=== PATIENT | male | born 1955 | race Caucasian/White ===

== ENCOUNTER 2017-12-12 13:36 | Emergency (ER) | END 2017-12-12 23:13 | disposition home or self-care (01) ==

== ENCOUNTER 2018-05-28 18:45 | Inpatient (IN) | payer OTHER ==
[~2018-05-28] VITALS: Ht 172.7 cm; Wt 55.8 kg
--- NOTE | 2018-05-28 19:10 | ERD ---
ER Documentation Chief Complaint Chief Complaint c/o 2 syncopal episodes, hx stg 4 lung ca. lac to left eyebrow HPI This is a 62-year-old man with metastatic lung cancer with a couple of syncopal episodes today. He states his lung cancer started in the right base and has metastasized diffusely. With this syncopal episode today he injured the skin of the left brow. The episodes were witnessed he had no seizure activity, no feve rs or chills, no vomiting or diarrhea. Patient denies chest pain or shortness of breath. He called his oncologist Dr Kunz earlier today and she recommended admission and will consult him during this stay. ROS All systems reviewed and are negative except as per history of present illness. Medications Home Meds No Active Prescriptions or Reported Meds Allergies Allergies: Coded Allergies: No Known Allergy (Unverified , 01/09/18) PMhx/Soc Metastatic lung carcinoma History of Surgery: Yes (CHOLECYSTECTOMY,HERNIA REPAIR) Anesthesia Reaction: No Hx Neurological Disorder: No Hx Respiratory Disorders: No Hx Cardiac Disorders: No Hx Psychiatric Problems: No Hx Miscellaneous Medical Probl: Yes (ANEMIA) Hx Alcohol Use: Yes Hx Substance Use: No Hx Tobacco Use: Yes FmHx Family History: No diabetes Physical Exam Vitals Vital Signs Date Temp Pulse Resp B/P (MAP) Pulse Ox O2 O2 Flow FiO2 Time Delivery Rate 05/28/18 98 16 97/67 (77) 99 Room Air 20:53 05/28/18 98.0 63 20 78/48 (58) 98 18:48 Physical Exam Const: No acute distress, afebrile, appears dehydrated HEENT: Dry mucous membranes, pale conjunctiva, no cervical spine deformity or tenderness, superficial linear abrasion to the left upper lateral eyelid without active bleeding Resp: Clear to auscultation bilaterally Cardio: Regular rate and rhythm, no murmurs Abd: Soft, non tender, non distended. Normal bowel sounds Skin: No petechiae or rashes. Superficial linear abrasion to the left upper lateral eyelid without active bleeding, no other hematomas or ecchymoses noted Back: No midline or flank tenderness Ext: No cyanosis, or edema Neur: Awake and alert x3, no focal deficits or facial asymmetry, pupils equal round reactive to light Psych: Normal Mood and Affect Result Diagram: 05/28/18193005/28/181930 Results 24 hrs Laboratory Tests Test 05/28/18 19:31 White Blood Count 19.9 10^3/ul Red Blood Count 3.99 10^6/ul Hemoglobin 9.4 g/dl Hematocrit 30.6 % Mean Corpuscular Volume 76.7 fl Mean Corpuscular Hemoglobin 23.6 pg Mean Corpuscular Hemoglobin Concent 30.7 g/dl Red Cell Distribution Width 16.4 % Platelet Count 372 10^3/UL Mean Platelet Volume 9.2 fl Immature Granulocytes % 1.100 % Neutrophils % 84.2 % Lymphocytes % 7.4 % Monocytes % 6.5 % Eosinophils % 0.6 % Basophils % 0.2 % Nucleated Red Blood Cells % 0.0 /100WBC Immature Granulocytes # 0.210 10^3/ul Neutrophils # 16.8 10^3/ul Lymphocytes # 1.5 10^3/ul Monocytes # 1.3 10^3/ul Eosinophils # 0.1 10^3/ul Basophils # 0.0 10^3/ul Nucleated Red Blood Cells # 0.0 10^3/ul Prothrombin Time 15.6 Sec Prothrombin Time Ratio 1.2 INR International Normalized Ratio 1.23 Activated Partial Thromboplast Time 26.3 Sec Sodium Level 131 mmol/L Potassium Level 4.2 mmol/L Chloride Level 95 mmol/L Carbon Dioxide Level 26 mmol/L Anion Gap 10 Blood Urea Nitrogen 37 mg/dl Creatinine 1.33 mg/dl Est Glomerular Filtrat Rate mL/min 55 mL/min Glucose Level 102 mg/dl Calcium Level 12.4 mg/dl Total Bilirubin 0.1 mg/dl Direct Bilirubin 0.00 mg/dl Indirect Bilirubin 0.1 mg/dl Aspartate Amino Transf (AST/SGOT) 77 IU/L Alanine Aminotransferase (ALT/SGPT) 71 IU/L Alkaline Phosphatase 120 IU/L Troponin I < 0.012 ng/ml Total Protein 7.3 g/dl Albumin 3.4 g/dl Globulin 3.90 g/dl Albumin/Globulin Ratio 0.87 Lipase 21 U/L Current Medications Medications Dose Sig/Ute Start Time Status Last (Trade) Ordered Route PRN Stop Time Admin Dose Reason Admin Sodium 1,000 ml @ Q30M STAT 05/28/18 DC 05/28/18 Chloride 2,000 mls/hr IV 19:24 05/28/18 19:36 19:53 Ondansetron 4 mg ONCE STAT 05/28/18 DC 05/28/18 HCl (Zofran IV 19:24 05/28/18 19:41 Inj) 19:26 Procedures/MDM IV line was established patient was placed on teletypesetter monitor rhythm strip revealed a sinus rhythm at about 90 bpm with upright P and T waves. Patient was afebrile EKG performed, read by me revealed a normal sinus rhythm at 97 bpm, normal axis, narrow QRS complex, no concerning ST elevations or depressions noted I administered 2 L normal saline IV for dehydration Zofran 4 mg IV for complaints of dizziness and some nausea. Upper eyelid was irrigated copiously with normal saline, dried, and Steri-Strips were applied. The tissue was well approximated, final length of the linear abrasion was 2 cm. 1 view chest x-ray performed, read by me reveals a right lung base mass, no acute infiltrates, no pneumothorax CBC revealed a leukocytosis at 20, and anemia with a hemoglobin of 9.4, electrolytes revealed dehydration with a BUN/creatinine of 37/1.3, her function tests unremarkable, troponin negative CT scan of the brain was performed that was negative for acute bleed mass or shift. Patient will be admitted to telemetry setting for continued medical management, hydration, and heme/onc consultation Departure Diagnosis: Primary Impression: Metastatic lung carcinoma Laterality: right Qualified Codes: C78.01 - Secondary malignant neoplasm of right lung Additional Impressions: Syncope Syncope type: unspecified Qualified Codes: R55 - Syncope and collapse Acute kidney injury Acute dehydration Abrasion of brow Encounter type: initial encounter Qualified Codes: S00.81XA - Abrasion of other part of head, initial encounter Condition: NUVIA Gomez MD May 28, 2018 19:10
[2018-05-28] MEDS ORDERED: ONDANSETRON 4 MG INJ IV STA (19:24)
[2018-05-28] MEDS ORDERED: SOD CHLORIDE 0.9% 1,000 ML IV STA (19:24)
[2018-05-28 23:54] VITALS: PULSE 77
--- NOTE | 2018-05-28 23:56 | HP ---
Date/Time of Note Date/Time of Note DATE: 05/28/18 TIME: 23:56 Assessment/Plan VTE Prophylaxis Pharmacological prophylaxis: heparin Lines/Catheters IV Catheter Type (from Nrsg): Saline Lock Assessment/Plan Assessment/Plan 1. Syncope: Most likely secondary to orthostatic hypotension. Initial blood pressure 78/48 -Check orthostatics -Hydrate with IV fluid -Consider 2D echo and a carotid Doppler ultrasound 2. Metastatic lung cancer: Notify his oncologist, Dr. Kunz 3. Leukocytosis: Check UA and blood culture. This could be reactive as well 4. Presumed acute renal insufficiency: We will hydrate. See #1 4. Mild hyponatremia: Likely from dehydration. NS IVF for now Result Diagram: 05/28/18193005/28/181930 Results 24hrs Laboratory Tests Test 05/28/18 19:31 White Blood Count 19.9 #H Red Blood Count 3.99 #L Hemoglobin 9.4 #L Hematocrit 30.6 #L Mean Corpuscular Volume 76.7 L Mean Corpuscular Hemoglobin 23.6 #L Mean Corpuscular Hemoglobin Concent 30.7 L Red Cell Distribution Width 16.4 #H Platelet Count 372 # Mean Platelet Volume 9.2 Immature Granulocytes % 1.100 H Neutrophils % 84.2 H Lymphocytes % 7.4 L Monocytes % 6.5 Eosinophils % 0.6 Basophils % 0.2 Nucleated Red Blood Cells % 0.0 Immature Granulocytes # 0.210 H Neutrophils # 16.8 H Lymphocytes # 1.5 Monocytes # 1.3 H Eosinophils # 0.1 Basophils # 0.0 Nucleated Red Blood Cells # 0.0 Prothrombin Time 15.6 H Prothrombin Time Ratio 1.2 INR International Normalized Ratio 1.23 Activated Partial Thromboplast Time 26.3 Sodium Level 131 L Potassium Level 4.2 Chloride Level 95 L Carbon Dioxide Level 26 Anion Gap 10 Blood Urea Nitrogen 37 H Creatinine 1.33 H Est Glomerular Filtrat Rate mL/min 55 L Glucose Level 102 Calcium Level 12.4 H Total Bilirubin 0.1 L Direct Bilirubin 0.00 Indirect Bilirubin 0.1 Aspartate Amino Transf (AST/SGOT) 77 H Alanine Aminotransferase (ALT/SGPT) 71 H Alkaline Phosphatase 120 Troponin I < 0.012 Total Protein 7.3 Albumin 3.4 Globulin 3.90 H Albumin/Globulin Ratio 0.87 Lipase 21 L HPI/ROS Admit Date/Time Admit Date/Time May 28, 2018 at 20:11 Hx of Present Illness This is a 62-year-old male with history of metastatic lung cancer, history of hernia repair who presents to the ER after having had a syncopal episode twice today. He reported lightheadedness, but no chest pain or palpitation. Overall, he does not know how it happened. He sustained laceration to his left eyebrow. He presents the ER, blood pressure was 78/48. Head CT was chronic small vessel disease otherwise no acute findings. Lab shows a WBC of 20,000, hemoglobin 9.4, platelets 372, sodium 131, creatinine 1.33 PMH/Family/Social Past Medical History Medical History: other (see hpi) Coded Allergies: azithromycin (Verified Allergy, Unknown, STOMACH UPSET, [place], 05/28/18) Past Surgical History Past Surgical Hx: other (see hpi) Family History Significant Family History: no pertinent family hx Social History Alcohol Use: other Smoking Status: Never smoker Drug Use: none Exam Constitutional: other (no acute distress) Head: normocephalic Neck: supple Respiratory: normal air movement Cardiovascular: regular rate and rhythm Gastrointestinal: soft Coded Allergies: No Known Allergy (Unverified , 05/29/18) Social History Smoking Status: Current every day smoker Exam/Review of Systems Vital Signs Vitals Vital Signs Date Temp Pulse Resp B/P (MAP) Pulse Ox O2 O2 Flow FiO2 Time Delivery Rate 05/28/18 83 16 90/57 (68) 96 Room Air 22:24 05/28/18 98.0 18:48 DONYA MIDDLETON MD May 28, 2018 23:56
[2018-05-29] VITALS (10 sets, daily range): BP systolic 98–122; BP diastolic 57–72; PULSE 71–95; RESP 18–20
[2018-05-29] MEDS ORDERED: ALBUTEROL/IPRATROPIUM (NEB) 3 ML AMP HHN PRN
[2018-05-29] MEDS ORDERED: NACL 0.9% 3 ML SYG IV SCH
[2018-05-29] MEDS ORDERED: HYDROCODONE/APAP (5/325) TAB PO PRN
[2018-05-29] MEDS ORDERED: ACETAMINOPHEN 325 MG TAB PO PRN
[2018-05-29] MEDS: SOD CHLORIDE 0.9% 1,000 ML IV SCH ×3 (00:43→20:34)
[2018-05-29] MEDS ORDERED: BUPR2TAB SL (01:55)
[2018-05-29] MEDS ORDERED: LEVO750T8 PO (01:55)
[2018-05-29] MEDS ORDERED: DOCU100C59 PO (01:55)
[2018-05-29] MEDS ORDERED: SERT-165 PO (01:55)
[2018-05-29] MEDS ORDERED: FER325 PO (01:55)
[2018-05-29] MEDS ORDERED: KETOROLAC 30 MG INJ IV STA (04:39)
[2018-05-29] MEDS ORDERED: KETOROLAC 15 MG INJ IV PRN (08:30)
[2018-05-29] MEDS: HEPARIN 5,000 UNIT/1 ML VIAL SC SCH ×2 (10:16→20:39)
[2018-05-29] MEDS: morphine 2 MG INJ IV PRN ×5 (13:19→23:58)
[2018-05-29] MEDS: CEFTRIAXONE 1 GM/50 ML (PMX) 50 ML IVPB SCH (14:02)
--- NOTE | 2018-05-29 14:07 | PN ---
Date/Time of Note Date/Time of Note DATE: 05/29/18 TIME: 13:57 Assessment/Plan VTE Prophylaxis Risk score (from Ns)>0 risk: 3 SCD applied (from Ns): Yes Pharmacological prophylaxis: heparin Lines/Catheters IV Catheter Type (from Nrs): Saline Lock Urinary Cath still in place: No Assessment/Plan Assessment/Plan 1. Syncope, likely orthostatic with hypotension, IVF, follow up with carotid us and echo reports 2. Chronic hypotension for years, dizzy, check TSH and cortisol level 3. Metastatic lung cancer, follow up with Dr. Kunz 4. Leukocytosis, recently treated as UTI with levaquin for 5 days, no diarrhea. follow up with UA, rocephin, renal US 5. Acute kidney injury, improving 6. Mild hyponatremia: Likely from dehydration. NS IVF for now 7. Malnutrition 8. Microcytic anemia, iron panel 9. Low back pain, pain control 10. DVT prophylaxis: heparin Result Diagram: 05/29/18 0528 05/29/1828 Results 24hrs Laboratory Tests Test 05/28/18 19:31 05/29/18 05:28 05/29/18 11:35 White Blood Count 19.9 #H 16.0 H Red Blood Count 3.99 #L 3.60 L Hemoglobin 9.4 #L 8.6 L Hematocrit 30.6 #L 28.0 L Mean Corpuscular Volume 76.7 L 77.8 L Mean Corpuscular Hemoglobin 23.6 #L 23.9 L Mean Corpuscular Hemoglobin Concent 30.7 L 30.7 L Red Cell Distribution Width 16.4 #H 16.2 H Platelet Count 372 # 311 Mean Platelet Volume 9.2 9.8 Immature Granulocytes % 1.100 H 1.000 H Neutrophils % 84.2 H 85.4 H Lymphocytes % 7.4 L 5.7 L Monocytes % 6.5 5.9 Eosinophils % 0.6 1.8 Basophils % 0.2 0.2 Nucleated Red Blood Cells % 0.0 0.0 Immature Granulocytes # 0.210 H 0.160 H Neutrophils # 16.8 H 13.7 H Lymphocytes # 1.5 0.9 Monocytes # 1.3 H 0.9 Eosinophils # 0.1 0.3 Basophils # 0.0 0.0 Nucleated Red Blood Cells # 0.0 0.0 Prothrombin Time 15.6 H Prothrombin Time Ratio 1.2 INR International Normalized Ratio 1.23 Activated Partial Thromboplast Time 26.3 Sodium Level 131 L 133 L Potassium Level 4.2 3.9 Chloride Level 95 L 100 Carbon Dioxide Level 26 26 Anion Gap 10 7 Blood Urea Nitrogen 37 H 32 H Creatinine 1.33 H 1.10 Est Glomerular Filtrat Rate mL/min 55 L > 60 Glucose Level 102 87 Calcium Level 12.4 H 12.1 H Total Bilirubin 0.1 L 0.1 L Direct Bilirubin 0.00 0.00 Indirect Bilirubin 0.1 0.1 Aspartate Amino Transf (AST/SGOT) 77 H 56 H Alanine Aminotransferase (ALT/SGPT) 71 H 59 Alkaline Phosphatase 120 95 Troponin I < 0.012 Total Protein 7.3 6.2 # Albumin 3.4 2.8 L Globulin 3.90 H 3.40 H Albumin/Globulin Ratio 0.87 0.82 Lipase 21 L Hemoglobin A1c 5.7 Magnesium Level 2.0 Triglycerides Level 94 Cholesterol Level 112 LDL Cholesterol, Calculated 70 HDL Cholesterol 23 L Cholesterol/HDL Ratio 4.8 Thyroid Stimulating Hormone (TSH) 0.316 L Urine Color Pending Urine Clarity Pending Urine Ketones Pending Urine Nitrite Pending Urine Bilirubin Pending Urine Urobilinogen Pending Urine Leukocyte Esterase Pending Urine Microscopic RBC 1 Urine Microscopic WBC 3 Urine Bacteria FEW A Urine Mucus FEW A Urine Hemoglobin Pending Urine Glucose Pending Urine Total Protein Pending Subjective 24 Hr Interval Summary Free Text/Dictation lower back pain Exam/Review of Systems Exam Vitals Vital Signs Date Temp Pulse Resp B/P (MAP) Pulse Ox O2 O2 Flow FiO2 Time Delivery Rate 05/29/18 73 12:00 05/29/18 98.5 18 99/62 (74) 94 Room Air 11:16 Constitutional: alert, oriented, well developed, frail Head: normocephalic, atraumatic Eyes: nl conjunctiva, EOMI, nl lids ENMT: nl external ears & nose, nl lips & teeth, nl nasal mucosa & septum Neck: supple, non-tender Respiratory: clear to auscultation, normal air movement; No congested cough, No crackles/rales, No diminished breath sounds, No intercostal retraction, No labored breathing, No respirations, No tactile fremitus, No wheezing, No other Cardiovascular: regular rate and rhythm, nl pulses; No bruits, No diastolic murmur, No edema, No gallop, No irregular rhythm, No jugular venous distention (JVD), No murmurs/extra sounds, No rub, No systolic murmur, No S3, No S4, No other Gastrointestinal: soft, nl liver, spleen, non-tender Musculoskeletal: nl extremities to inspection Extremities: normal pulses Neurological: [employer] II-XII intact, nl mental status, nl speech, nl strength Results Results 24hrs Laboratory Tests Test 05/28/18 19:31 05/29/18 05:28 05/29/18 11:35 White Blood Count 19.9 #H 16.0 H Red Blood Count 3.99 #L 3.60 L Hemoglobin 9.4 #L 8.6 L Hematocrit 30.6 #L 28.0 L Mean Corpuscular Volume 76.7 L 77.8 L Mean Corpuscular Hemoglobin 23.6 #L 23.9 L Mean Corpuscular Hemoglobin Concent 30.7 L 30.7 L Red Cell Distribution Width 16.4 #H 16.2 H Platelet Count 372 # 311 Mean Platelet Volume 9.2 9.8 Immature Granulocytes % 1.100 H 1.000 H Neutrophils % 84.2 H 85.4 H Lymphocytes % 7.4 L 5.7 L Monocytes % 6.5 5.9 Eosinophils % 0.6 1.8 Basophils % 0.2 0.2 Nucleated Red Blood Cells % 0.0 0.0 Immature Granulocytes # 0.210 H 0.160 H Neutrophils # 16.8 H 13.7 H Lymphocytes # 1.5 0.9 Monocytes # 1.3 H 0.9 Eosinophils # 0.1 0.3 Basophils # 0.0 0.0 Nucleated Red Blood Cells # 0.0 0.0 Prothrombin Time 15.6 H Prothrombin Time Ratio 1.2 INR International Normalized Ratio 1.23 Activated Partial Thromboplast Time 26.3 Sodium Level 131 L 133 L Potassium Level 4.2 3.9 Chloride Level 95 L 100 Carbon Dioxide Level 26 26 Anion Gap 10 7 Blood Urea Nitrogen 37 H 32 H Creatinine 1.33 H 1.10 Est Glomerular Filtrat Rate mL/min 55 L > 60 Glucose Level 102 87 Calcium Level 12.4 H 12.1 H Total Bilirubin 0.1 L 0.1 L Direct Bilirubin 0.00 0.00 Indirect Bilirubin 0.1 0.1 Aspartate Amino Transf (AST/SGOT) 77 H 56 H Alanine Aminotransferase (ALT/SGPT) 71 H 59 Alkaline Phosphatase 120 95 Troponin I < 0.012 Total Protein 7.3 6.2 # Albumin 3.4 2.8 L Globulin 3.90 H 3.40 H Albumin/Globulin Ratio 0.87 0.82 Lipase 21 L Hemoglobin A1c 5.7 Magnesium Level 2.0 Triglycerides Level 94 Cholesterol Level 112 LDL Cholesterol, Calculated 70 HDL Cholesterol 23 L Cholesterol/HDL Ratio 4.8 Thyroid Stimulating Hormone (TSH) 0.316 L Urine Color Pending Urine Clarity Pending Urine Ketones Pending Urine Nitrite Pending Urine Bilirubin Pending Urine Urobilinogen Pending Urine Leukocyte Esterase Pending Urine Microscopic RBC 1 Urine Microscopic WBC 3 Urine Bacteria FEW A Urine Mucus FEW A Urine Hemoglobin Pending Urine Glucose Pending Urine Total Protein Pending Medications Medication Current Medications Sodium Chloride 1,000 ml @ 100 mls/hr Q10H IV Last administered on 05/29/18at 09:30; Admin Dose 100 MLS/HR; Start 05/28/18 at 23:55 IV Flush (NS 3 ml) 3 ml PER PROTOCOL IV ; Start 05/29/18 at 00:00 Acetaminophen (Tylenol Tab) 650 mg Q6H PRN PO .PAIN 1-3 OR TEMP; Start 05/29/18 at 00:00 Acetaminophen/ Hydrocodone Bitart ([place] (5/325)) 1 tab Q6H PRN PO .PAIN 4-6 Last administered on 05/29/18at 03:08; Admin Dose 1 TAB; Start 05/29/18 at 00:00 Heparin Sodium (Porcine) (Heparin (5000 Units/1ml)) 5,000 unit Q12 SC Last administered on 05/29/18at 10:16; Admin Dose 5,000 UNIT; Start 05/29/18 at 09:00 Albuterol/ Ipratropium (Duoneb) 3 ml Q2H RESP THERAPY PRN HHN SHORTNESS OF BREATH; Start 05/29/18 at 00:00 Ketorolac Tromethamine (Toradol) 15 mg ONCE PRN IV PAIN; Start 05/29/18 at 08:30; Stop 06/01/18 at 13:00 Miscellaneous Information Patients own medicat... BID@10,16 XX ; Start 05/29/18 at 16:00 Morphine Sulfate (morphine) 2 mg Q3H PRN IV SEVERE PAIN LEVEL 7-10 Last administered on 05/29/18at 13:19; Admin Dose 2 MG; Start 05/29/18 at 13:30 Ceftriaxone Sodium 50 ml @ 100 mls/hr Q24H IVPB ; Start 05/29/18 at 14:00 SHERLYN CORONA MD May 29, 2018 14:07
[2018-05-30] VITALS (8 sets, daily range): BP systolic 96–128; BP diastolic 51–76; PULSE 69–102; RESP 18–19
[2018-05-30] MEDS: morphine 2 MG INJ IV PRN ×3 (03:01→13:59)
[2018-05-30] MEDS: SOD CHLORIDE 0.9% 1,000 ML IV SCH (05:55)
[2018-05-30] MEDS: HEPARIN 5,000 UNIT/1 ML VIAL SC SCH (09:43)
[2018-05-30] MEDS: CEFTRIAXONE 1 GM/50 ML (PMX) 50 ML IVPB SCH (14:02)
[2018-05-30] MEDS ORDERED: POTASSIUM CHLORIDE (SR) 20 MEQ TAB PO STA (14:41)
[2018-05-30] MEDS ORDERED: LEVO500T48 PO (14:48)
--- NOTE | 2018-05-30 15:03 | DS ---
Date/Time of Note Date/Time of Note DATE: 05/30/18 TIME: 14:49 Discharge Summary Admission/Discharge Info Admit Date/Time May 28, 2018 at 20:11 Discharge Date/Time Discharge Diagnosis 1. Syncope, hypotension related 2. Pneumonia, stable, levaquin 3. Left side chest pain from trauma when he fell, pain control 4. Metastatic lung cancer, follow up with Dr. Kunz 5. Acute kidney injury, improved 6. Mild hyponatremia: due to dehydration. stable 7. Malnutrition 8. Microcytic anemia, iron panel 9. Low back pain, pain control 10. Hypokalemia, KCL given Patient Condition: Stable Hospital Course This is a 62-year-old male with history of metastatic lung cancer, history of hernia repair who presents to the ER after having had a syncopal episode twice today. He reported lightheadedness, but no chest pain or palpitation. Overall, he does not know how it happened. He sustained laceration to his left eyebrow. He presents the ER, blood pressure was 78/48. Head CT was chronic small vessel disease otherwise no acute findings. Lab shows a WBC of 20,000, hemoglobin 9.4, platelets 372, sodium 131, creatinine 1.33. Clinically patient is dehydrated with hypotension, acute renal failure. He is treated with IVF, hypotension and renal failure resolved. CXR with right lower lobe infiltrates, and WBC is high at 19,900. Patient is on antibiotics and he will continue on levaquin for 7 days for pneumonia. Patient has left chest wall pain with tenderness. chest X-ray no fracture or lytic lesion. He fell onto the left side. Home Meds Active Scripts Levofloxacin* (Levaquin*) 500 Mg Tablet, 500 MG PO DAILY for 7 Days, TAB Prov:SHERLYN CORONA MD 05/30/18 Reported Medications Docusate Sodium (Col-Rite) 100 Mg Capsule, 100 MG PO BID take 1 capsule by mouth twice a day 05/29/18 Ferrous Sulfate* (Ferrous Sulfate*) 325 Mg Tabec, 325 MG PO BID take 1 tablet by mouth twice a day 05/29/18 Sertraline Hcl* (Sertraline Hcl*) 100 Mg Tablet, 100 MG PO QHS 05/29/18 Buprenorphine Hcl (BUPRENORPHINE HCL) 2 Mg Tab.subl, 2 MG SL PRN for Q4H, TAB.SL 05/29/18 Discontinued Reported Medications Levofloxacin* (Levofloxacin*) 750 Mg Tablet, 750 MG PO DAILY for 7 Days, #7 take 1 tablet by mouth once daily for 7 days 05/29/18 Follow-up Plan PCP and oncology in one week Primary Care Provider [facility] Pending Labs Laboratory Tests Test 05/30/18 07:20 05/30/18 09:36 Lab Scanned Report BLOOD TRANSFUSION White Blood Count 15.0 10^3/ul (4.8-10.8) Red Blood Count 4.11 10^6/ul (4.70-6.10) Hemoglobin 10.3 g/dl (14.0-18.0) Hematocrit 32.0 % (42.0-52.0) Mean Corpuscular Volume 77.9 fl (82.0-101.0) Mean Corpuscular Hemoglobin 25.1 pg (29.0-33.0) Mean Corpuscular 32.2 g/dl (32.0-37.0) Hemoglobin Concent Red Cell Distribution Width 16.0 % (11.5-14.5) Platelet Count 303 10^3/UL (140-415) Mean Platelet Volume 10.1 fl (7.4-10.4) Immature Granulocytes % 0.900 % (0.001-0.429) Neutrophils % 83.3 % (39.0-77.0) Lymphocytes % 7.7 % (15.0-51.0) Monocytes % 5.6 % (0.0-11.0) Eosinophils % 2.2 % (0.0-7.0) Basophils % 0.3 % (0.0-2.0) Nucleated Red Blood Cells % 0.0 /100WBC (0.0-0.0) Immature Granulocytes # 0.140 10^3/ul (0.0-0.031) Neutrophils # 12.5 10^3/ul (1.6-7.5) Lymphocytes # 1.2 10^3/ul (0.8-2.9) Monocytes # 0.8 10^3/ul (0.3-0.9) Eosinophils # 0.3 10^3/ul (0.0-0.5) Basophils # 0.0 10^3/ul (0.0-0.1) Nucleated Red Blood Cells # 0.0 10^3/ul (0.0-0.0) Sodium Level 133 mmol/L (135-144) Potassium Level 3.4 mmol/L (3.5-5.1) Chloride Level 106 mmol/L (97-110) Carbon Dioxide Level 23 mmol/L (21-31) Anion Gap 4 (5-13) Blood Urea Nitrogen 22 mg/dl (7-20) Creatinine 0.87 mg/dl (0.61-1.24) Est Glomerular Filtrat Rate mL/min > 60 mL/min (>60) Glucose Level 87 mg/dl (70-220) Calcium Level 11.6 mg/dl (8.4-10.2) Iron Level 27 ug/dl (35-150) Total Iron Binding Capacity 168 ug/dl (241-421) Percent Iron Saturation 16 % SAT (22-52) Thyroid Stimulating Hormone (TSH) 0.372 MIU/L (0.465-4.680) Random Cortisol 35.0 ug/dl SHERLYN CORONA MD May 30, 2018 15:00
--- NOTE | 2018-05-30 15:15 | CONS ---
Assessment/Plan Assessment/Plan Hospital Course (Demo Recall) #STAGE IV Lung Ca -on nivolumab as an out patient -will rescan in July to re-evaluate the lung nodules -continue nivolumab for now #Syncope -cT Brain negative -f/u echo and carotic dopplers -f/u TSH and cortisol levels #Anemia -s/p 2 units of PRBCs with good Hg response #Pneumonia -this is likely the cause of his leukocytosis -continue CTX for now Consultation Date/Type/Reason Admit Date/Time May 28, 2018 at 20:11 Date of Consultation: May 30, 2018 Type of Consult oncology Reason for Consultation metastatic lung cancer Requesting Provider: DONYA MIDDLETON MD Date/Time of Note DATE: 05/30/18 TIME: 14:18 Hx of Present Illness 62-year old male referred to because of 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 He also experienced fatigue for the past 2-3 weeks. No weight loss and no loss of appetite. 09/06/17- Patient admitted at [facility] because of cough, night sweats and hemoptysis -CXR showed a large right lower lobe lung mass with small left mid-lung 1.1 cm. nodule that are suspicious for possible neoplasm. -CT Scan of the chest without contrast demonstrated a 7.7cm rounded mass in right lower lobe as well as a 1.0cm solid nodule in periphery of left upper lobe - Bronchoscopy and BAL of Right lower lobe was done which revealed no dysplasia or malignancy. -CT A/P did not reveal evidence of metastatic disease below the diaphragm 09/07/17- CT-Guided right lower lobe biopsy showed Squamous Cell Carcinoma, moderately-differentiated. Positive PD-L1 10% expression, negative TTF1, positive p63, negative synpatophysin and 90% ki-67. 10/18/17: started Gemzar cycle 1, day 8. Still having cough, night sweats and occasional hemoptysis. 02/07/18 CT Chest internal increase in size of RLL pulmonary mass measuring up to 7.6 cm now with central necrosis with internal increase in size of multiple bilateral pulmonary nodules consistent with worsening satellite nodules, also increase size of mediastinal and hilar lymph nodes consistent with mirella mets 02/23/18 CT Chest reveals increase in mediastinal and right hilar adenopathy and stable liver cysts. CT Brain without evidence of disease 03/08/2018 pt enrolled in clinical trial and started nivolumab 05/03/18 due for nivolumab today. states SOB is better but he feels more fatigued. 04/30/18 WBC13.9 Hg 8.5 platelets 451, CA 11.3 04/26/[address] reveals increasing size of the right mass to 13.8, enlarging mediastinal adenopathy, enlarging RP adenopathy. NO NEW LESIONS NOTED. This was deemed PSEUDOPROGRESSION and pt was continued on nivolumab 05/29/17 pt presented to [facility] for progressive weakness and 2 episodes of blacking out. CT Brain did not reveal any thing suspicious. Hg was noted to be 8.6 and so he received 2 units of PRBCs overnight. Constitutional: poor po Eyes: no complaints ENT: no complaints Respiratory: shortness of breath Cardiovascular: lightheadedness, palpitations Gastrointestinal: no complaints Genitourinary: no complaints Musculoskeletal: back pain, bone/joint pain Skin: no complaints Neurologic: no complaints Past Medical History Depression Insomnia Home Meds Active Scripts Levofloxacin* (Levaquin*) 500 Mg Tablet, 500 MG PO DAILY for 7 Days, TAB Prov:SHERLYN CORONA MD 05/30/18 Reported Medications Docusate Sodium (Col-Rite) 100 Mg Capsule, 100 MG PO BID take 1 capsule by mouth twice a day 05/29/18 Ferrous Sulfate* (Ferrous Sulfate*) 325 Mg Tabec, 325 MG PO BID take 1 tablet by mouth twice a day 05/29/18 Sertraline Hcl* (Sertraline Hcl*) 100 Mg Tablet, 100 MG PO QHS 05/29/18 Buprenorphine Hcl (BUPRENORPHINE HCL) 2 Mg Tab.subl, 2 MG SL PRN for Q4H, TAB.SL 05/29/18 Discontinued Reported Medications Levofloxacin* (Levofloxacin*) 750 Mg Tablet, 750 MG PO DAILY for 7 Days, #7 take 1 tablet by mouth once daily for 7 days 05/29/18 Medications Current Medications Sodium Chloride 1,000 ml @ 100 mls/hr Q10H IV Last administered on 05/29/18at 20:34; Admin Dose 100 MLS/HR; Start 05/28/18 at 23:55 IV Flush (NS 3 ml) 3 ml PER PROTOCOL IV ; Start 05/29/18 at 00:00 Acetaminophen (Tylenol Tab) 650 mg Q6H PRN PO .PAIN 1-3 OR TEMP; Start 05/29/18 at 00:00 Acetaminophen/ Hydrocodone Bitart ([place] (5/325)) 1 tab Q6H PRN PO .PAIN 4-6 Last administered on 05/29/18at 03:08; Admin Dose 1 TAB; Start 05/29/18 at 00:00 Heparin Sodium (Porcine) (Heparin (5000 Units/1ml)) 5,000 unit Q12 SC Last administered on 05/30/18at 09:43; Admin Dose 5,000 UNIT; Start 05/29/18 at 09:00 Albuterol/ Ipratropium (Duoneb) 3 ml Q2H RESP THERAPY PRN HHN SHORTNESS OF BREATH; Start 05/29/18 at 00:00 Ketorolac Tromethamine (Toradol) 15 mg ONCE PRN IV PAIN Last administered on 12/08at 04:57; Admin Dose 15 MG; Start 05/29/18 at 08:30; Stop 06/01/18 at 13:00 Miscellaneous Information Patients own medicat... BID@10,16 XX ; Start 05/29/18 at 16:00 Morphine Sulfate (morphine) 2 mg Q3H PRN IV SEVERE PAIN LEVEL 7-10 Last administered on 05/30/18at 13:59; Admin Dose 2 MG; Start 05/29/18 at 13:30 Ceftriaxone Sodium 50 ml @ 100 mls/hr Q24H IVPB Last administered on 05/30/18at 14:02; Admin Dose 100 MLS/HR; Start 05/29/18 at 14:00 Allergies: Coded Allergies: No Known Allergy (Unverified , 05/29/18) Past Surgical History s/p lap katie hernia repair Family History Significant Family History: no pertinent family hx Social History Smoking Status: Current every day smoker Exam/Review of Systems Exam Vitals Vital Signs Date Temp Pulse Resp B/P (MAP) Pulse Ox O2 O2 Flow FiO2 Time Delivery Rate 05/30/18 72 13:43 05/30/18 97.5 18 101/58 98 Room Air 11:23 (72) Intake and Output 05/29/18 05/29/18 05/30/18 1515:00 23:00 07:00 IntakeIntake Total 830 ml BalanceBalance 830 ml Constitutional: alert, oriented, distress, frail Psych: anxiety, depression Head: normocephalic ENMT: nl external ears & nose Neck: supple Respiratory: diminished breath sounds Cardiovascular: regular rate and rhythm Gastrointestinal: soft Musculoskeletal: nl extremities to inspection Results Result Diagram: 05/30/18 0936 05/30/18 0936 Results 24hrs Laboratory Tests Test 05/30/18 07:20 05/30/18 09:36 Lab Scanned Report BLOOD TRANSFUSION White Blood Count 15.0 H Red Blood Count 4.11 L Hemoglobin 10.3 L Hematocrit 32.0 L Mean Corpuscular Volume 77.9 L Mean Corpuscular Hemoglobin 25.1 L Mean Corpuscular Hemoglobin Concent 32.2 Red Cell Distribution Width 16.0 H Platelet Count 303 Mean Platelet Volume 10.1 Immature Granulocytes % 0.900 H Neutrophils % 83.3 H Lymphocytes % 7.7 L Monocytes % 5.6 Eosinophils % 2.2 Basophils % 0.3 Nucleated Red Blood Cells % 0.0 Immature Granulocytes # 0.140 H Neutrophils # 12.5 H Lymphocytes # 1.2 Monocytes # 0.8 Eosinophils # 0.3 Basophils # 0.0 Nucleated Red Blood Cells # 0.0 Sodium Level 133 L Potassium Level 3.4 L Chloride Level 106 Carbon Dioxide Level 23 Anion Gap 4 L Blood Urea Nitrogen 22 H Creatinine 0.87 Est Glomerular Filtrat Rate mL/min > 60 Glucose Level 87 Calcium Level 11.6 H Iron Level 27 L Total Iron Binding Capacity 168 L Percent Iron Saturation 16 L Thyroid Stimulating Hormone (TSH) 0.372 L Random Cortisol 35.0 Medications Medication Current Medications Sodium Chloride 1,000 ml @ 100 mls/hr Q10H IV Last administered on 05/29/18at 20:34; Admin Dose 100 MLS/HR; Start 05/28/18 at 23:55 IV Flush (NS 3 ml) 3 ml PER PROTOCOL IV ; Start 05/29/18 at 00:00 Acetaminophen (Tylenol Tab) 650 mg Q6H PRN PO .PAIN 1-3 OR TEMP; Start 05/29/18 at 00:00 Acetaminophen/ Hydrocodone Bitart ([place] (5/325)) 1 tab Q6H PRN PO .PAIN 4-6 Last administered on 05/29/18at 03:08; Admin Dose 1 TAB; Start 05/29/18 at 00:00 Heparin Sodium (Porcine) (Heparin (5000 Units/1ml)) 5,000 unit Q12 SC Last administered on 05/30/18at 09:43; Admin Dose 5,000 UNIT; Start 05/29/18 at 09:00 Albuterol/ Ipratropium (Duoneb) 3 ml Q2H RESP THERAPY PRN HHN SHORTNESS OF BREATH; Start 05/29/18 at 00:00 Ketorolac Tromethamine (Toradol) 15 mg ONCE PRN IV PAIN Last administered on 05/30/18at 04:57; Admin Dose 15 MG; Start 05/29/18 at 08:30; Stop 06/01/18 at 1 3:00 Miscellaneous Information Patients own medicat... BID@10,16 XX ; Start 05/29/18 at 16:00 Morphine Sulfate (morphine) 2 mg Q3H PRN IV SEVERE PAIN LEVEL 7-10 Last administered on 05/30/18at 13:59; Admin Dose 2 MG; Start 05/29/18 at 13:30 Ceftriaxone Sodium 50 ml @ 100 mls/hr Q24H IVPB Last administered on 05/30/18at 14:02; Admin Dose 100 MLS/HR; Start 05/29/18 at 14:00 THELMA HASKINS M.D. May 30, 2018 14:29
== END 2018-05-30 16:19 | disposition home or self-care (01) | DRG 312 ==
LOC: E/R 18:45 → TEL 20:11
PROVIDERS: ADMIT Internal Medicine; ATTEND Internal Medicine
PROC: 30233N1 Transfusion of Nonautologous Red Blood Cells into Peripheral Vein, Percutaneous Approach (ICD-10-PCS; principal; 2018-05-29)
DX: I95.1 Orthostatic hypotension (principal); J18.9 Pneumonia, unspecified organism; N17.9 Acute kidney failure, unspecified; C34.91 Malignant neoplasm of unspecified part of right bronchus or lung; C79.9 Secondary malignant neoplasm of unspecified site; E87.1 Hypo-osmolality and hyponatremia; E46 Unspecified protein-calorie malnutrition; Z68.1 Body mass index [BMI] 19.9 or less, adult; R55 Syncope and collapse; E86.0 Dehydration; S00.81XA Abrasion of other part of head, initial encounter; D72.829 Elevated white blood cell count, unspecified; Z72.0 Tobacco use; M54.5 Low back pain; D64.9 Anemia, unspecified
CPT/HCPCS: 36415; 36430; 70450; 71045; 76775; 80048; 80053; 80061; 81001; 81003; 82533; 83036; 83540; 83690; 83735; 84443; 84484; 85025; 85610; 85730; 86850; 86900; 86901; 86920; 87086; 93005; 93306; 96374; J0696; J1644; J1885; J2270; J7030; P9016

== ENCOUNTER 2018-06-10 13:32 | Observation (INO) | payer OTHER ==
[~2018-06-10] VITALS: Ht 172.7 cm; Wt 55.5 kg
[~2018-06-10 13:32] MED LIST: BUPR2TAB SL; DOCU100C59 PO; FER325 PO; LEVO500T48 PO; SERT-165 PO
--- NOTE | 2018-06-10 14:01 | ERD ---
ER Documentation Chief Complaint Chief Complaint nausea chronic lbp HPI The patient is a 62-year-old male, presenting to the ER because of chronic nausea, worse for the last 2 weeks, Zofran today.. He also complains of chronic low back pain, denies fever, chills, neck pain, chest pain, dyspnea, abdominal pain, vomiting, dysuria, diarrhea. He recently had a full body scan about 6 days ago that was unremarkable according to him He spoke with his oncologist Dr Kunz about an hour prior to arrival, according to him his oncologist would like to admit him Past medical history: Metastatic lung CA, depression, chronic low back pain, anemia Past surgical history: Cholecystectomy, right inguinal herniorrhaphy ROS All systems reviewed and are negative except as per history of present illness. Medications Home Meds Reported Medications Sertraline Hcl* (Sertraline Hcl*) 100 Mg Tablet, 100 MG PO QHS, #30 TAB 06/10/18 Ferrous Sulfate* (Ferrous Sulfate*) 325 Mg Tabec, 325 MG PO BID, TAB 06/10/18 Docusate Sodium (Col-Rite) 100 Mg Capsule, 100 MG PO BID, CAP 06/10/18 Buprenorphine Hcl (BUPRENORPHINE HCL) 2 Mg Tab.subl, 2 MG SL Q4, TAB.SL 06/10/18 Discontinued Reported Medications Docusate Sodium (Col-Rite) 100 Mg Capsule, 100 MG PO BID take 1 capsule by mouth twice a day 05/29/18 Ferrous Sulfate* (Ferrous Sulfate*) 325 Mg Tabec, 325 MG PO BID take 1 tablet by mouth twice a day 05/29/18 Sertraline Hcl* (Sertraline Hcl*) 100 Mg Tablet, 100 MG PO QHS 05/29/18 Buprenorphine Hcl (BUPRENORPHINE HCL) 2 Mg Tab.subl, 2 MG SL PRN for Q4H, TAB.SL 05/29/18 Discontinued Scripts Levofloxacin* (Levaquin*) 500 Mg Tablet, 500 MG PO DAILY for 7 Days, TAB Prov:SHERLYN CORONA MD 05/30/18 Allergies Allergies: Coded Allergies: No Known Allergy (Unverified , 06/10/18) PMhx/Soc History of Surgery: No Anesthesia Reaction: No Hx Neurological Disorder: No Hx Respiratory Disorders: Yes (LUNG CA) Hx Cardiac Disorders: No Hx Psychiatric Problems: No Hx Miscellaneous Medical Probl: No Hx Alcohol Use: No Hx Substance Use: No Hx Tobacco Use: Yes Physical Exam Vitals Vital Signs Date Temp Pulse Resp B/P (MAP) Pulse Ox O2 O2 Flow FiO2 Time Delivery Rate 06/10/18 98.6 95 16 101/68 100 13:45 (79) Physical Exam Const: No acute distress. Dehydrated Head: Atraumatic. Eyes: Normal Conjunctiva. ENT: Normal External Ears, Nose and Mouth. Neck: Full range of motion. No meningismus. Resp: Clear to auscultation bilaterally. Cardio: Regular rate and rhythm. Abd: Soft, non distended, normal bowel sounds, non tender. Skin: No petechiae or rashes. Back: No midline or flank tenderness. No spinal tenderness Ext: No cyanosis, or edema. Neur: Awake and alert. No focal deficit Psych: Normal Mood and Affect. Result Diagram: 06/10/18 1521 06/10/18 1521 Results 24 hrs Laboratory Tests Test 06/10/18 15:21 06/10/18 16:02 White Blood Count 18.8 10^3/ul Red Blood Count 3.62 10^6/ul Hemoglobin 9.0 g/dl Hematocrit 29.2 % Mean Corpuscular Volume 80.7 fl Mean Corpuscular Hemoglobin 24.9 pg Mean Corpuscular Hemoglobin Concent 30.8 g/dl Red Cell Distribution Width 18.1 % Platelet Count 268 10^3/UL Mean Platelet Volume 9.3 fl Immature Granulocytes % 0.800 % Neutrophils % 86.0 % Lymphocytes % 5.3 % Monocytes % 7.4 % Eosinophils % 0.3 % Basophils % 0.2 % Nucleated Red Blood Cells % 0.0 /100WBC Immature Granulocytes # 0.150 10^3/ul Neutrophils # 16.2 10^3/ul Lymphocytes # 1.0 10^3/ul Monocytes # 1.4 10^3/ul Eosinophils # 0.1 10^3/ul Basophils # 0.0 10^3/ul Nucleated Red Blood Cells # 0.0 10^3/ul Sodium Level 135 mmol/L Potassium Level 4.0 mmol/L Chloride Level 105 mmol/L Carbon Dioxide Level 26 mmol/L Anion Gap 4 Blood Urea Nitrogen 22 mg/dl Creatinine 0.95 mg/dl Est Glomerular Filtrat Rate mL/min > 60 mL/min Glucose Level 102 mg/dl Calcium Level 12.1 mg/dl Total Bilirubin 0.3 mg/dl Direct Bilirubin 0.00 mg/dl Indirect Bilirubin 0.3 mg/dl Aspartate Amino Transf (AST/SGOT) 28 IU/L Alanine Aminotransferase (ALT/SGPT) 33 IU/L Alkaline Phosphatase 126 IU/L Total Protein 6.4 g/dl Albumin 2.8 g/dl Globulin 3.60 g/dl Albumin/Globulin Ratio 0.77 Lipase < 10 U/L Bedside Urine pH (LAB) 6.0 Bedside Urine Protein (LAB) Negative Bedside Urine Glucose (UA) Negative Bedside Urine Ketones (LAB) Negative Bedside Urine Blood Trace-intact Bedside Urine Nitrite (LAB) Negative Bedside Urine Leukocyte Esterase (L Negative Current Medications Medications Dose Sig/Ute Start Time Status Last (Trade) Ordered Route PRN Stop Time Admin Dose Reason Admin Ondansetron 4 mg ONCE STAT 06/10/18 DC 06/10/18 HCl (Zofran IV 14:19 14:19 Inj) 06/10/18 14:21 Sodium 1,000 ml @ Q1H ONCE 06/10/18 DC 06/10/18 Chloride 1,000 mls/hr IV 14:30 14:30 06/10/18 15:29 Docusate 100 mg BID PO 06/10/18 Sodium 21:00 (Colace) Ferrous 325 mg BID PO 06/10/18 Sulfate 21:00 (Ferrous Sulfate (Ec)) Sertraline 100 mg QHS PO 06/10/18 HCl 21:00 (Zoloft) Sodium 1,000 ml @ Q10H IV 06/10/18 Chloride 100 mls/hr 16:38 IV Flush 3 ml PER 06/10/18 (NS 3 ml) PROTOCOL IV 17:00 Ondansetron 4 mg Q6H PRN 06/10/18 HCl (Zofran IV 17:00 Inj) NAUSEA/VOMITI NG 10 mg Q6H PRN 06/10/18 Metoclopramid IV 17:00 e HCl NAUSEA/VOMITI (Reglan) NG 650 mg Q6H PRN 06/10/18 Acetaminophen PO .PAIN 1-3 17:00 (Tylenol OR TEMP Tab) 1 tab Q6H PRN 06/10/18 Acetaminophen PO .MOD PAIN 17:00 / 4-6 Hydrocodone Bitart ([place] (5/325)) Morphine 2 mg Q4H PRN 06/10/18 Sulfate IV .SEVERE 17:00 (morphine) PAIN 7-10 Enoxaparin 30 mg DAILY SC 06/11/18 Sodium 09:00 (Lovenox) Famotidine 20 mg BID PO 06/10/18 (Pepcid) 21:00 Procedures/MDM CXR Pending Consultation: I discussed the patient with his oncologist Dr. Kunz at 3:15 PM, who would like to be the patient for rehydration and brain MRI in the morning MEDICAL MAKING DECISION: The patient is a 62-year-old male, presenting for acute dehydration, chronic low back pain. He was treated with Zofran for nausea and 1 L normal saline for dehydration with good response. He has leukocytosis of unclear etiology, no evidence of infection, ?medication The differential diagnoses considered include but are not limited to dehydration, electrolyte imbalance, metastatic disease Departure Diagnosis: Primary Impression: Dehydration Additional Impression: Anemia Condition: Stable Comments I discussed the findings with the patient. I discussed the patient with Dr Ponce at 4:15p , who was made aware of the lab, the treatment, the patient condition. The patient is admitted to [facility] Disclaimer: Inadvertent spelling and grammatical errors are likely due to EHR /dictation software use and do not reflect on the overall quality of patient care. Also, please note that the electronic time recorded on this note does not necessarily reflect the actual time of the patient encounter. TORIBIO GRANADOS MD Jun 10, 2018 14:01
[2018-06-10] MEDS ORDERED: ONDANSETRON 4 MG INJ IV STA (14:19)
[2018-06-10] MEDS ORDERED: SOD CHLORIDE 0.9% 1,000 ML IV ONE (14:30)
[2018-06-10] MEDS ORDERED: DOCU100C59 PO (16:16)
[2018-06-10] MEDS ORDERED: BUPR2TAB SL (16:16)
[2018-06-10] MEDS ORDERED: FER325 PO (16:17)
[2018-06-10] MEDS ORDERED: SERT-165 PO (16:17)
--- NOTE | 2018-06-10 16:46 | HP ---
Date/Time of Note Date/Time of Note DATE: 06/10/18 TIME: 16:43 Assessment/Plan VTE Prophylaxis Pharmacological prophylaxis: LMWH Lines/Catheters IV Catheter Type (from [facility]): Peripheral IV Assessment/Plan Hospital Course 62-year-old male with comorbidities including stage IV lung cancer getting immunotherapy as outpatient, iron deficiency anemia, and malnutrition who was referred to the emergency room by the patient's primary oncologist because of concerns of dehydration from persistent nausea and vomiting for the past few days, who was found to have evidence of underlying dehydration and will be admitted to inpatient setting for further treatment and evaluation. 1. Intractable nausea/vomiting. -Etiology unclear. -He denied any prior nausea/vomiting associated with immunotherapy or chemotherapy. -Possible underlying gastritis. -Start the patient on antiemetics and prokinetics. -Adequately hydrate the patient. 2. Low back pain. -Etiology unclear. -As per the patient, he recently had a whole-body imaging as outpatient results are pending. -Will obtain abdominal x-ray to evaluate for any urolithiasis. -Will await oncology input before doing further imaging of the lower back. -Continue analgesics. 3. Leukocytosis. -Most probably reactive in origin. -The patient remains afebrile. -Monitor. 4. Microcytic, hypochromic anemia. -Most probably secondary to iron deficiency. -Continue iron supplements. 5. Moderate protein calorie malnutrition -Obtain dietary consult. -Dietary supplements when able to tolerate oral intake. 6. Hypercalcemia. -Etiology could be multifactorial including underlying malignancy and dehydration. -Adequately hydrate the patient. Plan: The patient will be admitted to inpatient medical surgical floor. The patient will be started on a clear liquid diet. The patient will be started on DVT prophylaxis and gastrointestinal prophylaxis. The patient will remain a full code. Activities will be as tolerated. The rest of the patient's management will be based on the clinical course, inputs from consultants, and the results of diagnostic studies. Based on the patient's clinical presentation, he most probably requires at least 1 midnight's stay for further management and evaluation of his clinical presentation. The patient was seen in collaboration with Dr. Ponce. Result Diagram: 06/10/18 1521 06/10/18 1521 Results 24hrs Laboratory Tests Test 06/10/18 15:21 06/10/18 16:02 White Blood Count 18.8 #H Red Blood Count 3.62 L Hemoglobin 9.0 L Hematocrit 29.2 L Mean Corpuscular Volume 80.7 L Mean Corpuscular Hemoglobin 24.9 L Mean Corpuscular Hemoglobin Concent 30.8 L Red Cell Distribution Width 18.1 H Platelet Count 268 Mean Platelet Volume 9.3 Immature Granulocytes % 0.800 H Neutrophils % 86.0 H Lymphocytes % 5.3 L Monocytes % 7.4 Eosinophils % 0.3 Basophils % 0.2 Nucleated Red Blood Cells % 0.0 Immature Granulocytes # 0.150 H Neutrophils # 16.2 H Lymphocytes # 1.0 Monocytes # 1.4 H Eosinophils # 0.1 Basophils # 0.0 Nucleated Red Blood Cells # 0.0 Sodium Level 135 Potassium Level 4.0 Chloride Level 105 Carbon Dioxide Level 26 Anion Gap 4 L Blood Urea Nitrogen 22 H Creatinine 0.95 Est Glomerular Filtrat Rate mL/min > 60 Glucose Level 102 Calcium Level 12.1 H Total Bilirubin 0.3 Direct Bilirubin 0.00 Indirect Bilirubin 0.3 Aspartate Amino Transf (AST/SGOT) 28 Alanine Aminotransferase (ALT/SGPT) 33 Alkaline Phosphatase 126 H Total Protein 6.4 Albumin 2.8 L Globulin 3.60 H Albumin/Globulin Ratio 0.77 Lipase < 10 L Bedside Urine pH (LAB) 6.0 Bedside Urine Protein (LAB) Negative Bedside Urine Glucose (UA) Negative Bedside Urine Ketones (LAB) Negative Bedside Urine Blood Trace-intact H Bedside Urine Nitrite (LAB) Negative Bedside Urine Leukocyte Esterase (L Negative HPI/ROS Admit Date/Time Admit Date/Time Hx of Present Illness This is a 62-year-old male with past medical history of 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 The patient was referred to the ER by his primary oncologist because of multiple episodes of low back pain with associated nausea and vomiting. The patient was recently discharged from [facility] on 05/29/2018 following work-up for syncope. The patient verbalized the vomiting as bilious and nonbloody. The patient verbalized low back pain coming at random intervals and described the pain as spasmodic pain as if he has a kidney stone. The patient had a poor oral intake for the past few days. The patient also verbalized to constipation. He was recently started on buprenorphine as outpatient. The patient denied any abdominal pain. He denied any fevers or chills. He denied any dyspnea or chest pain. In the emergency room, the patient was noticed to have leukocytosis with a WBC of 18.8. The patient was afebrile. He also had underlying azotemia and hypercalcemia. He was treated with a single dose of Zofran as well as IV fluids in the emergency room. ROS Constitutional: nausea, poor po Eyes: no complaints ENT: no complaints Respiratory: no complaints Cardiovascular: no complaints Gastrointestinal: constipation, nausea, vomiting Genitourinary: no complaints Musculoskeletal: back pain Skin: no complaints Neurologic: no complaints Endocrine: no complaints Lymphatic: no complaints Psychological: no complaints Immunologic: no complaints PMH/Family/Social Past Medical History 1. Lung cancer. 2. Anemia. 3. Iron deficiency. Medications Current Medications Docusate Sodium (Colace) 100 mg BID PO ; Start 06/10/18 at 21:00; Status UNV Ferrous Sulfate (Ferrous Sulfate (Ec)) 325 mg BID PO ; Start 06/10/18 at 21:00; Status UNV Sertraline HCl (Zoloft) 100 mg QHS PO ; Start 06/10/18 at 21:00; Status UNV Coded Allergies: No Known Allergy (Unverified , 06/10/18) Past Surgical History 1. Laparoscopic cholecystectomy. 2. Ventral hernia repair. Family History Significant Family History: no pertinent family hx Social History Single. Lives at home. Smoking Status: Former smoker Exam/Review of Systems Vital Signs Vitals Vital Signs Date Temp Pulse Resp B/P (MAP) Pulse Ox O2 O2 Flow FiO2 Time Delivery Rate 06/10/18 98.6 95 16 101/68 100 13:45 (79) Exam Exam General: Thin, frail looking, 62 year-old male lying in bed in no apparent distress. HEENT: Normocephalic, atraumatic. Eyes: Anicteric sclerae, conjunctivae clear. ENT: Nasal septum midline, oral mucosa moist. Neck supple, no JVD noticed. Respiratory: Bilaterally diminished breath sounds. No use of accessory muscles of respiration. No adventitious breath sounds. Cardiovascular: S1, S2 heard. Regular rate and rhythm. Abdomen: Soft, nontender, and nondistended. Bowel sounds positive in all 4 quadrants. Genitourinary: Deferred. Extremities: No cyanosis, no clubbing, no edema. Peripheral pulses palpable. Neurologic: Cranial nerves II through XII grossly intact. The patient is awake, alert, and oriented. Skin: Normal skin turgor. No skin rashes. JARAD CRYSTAL NP Jun 10, 2018 16:46
[2018-06-10] MEDS ORDERED: ACETAMINOPHEN 325 MG TAB PO PRN (17:00)
[2018-06-10] MEDS ORDERED: ONDANSETRON 4 MG INJ IV PRN (17:00)
[2018-06-10] MEDS ORDERED: NACL 0.9% 3 ML SYG IV SCH (17:00)
[2018-06-10] MEDS: SOD CHLORIDE 0.9% 1,000 ML IV SCH ×2 (17:13→18:50)
[2018-06-10] MEDS: morphine 2 MG INJ IV PRN ×2 (17:24→23:04)
[2018-06-10 18:28] VITALS: BP 101/68; PULSE 93; RESP 17
[2018-06-10 19:48] VITALS: BP 109/57; PULSE 54; RESP 18
[2018-06-10] MEDS: DOCUSATE SODIUM 100 MG CAP PO SCH (21:00)
[2018-06-10] MEDS: FAMOTIDINE 20 MG TAB PO SCH (21:00)
[2018-06-10] MEDS: SERTRALINE 100 MG TAB PO SCH (21:00)
[2018-06-10] MEDS: FERROUS SULFATE (EC) 325 MG TAB PO SCH (21:00)
[2018-06-10] MEDS: METOCLOPRAMIDE 10 MG INJ IV PRN (23:09)
[2018-06-10 23:30] VITALS: Ht 172.7 cm; Wt 55.5 kg
[2018-06-11 01:34] VITALS: BP 108/68; PULSE 98; RESP 18
[2018-06-11] MEDS: SOD CHLORIDE 0.9% 1,000 ML IV SCH ×2 (04:45→14:29)
[2018-06-11] MEDS: morphine 2 MG INJ IV PRN ×4 (04:48→17:43)
[2018-06-11] MEDS: METOCLOPRAMIDE 10 MG INJ IV PRN ×2 (04:48→11:15)
[2018-06-11 07:34] VITALS: BP 118/78; PULSE 89; RESP 16
[2018-06-11] MEDS: ENOXAPARIN 30 MG/0.3 ML SYG SC SCH (08:06)
[2018-06-11] MEDS: FERROUS SULFATE (EC) 325 MG TAB PO SCH (10:12)
[2018-06-11] MEDS: DOCUSATE SODIUM 100 MG CAP PO SCH ×2 (10:12→21:12)
[2018-06-11] MEDS: FAMOTIDINE 20 MG TAB PO SCH ×2 (10:12→21:12)
[2018-06-11] MEDS: HYDROCODONE/APAP (5/325) TAB PO PRN ×2 (11:15→21:12)
[2018-06-11] MEDS ORDERED: METOCLOPRAMIDE IV PRN (13:00)
[2018-06-11] MEDS ORDERED: SOD CHLORIDE 0.9% IV PRN (13:00)
[2018-06-11 14:04] VITALS: BP 109/69; PULSE 75; RESP 16
[2018-06-11 14:10] VITALS: BP 102/58; PULSE 85; RESP 18
--- NOTE | 2018-06-11 14:18 | PN ---
Date/Time of Note Date/Time of Note DATE: 06/11/18 TIME: 14:16 Assessment/Plan VTE Prophylaxis Risk score (from Ns)>0 risk: 3 SCD applied (from Ns): No SCD contraindicated: low risk/ambulating Pharmacological prophylaxis: LMWH Lines/Catheters IV Catheter Type (from [facility]): Peripheral IV Assessment/Plan Hospital Course A/P 1. Nausea vomiting possibly secondary to obstipation, stable increase bowel care regimen. LFTs/ KUB fairly unremarkable. 2. Constipation 3. Stage IV lung cancer on immunotherapy. Plan is to restart chemotherapy soon 4. Past tobacco 5. Back pain, imaging done as outpatient 6. Chronic ventral hernia. History of cholecystectomy and ventral hernia repair, no evidence of incarceration Subjective: No further nausea vomiting. On tolerating liquids. No fever nonproductive cough. No dysuria fever Objective: Vital signs stable Physical exam No pallor Regular Clear Hernia noted otherwise unremarkable no CVAT No edema Result Diagram: 06/11/18 0459 06/11/18 0459 Results 24hrs Laboratory Tests Test 06/10/18 15:21 06/10/18 16:02 06/11/18 04:59 06/11/18 12:38 White Blood Count 18.8 #H 18.9 H Red Blood Count 3.62 L 4.32 L Hemoglobin 9.0 L 10.7 L Hematocrit 29.2 L 34.3 L Mean Corpuscular 80.7 L 79.4 L Volume Mean Corpuscular 24.9 L 24.8 L Hemoglobin Mean Corpuscular 30.8 L 31.2 L Hemoglobin Concent Red Cell 18.1 H 18.3 H Distribution Width Platelet Count 268 294 Mean Platelet 9.3 9.8 Volume Immature 0.800 H 0.700 H Granulocytes % Neutrophils % 86.0 H 85.5 H Lymphocytes % 5.3 L 7.3 L Monocytes % 7.4 6.1 Eosinophils % 0.3 0.2 Basophils % 0.2 0.2 Nucleated Red 0.0 0.0 Blood Cells % Immature 0.150 H 0.130 H Granulocytes # Neutrophils # 16.2 H 16.2 H Lymphocytes # 1.0 1.4 Monocytes # 1.4 H 1.2 H Eosinophils # 0.1 0.0 Basophils # 0.0 0.0 Nucleated Red 0.0 0.0 Blood Cells # Sodium Level 135 137 Potassium Level 4.0 4.4 Chloride Level 105 103 Carbon Dioxide 26 24 Level Anion Gap 4 L 10 # Blood Urea 22 H 19 Nitrogen Creatinine 0.95 0.96 Est Glomerular > 60 > 60 Filtrat Rate mL/min Glucose Level 102 89 Calcium Level 12.1 H 12.7 H Total Bilirubin 0.3 Direct Bilirubin 0.00 Indirect Bilirubin 0.3 Aspartate Amino 28 Transf (AST/SGOT) Alanine 33 Aminotransferase ( ALT/SGPT) Alkaline 126 H Phosphatase Total Protein 6.4 Albumin 2.8 L Globulin 3.60 H Albumin/Globulin 0.77 Ratio Lipase < 10 L Bedside Urine pH 6.0 (LAB) Bedside Urine Negative Protein (LAB) Bedside Urine Negative Glucose (UA) Bedside Urine Negative Ketones (LAB) Bedside Urine Trace-intact H Blood Bedside Urine Negative Nitrite (LAB) Bedside Urine Negative Leukocyte Esterase (L Hemoglobin A1c 5.6 Phosphorus Level 3.6 Magnesium Level 1.9 Prothrombin Time 15.5 H Prothrombin Time 1.2 Ratio INR International 1.22 Normalized Ratio Activated 30.[address] Time Iron Level 28 L Total Iron Binding 172 L Capacity Percent Iron 16 L Saturation Thyroid 1.220 Stimulating Hormone (TSH) Free Thyroxine 1.16 Free 2.83 Triiodothyronine (T3) pg/mL Test 06/11/18 13:30 Urine Color YELLOW Urine Clarity CLEAR Urine pH 5.0 Urine Specific 1.014 [place] Urine Ketones TRACE A Urine Nitrite NEGATIVE Urine Bilirubin NEGATIVE Urine Urobilinogen NEGATIVE Urine Leukocyte NEGATIVE Esterase Urine Hemoglobin NEGATIVE Urine Glucose NEGATIVE Urine Total NEGATIVE Protein Exam/Review of Systems Exam Vitals Vital Signs Date Temp Pulse Resp B/P (MAP) Pulse Ox O2 O2 Flow FiO2 Time Delivery Rate 06/11/18 98.2 85 18 102/58 96 14:10 (73) 06/10/18 Room Air 18:28 Intake and Output 06/10/18 06/10/18 06/11/18 1515:00 23:00 07:00 IntakeIntake Total 100 ml 100 ml BalanceBalance 100 ml 100 ml Results Results 24hrs Laboratory Tests Test 06/10/18 15:21 06/10/18 16:02 06/11/18 04:59 06/11/18 12:38 White Blood Count 18.8 #H 18.9 H Red Blood Count 3.62 L 4.32 L Hemoglobin 9.0 L 10.7 L Hematocrit 29.2 L 34.3 L Mean Corpuscular 80.7 L 79.4 L Volume Mean Corpuscular 24.9 L 24.8 L Hemoglobin Mean Corpuscular 30.8 L 31.2 L Hemoglobin Concent Red Cell 18.1 H 18.3 H Distribution Width Platelet Count 268 294 Mean Platelet 9.3 9.8 Volume Immature 0.800 H 0.700 H Granulocytes % Neutrophils % 86.0 H 85.5 H Lymphocytes % 5.3 L 7.3 L Monocytes % 7.4 6.1 Eosinophils % 0.3 0.2 Basophils % 0.2 0.2 Nucleated Red 0.0 0.0 Blood Cells % Immature 0.150 H 0.130 H Granulocytes # Neutrophils # 16.2 H 16.2 H Lymphocytes # 1.0 1.4 Monocytes # 1.4 H 1.2 H Eosinophils # 0.1 0.0 Basophils # 0.0 0.0 Nucleated Red 0.0 0.0 Blood Cells # Sodium Level 135 137 Potassium Level 4.0 4.4 Chloride Level 105 103 Carbon Dioxide 26 24 Level Anion Gap 4 L 10 # Blood Urea 22 H 19 Nitrogen Creatinine 0.95 0.96 Est Glomerular > 60 > 60 Filtrat Rate mL/min Glucose Level 102 89 Calcium Level 12.1 H 12.7 H Total Bilirubin 0.3 Direct Bilirubin 0.00 Indirect Bilirubin 0.3 Aspartate Amino 28 Transf (AST/SGOT) Alanine 33 Aminotransferase ( ALT/SGPT) Alkaline 126 H Phosphatase Total Protein 6.4 Albumin 2.8 L Globulin 3.60 H Albumin/Globulin 0.77 Ratio Lipase < 10 L Bedside Urine pH 6.0 (LAB) Bedside Urine Negative Protein (LAB) Bedside Urine Negative Glucose (UA) Bedside Urine Negative Ketones (LAB) Bedside Urine Trace-intact H Blood Bedside Urine Negative Nitrite (LAB) Bedside Urine Negative Leukocyte Esterase (L Hemoglobin A1c 5.6 Phosphorus Level 3.6 Magnesium Level 1.9 Prothrombin Time 15.5 H Prothrombin Time 1.2 Ratio INR International 1.22 Normalized Ratio Activated 30.[address] Time Iron Level 28 L Total Iron Binding 172 L Capacity Percent Iron 16 L Saturation Thyroid 1.220 Stimulating Hormone (TSH) Free Thyroxine 1.16 Free 2.83 Triiodothyronine (T3) pg/mL Test 06/11/18 13:30 Urine Color YELLOW Urine Clarity CLEAR Urine pH 5.0 Urine Specific 1.014 [place] Urine Ketones TRACE A Urine Nitrite NEGATIVE Urine Bilirubin NEGATIVE Urine Urobilinogen NEGATIVE Urine Leukocyte NEGATIVE Esterase Urine Hemoglobin NEGATIVE Urine Glucose NEGATIVE Urine Total NEGATIVE Protein Medications Medication Current Medications Docusate Sodium (Colace) 100 mg BID PO Last administered on 06/11/18 10:12; Admin Dose 100 MG; Start 06/10/18 at 21:00 Ferrous Sulfate (Ferrous Sulfate (Ec)) 325 mg BID PO Last administered on 06/11/18 10:12; Admin Dose 325 MG; Start 06/10/18 at 21:00 Sertraline HCl (Zoloft) 100 mg QHS PO ; Start 06/10/18 at 21:00 Sodium Chloride 1,000 ml @ 100 mls/hr Q10H IV Last administered on 06/11/18at 04:45; Admin Dose 100 MLS/HR; Start 06/10/18 at 16:38 IV Flush (NS 3 ml) 3 ml PER PROTOCOL IV ; Start 06/10/18 at 17:00 Acetaminophen (Tylenol Tab) 650 mg Q6H PRN PO .PAIN 1-3 OR TEMP; Start 06/10/18 at 17:00 Acetaminophen/ Hydrocodone Bitart ([place] (5/325)) 1 tab Q6H PRN PO .MOD PAIN 4- 6 Last administered on 06/11/18at 11:15; Admin Dose 1 TAB; Start 06/10/18 at 17:00 Morphine Sulfate (morphine) 2 mg Q4H PRN IV .SEVERE PAIN 7-10 Last administered on 06/11/18 13:27; Admin Dose 2 MG; Start 06/10/18 at 17:00 Enoxaparin Sodium (Lovenox) 30 mg DAILY SC Last administered on 06/11/18at 08:06; Admin Dose 30 MG; Start 06/11/18 at 09:00 Famotidine (Pepcid) 20 mg BID PO Last administered on 06/11/18at 10:12; Admin Dose 20 MG; Start 06/10/18 at 21:00 Ondansetron HCl 8 mg/Dextrose 54 ml @ 108 mls/hr Q6H PRN IV NAUSEA AND/OR VOMITING; Start 06/11/18 at 12:30 Metoclopramide HCl 20 mg/Sodium Chloride 54 ml @ 108 mls/hr Q6H PRN IV PRN N/V.....; Start 06/11/18 at 13:00 ALESSANDRO HERNANDEZ MD Jun 11, 2018 14:18
[2018-06-11] MEDS: POLYETHYLENE GLYCOL 17 GM PACKET PO SCH (14:32)
--- NOTE | 2018-06-11 15:52 | CONS ---
Assessment/Plan Assessment/Plan Hospital Course (Demo Recall) # SQUAMOUS CELL CARCINOMA, MODERATELY-DIFFERENTIATED, RIGHT LOWER LOBE, PDL-1 10%. 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 He also e xperienced fatigue for the past 2-3 weeks. No weight loss and no loss of appetite. 09/06/17- Patient admitted at [facility] because of cough, night sweats and hemoptysis -CXR showed a large right lower lobe lung mass with small left mid-lung 1.1 cm. nodule that are suspicious for possible neoplasm. -CT Scan of the chest without contrast demonstrated a 7.7cm rounded mass in right lower lobe as well as a 1.0cm solid nodule in periphery of left upper lobe - Bronchoscopy and BAL of Right lower lobe was done which revealed no dysplasia or malignancy. -CT A/P did not reveal evidence of metastatic disease below the diaphragm 09/07/17- CT-Guided right lower lobe biopsy showed Squamous Cell Carcinoma, moderately-differentiated. Positive PD-L1 10% expression, negative TTF1, positive p63, negative synpatophysin and 90% ki-67. 10/18/17: started Gemzar cycle 1, day 8. Still having cough, night sweats and occasional hemoptysis. 11/29/17: Here today for his cycle 3, day 8 of his Gemzar/Carboplatin regimen. Complaining of SOB on rest. 12/05/17 CT Chest demonstrates improvement in disease 12/08/17 Hg 7.4/ pt very SOB and pale. pt was admitted to [facility] where he received a blood transfusion 02/07/18 CT Chest internal increase in size of RLL pulmonary mass measuring up to 7.6 cm now with central necrosis with internal increase in size of multiple bilateral pulmonary nodules consistent with worsening satellite nodules, also increase size of mediastinal and hilar lymph nodes consistent with mirella mets 02/23/18 CT Chest reveals increase in mediastinal and right hilar adenopathy and stable liver cysts. CT Brain without evidence of disease 04/03/18 TSH 0.24 (low), free T3 2.2 (L) 04/17/18 CBC WBC 14, Hg 9 platelets 436. taking iron every other day 05/03/18 due for nivolumab today. states SOB is better but he feels more fatigued. 04/30/18 WBC13.9 Hg 8.5 platelets 451, CA 11.3 05/17/18: Nivolumab today 05/2018 admitted to [facility] . received antibiotics and PRBCs blood transfusion 06/05/18 CT reveals progression of disease. R sided lung nodules and mediastinal LAD have all worsened and the L lung has NEW disease. pt has since dis-enrolled in the clinical trial and is to start chemotherapy as an out patient Currently: -for past 2 weeks patient has complained of intractable nausea and vomiting Constitutional: chills, diaphoresis, poor po Respiratory: pain, cough, shortness of breath Cardiovascular: no complaints, lightheadedness Gastrointestinal: pain, decreased appetite, nausea, vomiting Genitourinary: no complaints Musculoskeletal: no complaints Skin: no complaints Past Medical History Depression Insomnia Home Meds Reported Medications Sertraline Hcl* (Sertraline Hcl*) 100 Mg Tablet, 100 MG PO QHS, #30 TAB 06/10/18 Ferrous Sulfate* (Ferrous Sulfate*) 325 Mg Tabec, 325 MG PO BID, TAB 06/10/18 Docusate Sodium (Col-Rite) 100 Mg Capsule, 100 MG PO BID, CAP 06/10/18 Buprenorphine Hcl (BUPRENORPHINE HCL) 2 Mg Tab.subl, 2 MG SL Q4, TAB.SL 06/10/18 Discontinued Reported Medications Docusate Sodium (Col-Rite) 100 Mg Capsule, 100 MG PO BID take 1 capsule by mouth twice a day 05/29/18 Ferrous Sulfate* (Ferrous Sulfate*) 325 Mg Tabec, 325 MG PO BID take 1 tablet by mouth twice a day 05/29/18 Sertraline Hcl* (Sertraline Hcl*) 100 Mg Tablet, 100 MG PO QHS 05/29/18 Buprenorphine Hcl (BUPRENORPHINE HCL) 2 Mg Tab.subl, 2 MG SL PRN for Q4H, TAB.SL 05/29/18 Discontinued Scripts Levofloxacin* (Levaquin*) 500 Mg Tablet, 500 MG PO DAILY for 7 Days, TAB Prov:SHERLYN CORONA MD 05/30/18 Medications Current Medications Docusate Sodium (Colace) 100 mg BID PO Last administered on 06/11/18at 10:12; Admin Dose 100 MG; Start 06/10/18 at 21:00 Sertraline HCl (Zoloft) 100 mg QHS PO ; Start 06/10/18 at 21:00 Sodium Chloride 1,000 ml @ 50 mls/hr Q20H IV Last administered on 06/11/18at 14:29; Admin Dose 50 MLS/HR; Start 06/10/18 at 16:38 IV Flush (NS 3 ml) 3 ml PER PROTOCOL IV ; Start 06/10/18 at 17:00 Acetaminophen (Tylenol Tab) 650 mg Q6H PRN PO .PAIN 1-3 OR TEMP; Start 06/10/18 at 17:00 Acetaminophen/ Hydrocodone Bitart ([place] (5/325)) 1 tab Q6H PRN PO .MOD PAIN 4- 6 Last administered on 06/11/18at 11:15; Admin Dose 1 TAB; Start 06/10/18 at 17:00 Morphine Sulfate (morphine) 2 mg Q4H PRN IV .SEVERE PAIN 7-10 Last administered on 06/11/18at 13:27; Admin Dose 2 MG; Start 06/10/18 at 17:00 Enoxaparin Sodium (Lovenox) 30 mg DAILY SC Last administered on 06/11/18at 08:06; Admin Dose 30 MG; Start 06/11/18 at 09:00 Famotidine (Pepcid) 20 mg BID PO Last administered on 06/11/18at 10:12; Admin Dose 20 MG; Start 06/10/18 at 21:00 Ondansetron HCl 8 mg/Dextrose 54 ml @ 108 mls/hr Q6H PRN IV NAUSEA AND/OR VOMITING; Start 06/11/18 at 12:30 Metoclopramide HCl 20 mg/Sodium Chloride 54 ml @ 108 mls/hr Q6H PRN IV PRN N/V.....; Start 06/11/18 at 13:00 Ferrous Sulfate (Ferrous Sulfate (Ec)) 325 mg BID PO ; Start 06/18/18 at 21:00 Polyethylene Glycol (Miralax) 17 gm DAILY PO Last administered on 06/11/18at 14:32; Admin Dose 17 GM; Start 06/11/18 at 14:30 Allergies: Coded Allergies: No Known Allergy (Unverified , 06/10/18) Past Surgical History s/p lap katie hernia repair Family History Significant Family History: no pertinent family hx Social History Alcohol Use: sober Smoking Status: Former smoker Drug Use: marijuana Exam/Review of Systems Exam Vitals Vital Signs Date Temp Pulse Resp B/P (MAP) Pulse Ox O2 O2 Flow FiO2 Time Delivery Rate 06/11/18 98.2 85 18 102/58 96 14:10 (73) 06/10/18 Room Air 18:28 Intake and Output 06/10/18 06/10/18 06/11/18 1515:00 23:00 07:00 IntakeIntake Total 100 ml 100 ml BalanceBalance 100 ml 100 ml Constitutional: alert, oriented, frail Psych: anxiety, depression Head: normocephalic Eyes: nl conjunctiva ENMT: nl external ears & nose Neck: supple Respiratory: other (decreased breath sounds in left lung) Cardiovascular: regular rate and rhythm Gastrointestinal: soft Musculoskeletal: nl extremities to inspection Extremities: normal pulses Results Result Diagram: 06/11/18 0459 06/11/18 0459 Results 24hrs Laboratory Tests Test 06/10/18 16:02 06/11/18 04:59 06/11/18 12:38 06/11/18 13:30 Bedside Urine pH 6.0 (LAB) Bedside Urine Negative Protein (LAB) Bedside Urine Negative Glucose (UA) Bedside Urine Negative Ketones (LAB) Bedside Urine Trace-intact H Blood Bedside Urine Negative Nitrite (LAB) Bedside Urine Negative Leukocyte Esterase (L White Blood Count 18.9 H Red Blood Count 4.32 L Hemoglobin 10.7 L Hematocrit 34.3 L Mean Corpuscular 79.4 L Volume Mean Corpuscular 24.8 L Hemoglobin Mean Corpuscular 31.2 L Hemoglobin Concent Red Cell 18.3 H Distribution Width Platelet Count 294 Mean Platelet 9.8 Volume Immature 0.700 H Granulocytes % Neutrophils % 85.5 H Lymphocytes % 7.3 L Monocytes % 6.1 Eosinophils % 0.2 Basophils % 0.2 Nucleated Red 0.0 Blood Cells % Immature 0.130 H Granulocytes # Neutrophils # 16.2 H Lymphocytes # 1.4 Monocytes # 1.2 H Eosinophils # 0.0 Basophils # 0.0 Nucleated Red 0.0 Blood Cells # Sodium Level 137 Potassium Level 4.4 Chloride Level 103 Carbon Dioxide 24 Level Anion Gap 10 # Blood Urea 19 Nitrogen Creatinine 0.96 Est Glomerular > 60 Filtrat Rate mL/min Glucose Level 89 Hemoglobin A1c 5.6 Calcium Level 12.7 H Phosphorus Level 3.6 Magnesium Level 1.9 Prothrombin Time 15.5 H Prothrombin Time 1.2 Ratio INR International 1.22 Normalized Ratio Activated 30.[address] Time Iron Level 26 L Total Iron Binding 178 L Capacity Percent Iron 15 L Saturation Ferritin 1270.0 H Thyroid 1.220 Stimulating Hormone (TSH) Free Thyroxine 1.16 Free 2.83 Triiodothyronine (T3) pg/mL Urine Color YELLOW Urine Clarity CLEAR Urine pH 5.0 Urine Specific 1.014 [place] Urine Ketones TRACE A Urine Nitrite NEGATIVE Urine Bilirubin NEGATIVE Urine Urobilinogen NEGATIVE Urine Leukocyte NEGATIVE Esterase Urine Hemoglobin NEGATIVE Urine Glucose NEGATIVE Urine Total NEGATIVE Protein Medications Medication Current Medications Docusate Sodium (Colace) 100 mg BID PO Last administered on 06/11/18at 10:12; Admin Dose 100 MG; Start 06/10/18 at 21:00 Sertraline HCl (Zoloft) 100 mg QHS PO ; Start 06/10/18 at 21:00 Sodium Chloride 1,000 ml @ 50 mls/hr Q20H IV Last administered on 06/11/18at 14:29; Admin Dose 50 MLS/HR; Start 06/10/18 at 16:38 IV Flush (NS 3 ml) 3 ml PER PROTOCOL IV ; Start 06/10/18 at 17:00 Acetaminophen (Tylenol Tab) 650 mg Q6H PRN PO .PAIN 1-3 OR TEMP; Start 06/10/18 at 17:00 Acetaminophen/ Hydrocodone Bitart ([place] (5/325)) 1 tab Q6H PRN PO .MOD PAIN 4- 6 Last administered on 06/11/18at 11:15; Admin Dose 1 TAB; Start 06/10/18 at 17:00 Morphine Sulfate (morphine) 2 mg Q4H PRN IV .SEVERE PAIN 7-10 Last administered on 06/11/18at 13:27; Admin Dose 2 MG; Start 06/10/18 at 17:00 Enoxaparin Sodium (Lovenox) 30 mg DAILY SC Last administered on 06/11/18at 08:06; Admin Dose 30 MG; Start 06/11/18 at 09:00 Famotidine (Pepcid) 20 mg BID PO Last administered on 06/11/18at 10:12; Admin Dose 20 MG; Start 06/10/18 at 21:00 Ondansetron HCl 8 mg/Dextrose 54 ml @ 108 mls/hr Q6H PRN IV NAUSEA AND/OR VOMITING; Start 06/11/18 at 12:30 Metoclopramide HCl 20 mg/Sodium Chloride 54 ml @ 108 mls/hr Q6H PRN IV PRN N/V.....; Start 06/11/18 at 13:00 Ferrous Sulfate (Ferrous Sulfate (Ec)) 325 mg BID PO ; Start 06/18/18 at 21:00 Polyethylene Glycol (Miralax) 17 gm DAILY PO Last administered on 06/11/18at 14:32; Admin Dose 17 GM; Start 06/11/18 at 14:30 THELMA HASKINS M.D. Jun 11, 2018 15:52
[2018-06-11] MEDS ORDERED: METOCLOPRAMIDE 10 MG INJ IV PRN (17:00)
[2018-06-11] MEDS: ONDANSETRON INJ 8 MG in DEXTROSE 5% 50 ML IV PRN (17:43)
[2018-06-11 20:00] VITALS: BP 106/67; PULSE 81; RESP 18
[2018-06-11] MEDS: SERTRALINE 100 MG TAB PO SCH (21:11)
[2018-06-12] MEDS: morphine 2 MG INJ IV PRN ×3 (00:06→11:23)
[2018-06-12 02:00] VITALS: BP 113/67; PULSE 80; RESP 19
[2018-06-12] MEDS: ONDANSETRON INJ 8 MG in DEXTROSE 5% 50 ML IV PRN (05:00)
[2018-06-12 07:20] VITALS: BP 135/87; PULSE 85; RESP 16
[2018-06-12] MEDS ORDERED: PANTOPRAZOLE 40 MG INJ IV ONE (08:30)
[2018-06-12] MEDS ORDERED: FAMOTIDINE 20 MG INJ IV SCH (09:00)
[2018-06-12] MEDS: POLYETHYLENE GLYCOL 17 GM PACKET PO SCH (09:13)
[2018-06-12] MEDS: DOCUSATE SODIUM 100 MG CAP PO SCH (09:13)
[2018-06-12] MEDS: ENOXAPARIN 30 MG/0.3 ML SYG SC SCH (09:13)
[2018-06-12] MEDS: FAMOTIDINE 20 MG TAB PO SCH (09:34)
--- NOTE | 2018-06-12 10:45 | CONS ---
Assessment/Plan Assessment/Plan Hospital Course (Demo Recall) # SQUAMOUS CELL CARCINOMA, MODERATELY-DIFFERENTIATED, RIGHT LOWER LOBE, PDL-1 10%. ECOG 1 -last PET CT from 05/2018 reveals progression of disease -will restart Carboplatin and Gemcitabine at 75% as an out patient #Nausea -Brain MRI negative -may be related to gastritis. 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 Peter MRI with contrast negative Exam/Review of Systems Exam Vitals Vital Signs Date Temp Pulse Resp B/P (MAP) Pulse Ox O2 O2 Flow FiO2 Time Delivery Rate 06/12/18 98.0 85 16 135/87 96 07:20 (103) 06/10/18 Room Air 18:28 Intake and Output 06/11/18 06/11/18 06/12/18 1515:00 23:00 07:00 IntakeIntake Total 1520 ml 734 ml 554 ml BalanceBalance 1520 ml 734 ml 554 ml Constitutional: alert, oriented, distress, other (cachetic) Psych: no complaints Head: normocephalic Eyes: nl conjunctiva ENMT: nl external ears & nose Neck: supple Respiratory: clear to auscultation Cardiovascular: regular rate and rhythm Gastrointestinal: soft Musculoskeletal: nl extremities to inspection Extremities: normal pulses Results Result Diagram: 06/12/18 0749 06/12/18 0749 Results 24hrs Laboratory Tests Test 06/11/18 12:38 06/11/18 13:30 06/12/18 07:49 Prothrombin Time 15.5 H Prothrombin Time Ratio 1.2 INR International Normalized Ratio 1.22 Activated Partial Thromboplast Time 30.3 Iron Level 26 L Total Iron Binding Capacity 178 L Percent Iron Saturation 15 L Ferritin 1270.0 H Thyroid Stimulating Hormone (TSH) 1.220 Free Thyroxine 1.16 Free Triiodothyronine (T3) pg/mL 2.83 Urine Color YELLOW Urine Clarity CLEAR Urine pH 5.0 Urine Specific [place] 1.014 Urine Ketones TRACE A Urine Nitrite NEGATIVE Urine Bilirubin NEGATIVE Urine Urobilinogen NEGATIVE Urine Leukocyte Esterase NEGATIVE Urine Hemoglobin NEGATIVE Urine Glucose NEGATIVE Urine Total Protein NEGATIVE White Blood Count 17.2 H Red Blood Count 4.28 L Hemoglobin 10.5 L Hematocrit 34.4 L Mean Corpuscular Volume 80.4 L Mean Corpuscular Hemoglobin 24.5 L Mean Corpuscular Hemoglobin Concent 30.5 L Red Cell Distribution Width 18.3 H Platelet Count 303 Mean Platelet Volume 10.3 Immature Granulocytes % 0.800 H Neutrophils % 88.8 H Lymphocytes % 4.8 L Monocytes % 5.3 Eosinophils % 0.1 Basophils % 0.2 Nucleated Red Blood Cells % 0.0 Immature Granulocytes # 0.130 H Neutrophils # 15.3 H Lymphocytes # 0.8 Monocytes # 0.9 Eosinophils # 0.0 Basophils # 0.0 Nucleated Red Blood Cells # 0.0 Erythrocyte Sedimentation Rate 79.0 H Sodium Level 137 Potassium Level 4.3 Chloride Level 106 Carbon Dioxide Level 22 Anion Gap 9 Blood Urea Nitrogen 16 Creatinine 0.88 Est Glomerular Filtrat Rate mL/min > 60 Glucose Level 102 Lactic Acid Level 1.4 Calcium Level 13.3 *H Total Bilirubin 0.4 Direct Bilirubin 0.00 Indirect Bilirubin 0.4 Aspartate Amino Transf (AST/SGOT) 31 Alanine Aminotransferase (ALT/SGPT) 28 Alkaline Phosphatase 148 H C-Reactive Protein 16.8 H Total Protein 6.5 Albumin 3.0 L Globulin 3.50 H Albumin/Globulin Ratio 0.85 Medications Medication Current Medications Docusate Sodium (Colace) 100 mg BID PO Last administered on 06/12/18at 09:13; Admin Dose 100 MG; Start 06/10/18 at 21:00 Sertraline HCl (Zoloft) 100 mg QHS PO Last administered on 06/11/18at 21:11; Admin Dose 100 MG; Start 06/10/18 at 21:00 Sodium Chloride 1,000 ml @ 50 mls/hr Q20H IV Last administered on 06/11/18at 14:29; Admin Dose 50 MLS/HR; Start 06/10/18 at 16:38 IV Flush (NS 3 ml) 3 ml PER PROTOCOL IV ; Start 06/10/18 at 17:00 Acetaminophen (Tylenol Tab) 650 mg Q6H PRN PO .PAIN 1-3 OR TEMP; Start 06/10/18 at 17:00 Acetaminophen/ Hydrocodone Bitart ([place] (5/325)) 1 tab Q6H PRN PO .MOD PAIN 4- 6 Last administered on 06/11/18at 21:12; Admin Dose 1 TAB; Start 06/10/18 at 17:00 Morphine Sulfate (morphine) 2 mg Q4H PRN IV .SEVERE PAIN 7-10 Last administered on 06/12/18 04:18; Admin Dose 2 MG; Start 06/10/18 at 17:00 Enoxaparin Sodium (Lovenox) 30 mg DAILY SC Last administered on 06/12/18 09:13; Admin Dose 30 MG; Start 06/11/18 at 09:00 Famotidine (Pepcid) 20 mg BID PO Last administered on 06/12/18 09:34; Admin Dose 20 MG; Start 06/10/18 at 21:00 Ondansetron HCl 8 mg/Dextrose 54 ml @ 108 mls/hr Q6H PRN IV NAUSEA AND/OR VOMITING Last administered on 06/12/18 05:00; Admin Dose 108 MLS/HR; Start 06/11/18 at 12:30 Metoclopramide HCl 20 mg/Sodium Chloride 54 ml @ 108 mls/hr Q6H PRN IV PRN N/V.....; Start 06/11/18 at 13:00 Ferrous Sulfate (Ferrous Sulfate (Ec)) 325 mg BID PO ; Start 06/18/18 at 21:00 Polyethylene Glycol (Miralax) 17 gm DAILY PO Last administered on 06/12/18 09:13; Admin Dose 17 GM; Start 06/11/18 at 14:30 Famotidine (Pepcid Iv) 20 mg DAILY IV ; Start 06/12/18 at 09:00 THELMA HASKINS M.D. Jun 12, 2018 10:45
[2018-06-12] MEDS: SOD CHLORIDE 0.9% 1,000 ML IV SCH (13:20)
[2018-06-12] MEDS ORDERED: FUROSEMIDE 40 MG INJ IV ONE (13:30)
--- NOTE | 2018-06-12 13:55 | PDOCDIS ---
Discharge Instructions CONDITION [id number] Patient Condition: [id number] Fair HOME CARE INSTRUCTIONS: [id number] Diet Instructions: [id number] Regular ACTIVITY: [id number] Activity Restrictions: [id number] Slowly Increase Activity Do not Drive FOLLOW UP/APPOINTMENTS Follow-up Plan appt primary & Oncology 1wk ALESSANDRO HERNANDEZ MD Jun 12, 2018 13:55
[2018-06-12] MEDS ORDERED: POLY17PO6 PO (14:02)
[2018-06-12] MEDS ORDERED: METO10TA3 PO (14:02)
[2018-06-12] MEDS ORDERED: ONDA8TAB9 PO (14:02)
[2018-06-12] MEDS ORDERED: FAMO20TA18 PO (14:02)
[2018-06-12] MEDS ORDERED: OMEP20CA16 PO (14:02)
[2018-06-12] MEDS ORDERED: ACET325T33 PO (14:02)
[2018-06-12] MEDS ORDERED: PROC10TA10 PO (14:02)
[2018-06-12 14:08] VITALS: BP 111/80; PULSE 104; RESP 16
--- NOTE | 2018-06-12 14:28 | DS ---
Date/Time of Note Date/Time of Note DATE: 06/12/18 TIME: 14:21 Discharge Summary Admission/Discharge Info Admit Date/Time Jun 10, 2018 at 16:17 Discharge Date/Time Procedures MRI BRAIN IMPRESSION: No acute intracranial abnormalities. No abnormal areas of enhancement to suggest metastatic disease. Nonspecific small scattered areas of T2 and FLAIR signal hyperintensity measu ring a few millimeters are seen in the supratentorial white matter most commonly due to chronic mild microvascular ischemic changes. Differential considerations include sequelae of migraines; prior parenchymal injury from infectious or inflammatory/demyelinating process; vasculopathy. KUB IMPRESSION: Evidence for obstruction or ileus. Retained stool in the right and proximal transverse colon residual contrast material in nondilated distal colon. CXR IMPRESSION: Slight increase in the right basilar/middle lobe pneumonia and/or mass. Probable small right pleural effusion. Otherwise no change. Hospital Course A/P 1. Nausea vomiting possibly secondary to obstipation, stable increase bowel care regimen. LFTs/ KUB fairly unremarkable. 2. Constipation 3. Stage IV lung cancer on immunotherapy. Plan is to restart chemotherapy soon 4. Past tobacco 5. Back pain, imaging done as outpatient 6. Chronic ventral hernia. History of cholecystectomy and ventral hernia repair, no evidence of incarceration Subjective: No further nausea vomiting. On tolerating liquids. No fever n onproductive cough. No dysuria fever Objective: Vital signs stable Physical exam No pallor Regular Clear Hernia noted otherwise unremarkable no CVAT No edema Home Meds Active Scripts Prochlorperazine* (Prochlorperazine*) 10 Mg Tablet, 10 MG PO Q6H PRN for NAUSEA for 7 Days, #20 TAB 1 Refill Prov:ALESSANDRO HERNANDEZ MD 06/12/18 Omeprazole* (Omeprazole*) 20 Mg Capsule.dr, 20 MG PO DAILY for 30 Days, #30 CAP otc Prov:ALESSANDRO HERNANDEZ MD 06/12/18 Ondansetron Hcl* (Zofran*) 8 Mg Tablet, 8 MG PO TID for 10 Days, #30 TAB 1 Refill Prov:ALESSANDRO HERNANDEZ MD 06/12/18 Metoclopramide Hcl* (Metoclopramide Hcl*) 10 Mg Tablet, 20 MG PO QID for 10 Days, #30 TAB 1 Refill Prov:ALESSANDRO HERNANDEZ MD 06/12/18 Polyethylene Glycol* (Miralax*) 17 Gm Powd.pack, 17 GM PO DAILY for 7 Days, #10 2 Refills Prov:ALESSANDRO HERNANDEZ MD 06/12/18 Famotidine* (Famotidine*) 20 Mg Tablet, 20 MG PO BID for 30 Days, #30 TAB 1 Refill otc Prov:ALESSANDRO HERNANDEZ MD 06/12/18 Acetaminophen* (Tylenol*) 325 Mg Tablet, 650 MG PO Q6H PRN for .PAIN 1-3 OR TEMP for 1 Day, #1 TAB Prov:ALESSANDRO HERNANDEZ MD 06/12/18 Reported Medications Sertraline Hcl* (Sertraline Hcl*) 100 Mg Tablet, 100 MG PO QHS, #30 TAB 06/10/18 Ferrous Sulfate* (Ferrous Sulfate*) 325 Mg Tabec, 325 MG PO BID, TAB 06/10/18 Docusate Sodium (Col-Rite) 100 Mg Capsule, 100 MG PO BID, CAP 06/10/18 Buprenorphine Hcl (BUPRENORPHINE HCL) 2 Mg Tab.subl, 2 MG SL Q4, TAB.SL 06/10/18 Discontinued Reported Medications Docusate Sodium (Col-Rite) 100 Mg Capsule, 100 MG PO BID take 1 capsule by mouth twice a day 05/29/18 Ferrous Sulfate* (Ferrous Sulfate*) 325 Mg Tabec, 325 MG PO BID take 1 tablet by mouth twice a day 05/29/18 Sertraline Hcl* (Sertraline Hcl*) 100 Mg Tablet, 100 MG PO QHS 05/29/18 Buprenorphine Hcl (BUPRENORPHINE HCL) 2 Mg Tab.subl, 2 MG SL PRN for Q4H, TAB.SL 05/29/18 Discontinued Scripts Levofloxacin* (Levaquin*) 500 Mg Tablet, 500 MG PO DAILY for 7 Days, TAB Prov:SHERLYN CORONA MD 05/30/18 Follow-up Plan appt primary & Oncology 1wk Primary Care Provider [facility] Pending Labs Laboratory Tests Test 06/12/18 07:49 White Blood Count 17.2 10^3/ul (4.8-10.8) Red Blood Count 4.28 10^6/ul (4.70-6.10) Hemoglobin 10.5 g/dl (14.0-18.0) Hematocrit 34.4 % (42.0-52.0) Mean Corpuscular Volume 80.4 fl (82.0-101.0) Mean Corpuscular Hemoglobin 24.5 pg (29.0-33.0) Mean Corpuscular Hemoglobin Concent 30.5 g/dl (32.0-37.0) Red Cell Distribution Width 18.3 % (11.5-14.5) Platelet Count 303 10^3/UL (140-415) Mean Platelet Volume 10.3 fl (7.4-10.4) Immature Granulocytes % 0.800 % (0.001-0.429) Neutrophils % 88.8 % (39.0-77.0) Lymphocytes % 4.8 % (15.0-51.0) Monocytes % 5.3 % (0.0-11.0) Eosinophils % 0.1 % (0.0-7.0) Basophils % 0.2 % (0.0-2.0) Nucleated Red Blood Cells % 0.0 /100WBC (0.0-0.0) Immature Granulocytes # 0.130 10^3/ul (0.0-0.031) Neutrophils # 15.3 10^3/ul (1.6-7.5) Lymphocytes # 0.8 10^3/ul (0.8-2.9) Monocytes # 0.9 10^3/ul (0.3-0.9) Eosinophils # 0.0 10^3/ul (0.0-0.5) Basophils # 0.0 10^3/ul (0.0-0.1) Nucleated Red Blood Cells # 0.0 10^3/ul (0.0-0.0) Erythrocyte Sedimentation Rate 79.0 mm/Hr (0-20) Sodium Level 137 mmol/L (135-144) Potassium Level 4.3 mmol/L (3.5-5.1) Chloride Level 106 mmol/L (97-110) Carbon Dioxide Level 22 mmol/L (21-31) Anion Gap 9 (5-13) Blood Urea Nitrogen 16 mg/dl (7-20) Creatinine 0.88 mg/dl (0.61-1.24) Est Glomerular Filtrat Rate mL/min > 60 mL/min (>60) Glucose Level 102 mg/dl (70-220) Lactic Acid Level 1.4 mmol/L (0.5-2.0) Calcium Level 13.3 mg/dl (8.4-10.2) Total Bilirubin 0.4 mg/dl (0.2-1.3) Direct Bilirubin 0.00 mg/dl (0.00-0.20) Indirect Bilirubin 0.4 mg/dl (0-1.1) Aspartate Amino Transf (AST/SGOT) 31 IU/L (15-46) Alanine Aminotransferase (ALT/SGPT) 28 IU/L (13-69) Alkaline Phosphatase 148 IU/L (42-121) C-Reactive Protein 16.8 mg/dl (0.0-0.9) Total Protein 6.5 g/dl (6.1-8.1) Albumin 3.0 g/dl (3.3-4.9) Globulin 3.50 g/dl (1.3-3.2) Albumin/Globulin Ratio 0.85 ALESSANDRO HERNANDEZ MD Jun 12, 2018 14:28
[2018-06-18] MEDS ORDERED: FERROUS SULFATE (EC) 325 MG TAB PO SCH (21:00)
== END 2018-06-12 15:00 | disposition home or self-care (01) ==
LOC: E/R 13:32 → 2NE 16:17
PROVIDERS: ADMIT Internal Medicine; ATTEND Internal Medicine
DX: R11.2 Nausea with vomiting, unspecified (principal); C34.31 Malignant neoplasm of lower lobe, right bronchus or lung; E86.0 Dehydration; K59.00 Constipation, unspecified; M54.5 Low back pain; Z87.891 Personal history of nicotine dependence; R05 Cough
CPT/HCPCS: 70552; 71045; 74018; 80048; 80053; 81003; 82728; 83036; 83540; 83605; 83690; 83735; 84100; 84145; 84439; 84443; 84481; 85025; 85610; 85651; 85730; 86140; 96374; C9113; J1650; J1940; J2270; J2405; J2765; J7030; Z7500; Z7502; Z7610; G0378

== ENCOUNTER 2018-07-03 15:50 | Emergency (ER) | payer OTHER ==
[~2018-07-03] VITALS: Wt 53.0 kg
[~2018-07-03 15:50] MED LIST changes: +ACET325T33 PO; +FAMO20TA18 PO; -LEVO500T48 PO; +METO10TA3 PO; +OMEP20CA16 PO; +ONDA8TAB9 PO; +POLY17PO6 PO; +PROC10TA10 PO
[2018-07-03] MEDS ORDERED: SOD CHLORIDE 0.9% 1,000 ML IV STA ×2 (18:43→19:55)
--- NOTE | 2018-07-03 19:03 | ERD ---
ER Documentation Chief Complaint Chief Complaint FROM 'S OFFICE SEND DUE HYPOTENSION, HAS STAGE iV LUNG CA HPI 62-year-old male history of lung cancer undergoing chemotherapy last chemotherapy 1 week ago. The patient is sent from primary care office because blood pressure was low in the 90s. He states that he usually runs in the high 90s. He has no complaints currently. He denies any hematemesis or melena. No fevers or chills. He denies any chest pain or shortness of breath. No pleuritic pain. No generalized weakness is noted. ROS All systems reviewed and are negative except as per history of present illness. Medications Home Meds Active Scripts Prochlorperazine* (Prochlorperazine*) 10 Mg Tablet, 10 MG PO Q6H PRN for NAUSEA for 7 Days, #20 TAB 1 Refill Prov:ALESSANDRO HERNANDEZ MD 06/12/18 Omeprazole* (Omeprazole*) 20 Mg Capsule., 20 MG PO DAILY for 30 Days, #30 CAP otc Prov:ALESSANDRO HERNANDEZ MD 06/12/18 Ondansetron Hcl* (Zofran*) 8 Mg Tablet, 8 MG PO TID for 10 Days, #30 TAB 1 Refill Prov:ALESSANDRO HERNANDEZ MD 06/12/18 Metoclopramide Hcl* (Metoclopramide Hcl*) 10 Mg Tablet, 20 MG PO QID for 10 Days, #30 TAB 1 Refill Prov:ALESSANDRO HERNANDEZ MD 06/12/18 Polyethylene Glycol* (Miralax*) 17 Gm Powd.pack, 17 GM PO DAILY for 7 Days, #10 2 Refills Prov:ALESSANDRO HERNANDEZ MD 06/12/18 Famotidine* (Famotidine*) 20 Mg Tablet, 20 MG PO BID for 30 Days, #30 TAB 1 Refill otc Prov:ALESSANDRO HERNANDEZ MD 06/12/18 Acetaminophen* (Tylenol*) 325 Mg Tablet, 650 MG PO Q6H PRN for .PAIN 1-3 OR TEMP for 1 Day, #1 TAB Prov:ALESSANDRO HERNANDEZ MD 06/12/18 Reported Medications Sertraline Hcl* (Sertraline Hcl*) 100 Mg Tablet, 100 MG PO QHS, #30 TAB 06/10/18 Ferrous Sulfate* (Ferrous Sulfate*) 325 Mg Tabec, 325 MG PO BID, TAB 06/10/18 Docusate Sodium (Col-Rite) 100 Mg Capsule, 100 MG PO BID, CAP 06/10/18 Buprenorphine Hcl (BUPRENORPHINE HCL) 2 Mg Tab.subl, 2 MG SL Q4, TAB.SL 06/10/18 Allergies Allergies: Coded Allergies: No Known Allergy (Unverified , 06/10/18) PMhx/Soc History of Surgery: Yes (VENTRAL HERNIA REPAIR, LAP CHOLECYSTECTOMY) Anesthesia Reaction: No Hx Neurological Disorder: No Hx Respiratory Disorders: Yes (STAGE IV LUNG CA) Hx Cardiac Disorders: No Hx Psychiatric Problems: No Hx Miscellaneous Medical Probl: Yes (IRON DEF. ANEMIA, HYPERCALCEMIA) Hx Alcohol Use: No Hx Substance Use: No Hx Tobacco Use: No FmHx Family History: No diabetes Physical Exam Vitals Vital Signs Date Temp Pulse Resp B/P (MAP) Pulse Ox O2 O2 Flow FiO2 Time Delivery Rate 07/03/18 77 15 99/66 (77) 100 Room Air 20:33 07/03/18 97.5 100 18 93/53 (66) 99 16:05 Physical Exam General: Cachectic male, no distress Head: Normocephalic, atraumatic. Eyes: Pupils equally reactive, EOM intact ENT: Moist mucous membranes Neck: Supple, no lymphadenopathy Respiratory: Lungs clear bilaterally, no distress Cardiovascular: RRR, no murmurs, rubs, or gallops Abdominal: Soft, non-tender, non-distended, no peritoneal signs : Deferred MSK: No edema, no unilateral swelling, 5/5 strength Neurologic: Alert and oriented, moving all extremities, normal speech, no focal weakness, no cerebellar signs Skin: No rash Psych: Normal mood Result Diagram: 07/03/18185707/03/181857 Results 24 hrs Laboratory Tests Test 07/03/18 18:58 07/03/18 19:06 White Blood Count 27.1 10^3/ul Red Blood Count 3.76 10^6/ul Hemoglobin 9.3 g/dl Hematocrit 31.0 % Mean Corpuscular Volume 82.4 fl Mean Corpuscular Hemoglobin 24.7 pg Mean Corpuscular Hemoglobin Concent 30.0 g/dl Red Cell Distribution Width 18.9 % Platelet Count 285 10^3/UL Mean Platelet Volume 9.3 fl Immature Granulocytes % 5.100 % Neutrophils % % Segmented Neutrophils % (Manual) 96 % Band Neutrophils % (Manual) 3 % Lymphocytes % % Lymphocytes % (Manual) 1 % Monocytes % % Eosinophils % % Basophils % % Nucleated Red Blood Cells % 0.0 /100WBC Immature Granulocytes # 1.390 10^3/ul Neutrophils # 10^3/ul Neutrophils # (Manual) 26.2 10^3/ul Band Neutrophils # 0.8 10^3/ul Lymphocytes (Manual) 0.2 10^3/ul Lymphocytes # 10^3/ul Monocytes # 10^3/ul Eosinophils # 10^3/ul Basophils # 10^3/ul Nucleated Red Blood Cells # 10^3/ul Platelet Estimate NORMAL Giant Platelets 2 % Polychromasia 1+ Poikilocytosis 1+ Anisocytosis 3+ Microcytosis 3+ Sodium Level 137 mmol/L Potassium Level 3.4 mmol/L Chloride Level 104 mmol/L Carbon Dioxide Level 22 mmol/L Anion Gap 11 Blood Urea Nitrogen 36 mg/dl Creatinine 1.27 mg/dl Est Glomerular Filtrat Rate mL/min 58 mL/min Glucose Level 109 mg/dl Calcium Level 10.7 mg/dl Total Bilirubin 0.4 mg/dl Direct Bilirubin 0.00 mg/dl Indirect Bilirubin 0.4 mg/dl Aspartate Amino Transf (AST/SGOT) 50 IU/L Alanine Aminotransferase (ALT/SGPT) 40 IU/L Alkaline Phosphatase 141 IU/L Total Protein 7.5 g/dl Albumin 3.5 g/dl Globulin 4.00 g/dl Albumin/Globulin Ratio 0.87 POC Venous Lactate 1.4 mmol/L Current Medications Medications Dose Sig/Ute Start Time Status Last (Trade) Ordered Route PRN Stop Time Admin Dose Reason Admin Sodium 1,000 ml @ Q1H STAT 07/03/18 DC 07/03/18 Chloride 1,000 mls/hr IV 18:43 19:28 07/03/18 19:42 Sodium 1,000 ml @ Q1H STAT 07/03/18 DC 07/03/18 Chloride 1,000 mls/hr IV 19:55 20:35 07/03/18 20:54 Procedures/MDM LAB INTERPRETATION: I reviewed the laboratory testing and it shows significant leukocytosis however the patient recently received Neupogen. Worsening renal function that is slightly elevated MEDICAL DECISION MAKING: The patient is otherwise extremely well-appearing in the emergency room setting. While the patient's blood pressure is in the 90s he states this is his baseline. He has no signs or symptoms concerning for infection, infarction, hemorrhage or severe dehydration. It would be reasonable to check the patient's cell lines given his history of cancer and chemotherapy. No signs or symptoms concerning for systemic bacterial infection. No signs or symptoms concerning for hemorrhagic process or septic process. Gentle fluids will be provided. I will reach out to the referring provider, Dr. Kunz ER COURSE: * The patient has leukocytosis that is likely related to Neupogen. He has no fever and no source of infection. I discussed the case with Dr. Kunz, we agreed with blood cultures but no indication for antibiotics. * Patient's blood pressure is improving. He remains asymptomatic and resting comfortably. The patient does have evidence of dehydration with mild renal insufficiency. Based on my conversation with Dr. Kunz both of us agree that inpatient hospitalization for hydration and observation would be reasonable. Patient feels strongly about going home. I had a in-depth conversation discussing the risk benefits and alternatives. The patient still feels strongly about going home and has capacity. I believe he is making an informed decision. We have agreed on blood cultures and 2 L of saline and then discharge. The patient feels very comfortable with this plan and understands return precautions. CONSULTATION: Hematology oncology: Dr. Kunz DISPOSITION PLAN: The patient does not have an identifiable emergent medical condition that warrants inpatient hospitalization at this time. The patient is deemed safe for discharge with outpatient follow-up. We discussed follow up with the patient's primary care doctor within 24 to 48 hours as needed. We also discussed return to the emergency room for worsening symptoms or worsening condition. Outpatient referral: Dr. Kunz Discharge Medications: None required Departure Diagnosis: Primary Impression: Leukocytosis Leukocytosis type: unspecified Qualified Codes: D72.829 - Elevated white blood cell count, unspecified Additional Impressions: History of lung cancer Dehydration Acute renal insufficiency Condition: Stable JUNG GALVIN MD July 03, 2018 19:03
[2018-07-03 21:34] VITALS: BP 100/72; PULSE 76; RESP 17
== END 2018-07-03 21:30 | disposition home or self-care (01) ==
LOC: E/R 15:50
DX: D72.829 Elevated white blood cell count, unspecified (principal); C34.90 Malignant neoplasm of unspecified part of unspecified bronchus or lung; E86.0 Dehydration; N28.9 Disorder of kidney and ureter, unspecified
CPT/HCPCS: 80053; 83605; 85025; 87040; 96360; 96361; J7030; Z7502; Z7610

== ENCOUNTER 2018-07-20 10:14 | Inpatient (IN) | payer OTHER ==
[~2018-07-20] VITALS: Ht 172.7 cm; Wt 52.0 kg
[2018-07-20] MEDS ORDERED: SOD CHLORIDE 0.9% 1,000 ML IV STA (10:47)
[2018-07-20] MEDS ORDERED: ZOLEDRONIC ACID 4 MG in SOD CHLORIDE 0.9% 100 ML IVPB ONE (11:00)
[2018-07-20] MEDS ORDERED: ONDANSETRON 4 MG INJ IV PRN (11:30)
[2018-07-20] MEDS ORDERED: ACETAMINOPHEN 325 MG TAB PO PRN ×2 (11:30→13:00)
[2018-07-20] MEDS ORDERED: HYDR2TAB36 PO (11:39)
[2018-07-20] MEDS ORDERED: HYDROmorphONE 1 MG/ML SYG ONE (12:16)
[2018-07-20] MEDS ORDERED: ONDANSETRON 4 MG INJ IV STA (12:25)
[2018-07-20] MEDS ORDERED: HYDROmorphONE 1 MG/ML SYG IV STA (12:25)
--- NOTE | 2018-07-20 12:28 | HP ---
Date/Time of Note Date/Time of Note DATE: 07/20/18 TIME: 12:27 Assessment/Plan VTE Prophylaxis Pharmacological prophylaxis: NA/contraindicated Pharm contraindication: other Lines/Catheters IV C[facility]from [facility] Central Line Central line still needed: Yes Assessment/Plan Hospital Course 62-year-old male with comorbidities including stage IV lung cancer getting immunotherapy as outpatient, iron deficiency anemia, and malnutrition who was referred to the emergency room by the patient's primary oncologist because of hypercalcemia, who was also found to have evidence of underlying dehydration and will be admitted to inpatient setting for further treatment and evaluation. 1. Hypercalcemia. -Most probably secondary to underlying malignancy. -Status post single dose of bisphosphonates at the emergency room. -Continue IV hydration. -Await further oncology inputs. 2. Acute kidney injury. -Nonoliguric. -Etiology could be multifactorial including underlying dehydration. -Continue IV fluids -Avoid nephrotoxic medications. 3. Leukocytosis. -Most probably reactive in origin. -The patient remains afebrile. -Monitor. 4. Normocytic, hypochromic anemia. -Most probably secondary to iron deficiency. -Continue iron supplements. 5. Moderate protein calorie malnutrition -Obtain dietary consult. -Dietary supplements. 6. Stage IV lung cancer. -On immunotherapy as outpatient. Plan: The patient will be admitted to inpatient medical surgical floor. The patient will be started on a regular diet. The patient will be started on DVT prophylaxis. The patient will remain a full code. Activities will be as tolerated. The rest of the patient's management will be based on the clinical course, in puts from consultants, and the results of diagnostic studies. Based on the patient's clinical presentation, he most probably requires at least 1 midnight's stay for further management and evaluation of his clinical presentation. The patient was seen in collaboration with Dr. Ponce. Result Diagram: 07/20/18 1059 07/20/18 1059 Results 24hrs Laboratory Tests Test 07/20/18 10:59 07/20/18 11:50 White Blood Count 12.1 #H Red Blood Count 3.00 #L Hemoglobin 7.6 L Hematocrit 25.3 L Mean Corpuscular Volume 84.3 Mean Corpuscular Hemoglobin 25.3 L Mean Corpuscular Hemoglobin Concent 30.0 L Red Cell Distribution Width 18.5 H Platelet Count 377 # Mean Platelet Volume 9.3 Immature Granulocytes % 22.600 H Neutrophils % 58.4 Segmented Neutrophils % (Manual) 43 Band Neutrophils % (Manual) 14 H Lymphocytes % 6.7 L Lymphocytes % (Manual) 16 Monocytes % 12.0 H Monocytes % (Manual) 15 H Eosinophils % 0.1 Basophils % 0.2 Myelocytes % (Manual) 6 H Promyelocytes % (Manual) 6 H Nucleated Red Blood Cells % 0.0 Immature Granulocytes # 2.740 H Neutrophils # 7.1 Neutrophils # (Manual) 5.4 Band Neutrophils # 1.6 H Lymphocytes (Manual) 1.9 Lymphocytes # 0.8 Monocytes # 1.5 H Monocytes # (Manual) 1.8 H Eosinophils # 0.0 Basophils # 0.0 Myelocytes # 0.7 H Promyelocytes # 0.7 H Nucleated Red Blood Cells # 0.0 Platelet Estimate NORMAL Giant Platelets 2 H Polychromasia 1+ Anisocytosis 1+ Microcytosis 1+ Sodium Level 136 Potassium Level 4.3 Chloride Level 98 Carbon Dioxide Level 31 Anion Gap 7 Blood Urea Nitrogen 25 H Creatinine 1.28 H Est Glomerular Filtrat Rate mL/min 57 L Glucose Level 121 Calcium Level 13.8 *H Total Bilirubin 0.2 Direct Bilirubin 0.00 Indirect Bilirubin 0.2 Aspartate Amino Transf (AST/SGOT) 32 Alanine Aminotransferase (ALT/SGPT) 25 Alkaline Phosphatase 139 H Creatine Kinase 20 L Creatine Kinase Index 3.7 Creatinine Kinase MB (Mass) 0.74 Troponin I < 0.012 B-Type Natriuretic Peptide 1610 H Total Protein 7.6 Albumin 3.6 Globulin 4.00 H Albumin/Globulin Ratio 0.90 Prothrombin Time 14.6 Prothrombin Time Ratio 1.1 INR International Normalized Ratio 1.13 Activated Partial Thromboplast Time Pending HPI/ROS Admit Date/Time Admit Date/Time Hx of Present Illness This is a 62-year-old male with past medical history of 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 The patient was referred to the ER by his primary oncologist because of hypercalcemia on his lab draws. The patient also verbalized poor oral intake and fatigue. The patient verbalized low back pain coming at random intervals and described the pain as spasmodic pain as if he has a kidney stone. The patient had a poor oral intake for the past few days. The patient denied any abdominal pain. He denied any fevers or chills. He denied any dyspnea or chest pain. In the emergency room, the patient was noticed to have leukocytosis with a WBC of 12.1. He had evidence of underlying acute kidney injury and hypercalcemia. He was started on IVFs and was given a dose of Zoledronic acid. ROS Constitutional: fatigue, poor po Eyes: no complaints ENT: no complaints Respiratory: no complaints Cardiovascular: no complaints Gastrointestinal: no complaints Genitourinary: no complaints Musculoskeletal: back pain Skin: no complaints Neurologic: no complaints Endocrine: no complaints Lymphatic: no complaints Psychological: no complaints Immunologic: no complaints PMH/Family/Social Past Medical History 1. Lung cancer. 2. Anemia. 3. Iron deficiency. Medications Current Medications Ondansetron HCl (Zofran Inj) 4 mg BRIDGE ORDER PRN IV NAUSEA/VOMITING; Start 07/20/18 at 11:30; Stop 07/21/18 at 11:29 Acetaminophen (Tylenol Tab) 650 mg ER BRIDGE PRN PO .MILD PAIN 1-3 OR TEMP; Start 07/20/18 at 11:30; Stop 07/21/18 at 11:29 Coded Allergies: No Known Allergy (Unverified , 07/20/18) Past Surgical History 1. Laparoscopic cholecystectomy. 2. Ventral hernia repair. Family History Significant Family History: no pertinent family hx Social History Smoking Status: Former smoker Exam/Review of Systems Vital Signs Vitals Vital Signs Date Temp Pulse Resp B/P (MAP) Pulse Ox O2 O2 Flow FiO2 Time Delivery Rate 07/20/18 97.5 87 18 174/97 100 10:28 (122) Exam Exam General: Thin, frail looking, 62 year-old male lying in bed in no apparent distress. HEENT: Normocephalic, atraumatic. Eyes: Anicteric sclerae, conjunctivae clear. ENT: Nasal septum midline, oral mucosa moist. Neck supple, no JVD noticed. Respiratory: Bilaterally diminished breath sounds. No use of accessory muscles of respiration. No adventitious breath sounds. Cardiovascular: S1, S2 heard. Regular rate and rhythm. Abdomen: Soft, nontender, and nondistended. Bowel sounds positive in all 4 quadrants. Genitourinary: Deferred. Extremities: No cyanosis, no clubbing, no edema. Peripheral pulses palpable. Neurologic: Cranial nerves II through XII grossly intact. The patient is awake, alert, and oriented. Skin: Normal skin turgor. No skin rashes. JARAD CRYSTAL NP July 20, 2018 12:28
[2018-07-20] MEDS ORDERED: NACL 0.9% 3 ML SYG IV SCH (13:00)
--- NOTE | 2018-07-20 13:21 | ERD ---
ER Documentation Chief Complaint Chief Complaint SENT BY DR. TOVAR FOR HIGH CALCIUM LEVEL HPI This is a 62-year-old male that has known history of metastatic squamous cell lung carcinoma. 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 He was sent for hypercalemia. The patient states he has had no fevers or shaking or chills. He denies any shortness of breath at rest or exertion. He denies any chest pain. ROS All systems reviewed and are negative except as per history of present illness. Medications Home Meds Active Scripts Omeprazole* (Omeprazole*) 20 Mg Capsule.dr, 20 MG PO DAILY for 30 Days, #30 CAP otc Prov:ALESSANDRO HERNANDEZ MD 06/12/18 Ondansetron Hcl* (Zofran*) 8 Mg Tablet, 8 MG PO TID for 10 Days, #30 TAB 1 Re fill Prov:ALESSANDRO HERNANDEZ MD 06/12/18 Reported Medications Hydromorphone Hcl* (Dilaudid*) 2 Mg Tablet, 2 MG PO Q4H, TAB 07/20/18 Sertraline Hcl* (Sertraline Hcl*) 100 Mg Tablet, 100 MG PO QHS, #30 TAB 06/10/18 Ferrous Sulfate* (Ferrous Sulfate*) 325 Mg Tabec, 325 MG PO BID, TAB 06/10/18 Discontinued Reported Medications Docusate Sodium (Col-Rite) 100 Mg Capsule, 100 MG PO BID, CAP 06/10/18 Buprenorphine Hcl (BUPRENORPHINE HCL) 2 Mg Tab.subl, 2 MG SL Q4, TAB.SL 06/10/18 Discontinued Scripts Prochlorperazine* (Prochlorperazine*) 10 Mg Tablet, 10 MG PO Q6H PRN for NAUSEA for 7 Days, #20 TAB 1 Refill Prov:ALESSANDRO HERNANDEZ MD 06/12/18 Metoclopramide Hcl* (Metoclopramide Hcl*) 10 Mg Tablet, 20 MG PO QID for 10 Days, #30 TAB 1 Refill Prov:ALESSANDRO HERNANDEZ MD 06/12/18 Polyethylene Glycol* (Miralax*) 17 Gm Powd.pack, 17 GM PO DAILY for 7 Days, #10 2 Refills Prov:ALESSANDRO HERNANDEZ MD 06/12/18 Famotidine* (Famotidine*) 20 Mg Tablet, 20 MG PO BID for 30 Days, #30 TAB 1 Refill otc Prov:ALESSANDRO HERNANDEZ MD 06/12/18 Acetaminophen* (Tylenol*) 325 Mg Tablet, 650 MG PO Q6H PRN for .PAIN 1-3 OR TEMP for 1 Day, #1 TAB Prov:ALESSANDRO HERNANDEZ MD 06/12/18 Allergies Allergies: Coded Allergies: No Known Allergy (Unverified , 07/20/18) PMhx/Soc History of Surgery: Yes (VENTRAL HERNIA REPAIR, LAP CHOLECYSTECTOMY) Anesthesia Reaction: No Hx Neurological Disorder: No Hx Respiratory Disorders: Yes (STAGE IV LUNG CA) Hx Cardiac Disorders: No Hx Psychiatric Problems: No Hx Miscellaneous Medical Probl: Yes (metastatic cancer ) Hx Alcohol Use: No Hx Substance Use: No Hx Tobacco Use: No Smoking Status: Former smoker Physical Exam Vitals Vital Signs Date Temp Pulse Resp B/P (MAP) Pulse Ox O2 O2 Flow FiO2 Time Delivery Rate 07/20/18 97.9 77 20 97/70 (79) 99 Room Air 13:46 07/20/18 97.5 87 18 174/97 100 10:28 (122) Physical Exam Constitutional:Well-developed. Cachectic HEENT:Normocephalic. Atraumatic.Pupils were equal round reactive to light. Moist mucous membranes.No tonsillar exudates. Respiratory: Not using accessory muscles of respiration.Lungs were clear to auscultation bilaterally. No rhonchi. No rales. No wheezing. Cardiovascular: Regular rate regular rhythm.No murmurs. No rubs were nathaly reciated.S1, S2 normal. Distal pulses are palpable 2+ bilaterally. GI: Abdomen was soft. Nontender. Non Distended. No pulsatile abdominal masses or bruits. No rebound. No guarding. Bowel sounds were present and normal. Muscle skeletal: Full range of motion of both the upper and lower extremities bi laterally.Normal muscle tone.No assymetrical calf tenderness or swelling. Skin: No petechia, no purpura. No lesions on the palms or the soles of the feet. No maculopapular rash. NEURO: Patient was alert, awake, orientated x3.No facial droop. Gait observed and normal with no ataxia.Speech had regular rate and rhythm. No focal neurological deficits. Result Diagram: 07/20/18 1059 07/20/18 1059 Results 24 hrs Laboratory Tests Test 07/20/18 10:59 07/20/18 11:50 White Blood Count 12.1 10^3/ul Red Blood Count 3.00 10^6/ul Hemoglobin 7.6 g/dl Hematocrit 25.3 % Mean Corpuscular Volume 84.3 fl Mean Corpuscular Hemoglobin 25.3 pg Mean Corpuscular Hemoglobin Concent 30.0 g/dl Red Cell Distribution Width 18.5 % Platelet Count 377 10^3/UL Mean Platelet Volume 9.3 fl Immature Granulocytes % 22.600 % Neutrophils % 58.4 % Segmented Neutrophils % (Manual) 43 % Band Neutrophils % (Manual) 14 % Lymphocytes % 6.7 % Lymphocytes % (Manual) 16 % Monocytes % 12.0 % Monocytes % (Manual) 15 % Eosinophils % 0.1 % Basophils % 0.2 % Myelocytes % (Manual) 6 % Promyelocytes % (Manual) 6 % Nucleated Red Blood Cells % 0.0 /100WBC Immature Granulocytes # 2.740 10^3/ul Neutrophils # 7.1 10^3/ul Neutrophils # (Manual) 5.4 10^3/ul Band Neutrophils # 1.6 10^3/ul Lymphocytes (Manual) 1.9 10^3/ul Lymphocytes # 0.8 10^3/ul Monocytes # 1.5 10^3/ul Monocytes # (Manual) 1.8 10^3/ul Eosinophils # 0.0 10^3/ul Basophils # 0.0 10^3/ul Myelocytes # 0.7 10^3/ul Promyelocytes # 0.7 10^3/ul Nucleated Red Blood Cells # 0.0 10^3/ul Platelet Estimate NORMAL Giant Platelets 2 % Polychromasia 1+ Anisocytosis 1+ Microcytosis 1+ Sodium Level 136 mmol/L Potassium Level 4.3 mmol/L Chloride Level 98 mmol/L Carbon Dioxide Level 31 mmol/L Anion Gap 7 Blood Urea Nitrogen 25 mg/dl Creatinine 1.28 mg/dl Est Glomerular Filtrat Rate mL/min 57 mL/min Glucose Level 121 mg/dl Calcium Level 13.8 mg/dl Total Bilirubin 0.2 mg/dl Direct Bilirubin 0.00 mg/dl Indirect Bilirubin 0.2 mg/dl Aspartate Amino Transf (AST/SGOT) 32 IU/L Alanine Aminotransferase (ALT/SGPT) 25 IU/L Alkaline Phosphatase 139 IU/L Creatine Kinase 20 IU/L Creatine Kinase Index 3.7 Creatinine Kinase MB (Mass) 0.74 ng/ml Troponin I < 0.012 ng/ml B-Type Natriuretic Peptide 1610 PG/ML Total Protein 7.6 g/dl Albumin 3.6 g/dl Globulin 4.00 g/dl Albumin/Globulin Ratio 0.90 Prothrombin Time 14.6 Sec Prothrombin Time Ratio 1.1 INR International Normalized Ratio 1.13 Activated Partial Thromboplast Time 20.0 Sec Current Medications Medications Dose Sig/Ute Start Time Status Last (Trade) Ordered Route PRN Stop Time Admin Dose Reason Admin Sodium 1,000 ml @ Q1H STAT 07/20/18 DC 07/20/18 Chloride 1,000 mls/hr IV 10:47 12:00 07/20/18 11:46 Zoledronic 105 ml @ ONCE ONCE 07/20/18 DC 07/20/18 Acid 4 420 mls/hr IVPB 11:00 12:04 mg/Sodium 07/20/18 11:14 Chloride Ondansetron 4 mg BRIDGE ORDER 07/20/18 HCl (Zofran PRN IV 11:30 07/21/18 Inj) NAUSEA/VOMITI 11:29 NG 650 mg ER BRIDGE 07/20/18 Acetaminophen PRN PO 11:30 07/21/18 (Tylenol .MILD PAIN 11:29 Tab) 1-3 OR TEMP 1 mg STK-MED 07/20/18 DC Hydromorphone ONCE .ROUTE 12:16 HCl 07/20/18 12:17 (Dilaudid) 1 mg ONCE STAT 07/20/18 DC 07/20/18 Hydromorphone IV 12:25 12:44 HCl 07/20/18 12:27 (Dilaudid) Ondansetron 4 mg ONCE STAT 07/20/18 DC HCl (Zofran IV 12:25 Inj) 07/20/18 12:27 Sodium 1,000 ml @ Q10H IV 07/20/18 07/20/18 Chloride 100 mls/hr 13:00 07/21/18 13:50 08:59 IV Flush 3 ml PER 07/20/18 (NS 3 ml) PROTOCOL IV 13:00 Ondansetron 4 mg Q6H PRN 5/31/19 HCl (Zofran IV 13:00 Inj) NAUSEA/VOMITI NG 650 mg Q6H PRN 07/20/18 Acetaminophen PO .PAIN 1-3 13:00 (Tylenol OR TEMP Tab) 1 tab Q6H PRN 07/20/18 Acetaminophen PO .MOD PAIN 13:00 / 4-6 Hydrocodone Bitart ([place] (5/325)) 0.5 mg Q4H PRN 07/20/18 Hydromorphone IV .SEVERE 13:00 HCl PAIN 7-10 (Dilaudid) Heparin 5,000 unit Q8 SC 07/20/18 DC Sodium 14:00 (Porcine) 07/20/18 14:00 (Heparin (5000 Units/1ml)) Procedures/MDM This is a 62-year-old male with a known history of metastatic squamous call carcinoma. 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 The patient's calcium was significantly elevated. He received Zometa his bisphosphonate 4 mg intravenously to treat the hypercalcemia. He also was given intravenous Dilaudid and Zofran and IV access was established through his port. 12 Lead EKG tracing ordered and reviewed by myself showed: Normal sinus rhythm of 80 bpm and no arrhythmia. WI interval normal. QRS duration normal. No ST segment elevation No ST segment depression. No changes consistent with acute ischemia. The patient will be admitted to the hospitalist. His bench loom weaver oncologist Dr. Kunz will be consulted. Critical Care: Time: 50 minutes Treatments/Evaluations: Close monitoring and treatment of unstable vital signs, cardiorespiratory, and neurologic status, while maintaining tight balance of fluid, respiratory, and cardiac interventions. Time does not include performing any of the above billable procedures. Departure Diagnosis: Primary Impression: Paraneoplastic syndrome Additional Impressions: Hypercalcemia Metastatic cancer Condition: Serious TRISHA CAMARA MD July 20, 2018 13:19
[2018-07-20] MEDS: SOD CHLORIDE 0.9% 1,000 ML IV SCH ×2 (13:50→23:37)
[2018-07-20] MEDS ORDERED: HEPARIN 5,000 UNIT/1 ML VIAL SC SCH (14:00)
[2018-07-20 14:56] VITALS: BP 92/58
--- NOTE | 2018-07-20 15:16 | CONS ---
Assessment/Plan Assessment/Plan Hospital Course (Demo Recall) # SQUAMOUS CELL CARCINOMA, MODERATELY-DIFFERENTIATED, RIGHT LOWER LOBE, PDL-1 10%. ECOG 1 -initial PEt CT 09/2017 demonstrates involvement in right lung with an 8cm mass and bilateral hypermetabolic pulmonary nodules and right hilar adenopathy -initial Brain MRI is negative -pt currently receiving Carboplatin / Gemcitabine which he is clinically responding to. 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 He also experienced fatigue for the past 2-3 weeks. No weight loss and no loss of appetite. 09/06/17- Patient admitted at [facility] because of cough, night sweats and hemoptysis -CXR showed a large right lower lobe lung mass with small left mid-lung 1.1 cm. nodule that are suspicious for possible neoplasm. -CT Scan of the chest without contrast demonstrated a 7.7cm rounded mass in right lower lobe as well as a 1.0cm solid nodule in periphery of left upper lobe - Bronchoscopy and BAL of Right lower lobe was done which revealed no dysplasia or malignancy. -CT A/P did not reveal evidence of metastatic disease below the diaphragm 09/07/17- CT-Guided right lower lobe biopsy showed Squamous Cell Carcinoma, moderately-differentiated. Positive PD-L1 10% expression, negative TTF1, positive p63, negative synpatophysin and 90% ki-67. 10/18/17: started Gemzar cycle 1, day 8. Still having cough, night sweats and occasional hemoptysis. 11/29/17: Here today for his cycle 3, day 8 of his Gemzar/Carboplatin regimen. Complaining of SOB on rest. 12/05/17 CT Chest demonstrates improvement in disease 12/08/17 Hg 7.4/ pt very SOB and pale. pt was admitted to [facility] where he received a blood transfusion 02/07/18 CT Chest internal increase in size of RLL pulmonary mass measuring up to 7.6 cm now with central necrosis with internal increase in size of multiple bilateral pulmonary nodules consistent with worsening satellite nodules, also increase size of mediastinal and hilar lymph nodes consistent with mirella mets 02/23/18 CT Chest reveals increase in mediastinal and right hilar adenopathy and stable liver cysts. CT Brain without evidence of disease 04/03/18 TSH 0.24 (low), free T3 2.2 (L) 04/17/18 CBC WBC 14, Hg 9 platelets 436. taking iron every other day 05/03/18 due for nivolumab today. states SOB is better but he feels more fatigued. 04/30/18 WBC13.9 Hg 8.5 platelets 451, CA 11.3 05/17/18: Nivolumab today 05/2018 admitted to [facility] . received antibiotics and PRBCs blood transfusion 06/05/18 CT reveals progression of disease. R sided lung nodules and mediastinal LAD have all worsened and the L lung has NEW disease 06/29/18 started cycle 1 day 1 carbo/gem. 07/06/18 CBC WBC 15.Hg 9.3 Platelets 156 07/19/2018 Calcium elevated 14. pt is feeling very jittery and light headed Constitutional: diaphoresis, poor po Eyes: no complaints ENT: no complaints Respiratory: no complaints Cardiovascular: lightheadedness, palpitations Gastrointestinal: no complaints Genitourinary: no complaints Musculoskeletal: back pain, bone/joint pain Skin: no complaints Neurologic: confusion, dizziness, headache Past Medical History Depression Insomnia Home Meds Active Scripts Omeprazole* (Omeprazole*) 20 Mg Capsule., 20 MG PO DAILY for 30 Days, #30 CAP otc Prov:ALESSANDRO HERNANDEZ MD 06/12/18 Ondansetron Hcl* (Zofran*) 8 Mg Tablet, 8 MG PO TID for 10 Days, #30 TAB 1 Refill Prov:ALESSANDRO HERNANDEZ MD 06/12/18 Reported Medications Hydromorphone Hcl* (Dilaudid*) 2 Mg Tablet, 2 MG PO Q4H, TAB 07/20/18 Sertraline Hcl* (Sertraline Hcl*) 100 Mg Tablet, 100 MG PO QHS, #30 TAB 06/10/18 Ferrous Sulfate* (Ferrous Sulfate*) 325 Mg Tabec, 325 MG PO BID, TAB 06/10/18 Discontinued Reported Medications Docusate Sodium (Col-Rite) 100 Mg Capsule, 100 MG PO BID, CAP 06/10/18 Buprenorphine Hcl (BUPRENORPHINE HCL) 2 Mg Tab.subl, 2 MG SL Q4, TAB.SL 06/10/18 Discontinued Scripts Prochlorperazine* (Prochlorperazine*) 10 Mg Tablet, 10 MG PO Q6H PRN for NAUSEA for 7 Days, #20 TAB 1 Refill Prov:ALESSANDRO HERNANDEZ MD 06/12/18 Metoclopramide Hcl* (Metoclopramide Hcl*) 10 Mg Tablet, 20 MG PO QID for 10 Days, #30 TAB 1 Refill Prov:ALESSANDRO HERNANDEZ MD 06/12/18 Polyethylene Glycol* (Miralax*) 17 Gm Powd.pack, 17 GM PO DAILY for 7 Days, #10 2 Refills Prov:ALESSANDRO HERNANDEZ MD 06/12/18 Famotidine* (Famotidine*) 20 Mg Tablet, 20 MG PO BID for 30 Days, #30 TAB 1 Refill otc Prov:ALESSANDRO HERNANDEZ MD 06/12/18 Acetaminophen* (Tylenol*) 325 Mg Tablet, 650 MG PO Q6H PRN for .PAIN 1-3 OR TEMP for 1 Day, #1 TAB Prov:ALESSANDRO HERNANDEZ MD 06/12/18 Medications Current Medications Ondansetron HCl (Zofran Inj) 4 mg BRIDGE ORDER PRN IV NAUSEA/VOMITING; Start 07/20/18 at 11:30; Stop 07/21/18 at 11:29 Acetaminophen (Tylenol Tab) 650 mg ER BRIDGE PRN PO .MILD PAIN 1-3 OR TEMP; Start 07/20/18 at 11:30; Stop 07/21/18 at 11:29 Sodium Chloride 1,000 ml @ 100 mls/hr Q10H IV Last administered on 07/20/18at 13:50; Admin Dose 100 MLS/HR; Start 07/20/18 at 13:00; Stop 07/21/18 at 08:59 IV Flush (NS 3 ml) 3 ml PER PROTOCOL IV ; Start 07/20/18 at 13:00 Ondansetron HCl (Zofran Inj) 4 mg Q6H PRN IV NAUSEA/VOMITING; Start 07/20/18 at 13:00 Acetaminophen (Tylenol Tab) 650 mg Q6H PRN PO .PAIN 1-3 OR TEMP; Start 07/20/18 at 13:00 Acetaminophen/ Hydrocodone Bitart ([place] (5/325)) 1 tab Q6H PRN PO .MOD PAIN 4- 6; Start 07/20/18 at 13:00 Hydromorphone HCl (Dilaudid) 0.5 mg Q4H PRN IV .SEVERE PAIN 7-10; Start 07/20/18 at 13:00 Ferrous Sulfate (Ferrous Sulfate (Ec)) 325 mg BID PO ; Start 07/20/18 at 21:00 Sertraline HCl (Zoloft) 100 mg QHS PO ; Start 07/20/18 at 21:00 Allergies: Coded Allergies: No Known Allergy (Unverified , 07/20/18) Past Surgical History Past Surgical Hx: no surgical history Family History Significant Family History: no pertinent family hx Social History Alcohol Use: none Smoking Status: Former smoker Drug Use: none Exam/Review of Systems Exam Vitals Vital Signs Date Temp Pulse Resp B/P (MAP) Pulse Ox O2 O2 Flow FiO2 Time Delivery Rate 07/20/18 92/58 (69) 14:56 07/20/18 97.7 81 18 98 Room Air 14:22 Constitutional: alert, oriented Psych: anxiety, confusion, depression Head: normocephalic Eyes: nl conjunctiva ENMT: nl external ears & nose Neck: supple Respiratory: diminished breath sounds Cardiovascular: other (tachycardia) Gastrointestinal: soft Extremities: normal pulses Results Result Diagram: 07/20/18 1059 07/20/18 1059 Results 24hrs Laboratory Tests Test 07/20/18 10:59 07/20/18 11:50 White Blood Count 12.1 #H Red Blood Count 3.00 #L Hemoglobin 7.6 L Hematocrit 25.3 L Mean Corpuscular Volume 84.3 Mean Corpuscular Hemoglobin 25.3 L Mean Corpuscular Hemoglobin Concent 30.0 L Red Cell Distribution Width 18.5 H Platelet Count 377 # Mean Platelet Volume 9.3 Immature Granulocytes % 22.600 H Neutrophils % 58.4 Segmented Neutrophils % (Manual) 43 Band Neutrophils % (Manual) 14 H Lymphocytes % 6.7 L Lymphocytes % (Manual) 16 Monocytes % 12.0 H Monocytes % (Manual) 15 H Eosinophils % 0.1 Basophils % 0.2 Myelocytes % (Manual) 6 H Promyelocytes % (Manual) 6 H Nucleated Red Blood Cells % 0.0 Immature Granulocytes # 2.740 H Neutrophils # 7.1 Neutrophils # (Manual) 5.4 Band Neutrophils # 1.6 H Lymphocytes (Manual) 1.9 Lymphocytes # 0.8 Monocytes # 1.5 H Monocytes # (Manual) 1.8 H Eosinophils # 0.0 Basophils # 0.0 Myelocytes # 0.7 H Promyelocytes # 0.7 H Nucleated Red Blood Cells # 0.0 Platelet Estimate NORMAL Giant Platelets 2 H Polychromasia 1+ Anisocytosis 1+ Microcytosis 1+ Sodium Level 136 Potassium Level 4.3 Chloride Level 98 Carbon Dioxide Level 31 Anion Gap 7 Blood Urea Nitrogen 25 H Creatinine 1.28 H Est Glomerular Filtrat Rate mL/min 57 L Glucose Level 121 Calcium Level 13.8 *H Total Bilirubin 0.2 Direct Bilirubin 0.00 Indirect Bilirubin 0.2 Aspartate Amino Transf (AST/SGOT) 32 Alanine Aminotransferase (ALT/SGPT) 25 Alkaline Phosphatase 139 H Creatine Kinase 20 L Creatine Kinase Index 3.7 Creatinine Kinase MB (Mass) 0.74 Troponin I < 0.012 B-Type Natriuretic Peptide 1610 H Total Protein 7.6 Albumin 3.6 Globulin 4.00 H Albumin/Globulin Ratio 0.90 Prothrombin Time 14.6 Prothrombin Time Ratio 1.1 INR International Normalized Ratio 1.13 Activated Partial Thromboplast Time 20.0 L Medications Medication Current Medications Ondansetron HCl (Zofran Inj) 4 mg BRIDGE ORDER PRN IV NAUSEA/VOMITING; Start 07/20/18 at 11:30; Stop 07/21/18 at 11:29 Acetaminophen (Tylenol Tab) 650 mg ER BRIDGE PRN PO .MILD PAIN 1-3 OR TEMP; Start 07/20/18 at 11:30; Stop 07/21/18 at 11:29 Sodium Chloride 1,000 ml @ 100 mls/hr Q10H IV Last administered on 07/20/18at 13:50; Admin Dose 100 MLS/HR; Start 07/20/18 at 13:00; Stop 07/21/18 at 08:59 IV Flush (NS 3 ml) 3 ml PER PROTOCOL IV ; Start 07/20/18 at 13:00 Ondansetron HCl (Zofran Inj) 4 mg Q6H PRN IV NAUSEA/VOMITING; Start 07/20/18 at 13:00 Acetaminophen (Tylenol Tab) 650 mg Q6H PRN PO .PAIN 1-3 OR TEMP; Start 07/20/18 at 13:00 Acetaminophen/ Hydrocodone Bitart ([place] (5/325)) 1 tab Q6H PRN PO .MOD PAIN 4- 6; Start 07/20/18 at 13:00 Hydromorphone HCl (Dilaudid) 0.5 mg Q4H PRN IV .SEVERE PAIN 7-10; Start 07/20/18 at 13:00 Ferrous Sulfate (Ferrous Sulfate (Ec)) 325 mg BID PO ; Start 07/20/18 at 21:00 Sertraline HCl (Zoloft) 100 mg QHS PO ; Start 07/20/18 at 21:00 THELMA HASKINS M.D. July 20, 2018 15:16
[2018-07-20 16:43] VITALS: Ht 172.7 cm; Wt 52.0 kg
[2018-07-20 19:20] VITALS: BP 115/70; PULSE 81; RESP 20
[2018-07-20] MEDS: HYDROmorphONE 0.5 MG/0.5 ML SYG IV PRN (19:55)
[2018-07-20] MEDS: FERROUS SULFATE (EC) 325 MG TAB PO SCH (20:57)
[2018-07-20] MEDS: SERTRALINE 100 MG TAB PO SCH (20:59)
[2018-07-21] MEDS: HYDROmorphONE 0.5 MG/0.5 ML SYG IV PRN ×5 (00:44→22:08)
[2018-07-21 02:13] VITALS: BP 105/66; RESP 18
[2018-07-21 07:19] VITALS: BP 115/65; PULSE 81; RESP 16
[2018-07-21] MEDS: FERROUS SULFATE (EC) 325 MG TAB PO SCH ×2 (08:10→22:04)
--- NOTE | 2018-07-21 09:02 | PN ---
Date/Time of Note Date/Time of Note DATE: 07/21/18 TIME: 08:58 Assessment/Plan VTE Prophylaxis Risk score (from Ns)>0 risk: 3 SCD applied (from Ns): No SCD contraindicated: other Pharmacological prophylaxis: NA/contraindicated Pharm contraindication: low risk/ambulating Lines/Catheters IV Catheter Type (from [facility]): chest portacath Assessment/Plan Hospital Course SUBJECTIVE: Complains of back pain. Complains of some nausea. OBJECTIVE: Physical Exam General: Thin, frail looking, 62 year-old male lying in bed in no apparent distress. HEENT: Normocephalic, atraumatic. Eyes: Anicteric sclerae, conjunctivae clear. ENT: Nasal septum midline, oral mucosa moist. Neck supple, no JVD noticed. Respiratory: Bilaterally diminished breath sounds. No use of accessory muscles of respiration. No adventitious breath sounds. Cardiovascular: S1, S2 heard. Regular rate and rhythm. Abdomen: Soft, nontender, and nondistended. Bowel sounds positive in all 4 quadrants. Genitourinary: Deferred. Extremities: No cyanosis, no clubbing, no edema. Peripheral pulses palpable. Neurologic: Cranial nerves II through XII grossly intact. The patient is awake, alert, and oriented. Skin: Normal skin turgor. No skin rashes. Labs & Vitals per chart ASSESSMENT & PLAN 62-year-old male with comorbidities including stage IV lung cancer getting immunotherapy as outpatient, iron deficiency anemia, and malnutrition who was referred to the emergency room by the patient's primary oncologist because of hypercalcemia, who was also found to have evidence of underlying dehydration and was admitted to inpatient setting for further treatment and evaluation. 1. Hypercalcemia. -Most probably secondary to underlying malignancy. -Bisphosphonates as per oncology. -Continue IV hydration. 2. Acute kidney injury. -Nonoliguric. -Etiology could be multifactorial including underlying dehydration. -Continue IV fluids -Avoid nephrotoxic medications. 3. Leukocytosis. -Most probably reactive in origin. -The patient remains afebrile. -Monitor. 4. Normocytic, hypochromic anemia. -Most probably secondary to iron deficiency. -Continue iron supplements. -PRBCs as indicated. 5. Moderate protein calorie malnutrition -Obtain dietary consult. -Dietary supplements. 6. Stage IV lung cancer. -On immunotherapy as outpatient. 7. Fluids, electrolytes, and nutrition. -Regular diet. 8. DVT prophylaxis -Bilateral SCDs. 9. Plan. -Continue IV fluids. -Bisphosphonate management as per oncology. -Transfuse 1 unit of PRBC. The patient was seen in collaboration with Dr. Ponce. Result Diagram: 07/21/18 0431 07/21/18 0431 Results 24hrs Laboratory Tests Test 07/20/18 10:59 07/20/18 11:50 07/21/18 04:31 White Blood Count 12.1 #H 12.6 H Red Blood Count 3.00 #L 2.85 L Hemoglobin 7.6 L 7.1 L Hematocrit 25.3 L 23.9 L Mean Corpuscular Volume 84.3 83.9 Mean Corpuscular Hemoglobin 25.3 L 24.9 L Mean Corpuscular Hemoglobin Concent 30.0 L 29.7 L Red Cell Distribution Width 18.5 H 18.7 H Platelet Count 377 # 366 Mean Platelet Volume 9.3 9.2 Immature Granulocytes % 22.600 H 26.000 H Neutrophils % 58.4 Segmented Neutrophils % (Manual) 43 67 Band Neutrophils % (Manual) 14 H 1 Lymphocytes % 6.7 L Lymphocytes % (Manual) 16 4 L Monocytes % 12.0 H Monocytes % (Manual) 15 H 9 Eosinophils % 0.1 Basophils % 0.2 Myelocytes % (Manual) 6 H 10 H Promyelocytes % (Manual) 6 H 5 H Nucleated Red Blood Cells % 0.0 0.0 Immature Granulocytes # 2.740 H 3.270 H Neutrophils # 7.1 Neutrophils # (Manual) 5.4 8.5 H Band Neutrophils # 1.6 H 0.1 Lymphocytes (Manual) 1.9 0.5 L Lymphocytes # 0.8 Monocytes # 1.5 H Monocytes # (Manual) 1.8 H 1.1 H Eosinophils # 0.0 Basophils # 0.0 Myelocytes # 0.7 H 1.2 H Promyelocytes # 0.7 H 0.6 H Nucleated Red Blood Cells # 0.0 Platelet Estimate NORMAL NORMAL Giant Platelets 2 H 4 H Polychromasia 1+ 2+ Anisocytosis 1+ 2+ Microcytosis 1+ 1+ Sodium Level 136 138 Potassium Level 4.3 3.9 Chloride Level 98 104 Carbon Dioxide Level 31 29 Anion Gap 7 5 Blood Urea Nitrogen 25 H 25 H Creatinine 1.28 H 1.06 Est Glomerular Filtrat Rate mL/min 57 L > 60 Glucose Level 121 84 Calcium Level 13.8 *H 12.3 H Total Bilirubin 0.2 Direct Bilirubin 0.00 Indirect Bilirubin 0.2 Aspartate Amino Transf (AST/SGOT) 32 Alanine Aminotransferase (ALT/SGPT) 25 Alkaline Phosphatase 139 H Creatine Kinase 20 L Creatine Kinase Index 3.7 Creatinine Kinase MB (Mass) 0.74 Troponin I < 0.012 B-Type Natriuretic Peptide 1610 H Total Protein 7.6 Albumin 3.6 Globulin 4.00 H Albumin/Globulin Ratio 0.90 Prothrombin Time 14.6 Prothrombin Time Ratio 1.1 INR International Normalized Ratio 1.13 Activated Partial Thromboplast Time 20.0 L Reactive Lymphocytes % (Manual) 1 H Metamyelocytes % (manual) 3 H Reactive Lymphocytes # 0.1 H Metamyelocytes # 0.3 H Toxic Granulation 1+ Platelet Morphology Comment @See below Hypochromasia 1+ Poikilocytosis 1+ Ovalocytes 1+ Phosphorus Level 1.5 L Magnesium Level 2.3 Exam/Review of Systems Exam Vitals Vital Signs Date Temp Pulse Resp B/P (MAP) Pulse Ox O2 O2 Flow FiO2 Time Delivery Rate 07/21/18 98.0 81 16 115/65 99 Room Air 07:19 (82) Intake and Output 07/20/18 07/20/18 07/21/18 1515:00 23:00 07:00 IntakeIntake Total 300 ml BalanceBalance 300 ml Results Results 24hrs Laboratory Tests Test 07/20/18 10:59 07/20/18 11:50 07/21/18 04:31 White Blood Count 12.1 #H 12.6 H Red Blood Count 3.00 #L 2.85 L Hemoglobin 7.6 L 7.1 L Hematocrit 25.3 L 23.9 L Mean Corpuscular Volume 84.3 83.9 Mean Corpuscular Hemoglobin 25.3 L 24.9 L Mean Corpuscular Hemoglobin Concent 30.0 L 29.7 L Red Cell Distribution Width 18.5 H 18.7 H Platelet Count 377 # 366 Mean Platelet Volume 9.3 9.2 Immature Granulocytes % 22.600 H 26.000 H Neutrophils % 58.4 Segmented Neutrophils % (Manual) 43 67 Band Neutrophils % (Manual) 14 H 1 Lymphocytes % 6.7 L Lymphocytes % (Manual) 16 4 L Monocytes % 12.0 H Monocytes % (Manual) 15 H 9 Eosinophils % 0.1 Basophils % 0.2 Myelocytes % (Manual) 6 H 10 H Promyelocytes % (Manual) 6 H 5 H Nucleated Red Blood Cells % 0.0 0.0 Immature Granulocytes # 2.740 H 3.270 H Neutrophils # 7.1 Neutrophils # (Manual) 5.4 8.5 H Band Neutrophils # 1.6 H 0.1 Lymphocytes (Manual) 1.9 0.5 L Lymphocytes # 0.8 Monocytes # 1.5 H Monocytes # (Manual) 1.8 H 1.1 H Eosinophils # 0.0 Basophils # 0.0 Myelocytes # 0.7 H 1.2 H Promyelocytes # 0.7 H 0.6 H Nucleated Red Blood Cells # 0.0 Platelet Estimate NORMAL NORMAL Giant Platelets 2 H 4 H Polychromasia 1+ 2+ Anisocytosis 1+ 2+ Microcytosis 1+ 1+ Sodium Level 136 138 Potassium Level 4.3 3.9 Chloride Level 98 104 Carbon Dioxide Level 31 29 Anion Gap 7 5 Blood Urea Nitrogen 25 H 25 H Creatinine 1.28 H 1.06 Est Glomerular Filtrat Rate mL/min 57 L > 60 Glucose Level 121 84 Calcium Level 13.8 *H 12.3 H Total Bilirubin 0.2 Direct Bilirubin 0.00 Indirect Bilirubin 0.2 Aspartate Amino Transf (AST/SGOT) 32 Alanine Aminotransferase (ALT/SGPT) 25 Alkaline Phosphatase 139 H Creatine Kinase 20 L Creatine Kinase Index 3.7 Creatinine Kinase MB (Mass) 0.74 Troponin I < 0.012 B-Type Natriuretic Peptide 1610 H Total Protein 7.6 Albumin 3.6 Globulin 4.00 H Albumin/Globulin Ratio 0.90 Prothrombin Time 14.6 Prothrombin Time Ratio 1.1 INR International Normalized Ratio 1.13 Activated Partial Thromboplast Time 20.0 L Reactive Lymphocytes % (Manual) 1 H Metamyelocytes % (manual) 3 H Reactive Lymphocytes # 0.1 H Metamyelocytes # 0.3 H Toxic Granulation 1+ Platelet Morphology Comment @See below Hypochromasia 1+ Poikilocytosis 1+ Ovalocytes 1+ Phosphorus Level 1.5 L Magnesium Level 2.3 Medications Medication Current Medications Ondansetron HCl (Zofran Inj) 4 mg BRIDGE ORDER PRN IV NAUSEA/VOMITING; Start 07/20/18 at 11:30; Stop 07/21/18 at 11:29 Acetaminophen (Tylenol Tab) 650 mg ER BRIDGE PRN PO .MILD PAIN 1-3 OR TEMP; Start 07/20/18 at 11:30; Stop 07/21/18 at 11:29 Sodium Chloride 1,000 ml @ 100 mls/hr Q10H IV Last administered on 07/20/18at 23:37; Admin Dose 100 MLS/HR; Start 07/20/18 at 13:00; Stop 07/21/18 at 08:59 IV Flush (NS 3 ml) 3 ml PER PROTOCOL IV ; Start 07/20/18 at 13:00 Ondansetron HCl (Zofran Inj) 4 mg Q6H PRN IV NAUSEA/VOMITING; Start 07/20/18 at 13:00 Acetaminophen (Tylenol Tab) 650 mg Q6H PRN PO .PAIN 1-3 OR TEMP; Start 07/20/18 at 13:00 Acetaminophen/ Hydrocodone Bitart ([place] (5/325)) 1 tab Q6H PRN PO .MOD PAIN 4- 6; Start 07/20/18 at 13:00 Hydromorphone HCl (Dilaudid) 0.5 mg Q4H PRN IV .SEVERE PAIN 7-10 Last administered on 07/21/18at 08:10; Admin Dose 0.5 MG; Start 07/20/18 at 13:00 Ferrous Sulfate (Ferrous Sulfate (Ec)) 325 mg BID PO Last administered on 07/21/18at 08:10; Admin Dose 325 MG; Start 07/20/18 at 21:00 Sertraline HCl (Zoloft) 100 mg QHS PO ; Start 07/20/18 at 21:00 JARAD CRYSTAL NP Jul 21, 2018 09:02
[2018-07-21] MEDS ORDERED: SOD CHLORIDE 0.9% 250 ML IV* ONE (09:03)
[2018-07-21] MEDS ORDERED: POTASSIUM PHOSPHATE 15 MM in SOD CHLORIDE 0.9% 250 ML IVPB ONE (10:00)
[2018-07-21] MEDS: ONDANSETRON 4 MG INJ IV PRN (12:37)
[2018-07-21 14:07] VITALS: BP 121/72; PULSE 75; RESP 16
--- NOTE | 2018-07-21 16:50 | CONS ---
Assessment/Plan Assessment/Plan Assessment/Plan (Daily) # SQUAMOUS CELL CARCINOMA, MODERATELY-DIFFERENTIATED, RIGHT LOWER LOBE, PDL-1 10%. ECOG 1 -initial PEt CT 09/2017 demonstrates involvement in right lung with an 8cm mass and bilateral hypermetabolic pulmonary nodules and right hilar adenopathy -initial Brain MRI is negative -pt currently receiving Carboplatin / Gemcitabine which he is clinically responding to. His functional status and SOB have improved -will resume chemo as out patient once his calcium has improved #Anemia- Hgb 7.1 2/2 chemo and malignancy sp 1 unit of PRBCs #Hypercalcemia -Ca trended down to 12.3 -patient admitted for hydration and bisphosphonate therapy -s/p Zometa 4mg IV q mo given in the ER - cont IVF - Lasix 20 mg po BID Dylan- resolved - Cr 1.06 - per PMD - Cachexia - dietary consult Patient seen in collaboration with Dr Kunz Consultation Date/Type/Reason Admit Date/Time July 202018 Type of Consult Hematology/Oncology Reason for Consultation Squamous Cell Carcinoma Date/Time of Note DATE: 07/21/18 TIME: 16:30 c/o generalized weakness Hgb 7.1 today Ca trended down to 12.3 today no events reported last night Eyes: no complaints ENT: no complaints Respiratory: no complaints Cardiovascular: no complaints Gastrointestinal: no complaints Genitourinary: no complaints Musculoskeletal: no complaints Skin: no complaints Neurologic: no complaints Endocrine: no complaints Lymphatic: no complaints Psychological: nl mood/affect Immunologic: no complaints Past Medical History Home Meds Active Scripts Omeprazole* (Omeprazole*) 20 Mg Capsule., 20 MG PO DAILY for 30 Days, #30 CAP otc Prov:ALESSANDRO HERNANDEZ MD 06/12/18 Ondansetron Hcl* (Zofran*) 8 Mg Tablet, 8 MG PO TID for 10 Days, #30 TAB 1 Refill Prov:ALESSANDRO HERNANDEZ MD 06/12/18 Reported Medications Hydromorphone Hcl* (Dilaudid*) 2 Mg Tablet, 2 MG PO Q4H, TAB 07/20/18 Sertraline Hcl* (Sertraline Hcl*) 100 Mg Tablet, 100 MG PO QHS, #30 TAB 06/10/18 Ferrous Sulfate* (Ferrous Sulfate*) 325 Mg Tabec, 325 MG PO BID, TAB 06/10/18 Discontinued Reported Medications Docusate Sodium (Col-Rite) 100 Mg Capsule, 100 MG PO BID, CAP 06/10/18 Buprenorphine Hcl (BUPRENORPHINE HCL) 2 Mg Tab.subl, 2 MG SL Q4, TAB.SL 06/10/18 Discontinued Scripts Prochlorperazine* (Prochlorperazine*) 10 Mg Tablet, 10 MG PO Q6H PRN for NAUSEA for 7 Days, #20 TAB 1 Refill Prov:ALESSANDRO HERNANDEZ MD 06/12/18 Metoclopramide Hcl* (Metoclopramide Hcl*) 10 Mg Tablet, 20 MG PO QID for 10 Days, #30 TAB 1 Refill Prov:ALESSANDRO HERNANDEZ MD 06/12/18 Polyethylene Glycol* (Miralax*) 17 Gm Powd.pack, 17 GM PO DAILY for 7 Days, #10 2 Refills Prov:ALESSANDRO HERNANDEZ MD 06/12/18 Famotidine* (Famotidine*) 20 Mg Tablet, 20 MG PO BID for 30 Days, #30 TAB 1 Refill otc Prov:ALESSANDRO HERNANDEZ MD 06/12/18 Acetaminophen* (Tylenol*) 325 Mg Tablet, 650 MG PO Q6H PRN for .PAIN 1-3 OR TEMP for 1 Day, #1 TAB Prov:ALESSANDRO HERNANDEZ MD 06/12/18 Medications Current Medications IV Flush (NS 3 ml) 3 ml PER PROTOCOL IV ; Start 07/20/18 at 13:00 Ondansetron HCl (Zofran Inj) 4 mg Q6H PRN IV NAUSEA/VOMITING Last administered on 07/21/18at 12:37; Admin Dose 4 MG; Start 07/20/18 at 13:00 Acetaminophen (Tylenol Tab) 650 mg Q6H PRN PO .PAIN 1-3 OR TEMP; Start 07/20/18 at 13:00 Acetaminophen/ Hydrocodone Bitart ([place] (5/325)) 1 tab Q6H PRN PO .MOD PAIN 4- 6; Start 07/20/18 at 13:00 Hydromorphone HCl (Dilaudid) 0.5 mg Q4H PRN IV .SEVERE PAIN 7-10 Last administered on 07/21/18at 14:00; Admin Dose 0.5 MG; Start 07/20/18 at 13:00 Ferrous Sulfate (Ferrous Sulfate (Ec)) 325 mg BID PO Last administered on 07/21/18at 08:10; Admin Dose 325 MG; Start 07/20/18 at 21:00 Sertraline HCl (Zoloft) 100 mg QHS PO ; Start 07/20/18 at 21:00 Sodium Chloride 1,000 ml @ 80 mls/hr [id number] IV ; Start 07/21/18 at 16:00 Furosemide (Lasix) 20 mg BID DIURETICS PO ; Start 07/21/18 at 18:00 Allergies: Coded Allergies: No Known Allergy (Unverified , 07/20/18) Past Surgical History Past Surgical Hx: no surgical history Social History Alcohol Use: none Smoking Status: Former smoker Drug Use: none Exam/Review of Systems Exam Vitals Vital Signs Date Temp Pulse Resp B/P (MAP) Pulse Ox O2 O2 Flow FiO2 Time Delivery Rate 07/21/18 98.0 75 16 121/72 100 Room Air 14:07 (88) Intake and Output 07/20/18 07/20/18 07/21/18 1515:00 23:00 07:00 IntakeIntake Total 300 ml BalanceBalance 300 ml Constitutional: alert, well developed Psych: nl mood/affect Head: normocephalic Eyes: nl lids, nl sclera ENMT: nl external ears & nose Neck: non-tender Respiratory: diminished breath sounds (at bases bilaerally) Cardiovascular: nl pulses, other (s1s2) Gastrointestinal: soft, non-tender Musculoskeletal: muscle weakness Neurological: nl mental status, nl speech Skin: nl turgor Lymph: nontender Results Result Diagram: 07/21/18 0431 07/21/18 0431 Results 24hrs Laboratory Tests Test 07/21/18 04:31 White Blood Count 12.6 H Red Blood Count 2.85 L Hemoglobin 7.1 L Hematocrit 23.9 L Mean Corpuscular Volume 83.9 Mean Corpuscular Hemoglobin 24.9 L Mean Corpuscular Hemoglobin Concent 29.7 L Red Cell Distribution Width 18.7 H Platelet Count 366 Mean Platelet Volume 9.2 Immature Granulocytes % 26.000 H Neutrophils % Segmented Neutrophils % (Manual) 67 Band Neutrophils % (Manual) 1 Lymphocytes % Lymphocytes % (Manual) 4 L Reactive Lymphocytes % (Manual) 1 H Monocytes % Monocytes % (Manual) 9 Eosinophils % Basophils % Metamyelocytes % (manual) 3 H Myelocytes % (Manual) 10 H Promyelocytes % (Manual) 5 H Nucleated Red Blood Cells % 0.0 Immature Granulocytes # 3.270 H Neutrophils # Neutrophils # (Manual) 8.5 H Band Neutrophils # 0.1 Lymphocytes (Manual) 0.5 L Lymphocytes # Reactive Lymphocytes # 0.1 H Monocytes # Monocytes # (Manual) 1.1 H Eosinophils # Basophils # Metamyelocytes # 0.3 H Myelocytes # 1.2 H Promyelocytes # 0.6 H Nucleated Red Blood Cells # Toxic Granulation 1+ Platelet Estimate NORMAL Giant Platelets 4 H Platelet Morphology Comment @See below Polychromasia 2+ Hypochromasia 1+ Poikilocytosis 1+ Anisocytosis 2+ Microcytosis 1+ Ovalocytes 1+ Sodium Level 138 Potassium Level 3.9 Chloride Level 104 Carbon Dioxide Level 29 Anion Gap 5 Blood Urea Nitrogen 25 H Creatinine 1.06 Est Glomerular Filtrat Rate mL/min > 60 Glucose Level 84 Calcium Level 12.3 H Phosphorus Level 1.5 L Magnesium Level 2.3 Medications Medication Current Medications IV Flush (NS 3 ml) 3 ml PER PROTOCOL IV ; Start 07/20/18 at 13:00 Ondansetron HCl (Zofran Inj) 4 mg Q6H PRN IV NAUSEA/VOMITING Last administered on 07/21/18at 12:37; Admin Dose 4 MG; Start 07/20/18 at 13:00 Acetaminophen (Tylenol Tab) 650 mg Q6H PRN PO .PAIN 1-3 OR TEMP; Start 07/20/18 at 13:00 Acetaminophen/ Hydrocodone Bitart ([place] (5/325)) 1 tab Q6H PRN PO .MOD PAIN 4- 6; Start 07/20/18 at 13:00 Hydromorphone HCl (Dilaudid) 0.5 mg Q4H PRN IV .SEVERE PAIN 7-10 Last administered on 07/21/18at 14:00; Admin Dose 0.5 MG; Start 07/20/18 at 13:00 Ferrous Sulfate (Ferrous Sulfate (Ec)) 325 mg BID PO Last administered on 07/21/18at 08:10; Admin Dose 325 MG; Start 07/20/18 at 21:00 Sertraline HCl (Zoloft) 100 mg QHS PO ; Start 07/20/18 at 21:00 Sodium Chloride 1,000 ml @ 80 mls/hr [id number] IV ; Start 07/21/18 at 16:00 Furosemide (Lasix) 20 mg BID DIURETICS PO ; Start 07/21/18 at 18:00 JOSHUA ALLEN Jul 21, 2018 16:50
[2018-07-21] MEDS: FUROSEMIDE 20 MG TAB PO SCH (18:23)
[2018-07-21] MEDS: SOD CHLORIDE 0.9% 1,000 ML IV SCH (18:23)
[2018-07-21] MEDS: HYDROCODONE/APAP (5/325) TAB PO PRN (19:32)
[2018-07-21 20:20] VITALS: BP 116/74; PULSE 77; RESP 18
[2018-07-21] MEDS: SERTRALINE 100 MG TAB PO SCH (22:04)
[2018-07-22] MEDS: HYDROmorphONE 0.5 MG/0.5 ML SYG IV PRN ×6 (02:05→22:14)
[2018-07-22 02:46] VITALS: BP 118/62; PULSE 74; RESP 20
[2018-07-22] MEDS: HYDROCODONE/APAP (5/325) TAB PO PRN (04:15)
[2018-07-22] MEDS: SOD CHLORIDE 0.9% 1,000 ML IV SCH ×3 (04:16→21:15)
[2018-07-22] MEDS: FUROSEMIDE 20 MG TAB PO SCH ×2 (06:11→18:16)
[2018-07-22 07:16] VITALS: BP 106/58; PULSE 66; RESP 15
--- NOTE | 2018-07-22 08:19 | PN ---
Date/Time of Note Date/Time of Note DATE: 07/22/18 TIME: 08:18 Assessment/Plan VTE Prophylaxis Risk score (from Ns)>0 risk: 6 SCD applied (from Ns): Yes Pharmacological prophylaxis: NA/contraindicated Pharm contraindication: low risk/ambulating Lines/Catheters IV [facility] PORT-A-CATH Assessment/Plan Hospital Course SUBJECTIVE: Complains of back pain. Complains of some nausea. OBJECTIVE: Physical Exam General: Thin, frail looking, 62 year-old male lying in bed in no apparent distress. HEENT: Normocephalic, atraumatic. Eyes: Anicteric sclerae, conjunctivae clear. ENT: Nasal septum midline, oral mucosa moist. Neck supple, no JVD noticed. Respiratory: Bilaterally diminished breath sounds. No use of accessory muscles of respiration. No adventitious breath sounds. Cardiovascular: S1, S2 heard. Regular rate and rhythm. Abdomen: Soft, nontender, and nondistended. Bowel sounds positive in all 4 quadrants. Genitourinary: Deferred. Extremities: No cyanosis, no clubbing, no edema. Peripheral pulses palpable. Neurologic: Cranial nerves II through XII grossly intact. The patient is awake, alert, and oriented. Skin: Normal skin turgor. No skin rashes. Labs & Vitals per chart ASSESSMENT & PLAN 62-year-old male with comorbidities including stage IV lung cancer getting immunotherapy as outpatient, iron deficiency anemia, and malnutrition who was referred to the emergency room by the patient's primary oncologist because of hypercalcemia, who was also found to have evidence of underlying dehydration and was admitted to inpatient setting for further treatment and evaluation. 1. Hypercalcemia. -Most probably secondary to underlying malignancy. -Bisphosphonates as per oncology. -Continue IV hydration. 2. Acute kidney injury. -Nonoliguric. -Etiology could be multifactorial including underlying dehydration. -Continue IV fluids -Avoid nephrotoxic medications. 3. Leukocytosis. -Most probably reactive in origin. -The patient remains afebrile. -Monitor. 4. Normocytic, hypochromic anemia. -Most probably secondary to iron deficiency. -Continue iron supplements. -PRBCs as indicated. 5. Moderate protein calorie malnutrition -Obtain dietary consult. -Dietary supplements. 6. Stage IV lung cancer. -On immunotherapy as outpatient. 7. Fluids, electrolytes, and nutrition. -Regular diet. 8. DVT prophylaxis -Bilateral SCDs. 9. Plan. -Continue IV fluids. -Bisphosphonate management as per oncology. -Replete electrolytes. -Await clinical improvement before discharging the patient home. The patient was seen in collaboration with Dr. Ponce. Result Diagram: 07/22/18 0428 07/22/18 0428 Results 24hrs Laboratory Tests Test 07/22/18 04:28 White Blood Count 16.9 #H Red Blood Count 3.00 L Hemoglobin 7.9 L Hematocrit 25.5 L Mean Corpuscular Volume 85.0 Mean Corpuscular Hemoglobin 26.3 L Mean Corpuscular Hemoglobin Concent 31.0 L Red Cell Distribution Width 18.9 H Platelet Count 381 Mean Platelet Volume 10.2 Immature Granulocytes % 16.800 H Neutrophils % Segmented Neutrophils % (Manual) 66 Band Neutrophils % (Manual) 4 Lymphocytes % Lymphocytes % (Manual) 6 L Monocytes % Monocytes % (Manual) 14 H Eosinophils % Basophils % Myelocytes % (Manual) 7 H Promyelocytes % (Manual) 3 H Nucleated Red Blood Cells % 0.0 Immature Granulocytes # 2.850 H Neutrophils # Neutrophils # (Manual) 11.3 H Band Neutrophils # 0.6 Lymphocytes (Manual) 1.0 Lymphocytes # Monocytes # Monocytes # (Manual) 2.3 H Eosinophils # Basophils # Myelocytes # 1.1 H Promyelocytes # 0.5 H Nucleated Red Blood Cells # Platelet Estimate NORMAL Polychromasia 1+ Anisocytosis 1+ Microcytosis 1+ Sodium Level 138 Potassium Level 3.7 Chloride Level 106 Carbon Dioxide Level 26 Anion Gap 6 Blood Urea Nitrogen 18 Creatinine 0.93 Est Glomerular Filtrat Rate mL/min > 60 Glucose Level 72 Calcium Level 10.7 H Phosphorus Level 2.1 L Magnesium Level 2.1 Exam/Review of Systems Exam Vitals Vital Signs Date Temp Pulse Resp B/P (MAP) Pulse Ox O2 O2 Flow FiO2 Time Delivery Rate 07/22/18 98.2 66 15 106/58 95 Room Air 07:16 (74) Intake and Output 07/21/18 07/21/18 07/22/18 1515:00 23:00 07:00 IntakeIntake Total 755 ml 360 ml OutputOutput Total 650 ml BalanceBalance 755 ml -290 ml Results Results 24hrs Laboratory Tests Test 07/22/18 04:28 White Blood Count 16.9 #H Red Blood Count 3.00 L Hemoglobin 7.9 L Hematocrit 25.5 L Mean Corpuscular Volume 85.0 Mean Corpuscular Hemoglobin 26.3 L Mean Corpuscular Hemoglobin Concent 31.0 L Red Cell Distribution Width 18.9 H Platelet Count 381 Mean Platelet Volume 10.2 Immature Granulocytes % 16.800 H Neutrophils % Segmented Neutrophils % (Manual) 66 Band Neutrophils % (Manual) 4 Lymphocytes % Lymphocytes % (Manual) 6 L Monocytes % Monocytes % (Manual) 14 H Eosinophils % Basophils % Myelocytes % (Manual) 7 H Promyelocytes % (Manual) 3 H Nucleated Red Blood Cells % 0.0 Immature Granulocytes # 2.850 H Neutrophils # Neutrophils # (Manual) 11.3 H Band Neutrophils # 0.6 Lymphocytes (Manual) 1.0 Lymphocytes # Monocytes # Monocytes # (Manual) 2.3 H Eosinophils # Basophils # Myelocytes # 1.1 H Promyelocytes # 0.5 H Nucleated Red Blood Cells # Platelet Estimate NORMAL Polychromasia 1+ Anisocytosis 1+ Microcytosis 1+ Sodium Level 138 Potassium Level 3.7 Chloride Level 106 Carbon Dioxide Level 26 Anion Gap 6 Blood Urea Nitrogen 18 Creatinine 0.93 Est Glomerular Filtrat Rate mL/min > 60 Glucose Level 72 Calcium Level 10.7 H Phosphorus Level 2.1 L Magnesium Level 2.1 Medications Medication Current Medications IV Flush (NS 3 ml) 3 ml PER PROTOCOL IV ; Start 07/20/18 at 13:00 Ondansetron HCl (Zofran Inj) 4 mg Q6H PRN IV NAUSEA/VOMITING Last administered on 07/21/18at 12:37; Admin Dose 4 MG; Start 07/20/18 at 13:00 Acetaminophen (Tylenol Tab) 650 mg Q6H PRN PO .PAIN 1-3 OR TEMP; Start 07/20/18 at 13:00 Acetaminophen/ Hydrocodone Bitart ([place] (5/325)) 1 tab Q6H PRN PO .MOD PAIN 4- 6 Last administered on 07/22/18at 04:15; Admin Dose 1 TAB; Start 07/20/18 at 13:00 Hydromorphone HCl (Dilaudid) 0.5 mg Q4H PRN IV .SEVERE PAIN 7-10 Last administered on 07/22/18at 06:12; Admin Dose 0.5 MG; Start 07/20/18 at 13:00 Ferrous Sulfate (Ferrous Sulfate (Ec)) 325 mg BID PO Last administered on 07/21/18 22:04; Admin Dose 325 MG; Start 07/20/18 at 21:00 Sertraline HCl (Zoloft) 100 mg QHS PO Last administered on 07/21/18at 22:04; Admin Dose 100 MG; Start 07/20/18 at 21:00 Sodium Chloride 1,000 ml @ 80 mls/hr [id number] IV Last administered on 07/22/18 04:16; Admin Dose 80 MLS/HR; Start 07/21/18 at 16:00 Furosemide (Lasix) 20 mg BID DIURETICS PO Last administered on 07/22/18 06:11; Admin Dose 20 MG; Start 07/21/18 at 18:00 JARAD CRYSTAL NP Jul 22, 2018 08:19
[2018-07-22] MEDS: FERROUS SULFATE (EC) 325 MG TAB PO SCH ×2 (09:52→21:13)
[2018-07-22] MEDS ORDERED: POTASSIUM PHOSPHATE 15 MM in SOD CHLORIDE 0.9% 250 ML IVPB ONE (10:00)
--- NOTE | 2018-07-22 10:45 | CONS ---
Assessment/Plan Assessment/Plan Assessment/Plan (Daily) Assessment/Plan (Daily) # SQUAMOUS CELL CARCINOMA, MODERATELY-DIFFERENTIATED, RIGHT LOWER LOBE, PDL-1 10%. ECOG 1 -initial PEt CT 09/2017 demonstrates involvement in right lung with an 8cm mass and bilateral hypermetabolic pulmonary nodules and right hilar adenopathy -initial Brain MRI is negative -pt currently receiving Carboplatin / Gemcitabine which he is clinically responding to. His functional status and SOB have improved -will resume chemo as out patient once his calcium has improved #Anemia- Hgb 7.6 03/24 chemo and malignancy sp 1 unit of PRBCs #Hypercalcemia -Ca trended down to 10,7 -patient admitted for hydration and bisphosphonate therapy -s/p Zometa 4mg IV q mo given in the ER - cont IVF - Lasix 20 mg po BID - Cachexia - dietary consult Patient seen in collaboration with Dr Kunz Consultation Date/Type/Reason Admit Date/Time Jul 21, 2018 at 08:22 Initial Consult Date 07/20/18 Type of Consult Hematology/Oncology Reason for Consultation Squamous Cell Carcinoma Requesting Provider: RICK LARSON MD Date/Time of Note DATE: 07/22/18 TIME: 10:42 24 HR Interval Summary Free Text/Dictation Ca 10.7 today Hgb 7.9 today no events reported last night dw staff Detailed Summary Eyes: no complaints ENT: bleeding Respiratory: no complaints Cardiovascular: no complaints Gastrointestinal: no complaints Genitourinary: no complaints Musculoskeletal: back pain Skin: no complaints Endocrine: no complaints Lymphatic: no complaints Psychological: nl mood/affect Immunologic: no complaints Exam/Review of Systems Exam Vitals Vital Signs Date Temp Pulse Resp B/P (MAP) Pulse Ox O2 O2 Flow FiO2 Time Delivery Rate 07/22/18 98.2 66 15 106/58 95 Room Air 07:16 (74) Intake and Output 07/21/18 07/21/18 07/22/18 1414:59 22:59 06:59 IntakeIntake Total 500 ml 615 ml OutputOutput Total 650 ml BalanceBalance 500 ml -35 ml Constitutional: alert, well developed Psych: nl mood/affect Head: normocephalic Eyes: nl lids, nl sclera ENMT: nl external ears & nose Neck: non-tender Respiratory: clear to auscultation Cardiovascular: regular rate and rhythm Gastrointestinal: soft, non-tender Musculoskeletal: nl extremities to inspection Results Result Diagram: 07/22/188 07/22/18 0428 Results 24hrs Laboratory Tests Test 07/22/18 04:28 White Blood Count 16.9 #H Red Blood Count 3.00 L Hemoglobin 7.9 L Hematocrit 25.5 L Mean Corpuscular Volume 85.0 Mean Corpuscular Hemoglobin 26.3 L Mean Corpuscular Hemoglobin Concent 31.0 L Red Cell Distribution Width 18.9 H Platelet Count 381 Mean Platelet Volume 10.2 Immature Granulocytes % 16.800 H Neutrophils % Segmented Neutrophils % (Manual) 66 Band Neutrophils % (Manual) 4 Lymphocytes % Lymphocytes % (Manual) 6 L Monocytes % Monocytes % (Manual) 14 H Eosinophils % Basophils % Myelocytes % (Manual) 7 H Promyelocytes % (Manual) 3 H Nucleated Red Blood Cells % 0.0 Immature Granulocytes # 2.850 H Neutrophils # Neutrophils # (Manual) 11.3 H Band Neutrophils # 0.6 Lymphocytes (Manual) 1.0 Lymphocytes # Monocytes # Monocytes # (Manual) 2.3 H Eosinophils # Basophils # Myelocytes # 1.1 H Promyelocytes # 0.5 H Nucleated Red Blood Cells # Platelet Estimate NORMAL Polychromasia 1+ Anisocytosis 1+ Microcytosis 1+ Sodium Level 138 Potassium Level 3.7 Chloride Level 106 Carbon Dioxide Level 26 Anion Gap 6 Blood Urea Nitrogen 18 Creatinine 0.93 Est Glomerular Filtrat Rate mL/min > 60 Glucose Level 72 Calcium Level 10.7 H Phosphorus Level 2.1 L Magnesium Level 2.1 Medications Medication Current Medications IV Flush (NS 3 ml) 3 ml PER PROTOCOL IV ; Start 07/20/18 at 13:00 Ondansetron HCl (Zofran Inj) 4 mg Q6H PRN IV NAUSEA/VOMITING Last administered on 07/21/18at 12:37; Admin Dose 4 MG; Start 07/20/18 at 13:00 Acetaminophen (Tylenol Tab) 650 mg Q6H PRN PO .PAIN 1-3 OR TEMP; Start 07/20/18 at 13:00 Acetaminophen/ Hydrocodone Bitart ([place] (5/325)) 1 tab Q6H PRN PO .MOD PAIN 4- 6 Last administered on 07/22/18at 04:15; Admin Dose 1 TAB; Start 07/20/18 at 13:00 Hydromorphone HCl (Dilaudid) 0.5 mg Q4H PRN IV .SEVERE PAIN 7-10 Last administered on 07/22/18 09:55; Admin Dose 0.5 MG; Start 07/20/18 at 13:00 Ferrous Sulfate (Ferrous Sulfate (Ec)) 325 mg BID PO Last administered on 07/22/18 09:52; Admin Dose 325 MG; Start 07/20/18 at 21:00 Sertraline HCl (Zoloft) 100 mg QHS PO Last administered on 07/21/18 22:04; Admin Dose 100 MG; Start 07/20/18 at 21:00 Sodium Chloride 1,000 ml @ 80 mls/hr [id number] IV Last administered on 07/22/18 04:16; Admin Dose 80 MLS/HR; Start 07/21/18 at 16:00 Furosemide (Lasix) 20 mg BID DIURETICS PO Last administered on 07/22/18 06:11; Admin Dose 20 MG; Start 07/21/18 at 18:00 Potassium Phosphate 15 mm/ Sodium Chloride 255 ml @ 63.75 mls/ hr ONCE ONCE IVPB Last administered on 07/22/18 09:52; Admin Dose 63.75 MLS/HR; Start 07/22/18 at 10:00; Stop 07/22/18 at 13:59 JOSHUA ALLEN Jul 22, 2018 10:45
[2018-07-22 14:02] VITALS: BP 125/78; PULSE 72; RESP 14
[2018-07-22 20:17] VITALS: BP 119/77; PULSE 74; RESP 18
[2018-07-22] MEDS: SERTRALINE 100 MG TAB PO SCH (21:13)
[2018-07-23 01:33] VITALS: BP 132/76; PULSE 82; RESP 18
[2018-07-23] MEDS: HYDROmorphONE 1 MG/ML SYG IV PRN ×5 (01:47→22:42)
[2018-07-23] MEDS: ONDANSETRON 4 MG INJ IV PRN (04:01)
[2018-07-23] MEDS ORDERED: HYDROmorphONE 0.5 MG/0.5 ML SYG IV PRN (05:00)
[2018-07-23] MEDS: FUROSEMIDE 20 MG TAB PO SCH ×2 (05:53→18:00)
[2018-07-23] MEDS ORDERED: HYDROCODONE/APAP (5/325) TAB PO PRN (07:00)
[2018-07-23 08:06] VITALS: BP 117/71; PULSE 72; RESP 18
[2018-07-23] MEDS ORDERED: ONDANSETRON INJ 8 MG in SOD CHLORIDE 0.9% 50 ML IV PRN (08:30)
[2018-07-23] MEDS: METOCLOPRAMIDE 10 MG INJ IV PRN ×2 (08:50→18:48)
[2018-07-23] MEDS: FERROUS SULFATE (EC) 325 MG TAB PO SCH ×2 (08:51→21:35)
[2018-07-23] MEDS ORDERED: IOHEXOL 14.3 MG(I)/ML (ADULT) BTL PO ONE (09:00)
[2018-07-23] MEDS ORDERED: IOHEXOL 300MG/ML 150 ML BTL ONE (09:44)
[2018-07-23] MEDS ORDERED: SOD CHLORIDE 0.9% 100 ML ONE (09:44)
[2018-07-23] MEDS: SOD CHLORIDE 0.9% 1,000 ML IV SCH (10:40)
[2018-07-23] MEDS: LORAZEPAM 1 MG TAB PO PRN ×2 (10:40→22:42)
--- NOTE | 2018-07-23 11:50 | CONS ---
Assessment/Plan Assessment/Plan Hospital Course (Demo Recall) # SQUAMOUS CELL CARCINOMA, MODERATELY-DIFFERENTIATED, RIGHT LOWER LOBE, PDL-1 10%. ECOG 1 -initial PEt CT 09/2017 demonstrates involvement in right lung with an 8cm mass and bilateral hypermetabolic pulmonary nodules and right hilar adenopathy -initial Brain MRI is negative -pt currently receiving Carboplatin / Gemcitabine which he is clinically responding to. His functional status and SOB have improved -will resume chemo as out patient once his calcium has improved -will check CT C/A/P to assess state of disease #Anemia 2/2 chemo and malignancy -s/p 2 units of PRBCS. Hg now > 8 #Hypercalcemia -Ca 9 -s/p Zometa 4mg IV q mo given in the ER -continue hydration Consultation Date/Type/Reason Admit Date/Time Jul 21, 2018 at 08:22 Initial Consult Date 07/20/18 Type of Consult oncology Reason for Consultation metastatic lung cancer Requesting Provider: RICK LARSON MD Date/Time of Note DATE: 07/23/18 TIME: 11:47 24 HR Interval Summary Free Text/Dictation pt is extremely nauseous this morning. c/o back pain. Ca is now normal Exam/Review of Systems Exam Vitals Vital Signs Date Temp Pulse Resp B/P (MAP) Pulse Ox O2 O2 Flow FiO2 Time Delivery Rate 07/23/18 98.0 72 18 117/71 100 Room Air 08:06 (86) Intake and Output 07/22/18 07/22/18 07/23/18 1515:00 23:00 07:00 IntakeIntake Total 200 ml 895 ml 1040 ml OutputOutput Total 250 ml 600 ml 600 ml BalanceBalance -50 ml 295 ml 440 ml Constitutional: alert, oriented, frail Psych: depression Head: normocephalic Eyes: nl conjunctiva ENMT: nl external ears & nose Neck: supple Respiratory: clear to auscultation Cardiovascular: regular rate and rhythm Gastrointestinal: soft Musculoskeletal: nl extremities to inspection Results Result Diagram: 07/23/18 0502 07/23/18 0502 Results 24hrs Laboratory Tests Test 07/23/18 05:02 White Blood Count 19.3 H Red Blood Count 3.20 L Hemoglobin 8.5 L Hematocrit 27.5 L Mean Corpuscular Volume 85.9 Mean Corpuscular Hemoglobin 26.6 L Mean Corpuscular Hemoglobin Concent 30.9 L Red Cell Distribution Width 19.7 H Platelet Count 385 Mean Platelet Volume 8.8 Immature Granulocytes % 18.500 H Neutrophils % 61.6 Segmented Neutrophils % (Manual) 68 Band Neutrophils % (Manual) 4 Lymphocytes % 7.7 L Lymphocytes % (Manual) 3 L Monocytes % 12.0 H Monocytes % (Manual) 14 H Eosinophils % 0.2 Basophils % 0.0 Metamyelocytes % (manual) 2 H Myelocytes % (Manual) 9 H Nucleated Red Blood Cells % 0.0 Immature Granulocytes # 3.570 H Neutrophils # 11.9 H Neutrophils # (Manual) 13.3 H Band Neutrophils # 0.7 H Lymphocytes (Manual) 0.5 L Lymphocytes # 1.5 Monocytes # 2.3 H Monocytes # (Manual) 2.7 H Eosinophils # 0.0 Basophils # 0.0 Metamyelocytes # 0.3 H Myelocytes # 1.7 H Nucleated Red Blood Cells # 0.0 Platelet Estimate NORMAL Polychromasia 1+ Poikilocytosis 1+ Anisocytosis 1+ Microcytosis 2+ Macrocytosis 1+ Sodium Level 136 Potassium Level 3.8 Chloride Level 107 Carbon Dioxide Level 23 Anion Gap 6 Blood Urea Nitrogen 14 Creatinine 0.81 Est Glomerular Filtrat Rate mL/min > 60 Glucose Level 88 Calcium Level 9.6 Phosphorus Level 1.8 L Magnesium Level 2.1 Medications Medication Current Medications IV Flush (NS 3 ml) 3 ml PER PROTOCOL IV ; Start 07/20/18 at 13:00 Ondansetron HCl (Zofran Inj) 4 mg Q6H PRN IV NAUSEA/VOMITING Last administered on 07/23/18at 04:01; Admin Dose 4 MG; Start 07/20/18 at 13:00 Acetaminophen (Tylenol Tab) 650 mg Q6H PRN PO .PAIN 1-3 OR TEMP; Start 07/20/18 at 13:00 Ferrous Sulfate (Ferrous Sulfate (Ec)) 325 mg BID PO Last administered on 07/23/18at 08:51; Admin Dose 325 MG; Start 07/20/18 at 21:00 Sertraline HCl (Zoloft) 100 mg QHS PO Last administered on 07/22/18at 21:13; Admin Dose 100 MG; Start 07/20/18 at 21:00 Sodium Chloride 1,000 ml @ 80 mls/hr [id number] IV Last administered on 07/23/18 10:40; Admin Dose 80 MLS/HR; Start 07/21/18 at 16:00 Furosemide (Lasix) 20 mg BID DIURETICS PO Last administered on 07/23/18 05:53; Admin Dose 20 MG; Start 07/21/18 at 18:00 Hydromorphone HCl (Dilaudid) 1 mg Q4H PRN IV SEVERE PAIN LEVEL 7-10 Last administered on 07/23/18 08:50; Admin Dose 1 MG; Start 07/23/18 at 01:30 Acetaminophen/ Hydrocodone Bitart ([place] (5/325)) 2 tab Q6H PRN PO .MOD PAIN 4- 6; Start 07/23/18 at 03:50 Metoclopramide HCl (Reglan) 10 mg Q6H PRN IV NAUSEA Last administered on 07/23/18 08:50; Admin Dose 10 MG; Start 07/23/18 at 08:30 Ondansetron HCl 8 mg/Sodium Chloride 54 ml @ 216 mls/hr Q6H PRN IV NAUSEA AND/OR VOMITING; Start 07/23/18 at 08:30 Lorazepam (Ativan) 1 mg Q12H PRN PO NAUSEA Last administered on 07/23/18 10:40; Admin Dose 1 MG; Start 07/23/18 at 08:30 Potassium Phosphate 20 meq/ Sodium Chloride 254.5455 ml @ 63.636 m... ONCE ONCE IVPB Last administered on 07/23/18 11:32; Admin Dose 63.636 MLS/HR; Start 07/23/18 at 12:30; Stop 07/23/18 at 16:29 THELMA HASKINS M.D. Jul 23, 2018 11:50
[2018-07-23] MEDS ORDERED: POTASSIUM PHOSPHATE 20 MEQ in SOD CHLORIDE 0.9% 250 ML IVPB ONE (12:30)
[2018-07-23 14:45] VITALS: BP 104/60; PULSE 78; RESP 18
--- NOTE | 2018-07-23 15:05 | PN ---
Date/Time of Note Date/Time of Note DATE: 07/23/18 TIME: 15:03 Assessment/Plan VTE Prophylaxis Risk score (from [facility])>0 risk: 6 SCD applied (from [facility]): Yes Pharmacological prophylaxis: NA/contraindicated Pharm contraindication: low risk/ambulating Lines/Catheters IV Catheter Type (from [facility]): PORT-A-CATH Urinary Cath still in place: No Assessment/Plan Hospital Course 62-year-old male with comorbidities including stage IV lung cancer getting immunotherapy as outpatient, iron deficiency anemia, and malnutrition who was referred to the emergency room by the patient's primary oncologist because of hypercalcemia, who was also found to have evidence of underlying dehydration and was admitted to inpatient setting for further treatment and evaluation. 1. Hypercalcemia. -Most probably secondary to underlying malignancy. -Bisphosphonates as per oncology. -Continue IV hydration. 2. Acute kidney injury-resolved -Nonoliguric -Etiology could be multifactorial including underlying dehydration -Continue IV fluids -Avoid nephrotoxic medications 3. Leukocytosis -Most probably reactive in origin. -The patient remains afebrile -Monitor. 4. Normocytic, hypochromic anemia. -Most probably secondary to iron deficiency. -Continue iron supplements. -PRBCs as indicated. 5. Moderate protein calorie malnutrition -Obtain dietary consult. -Dietary supplements. 6. Stage IV lung cancer. -On immunotherapy as outpatient. DVT prophylaxis -Bilateral SCDs. DC planning: -Continue IV fluids. -Bisphosphonate management as per oncology. -Replete electrolytes. -Await clinical improvement before discharging the patient home. Result Diagram: 07/23/18 0502 07/23/18 0502 Results 24hrs Laboratory Tests Test 07/23/18 05:02 White Blood Count 19.3 H Red Blood Count 3.20 L Hemoglobin 8.5 L Hematocrit 27.5 L Mean Corpuscular Volume 85.9 Mean Corpuscular Hemoglobin 26.6 L Mean Corpuscular Hemoglobin Concent 30.9 L Red Cell Distribution Width 19.7 H Platelet Count 385 Mean Platelet Volume 8.8 Immature Granulocytes % 18.500 H Neutrophils % 61.6 Segmented Neutrophils % (Manual) 68 Band Neutrophils % (Manual) 4 Lymphocytes % 7.7 L Lymphocytes % (Manual) 3 L Monocytes % 12.0 H Monocytes % (Manual) 14 H Eosinophils % 0.2 Basophils % 0.0 Metamyelocytes % (manual) 2 H Myelocytes % (Manual) 9 H Nucleated Red Blood Cells % 0.0 Immature Granulocytes # 3.570 H Neutrophils # 11.9 H Neutrophils # (Manual) 13.3 H Band Neutrophils # 0.7 H Lymphocytes (Manual) 0.5 L Lymphocytes # 1.5 Monocytes # 2.3 H Monocytes # (Manual) 2.7 H Eosinophils # 0.0 Basophils # 0.0 Metamyelocytes # 0.3 H Myelocytes # 1.7 H Nucleated Red Blood Cells # 0.0 Platelet Estimate NORMAL Polychromasia 1+ Poikilocytosis 1+ Anisocytosis 1+ Microcytosis 2+ Macrocytosis 1+ Sodium Level 136 Potassium Level 3.8 Chloride Level 107 Carbon Dioxide Level 23 Anion Gap 6 Blood Urea Nitrogen 14 Creatinine 0.81 Est Glomerular Filtrat Rate mL/min > 60 Glucose Level 88 Calcium Level 9.6 Phosphorus Level 1.8 L Magnesium Level 2.1 Subjective 24 Hr Interval Summary Constitutional: no complaints Exam/Review of Systems Exam Vitals Vital Signs Date Temp Pulse Resp B/P (MAP) Pulse Ox O2 O2 Flow FiO2 Time Delivery Rate 07/23/18 98.0 78 18 104/60 97 Room Air 14:45 (75) Intake and Output 07/22/18 07/22/18 07/23/18 1515:00 23:00 07:00 IntakeIntake Total 200 ml 895 ml 1040 ml OutputOutput Total 250 ml 600 ml 600 ml BalanceBalance -50 ml 295 ml 440 ml Constitutional: alert, oriented Respiratory: clear to auscultation Cardiovascular: regular rate and rhythm Gastrointestinal: soft; No distended Musculoskeletal: nl extremities to inspection Results Results 24hrs Laboratory Tests Test 07/23/18 05:02 White Blood Count 19.3 H Red Blood Count 3.20 L Hemoglobin 8.5 L Hematocrit 27.5 L Mean Corpuscular Volume 85.9 Mean Corpuscular Hemoglobin 26.6 L Mean Corpuscular Hemoglobin Concent 30.9 L Red Cell Distribution Width 19.7 H Platelet Count 385 Mean Platelet Volume 8.8 Immature Granulocytes % 18.500 H Neutrophils % 61.6 Segmented Neutrophils % (Manual) 68 Band Neutrophils % (Manual) 4 Lymphocytes % 7.7 L Lymphocytes % (Manual) 3 L Monocytes % 12.0 H Monocytes % (Manual) 14 H Eosinophils % 0.2 Basophils % 0.0 Metamyelocytes % (manual) 2 H Myelocytes % (Manual) 9 H Nucleated Red Blood Cells % 0.0 Immature Granulocytes # 3.570 H Neutrophils # 11.9 H Neutrophils # (Manual) 13.3 H Band Neutrophils # 0.7 H Lymphocytes (Manual) 0.5 L Lymphocytes # 1.5 Monocytes # 2.3 H Monocytes # (Manual) 2.7 H Eosinophils # 0.0 Basophils # 0.0 Metamyelocytes # 0.3 H Myelocytes # 1.7 H Nucleated Red Blood Cells # 0.0 Platelet Estimate NORMAL Polychromasia 1+ Poikilocytosis 1+ Anisocytosis 1+ Microcytosis 2+ Macrocytosis 1+ Sodium Level 136 Potassium Level 3.8 Chloride Level 107 Carbon Dioxide Level 23 Anion Gap 6 Blood Urea Nitrogen 14 Creatinine 0.81 Est Glomerular Filtrat Rate mL/min > 60 Glucose Level 88 Calcium Level 9.6 Phosphorus Level 1.8 L Magnesium Level 2.1 Medications Medication Current Medications IV Flush (NS 3 ml) 3 ml PER PROTOCOL IV ; Start 07/20/18 at 13:00 Ondansetron HCl (Zofran Inj) 4 mg Q6H PRN IV NAUSEA/VOMITING Last administered on 07/23/18at 04:01; Admin Dose 4 MG; Start 07/20/18 at 13:00 Acetaminophen (Tylenol Tab) 650 mg Q6H PRN PO .PAIN 1-3 OR TEMP; Start 07/20/18 at 13:00 Ferrous Sulfate (Ferrous Sulfate (Ec)) 325 mg BID PO Last administered on 07/23/18at 08:51; Admin Dose 325 MG; Start 07/20/18 at 21:00 Sertraline HCl (Zoloft) 100 mg QHS PO Last administered on 07/22/18at 21:13; Admin Dose 100 MG; Start 07/20/18 at 21:00 Sodium Chloride 1,000 ml @ 80 mls/hr [id number] IV Last administered on 07/23/18at 10:40; Admin Dose 80 MLS/HR; Start 07/21/18 at 16:00 Furosemide (Lasix) 20 mg BID DIURETICS PO Last administered on 07/23/18at 05:53; Admin Dose 20 MG; Start 07/21/18 at 18:00 Hydromorphone HCl (Dilaudid) 1 mg Q4H PRN IV SEVERE PAIN LEVEL 7-10 Last administered on 07/23/18at 14:26; Admin Dose 1 MG; Start 07/23/18 at 01:30 Acetaminophen/ Hydrocodone Bitart ([place] (5/325)) 2 tab Q6H PRN PO .MOD PAIN 4- 6; Start 07/23/18 at 03:50 Metoclopramide HCl (Reglan) 10 mg Q6H PRN IV NAUSEA Last administered on 07/23/18at 08:50; Admin Dose 10 MG; Start 07/23/18 at 08:30 Ondansetron HCl 8 mg/Sodium Chloride 54 ml @ 216 mls/hr Q6H PRN IV NAUSEA AND/OR VOMITING; Start 07/23/18 at 08:30 Lorazepam (Ativan) 1 mg Q12H PRN PO NAUSEA Last administered on 07/23/18at 10:40; Admin Dose 1 MG; Start 07/23/18 at 08:30 Potassium Phosphate 20 meq/ Sodium Chloride 254.5455 ml @ 63.636 m... ONCE ONCE IVPB Last administered on 07/23/18at 11:32; Admin Dose 63.636 MLS/HR; Start 07/23/18 at 12:30; Stop 07/23/18 at 16:29 MICHAEL RIBEIRO Jul 23, 2018 15:05
[2018-07-23 19:41] VITALS: BP 93/67; PULSE 94; RESP 18
[2018-07-23] MEDS: SERTRALINE 100 MG TAB PO SCH (21:35)
[2018-07-24] MEDS: HYDROCODONE/APAP (5/325) TAB PO PRN ×3 (00:10→16:38)
[2018-07-24 02:30] VITALS: BP 122/79; PULSE 60; RESP 18
[2018-07-24] MEDS: HYDROmorphONE 1 MG/ML SYG IV PRN ×3 (03:57→15:43)
[2018-07-24] MEDS: FUROSEMIDE 20 MG TAB PO SCH (06:22)
[2018-07-24] MEDS: SOD CHLORIDE 0.9% 1,000 ML IV SCH (06:23)
[2018-07-24 08:23] VITALS: BP 108/57; PULSE 75; RESP 18
[2018-07-24] MEDS ORDERED: morphine (ER) 15 MG TAB PO SCH (09:00)
[2018-07-24] MEDS: FERROUS SULFATE (EC) 325 MG TAB PO SCH (09:59)
--- NOTE | 2018-07-24 10:35 | CONS ---
Assessment/Plan Assessment/Plan Hospital Course (Demo Recall) # SQUAMOUS CELL CARCINOMA, MODERATELY-DIFFERENTIATED, RIGHT LOWER LOBE, PDL-1 10%. ECOG 1 -initial PEt CT 09/2017 demonstrates involvement in right lung with an 8cm mass and bilateral hypermetabolic pulmonary nodules and right hilar adenopathy -initial Brain MRI is negative -will resume chemo as out patient once his calcium has improved -07/23/2018 CT CAP again reveals the necrotic mass in LLL measuring 7.6cm , a new RUL met, Right paratracheal LN and a pato hepatis LN. the lung mets and diffuse LAD have all worsened. there is a new questionable liver lesion measuring 8mm --pt currently receiving Carboplatin / Gemcitabine which he is clinically responding to. His functional status and SOB have improved. Given he has had only 1 cycle since May it is difficult to say that his current cancer is progressing through therapy #Anemia 2/2 chemo and malignancy -s/p 2 units of PRBCS. Hg now > 8 #Hypercalcemia -Ca 9 -s/p Zometa 4mg IV q mo given in the ER -continue hydration Consultation Date/Type/Reason Admit Date/Time Jul 21, 2018 at 08:22 Initial Consult Date 07/20/18 Type of Consult oncology Reason for Consultation metastatic squamous cell carcinoma of lung Requesting Provider: RICK LARSON MD Date/Time of Note DATE: 07/24/18 TIME: 10:21 24 HR Interval Summary Free Text/Dictation pt still in extreme pain. requiring Dilaudid and norco around the clock Exam/Review of Systems Exam Vitals Vital Signs Date Temp Pulse Resp B/P (MAP) Pulse Ox O2 O2 Flow FiO2 Time Delivery Rate 07/24/18 98.3 18 108/57 95 08:23 (74) 07/24/18 60 02:30 07/23/18 Room Air 14:45 Intake and Output 07/23/18 07/23/18 07/24/18 1515:00 23:00 07:00 IntakeIntake Total 360 ml 735 ml OutputOutput Total 300 ml BalanceBalance 60 ml 735 ml Constitutional: distress, frail Psych: anxiety, depression Head: normocephalic Eyes: nl conjunctiva ENMT: nl external ears & nose Neck: supple Respiratory: clear to auscultation Cardiovascular: regular rate and rhythm Gastrointestinal: soft Musculoskeletal: nl extremities to inspection Extremities: normal pulses Results Result Diagram: 07/24/18 0432 07/24/18 0432 Results 24hrs Laboratory Tests Test 07/24/18 04:32 07/24/18 07:30 White Blood Count 19.1 H Red Blood Count 2.96 L Hemoglobin 7.8 L Hematocrit 25.3 L Mean Corpuscular Volume 85.5 Mean Corpuscular Hemoglobin 26.4 L Mean Corpuscular Hemoglobin Concent 30.8 L Red Cell Distribution Width 20.8 H Platelet Count 457 H Mean Platelet Volume 8.8 Immature Granulocytes % 14.100 H Neutrophils % 66.0 Segmented Neutrophils % (Manual) 68 Band Neutrophils % (Manual) 7 H Lymphocytes % 7.8 L Lymphocytes % (Manual) 6 L Monocytes % 11.7 H Monocytes % (Manual) 5 Eosinophils % 0.2 Basophils % 0.2 Myelocytes % (Manual) 13 H Promyelocytes % (Manual) 1 H Nucleated Red Blood Cells % 0.0 Immature Granulocytes # 2.690 H Neutrophils # 12.6 H Neutrophils # (Manual) 13.2 H Band Neutrophils # 1.3 H Lymphocytes (Manual) 1.1 Lymphocytes # 1.5 Monocytes # 2.2 H Monocytes # (Manual) 0.9 Eosinophils # 0.0 Basophils # 0.0 Myelocytes # 2.4 H Promyelocytes # 0.1 H Nucleated Red Blood Cells # 0.0 Platelet Estimate NORMAL Polychromasia 3+ Poikilocytosis 1+ Anisocytosis 1+ Microcytosis 1+ Target Cells 1+ Ovalocytes 1+ Sodium Level 137 Potassium Level 3.6 Chloride Level 107 Carbon Dioxide Level 23 Anion Gap 7 Blood Urea Nitrogen 14 Creatinine 0.85 Est Glomerular Filtrat Rate mL/min > 60 Glucose Level 79 Calcium Level 8.9 Phosphorus Level 2.4 L Magnesium Level 1.9 Lab Scanned Report BLOOD TRANSFUSION Medications Medication Current Medications IV Flush (NS 3 ml) 3 ml PER PROTOCOL IV ; Start 07/20/18 at 13:00 Ondansetron HCl (Zofran Inj) 4 mg Q6H PRN IV NAUSEA/VOMITING Last administered on 07/23/18at 04:01; Admin Dose 4 MG; Start 07/20/18 at 13:00 Acetaminophen (Tylenol Tab) 650 mg Q6H PRN PO .PAIN 1-3 OR TEMP; Start 07/20/18 at 13:00 Ferrous Sulfate (Ferrous Sulfate (Ec)) 325 mg BID PO Last administered on 07/24 09:59; Admin Dose 325 MG; Start 07/20/18 at 21:00 Sertraline HCl (Zoloft) 100 mg QHS PO Last administered on 07/23/18 21:35; Admin Dose 100 MG; Start 07/20/18 at 21:00 Sodium Chloride 1,000 ml @ 80 mls/hr [id number] IV Last administered on 07/24/18 06:23; Admin Dose 80 MLS/HR; Start 07/21/18 at 16:00 Furosemide (Lasix) 20 mg BID DIURETICS PO Last administered on 07/24/18 06:22; Admin Dose 20 MG; Start 07/21/18 at 18:00 Hydromorphone HCl (Dilaudid) 1 mg Q4H PRN IV SEVERE PAIN LEVEL 7-10 Last administered on 07/24/18 07:53; Admin Dose 1 MG; Start 07/23/18 at 01:30 Acetaminophen/ Hydrocodone Bitart ([place] (5/325)) 2 tab Q6H PRN PO .MOD PAIN 4- 6 Last administered on 07/24/18 06:22; Admin Dose 2 TAB; Start 07/23/18 at 03:50 Metoclopramide HCl (Reglan) 10 mg Q6H PRN IV NAUSEA Last administered on 07/23/18 18:48; Admin Dose 10 MG; Start 07/23/18 at 08:30 Ondansetron HCl 8 mg/Sodium Chloride 54 ml @ 216 mls/hr Q6H PRN IV NAUSEA AND/OR VOMITING; Start 07/23/18 at 08:30 Lorazepam (Ativan) 1 mg Q12H PRN PO NAUSEA Last administered on 07/23/18 22:42; Admin Dose 1 MG; Start 07/23/18 at 08:30 Morphine Sulfate (Ms Contin (Er)) 15 mg BID PO Last administered on 07/24/18 10:00; Admin Dose 15 MG; Start 07/24/18 at 09:00 THELMA HASKINS M.D. Jul 24, 2018 10:32
--- NOTE | 2018-07-24 11:26 | PDOCDIS ---
Discharge Instructions CONDITION [id number] Patient Condition: [id number] Good HOME CARE INSTRUCTIONS: [id number] Diet Instructions: [id number] Regular ACTIVITY: [id number] Activity Restrictions: [id number] No Restrictions FOLLOW UP/APPOINTMENTS Follow-up Plan FOLLOW UP WITH YOUR PCP AND ONCOLOGIST IN 1-2 WEEKS MICHAEL RIBEIRO Jul 24, 2018 11:26
--- NOTE | 2018-07-24 14:37 | DS ---
Date/Time of Note Date/Time of Note DATE: 07/24/18 TIME: 14:35 Discharge Summary Admission/Discharge Info Admit Date/Time Jul 21, 2018 at 08:22 Discharge Date/Time July 24, 2018 Discharge Diagnosis 62-year-old male with comorbidities including stage IV lung cancer getting immunotherapy as outpatient, iron deficiency anemia, and malnutrition who was referred to the emergency room by the patient's primary oncologist because of hypercalcemia, who was also found to have evidence of underlying dehydration and was admitted to inpatient setting for further treatment and evaluation. 1. Hypercalcemia-resolved -Most probably secondary to underlying malignancy. -Bisphosphonates as per oncology. -Status post IV hydration. 2. Acute kidney injury-resolved -Nonoliguric -Etiology could be multifactorial including underlying dehydration -Status post IV fluids -Avoid nephrotoxic medications 3. Leukocytosis -Most probably reactive in origin. -The patient remains afebrile 4. Normocytic, hypochromic anemia. -Most probably secondary to iron deficiency. -Continue iron supplements. 5. Moderate protein calorie malnutrition -Dietary supplements. 6. Stage IV lung cancer. -On immunotherapy as outpatient. 7. Chronic back pain -Continue home pain meds Patient Condition: Good Hospital Course Patient is a 62-year-old male with comorbidities including stage IV lung cancer getting immunotherapy as outpatient, iron deficiency anemia, and malnutrition who was referred to the emergency room by the patient's primary oncologist because of hypercalcemia, who was also found to have evidence of underlying dehydration and was admitted to inpatient setting for further treatment and evaluation. Patient received IV fluids and bisphosphonates per oncology, acute kidney injury and hypercalcemia did ultimately resolved. Patient did have leukocytosis which is likely reactive, patient had no evidence of sepsis. Patient does have chronic back pain and was requiring pain medications, patient does have Dilaudid p.o. at home. Patient was clear for DC per oncology, on the day of discharge patient vitals, labs and physical exam are stable. Home Meds Active Scripts Omeprazole* (Omeprazole*) 20 Mg Capsule., 20 MG PO DAILY for 30 Days, #30 CAP otc Prov:ALESSANDRO HERNANDEZ MD 06/12/18 Ondansetron Hcl* (Zofran*) 8 Mg Tablet, 8 MG PO TID for 10 Days, #30 TAB 1 Refill Prov:ALESSANDRO HERNANDEZ MD 06/12/18 Reported Medications Hydromorphone Hcl* (Dilaudid*) 2 Mg Tablet, 2 MG PO Q4H, TAB 07/20/18 Sertraline Hcl* (Sertraline Hcl*) 100 Mg Tablet, 100 MG PO QHS, #30 TAB 06/10/18 Ferrous Sulfate* (Ferrous Sulfate*) 325 Mg Tabec, 325 MG PO BID, TAB 06/10/18 Discontinued Reported Medications Docusate Sodium (Col-Rite) 100 Mg Capsule, 100 MG PO BID, CAP 06/10/18 Buprenorphine Hcl (BUPRENORPHINE HCL) 2 Mg Tab.subl, 2 MG SL Q4, TAB.SL 06/10/18 Discontinued Scripts Prochlorperazine* (Prochlorperazine*) 10 Mg Tablet, 10 MG PO Q6H PRN for NAUSEA for 7 Days, #20 TAB 1 Refill Prov:ALESSANDRO HERNANDEZ MD 06/12/18 Metoclopramide Hcl* (Metoclopramide Hcl*) 10 Mg Tablet, 20 MG PO QID for 10 Days, #30 TAB 1 Refill Prov:ALESSANDRO HERNANDEZ MD 06/12/18 Polyethylene Glycol* (Miralax*) 17 Gm Powd.pack, 17 GM PO DAILY for 7 Days, #10 2 Refills Prov:ALESSANDRO HERNANDEZ MD 06/12/18 Famotidine* (Famotidine*) 20 Mg Tablet, 20 MG PO BID for 30 Days, #30 TAB 1 Refill otc Prov:ALESSANDRO HERNANDEZ MD 06/12/18 Acetaminophen* (Tylenol*) 325 Mg Tablet, 650 MG PO Q6H PRN for .PAIN 1-3 OR TEMP for 1 Day, #1 TAB Prov:ALESSANDRO HERNANDEZ MD 06/12/18 Follow-up Plan FOLLOW UP WITH YOUR PCP AND ONCOLOGIST IN 1-2 WEEKS Primary Care Provider [facility] Time spent on discharge: > 30 minutes MICHAEL RIBEIRO Jul 24, 2018 14:37
[2018-07-24 14:52] VITALS: BP 99/57; PULSE 88; RESP 18
[2018-07-24] MEDS ORDERED: HEPARIN (100 UNITS/ML) 5 ML SYG CATHETER ONE (15:00)
== END 2018-07-24 18:00 | disposition home or self-care (01) | DRG 641 ==
LOC: E/R 10:14 → MS1 11:22 → OBSVTOIN 07-21 08:22
PROVIDERS: ADMIT Internal Medicine; ATTEND Internal Medicine
PROC: 30233N1 Transfusion of Nonautologous Red Blood Cells into Peripheral Vein, Percutaneous Approach (ICD-10-PCS; principal; 2018-07-21)
DX: E83.52 Hypercalcemia (principal); C34.91 Malignant neoplasm of unspecified part of right bronchus or lung; N17.9 Acute kidney failure, unspecified; E44.0 Moderate protein-calorie malnutrition; Z68.1 Body mass index [BMI] 19.9 or less, adult; R64 Cachexia; E86.0 Dehydration; G13.0 Paraneoplastic neuromyopathy and neuropathy; D50.9 Iron deficiency anemia, unspecified; D72.829 Elevated white blood cell count, unspecified; D64.9 Anemia, unspecified; F41.9 Anxiety disorder, unspecified; F32.9 Major depressive disorder, single episode, unspecified; D64.81 Anemia due to antineoplastic chemotherapy; D63.0 Anemia in neoplastic disease; Z87.891 Personal history of nicotine dependence
CPT/HCPCS: 36430; 71260; 74177; 80048; 80053; 82550; 82553; 83735; 83880; 84100; 84484; 85025; 85610; 85730; 86850; 86900; 86901; 86920; 93005; G0378; J1170; J1642; J2405; J2765; J3489; J7030; J7040; J7050; P9016; Q9967

== ENCOUNTER 2018-08-05 16:56 | Inpatient (IN) | payer OTHER ==
[~2018-08-05] VITALS: Ht 172.7 cm; Wt 51.0 kg
[~2018-08-05 16:56] MED LIST changes: -ACET325T33 PO; -BUPR2TAB SL; -DOCU100C59 PO; -FAMO20TA18 PO; +HYDR2TAB36 PO; -METO10TA3 PO; -POLY17PO6 PO; -PROC10TA10 PO
[2018-08-05 17:02] VITALS: Ht 172.7 cm; Wt 51.0 kg
[2018-08-05] MEDS ORDERED: SOD CHLORIDE 0.9% 500 ML IV STA (20:51)
[2018-08-05] MEDS ORDERED: HYDROmorphONE 1 MG/ML SYG IV STA (23:08)
[2018-08-05] MEDS ORDERED: ONDANSETRON 4 MG INJ IV STA (23:08)
[2018-08-05] MEDS ORDERED: ONDANSETRON 4 MG INJ IV PRN ×2 (23:30)
[2018-08-05] MEDS ORDERED: DOCUSATE SODIUM 100 MG CAP PO PRN (23:30)
[2018-08-05] MEDS ORDERED: ACETAMINOPHEN 325 MG TAB PO PRN ×2 (23:30)
[2018-08-05] MEDS ORDERED: BISACODYL (EC) 5 MG TAB PO PRN (23:30)
[2018-08-05] MEDS ORDERED: NACL 0.9% 3 ML SYG IV SCH (23:30)
--- NOTE | 2018-08-05 23:31 | HP ---
Date/Time of Note Date/Time of Note DATE: 08/05/18 TIME: 23:30 Assessment/Plan VTE Prophylaxis Pharmacological prophylaxis: heparin Assessment/Plan Hospital Course This is a 62-year-old male being admitted to the [facility] floor for: 1. Shortness of breath with hypoxia: Possibly multifactorial, chest x-ray shows increased right sided opacity which could be secondary to worsening lung cancer, effusion, infiltrates. I will obtain a CT of the chest with contrast to further evaluate. Patient did present with a white count of approximately 25,000 and he was tachycardic. Supplemental O2. He does look clinically dehydrated. I will give him albumin to see if that will help with diuresis. PRN nebulizers. Broad-spectrum antibiotics to cover for healthcare associated pneumonia. A CT scan confirmed pulmonary edema or pleural effusion we will proceed with diuresis/thoracentesis respectively. 2. Sirs: Patient did present tachycardic along with leukocytosis of 25,000. Will check blood cultures x2, urinalysis. Given the possibility of underlying pneumonia will start patient on broad-spectrum antibiotics of vancomycin and Zosyn. Will await culture results And CT scan results. He is currently afebrile, however given his immunocompromised state I am unsure whether he will properly mount a fever. 3. Mild hypercalcemia: Patient has a history of hypercalcemia. In the past received fluids and bisphosphonates. At the current time it appears to be a mild elevation. Will give albumin. Gentle IV fluids, given the possibility of pulmonary congestion/pleural effusion. Will monitor sodium levels. 4. Lower back pain: We will check spinal x-ray, previous CT done on 07/23 did not show any signs of spinal pathology. Pain control. If pain persists consider MRI. 5. Normocytic, hypochromic anemia: Most probably secondary to iron deficiency, anemia malignancy. Continue iron supplements. 6. Moderate protein calorie malnutrition: Encourage p.o. intake, gentle IV f luids 7. Stage IV squamous cell lung cancer: On immunotherapy as an outpatient. Will consult patient's central supply technician supervisor Dr. Kunz 8. DVT GI prophylaxis: Heparin, no GI prophylaxis indicated Further treatment strategy will be implemented as per the clinical course. Result Diagram: 08/05/18213208/05/182132 Results 24hrs Laboratory Tests Test 08/05/18 21:33 White Blood Count 25.5 #H Red Blood Count 3.09 L Hemoglobin 8.4 L Hematocrit 27.6 L Mean Corpuscular Volume 89.3 Mean Corpuscular Hemoglobin 27.2 L Mean Corpuscular Hemoglobin Concent 30.4 L Red Cell Distribution Width 22.6 H Platelet Count 246 # Mean Platelet Volume 9.9 Immature Granulocytes % 3.500 H Neutrophils % Segmented Neutrophils % (Manual) 88 H Band Neutrophils % (Manual) 1 Lymphocytes % Lymphocytes % (Manual) 5 L Monocytes % Monocytes % (Manual) 5 Eosinophils % Basophils % Myelocytes % (Manual) 1 H Nucleated Red Blood Cells % 0.0 Immature Granulocytes # 0.900 H Neutrophils # Neutrophils # (Manual) 22.5 H Band Neutrophils # 0.2 Lymphocytes (Manual) 1.2 Lymphocytes # Monocytes # Monocytes # (Manual) 1.2 H Eosinophils # Basophils # Myelocytes # 0.2 H Nucleated Red Blood Cells # Platelet Estimate NORMAL Polychromasia 2+ Poikilocytosis 1+ Anisocytosis 2+ Microcytosis 2+ Sodium Level 136 Potassium Level 4.9 Chloride Level 104 Carbon Dioxide Level 23 Anion Gap 9 Blood Urea Nitrogen 31 H Creatinine 0.73 Est Glomerular Filtrat Rate mL/min > 60 Glucose Level 104 Calcium Level 11.2 H Total Bilirubin 0.4 Direct Bilirubin 0.00 Indirect Bilirubin 0.4 Aspartate Amino Transf (AST/SGOT) 44 Alanine Aminotransferase (ALT/SGPT) 53 Alkaline Phosphatase 124 H Troponin I < 0.012 B-Type Natriuretic Peptide 1020 H Total Protein 7.2 Albumin 3.5 Globulin 3.70 H Albumin/Globulin Ratio 0.94 HPI/ROS Admit Date/Time Admit Date/Time Hx of Present Illness Chief complaint: Shortness of breath for the last 2 to 3 weeks This is a 62-year-old male with a past medical history as 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 Patient reports that he has been having shortness of breath for the last few weeks. This has been an ongoing issue since he was diagnosed with lung cancer. He is a patient of and last had a immunotherapy approximately 3 weeks ago. He in the past did go through chemotherapy and also has gone through immunotherapy and has not tolerated some of the treatments so he is currently on a low-dose of immunotherapy. He does report weight loss. He reports decreased appetite. Denies any fevers. Denies any chest pain or nausea vomiting or diarrhea. He does report that he also has back pain that radiates around to the front. He had a CAT scan that was done as an outpatient approximately 1 week ago he thinks but they did not see any abnormalities. Allergies: NKDA Medications: See LAKISHA FORDE Const: As per HPI Eyes : No pain discharge or redness or change in visual acuity ENT: No pain, sore throat, congestion, congestion, dysphagia or discharge Respiratory: As per HPI Cardiovascular: No chest pain, palpitation, PND, or edema GI : no change in appetite, abdominal pain, nausea, vomiting, diarrhea, constipation, or change in the color his stool Genitourinary: No dysuria, hematuria, flank pain , discharge or CVA tenderness Musculoskeletal: As per HPI Skin: No rash, bruising or hives Neuro: No headache, dizziness, syncope, seizure, focal weakness Endocrine: No polyuria, polydipsia, temperature intolerance Psych: No hallucination, depression, anxiety or suicidal ideation PMH/Family/Social Past Medical History 1. Stage IV squamous cell lung carcinoma 2. Anemia. 3. Iron deficiency. Medications Current Medications Ondansetron HCl (Zofran Inj) 4 mg BRIDGE ORDER PRN IV NAUSEA/VOMITING; Start 08/05/18 at 23:30; Stop 08/06/18 at 23:29 Acetaminophen (Tylenol Tab) 650 mg ER BRIDGE PRN PO .MILD PAIN 1-3 OR TEMP; Start 08/05/18 at 23:30; Stop 08/06/18 at 23:29 Coded Allergies: No Known Allergy (Unverified , 07/20/18) Past Surgical History Right Port-A-Cath Family History Significant Family History: no pertinent family hx Social History Alcohol Use: none Smoking Status: Former smoker Drug Use: none Exam/Review of Systems Vital Signs Vitals Vital Signs Date Temp Pulse Resp B/P (MAP) Pulse Ox O2 O2 Flow FiO2 Time Delivery Rate 08/05/18 113 24 114/68 99 Nasal 23:19 (83) Cannula 08/05/18 98.0 22:27 Exam Exam General: Patient is a pleasant male currently lying in bed he does not appear to be in any acute distress, thin appearing HEENT: Atraumatic, normocephalic. The pupils are equal, round and reactive. Extraocular motor are intact Neck: Supple with full range of motion. No rigidity or meningismus Chest: Nontender, right chest Port-A-Cath Lungs: Coarse breath sounds bilaterally, diminished on the right Heart: Sinus tachycardia Abdomen: Soft , nontender, nondistended , bowel sounds are present. No guarding no rebound tenderness , No masses or organomegaly. No costovertebral temporal angle mass Extremities: Normal to inspection, no edema no cyanosis Neurologic: Normal mental status, speech normal, cranial nerves II through XII are intact, motor and sensory are intact, no focal weakness Additional Comments EKG: Sinus tachycardia at approximately 120 bpm, no ST or T wave normalities concerning for acute ischemia PROCEDURE: XR Chest, 1 View CLINICAL INDICATION: Chest pain. TECHNIQUE: Frontal view of the chest. COMPARISON: 05/24/2018 (05/24/2018) FINDINGS: LUNGS: Increased interstitial lung markings bilaterally. Mild air space disease throughout the compressed right upper lobe, and throughout the left lung. Consider pulmonary edema versus bilateral pneumonia. PLEURAL SPACE: Large right pleural effusion. No pneumothorax. HEART: Cardiomegaly is present. MEDIASTINUM: Unremarkable. BONES/JOINTS: Degenerative spine changes are noted. TUBES, LINES AND DEVICES: Right-sided infusion port. IMPRESSION: 1. Large right pleural effusion. This has increased in size when compared to 05/24/2018. 2. Increased interstitial lung markings bilaterally. Mild air space disease throughout the compressed right upper lobe, and throughout the left lung. Consider pulmonary edema versus bilateral pneumonia. RPTAT: [facility] Andie Caldwell Physician Casting Agent Date Time Electronically viewed and signed by Andie Caldwell Physician Casting Agent on 08/05/2018 21:55 RmC/ CC: DONYA ALVARADO [id number] ELLA WARREN Aug 05, 2018 23:31
--- NOTE | 2018-08-06 00:14 | ERD ---
ER Documentation Chief Complaint Chief Complaint failure to thrive d/t metastatic lung cancer, generalized weakness HPI Is a 62-year-old male brought in by family secondary to failure to thrive secondary stage IV metastatic lung cancer. Family has not been eating over the past 3 days and generalized weakness. No focal neurologic complaints. This is seem to be an issue on and off this patient. Family brought him in for further evaluation management. History is limited by the patient himself as he is very lethargic but arousable ROS All systems reviewed and are negative except as per history of present illness. Medications Home Meds Active Scripts Omeprazole* (Omeprazole*) 20 Mg Capsule.dr, 20 MG PO DAILY for 30 Days, #30 CAP otc Prov:ALESSANDRO HERNANDEZ MD 06/12/18 Ondansetron Hcl* (Zofran*) 8 Mg Tablet, 8 MG PO TID for 10 Days, #30 TAB 1 Refill Prov:ALESSANDRO HERNANDEZ MD 06/12/18 Reported Medications Hydromorphone Hcl* (Dilaudid*) 2 Mg Tablet, 2 MG PO Q4H, TAB 07/20/18 Sertraline Hcl* (Sertraline Hcl*) 100 Mg Tablet, 100 MG PO QHS, #30 TAB 06/10/18 Ferrous Sulfate* (Ferrous Sulfate*) 325 Mg Tabec, 325 MG PO BID, TAB 06/10/18 Allergies Allergies: Coded Allergies: No Known Allergy (Unverified , 07/20/18) PMhx/Soc History of Surgery: No Anesthesia Reaction: No Hx Neurological Disorder: No Hx Respiratory Disorders: Yes (Lung cancer) Hx Cardiac Disorders: No Hx Psychiatric Problems: No Hx Miscellaneous Medical Probl: No Hx Alcohol Use: No Hx Substance Use: No Hx Tobacco Use: No Smoking Status: Unknown if ever smoked Physical Exam Vitals Vital Signs Date Temp Pulse Resp B/P (MAP) Pulse Ox O2 O2 Flow FiO2 Time Delivery Rate 08/06/18 117 24 109/68 99 Nasal 00:06 (82) Cannula 08/05/18 113 24 114/68 99 Nasal 23:19 (83) Cannula 08/05/18 98.0 118 19 113/76 99 Nasal 22:27 (88) Cannula 08/05/18 98.0 115 16 99/65 (76) 98 Room Air 19:51 08/05/18 98.0 126 16 100/56 98 17:02 (71) Physical Exam Const: No acute distress Head: Atraumatic Eyes: Normal Conjunctiva ENT: Normal External Ears, Nose and Mouth. Neck: Full range of motion. No meningismus. Resp: Clear to auscultation bilaterally Cardio: Regular rate and rhythm, no murmurs Abd: Soft, non tender, non distended. Normal bowel sounds Skin: No petechiae or rashes Back: No midline or flank tenderness Ext: No cyanosis, or edema Neur: Awake and alert Psych: Normal Mood and Affect Result Diagram: 08/05/18213208/05/182132 Results 24 hrs Laboratory Tests Test 08/05/18 21:33 White Blood Count 25.5 10^3/ul Red Blood Count 3.09 10^6/ul Hemoglobin 8.4 g/dl Hematocrit 27.6 % Mean Corpuscular Volume 89.3 fl Mean Corpuscular Hemoglobin 27.2 pg Mean Corpuscular Hemoglobin Concent 30.4 g/dl Red Cell Distribution Width 22.6 % Platelet Count 246 10^3/UL Mean Platelet Volume 9.9 fl Immature Granulocytes % 3.500 % Neutrophils % % Segmented Neutrophils % (Manual) 88 % Band Neutrophils % (Manual) 1 % Lymphocytes % % Lymphocytes % (Manual) 5 % Monocytes % % Monocytes % (Manual) 5 % Eosinophils % % Basophils % % Myelocytes % (Manual) 1 % Nucleated Red Blood Cells % 0.0 /100WBC Immature Granulocytes # 0.900 10^3/ul Neutrophils # 10^3/ul Neutrophils # (Manual) 22.5 10^3/ul Band Neutrophils # 0.2 10^3/ul Lymphocytes (Manual) 1.2 10^3/ul Lymphocytes # 10^3/ul Monocytes # 10^3/ul Monocytes # (Manual) 1.2 10^3/ul Eosinophils # 10^3/ul Basophils # 10^3/ul Myelocytes # 0.2 10^3/ul Nucleated Red Blood Cells # 10^3/ul Platelet Estimate NORMAL Polychromasia 2+ Poikilocytosis 1+ Anisocytosis 2+ Microcytosis 2+ Sodium Level 136 mmol/L Potassium Level 4.9 mmol/L Chloride Level 104 mmol/L Carbon Dioxide Level 23 mmol/L Anion Gap 9 Blood Urea Nitrogen 31 mg/dl Creatinine 0.73 mg/dl Est Glomerular Filtrat Rate mL/min > 60 mL/min Glucose Level 104 mg/dl Calcium Level 11.2 mg/dl Total Bilirubin 0.4 mg/dl Direct Bilirubin 0.00 mg/dl Indirect Bilirubin 0.4 mg/dl Aspartate Amino Transf (AST/SGOT) 44 IU/L Alanine Aminotransferase (ALT/SGPT) 53 IU/L Alkaline Phosphatase 124 IU/L Troponin I < 0.012 ng/ml B-Type Natriuretic Peptide 1020 PG/ML Total Protein 7.2 g/dl Albumin 3.5 g/dl Globulin 3.70 g/dl Albumin/Globulin Ratio 0.94 Current Medications Medications Dose Sig/Ute Start Time Status Last (Trade) Ordered Route PRN Stop Time Admin Dose Reason Admin Sodium 500 ml @ Q1H STAT 08/05/18 DC 08/05/18 Chloride 500 mls/hr IV 20:51 21:19 08/05/18 21:50 1 mg ONCE STAT 08/05/18 DC 08/05/18 Hydromorphone IV 23:08 23:12 HCl 08/05/18 23:09 (Dilaudid) Ondansetron 4 mg ONCE STAT 08/05/18 DC 08/05/18 HCl (Zofran IV 23:08 23:12 Inj) 08/05/18 23:09 Ondansetron 4 mg BRIDGE ORDER 08/05/18 DC HCl (Zofran PRN IV 23:30 Inj) NAUSEA/VOMITI 08/06/18 00:01 NG 650 mg ER BRIDGE 08/05/18 DC Acetaminophen PRN PO 23:30 (Tylenol .MILD PAIN 08/06/18 00:01 Tab) 1-3 OR TEMP IV Flush 3 ml PER 08/05/18 (NS 3 ml) PROTOCOL IV 23:30 Ondansetron 4 mg Q6H PRN 08/05/18 HCl (Zofran IV 23:30 Inj) NAUSEA/VOMITI NG 650 mg Q6H PRN 08/05/18 Acetaminophen PO .PAIN 1-3 23:30 (Tylenol OR TEMP Tab) 0.5 mg Q4H PRN 08/05/18 Hydromorphone IV .SEVERE 23:30 HCl PAIN 7-10 (Dilaudid) Docusate 100 mg Q12H PRN 08/05/18 Sodium PO 23:30 (Colace) .CONSTIPATION Bisacodyl 5 mg DAILY PRN 08/05/18 (Dulcolax) PO 23:30 .CONSTIPATION Heparin 5,000 unit Q8 SC 08/05/18 Sodium 23:30 (Porcine) (Heparin (5000 Units/1ml)) Albumin 100 ml @ Q1H IV 08/05/18 Human 100 mls/hr 23:30 08/06/18 01:29 Procedures/MDM EKG: Rate/Rhythm: [Normal Sinus Rhythm] QRS, ST, T-waves: [No changes consistent w/ acute ischemia] Impression: [No evidence of ischemia or arrhythmia] Chest X-ray 1V Interpreted by me: Soft Tissue: No acute abnormali ties Bones: No acute abnormalities Mediastinum/Cardiac Silhouette/Lungs: [No acute abnormalities] Medical decision makin-year-old male with failure to thrive and generalized weakness. He does have leukocytosis, but this seems to be stable from previous admissions. Patient was admitted to Dr. Jurado for further evaluation and management Departure Diagnosis: Primary Impression: Acute weakness Condition: Stable DONYA ALVARADO Aug 06, 2018 00:14
[2018-08-06] MEDS ORDERED: IOHEXOL 300MG/ML 150 ML BTL ONE (00:15)
[2018-08-06] MEDS ORDERED: SOD CHLORIDE 0.9% 0 ML ONE (00:15)
[2018-08-06] MEDS ORDERED: VANCOMYCIN IV PER PHARMACY XX SCH (01:00)
[2018-08-06] MEDS ORDERED: IPRATROPIUM (NEB) 0.5 MG/2.5 ML AMP HHN PRN (01:00)
[2018-08-06] MEDS ORDERED: PIPER-TAZO 3.375 GM IV (PMX) 100 ML IVPB SCH (01:00)
[2018-08-06] MEDS ORDERED: VANCOMYCIN 1 GM in 250 ML IVPB ONE (01:30)
[2018-08-06] MEDS: ALBUMIN HUMAN 25% 100 ML IV SCH ×2 (02:07→03:41)
[2018-08-06] MEDS ORDERED: SOD CHLORIDE 0.9% 500 ML IV ONE (02:30)
[2018-08-06 02:34] VITALS: BP 100/66; PULSE 110; RESP 16
[2018-08-06] MEDS: HEPARIN 5,000 UNIT/1 ML VIAL SC SCH ×3 (02:34→14:01)
[2018-08-06] MEDS: HYDROmorphONE 0.5 MG/0.5 ML SYG IV PRN ×4 (05:49→21:12)
[2018-08-06 08:34] VITALS: BP 90/54; PULSE 106; RESP 17
[2018-08-06] MEDS ORDERED: IOHEXOL 0 ML ONE (10:14)
[2018-08-06] MEDS ORDERED: SOD CHLORIDE 0.9% 100 ML ONE (10:14)
--- NOTE | 2018-08-06 12:02 | CONS ---
Assessment/Plan Assessment/Plan Hospital Course (Demo Recall) # SQUAMOUS CELL CARCINOMA, MODERATELY-DIFFERENTIATED, RIGHT LOWER LOBE, PDL-1 10%. ECOG 1 -initial PEt CT 09/2017 demonstrates involvement in right lung with an 8cm mass and bilateral hypermetabolic pulmonary nodules and right hilar adenopathy -initial Brain MRI is negative - pt initially received 4 cycles of Carboplatin-Gemcitabine -01/2018 and 02/2018 CT Chest showed progression of disease -02/2018 CT Brain negative -pt randomized to single agent nivolumab which he has since progressed through -pt has since received only received 3 doses of [place]/Carbo,last given on 07/27. Given that he is now developing new effusions, it is apparent this chemotherapy is not working. WE will have to change the chemotherapy as an out patient to carbo/taxol. #Hypercalcemia -Ca 10 -continue monthly bisphosphonate therapy #Anemia -will transfuse 2 units of PRBCs #SOB -improved, will continue to monitor -start nebulizer tx at home -pt states he needs less nebulizer treatment Thank you for the opportunity to participate in this patients care A total of 40 minutes of face to face time was spent speaking with the patient, of which greater than 50% was spent in counseling and coordination of care and the detailed question and answer session. Consultation Date/Type/Reason Admit Date/Time 08/06/18 Date of Consultation: Aug 06, 2018 Type of Consult oncology Reason for Consultation metastatic lung cancer Requesting Provider: ELLA WARREN Date/Time of Note DATE: 08/06/18 TIME: 11:15 Hx of Present Illness 62-year old male referred to because of Squamous Cell Carcinoma of the R Lung. 09/04/17- initially diagnosed with stage IV lung SCC that involved both lungs. 09/07/17- CT-Guided right lower lobe biopsy showed Squamous Cell Carcinoma, mo derately-differentiated. Positive PD-L1 10% expression, negative TTF1, positive p63, negative synpatophysin and 90% ki-67. 09/2018 pt was started on [place]/ Cis and received 4 cycles but due to cytopenias he was not able to tolerate it. 02/2018 pt was started on Opdivo per a clinical trial regimen. He unfortunately progressed through this. 06/2018 was again given gemzar, this time with carboplatin given his good response to gem / cis in the past. 07/27/18 was patients last dose of gem/carbo Currently 08/05/18 pt was admitted with sever SOB CT Chest revealed the following: Large centrally cystic or necrotic consolidation within the right lower lobe, now nearly completely filled with fluid, previously had contained air fluid level(s) within, and may represent the patient's primary site. There is again extensive right-sided mediastinal and hilar adenopathy , with associated encasement of the bronchus intermedius and extrinsic mass effect upon or ingrowth into the distal right mainstem bronchus. There is also bulky adenopathy which surrounds and encases the narrowed SVC, that itself may be obstructed aside from the presence of an indwelling right IJ Port-A-Cath. Multifocal metastatic disease including bilateral lung nodules, and multifocal upper abdominal adenopathy is stable, where included, as is a moderate size right pleural effusion. Constitutional: chills, diaphoresis, poor po Eyes: no complaints ENT: no complaints Respiratory: cough, pleuritic pain, shortness of breath Cardiovascular: no complaints Gastrointestinal: no complaints Genitourinary: no complaints Musculoskeletal: bone/joint pain, neck pain Skin: no complaints Neurologic: no complaints Endocrine: no complaints Past Medical History h/o substance abuse Home Meds Active Scripts Omeprazole* (Omeprazole*) 20 Mg Capsule.dr, 20 MG PO DAILY for 30 Days, #30 CAP otc Prov:ALESSANDRO HERNANDEZ MD 06/12/18 Ondansetron Hcl* (Zofran*) 8 Mg Tablet, 8 MG PO TID for 10 Days, #30 TAB 1 Refill Prov:ALESSANDRO HERNANDEZ MD 06/12/18 Reported Medications Hydromorphone Hcl* (Dilaudid*) 2 Mg Tablet, 2 MG PO Q4H, TAB 07/20/18 Sertraline Hcl* (Sertraline Hcl*) 100 Mg Tablet, 100 MG PO QHS, #30 TAB 06/10/18 Ferrous Sulfate* (Ferrous Sulfate*) 325 Mg Tabec, 325 MG PO BID, TAB 06/10/18 Medications Current Medications IV Flush (NS 3 ml) 3 ml PER PROTOCOL IV ; Start 08/05/18 at 23:30 Ondansetron HCl (Zofran Inj) 4 mg Q6H PRN IV NAUSEA/VOMITING; Start 08/05/18 at 23:30 Acetaminophen (Tylenol Tab) 650 mg Q6H PRN PO .PAIN 1-3 OR TEMP; Start 08/05/18 at 23:30 Hydromorphone HCl (Dilaudid) 0.5 mg Q4H PRN IV .SEVERE PAIN 7-10 Last administered on 08/06/18at 05:49; Admin Dose 0.5 MG; Start 08/05/18 at 23:30 Docusate Sodium (Colace) 100 mg Q12H PRN PO .CONSTIPATION; Start 08/05/18 at 23:30 Bisacodyl (Dulcolax) 5 mg DAILY PRN PO .CONSTIPATION; Start 08/05/18 at 23:30 Heparin Sodium (Porcine) (Heparin (5000 Units/1ml)) 5,000 unit Q8 SC Last administered on 08/06/18at 05:50; Admin Dose 5,000 UNIT; Start 08/05/18 at 23:30 Levalbuterol (Xopenex Neb) 1.25 mg Q4H RESP THERAPY PRN HHN SHORTNESS OF BREAT H; Start 08/06/18 at 01:00 Ipratropium [place] (Atrovent 0.02% (Neb)) 0.5 mg Q4H RESP THERAPY PRN HHN SHORTNESS OF BREATH; Start 08/06/18 at 01:00 Vancomycin HCl (Vanco Iv Per Pharmacy) VANCOMYCIN PER PHARMACY PER PROTOCOL XX ; Start 08/06/18 at 01:00 Acetaminophen/ Hydrocodone Bitart ([place] (5/325)) 1 tab Q6H PRN PO MODERATE PAIN LEVEL 4-6; Start 08/06/18 at 02:00 Vancomycin HCl 100 ml @ 100 mls/hr Q12H IVPB ; Start 08/06/18 at 18:00 Piperacillin Sod/ Tazobactam Sod 100 ml @ 200 mls/hr Q6 IVPB ; Start 08/06/18 at 12:00 Allergies: Coded Allergies: No Known Allergy (Unverified , 07/20/18) Past Surgical History Past Surgical Hx: no surgical history Family History Significant Family History: no pertinent family hx Social History Alcohol Use: none Smoking Status: Former smoker Drug Use: none Exam/Review of Systems Exam Vitals Vital Signs Date Temp Pulse Resp B/P (MAP) Pulse Ox O2 O2 Flow FiO2 Time Delivery Rate 08/06/18 Nasal 2.0 09:55 Cannula 08/06/18 97.8 106 17 90/54 (66) 92 08:34 Intake and Output 08/05/18 08/05/18 08/06/18 1414:59 22:59 06:59 IntakeIntake Total 800 ml BalanceBalance 800 ml Constitutional: alert, oriented, frail Psych: no complaints Head: normocephalic Eyes: nl conjunctiva ENMT: nl external ears & nose Neck: supple Respiratory: diminished breath sounds Cardiovascular: other (tachycardic) Gastrointestinal: soft Musculoskeletal: nl extremities to inspection Extremities: normal pulses Results Result Diagram: 08/06/18 0453 08/06/18 0453 Results 24hrs Laboratory Tests Test 08/05/18 21:33 08/06/18 04:53 White Blood Count 25.5 #H 21.7 H Red Blood Count 3.09 L 2.63 L Hemoglobin 8.4 L 7.2 L Hematocrit 27.6 L 22.9 L Mean Corpuscular Volume 89.3 87.1 Mean Corpuscular Hemoglobin 27.2 L 27.4 L Mean Corpuscular Hemoglobin Concent 30.4 L 31.4 L Red Cell Distribution Width 22.6 H 22.6 H Platelet Count 246 # 214 Mean Platelet Volume 9.9 10.6 H Immature Granulocytes % 3.500 H 2.400 H Neutrophils % 85.3 H Segmented Neutrophils % (Manual) 88 H Band Neutrophils % (Manual) 1 Lymphocytes % 5.1 L Lymphocytes % (Manual) 5 L Monocytes % 7.0 Monocytes % (Manual) 5 Eosinophils % 0.1 Basophils % 0.1 Myelocytes % (Manual) 1 H Nucleated Red Blood Cells % 0.0 0.0 Immature Granulocytes # 0.900 H 0.520 H Neutrophils # 18.5 H Neutrophils # (Manual) 22.5 H Band Neutrophils # 0.2 Lymphocytes (Manual) 1.2 Lymphocytes # 1.1 Monocytes # 1.5 H Monocytes # (Manual) 1.2 H Eosinophils # 0.0 Basophils # 0.0 Myelocytes # 0.2 H Nucleated Red Blood Cells # 0.0 Platelet Estimate NORMAL Polychromasia 2+ Poikilocytosis 1+ Anisocytosis 2+ Microcytosis 2+ Sodium Level 136 138 Potassium Level 4.9 4.7 Chloride Level 104 105 Carbon Dioxide Level 23 25 Anion Gap 9 8 Blood Urea Nitrogen 31 H 28 H Creatinine 0.73 0.74 Est Glomerular Filtrat Rate mL/min > 60 > 60 Glucose Level 104 82 Calcium Level 11.2 H 10.9 H Total Bilirubin 0.4 0.6 Direct Bilirubin 0.00 0.00 Indirect Bilirubin 0.4 0.6 Aspartate Amino Transf (AST/SGOT) 44 37 Alanine Aminotransferase (ALT/SGPT) 53 47 Alkaline Phosphatase 124 H 110 Troponin I < 0.012 B-Type Natriuretic Peptide 1020 H Total Protein 7.2 7.0 Albumin 3.5 3.7 Globulin 3.70 H 3.30 H Albumin/Globulin Ratio 0.94 1.12 Prothrombin Time 15.9 H Prothrombin Time Ratio 1.2 INR International Normalized Ratio 1.26 Activated Partial Thromboplast Time 24.7 Magnesium Level 2.2 Medications Medication Current Medications IV Flush (NS 3 ml) 3 ml PER PROTOCOL IV ; Start 08/05/18 at 23:30 Ondansetron HCl (Zofran Inj) 4 mg Q6H PRN IV NAUSEA/VOMITING; Start 08/05/18 at 23:30 Acetaminophen (Tylenol Tab) 650 mg Q6H PRN PO .PAIN 1-3 OR TEMP; Start 08/05/18 at 23:30 Hydromorphone HCl (Dilaudid) 0.5 mg Q4H PRN IV .SEVERE PAIN 7-10 Last administered on 08/06/18at 05:49; Admin Dose 0.5 MG; Start 08/05/18 at 23:30 Docusate Sodium (Colace) 100 mg Q12H PRN PO .CONSTIPATION; Start 08/05/18 at 23:30 Bisacodyl (Dulcolax) 5 mg DAILY PRN PO .CONSTIPATION; Start 08/05/18 at 23:30 Heparin Sodium (Porcine) (Heparin (5000 Units/1ml)) 5,000 unit Q8 SC Last administered on 08/06/18at 05:50; Admin Dose 5,000 UNIT; Start 08/05/18 at 23:30 Levalbuterol (Xopenex Neb) 1.25 mg Q4H RESP THERAPY PRN HHN SHORTNESS OF BREATH; Start 08/06/18 at 01:00 Ipratropium [place] (Atrovent 0.02% (Neb)) 0.5 mg Q4H RESP THERAPY PRN HHN SHORTNESS OF BREATH; Start 08/06/18 at 01:00 Vancomycin HCl (Vanco Iv Per Pharmacy) VANCOMYCIN PER PHARMACY PER PROTOCOL XX ; Start 08/06/18 at 01:00 Acetaminophen/ Hydrocodone Bitart ([place] (5/325)) 1 tab Q6H PRN PO MODERATE PAIN LEVEL 4-6; Start 08/06/18 at 02:00 Vancomycin HCl 100 ml @ 100 mls/hr Q12H IVPB ; Start 08/06/18 at 18:00 Piperacillin Sod/ Tazobactam Sod 100 ml @ 200 mls/hr Q6 IVPB ; Start 08/06/18 at 12:00 THELMA HASKINS M.D. Aug 06, 2018 11:46
[2018-08-06 12:45] VITALS: BP 112/72; PULSE 104; RESP 18
[2018-08-06] MEDS: PIPER-TAZO 3.375 GM IV (PMX) 100 ML IVPB SCH ×2 (12:52→17:06)
[2018-08-06] MEDS: IPRATROPIUM (NEB) 0.5 MG/2.5 ML AMP HHN SCH ×2 (13:58→20:09)
[2018-08-06] MEDS: LEVALBUTEROL (NEB) 1.25 MG/0.5 ML AMP HHN SCH ×2 (13:58→20:15)
--- NOTE | 2018-08-06 14:18 | PN ---
Date/Time of Note Date/Time of Note DATE: 08/06/18 TIME: 14:18 Objective Vitals Vital Signs Date Temp Pulse Resp B/P (MAP) Pulse Ox O2 O2 Flow FiO2 Time Delivery Rate 08/06/18 75 20 97 Nasal 2.0 28 14:02 Cannula 08/06/18 97.9 112/72 12:45 (85) Intake and Output 08/05/18 08/05/18 08/06/18 1515:00 23:00 07:00 IntakeIntake Total 800 ml BalanceBalance 800 ml Results Result Diagram: 08/06/18 0453 08/06/18 0453 Medications Medications Current Medications IV Flush (NS 3 ml) 3 ml PER PROTOCOL IV ; Start 08/05/18 at 23:30 Ondansetron HCl (Zofran Inj) 4 mg Q6H PRN IV NAUSEA/VOMITING; Start 08/05/18 at 23:30 Acetaminophen (Tylenol Tab) 650 mg Q6H PRN PO .PAIN 1-3 OR TEMP; Start 08/05/18 at 23:30 Hydromorphone HCl (Dilaudid) 0.5 mg Q4H PRN IV .SEVERE PAIN 7-10 Last administered on 08/06/18at 12:51; Admin Dose 0.5 MG; Start 08/05/18 at 23:30 Docusate Sodium (Colace) 100 mg Q12H PRN PO .CONSTIPATION; Start 08/05/18 at 23:30 Bisacodyl (Dulcolax) 5 mg DAILY PRN PO .CONSTIPATION; Start 08/05/18 at 23:30 Heparin Sodium (Porcine) (Heparin (5000 Units/1ml)) 5,000 unit Q8 SC Last administered on 08/06/18at 14:01; Admin Dose 5,000 UNIT; Start 08/05/18 at 23:30 Levalbuterol (Xopenex Neb) 1.25 mg Q4H RESP THERAPY PRN HHN SHORTNESS OF BREATH; Start 08/06/18 at 01:00 Vancomycin HCl (Vanco Iv Per Pharmacy) VANCOMYCIN PER PHARMACY PER PROTOCOL XX ; Start 08/06/18 at 01:00 Acetaminophen/ Hydrocodone Bitart ([place] (5/325)) 1 tab Q6H PRN PO MODERATE PAIN LEVEL 4-6; Start 08/06/18 at 02:00 Vancomycin HCl 100 ml @ 100 mls/hr Q12H IVPB ; Start 08/06/18 at 18:00 Piperacillin Sod/ Tazobactam Sod 100 ml @ 200 mls/hr Q6 IVPB Last administered on 08/06/18at 12:52; Admin Dose 200 MLS/HR; Start 08/06/18 at 12:00 Levalbuterol (Xopenex Neb) 1.25 mg Q6H RESP THERAPY HHN Last administered on 08/06/18at 13:58; Admin Dose 1.25 MG; Start 08/06/18 at 14:00 Ipratropium [place] (Atrovent 0.02% (Neb)) 0.5 mg Q6HWA RESP THERAPY HHN Last administered on 08/06/18at 13:58; Admin Dose 0.5 MG; Start 08/06/18 at 14:00 Ipratropium [place] (Atrovent 0.02% (Neb)) 0.5 mg Q4H RESP THERAPY PRN HHN SHORTNESS OF BREATH; Start 08/06/18 at 13:00 VTE Prophylaxis Risk score (from Ns)>0 risk: 4 [place] [facility] [place] Lines/Catheters IV Catheter Type: Grider in Place: No Assessment/Plan Hospital Course Subjective Patient's shortness of breath has improved since admission Objective Physical exam General: Patient is laying in bed and answers questions appropriately Mentation: Patient is alert and oriented 4, Head: Normocephalic atraumatic Eyes: EOMI, pupils reactive to light Neck: Supple, nontender, midline Respiratory: Coarse to auscultation bilaterally Cardiovascular: regular rate, no obvious murmurs Gastrointestinal: non-tender to palpation, bowel sounds heard. Neurological: Moves all extremities spontaneously Skin: No new skin lesions Assessment and plan Shortness of breath with pleural effusion -Secondary to chronic issues of metastatic lung cancer and pleural effusion -CT scan showing moderate pleural effusion however this is unchanged from previous CT done a few weeks ago -Pulmonology has been consulted, given patient is not having severe shortness of breath and the pleural effusion remains mostly unchanged since the previous CT, will defer to pulmonology regarding thoracentesis. -Nebulizers Sepsis -Possible secondary to pneumonia -Cultures done -IV fluids given -IV antibiotic -No fever however patient and immunocompromised state so unreliable Generalized fatigue -Secondary to metastatic lung carcinoma -Continue IV hydration and encourage oral intake Hypercalcemia -Chronic, mild, oncology and hematology on board Lower back pain -Follow-up on lumbar spine, questionable mets Anemia -Likely secondary to anemia chronic disease -No overt bleeding however will closely monitor and transfuse as needed Protein calorie malnutrition -Encourage p.o. intake -IV fluid Metastatic squamous cell lung carcinoma -On immunotherapy as outpatient -Heme-onc on board, plan is to eventually continue chemotherapy Disposition -Pulmonology recommendations appreciated, continue IV antibiotics for now. Monitor patient on a daily basis, on patient's generalized fatigue with shortness of breath improves, discharge to continue outpatient chemotherapy. NUVIA WYNNE Aug 06, 2018 14:18
[2018-08-06 14:41] VITALS: BP 103/70; PULSE 100; RESP 19
[2018-08-06] MEDS ORDERED: SOD CHLORIDE 0.9% 250 ML IV* ONE (16:01)
[2018-08-06 16:58] VITALS: BP 107/78; PULSE 104; RESP 18
[2018-08-06] MEDS: VANCOMYCIN 500 MG (PMX) 100 ML IVPB SCH (19:03)
[2018-08-06 20:00] VITALS: BP 110/70; PULSE 109; RESP 18; RESP 78
[2018-08-06] MEDS: BUDESONIDE (NEB) 0.5MG/2ML AMP HHN SCH (20:10)
[2018-08-07] MEDS: HYDROCODONE/APAP (5/325) TAB PO PRN ×2 (00:47→08:58)
[2018-08-07] MEDS: PIPER-TAZO 3.375 GM IV (PMX) 100 ML IVPB SCH ×4 (01:48→18:35)
[2018-08-07] MEDS: HYDROmorphONE 0.5 MG/0.5 ML SYG IV PRN ×3 (01:48→09:48)
[2018-08-07] MEDS: LEVALBUTEROL (NEB) 1.25 MG/0.5 ML AMP HHN SCH ×4 (02:06→20:29)
[2018-08-07 02:30] VITALS: BP 121/81; PULSE 63; RESP 17
[2018-08-07] MEDS: VANCOMYCIN 500 MG (PMX) 100 ML IVPB SCH ×2 (05:51→20:11)
[2018-08-07 08:26] VITALS: BP 120/69; PULSE 100; RESP 20
[2018-08-07] MEDS: IPRATROPIUM (NEB) 0.5 MG/2.5 ML AMP HHN SCH ×3 (09:05→20:29)
[2018-08-07] MEDS: BUDESONIDE (NEB) 0.5MG/2ML AMP HHN SCH ×2 (09:15→20:30)
[2018-08-07] MEDS ORDERED: HYDROmorphONE 1 MG/ML SYG IV PRN (11:30)
--- NOTE | 2018-08-07 12:09 | CONS ---
Assessment/Plan Assessment/Plan Assessment/Plan (Daily) CT chest showing very large right lung mass with rim of pleural thickening on the right side. Assessment recommendations; 1. Patient admitted with shortness of breath due to extensive stage IV lung cancer with a thin rim of pleural thickening involving right thoracic cavity. No free effusion seen. Possibly postobstructive pneumonia with significant leukocytosis. Continue current supportive care. Continue current antimicrobial regimen. Further recommendations per oncologist. There is not enough pleural effusion to warrant thoracentesis. Prognosis appears poor and a CODE STATUS needs to be addressed with the patient. Consultation Date/Type/Reason Admit Date/Time 08/06/18 Date of Consultation: Aug 07, 2018 Type of Consult Pulmonary Patient is a 62-year-old male who came into the hospital with a few weeks h istory of shortness of breath. Patient has been diagnosed with stage IV lung cancer and is currently on immunotherapy as an outpatient having failed chemotherapy. Patient complains of weight loss, denies any fever, denies any hemoptysis or sputum production. Also denies any wheezing. Denies any nausea vomiting. By the time I saw the patient, patient was on room air and appeared comfortable. Past medical history; 1. Stage IV lung cancer. 2. COPD. 3. Anemia. Medications; reviewed. Allergies; none. Social history; patient is a former smoker. Family history; noncontributory. 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 Review of systems; denies any headache, seizures, dysphagia, chest pain. Complains of mild shortness of breath. Denies any coughing, wheezing, sputum production or hemoptysis. Complains of weight loss. Denies any dysphasia. Any abdominal pain, nausea or vomiting. Denies any skin changes or any new arthritis symptoms. General exam; middle-aged male, appears quite wasted. Awake and alert. Currently in no distress. Date/Time of Note DATE: 08/07/18 TIME: 12:05 Past Medical History Home Meds Active Scripts Omeprazole* (Omeprazole*) 20 Mg Capsule., 20 MG PO DAILY for 30 Days, #30 CAP otc Prov:ALESSANDRO HERNANDEZ MD 06/12/18 Ondansetron Hcl* (Zofran*) 8 Mg Tablet, 8 MG PO TID for 10 Days, #30 TAB 1 Refill Prov:ALESSANDRO HERNANDEZ MD 06/12/18 Reported Medications Hydromorphone Hcl* (Dilaudid*) 2 Mg Tablet, 2 MG PO Q4H, TAB 07/20/18 Sertraline Hcl* (Sertraline Hcl*) 100 Mg Tablet, 100 MG PO QHS, #30 TAB 06/10/18 Ferrous Sulfate* (Ferrous Sulfate*) 325 Mg Tabec, 325 MG PO BID, TAB 06/10/18 Medications Current Medications IV Flush (NS 3 ml) 3 ml PER PROTOCOL IV ; Start 08/05/18 at 23:30 Ondansetron HCl (Zofran Inj) 4 mg Q6H PRN IV NAUSEA/VOMITING; Start 08/05/18 at 23:30 Acetaminophen (Tylenol Tab) 650 mg Q6H PRN PO .PAIN 1-3 OR TEMP; Start 08/05/18 at 23:30 Docusate Sodium (Colace) 100 mg Q12H PRN PO .CONSTIPATION; Start 08/05/18 at 23:30 Bisacodyl (Dulcolax) 5 mg DAILY PRN PO .CONSTIPATION; Start 08/05/18 at 23:30 Levalbuterol (Xopenex Neb) 1.25 mg Q4H RESP THERAPY PRN HHN SHORTNESS OF BREATH; Start 08/06/18 at 01:00 Vancomycin HCl (Vanco Iv Per Pharmacy) VANCOMYCIN PER PHARMACY PER PROTOCOL XX ; Start 08/06/18 at 01:00 Acetaminophen/ Hydrocodone Bitart ([place] (5/325)) 1 tab Q6H PRN PO MODERATE PAIN LEVEL 4-6 Last administered on 08/07/18at 08:58; Admin Dose 1 TAB; Start 08/06/18 at 02:00 Vancomycin HCl 100 ml @ 100 mls/hr Q12H IVPB Last administered on 08/07/18at 05:51; Admin Dose 100 MLS/HR; Start 08/06/18 at 18:00 Piperacillin Sod/ Tazobactam Sod 100 ml @ 200 mls/hr Q6 IVPB Last administered on 08/07/18at 11:50; Admin Dose 200 MLS/HR; Start 08/06/18 at 12:00 Levalbuterol (Xopenex Neb) 1.25 mg Q6H RESP THERAPY HHN Last administered on 08/07/18at 09:05; Admin Dose 1.25 MG; Start 08/06/18 at 14:00 Ipratropium [place] (Atrovent 0.02% (Neb)) 0.5 mg Q6HWA RESP THERAPY HHN Last administered on 08/07/18at 09:05; Admin Dose 0.5 MG; Start 08/06/18 at 14:00 Ipratropium [place] (Atrovent 0.02% (Neb)) 0.5 mg Q4H RESP THERAPY PRN HHN SHORTNESS OF BREATH; Start 08/06/18 at 13:00 Budesonide (Pulmicort (Neb)) 0.5 mg BID RESP THERAPY HHN Last administered on 08/07/18at 09:15; Admin Dose 0.5 MG; Start 08/06/18 at 20:00 Miscellaneous Information (*Rx Drug Level Order Reminder*) VANCO TROUGH @ 1,700 1700 ONCE XX ; Start 08/07/18 at 17:00; Stop 08/07/18 at 17:01 Hydromorphone HCl (Dilaudid) 1 mg Q4H PRN IV .SEVERE PAIN 7-10; Start 08/07/18 at 11:30 Allergies: Coded Allergies: No Known Allergy (Unverified , 07/20/18) Past Surgical History Past Surgical Hx: no surgical history Social History Alcohol Use: none Smoking Status: Former smoker Drug Use: none Exam/Review of Systems Exam Vitals Vital Signs Date Temp Pulse Resp B/P (MAP) Pulse Ox O2 O2 Flow FiO2 Time Delivery Rate 08/07/18 2.0 09:05 08/07/18 72 20 97 Nasal 09:05 Cannula 08/07/18 97.8 120/69 08:26 (86) 08/06/18 28 14:02 Intake and Output 08/06/18 08/06/18 08/07/18 1515:00 23:00 07:00 IntakeIntake Total 520 ml 300 ml 200 ml OutputOutput Total 450 ml 100 ml 600 ml BalanceBalance 70 ml 200 ml -400 ml Exam H ENT exam; supple neck, no JVD. No lymphadenopathy. Midline trachea. No thyromegaly. Patient has multiple carious teeth. No neck masses. Chest exam; diminished breath sounds right lung. Left lung is clear. S1-S2 audible, no murmurs. Regular rhythm. Abdomen exam; soft, no organomegaly. Bowel sounds audible. Extremity exam; no peripheral edema clubbing. [employer] exam; no focal deficit. Results Result Diagram: 08/07/18 0509 08/07/18 0509 Results 24hrs Laboratory Tests Test 08/07/18 05:09 White Blood Count 24.2 H Red Blood Count 3.34 #L Hemoglobin 9.0 #L Hematocrit 29.1 #L Mean Corpuscular Volume 87.1 Mean Corpuscular Hemoglobin 26.9 L Mean Corpuscular Hemoglobin Concent 30.9 L Red Cell Distribution Width 21.7 H Platelet Count 226 Mean Platelet Volume 10.2 Immature Granulocytes % 1.400 H Neutrophils % 88.0 H Lymphocytes % 4.0 L Monocytes % 6.3 Eosinophils % 0.2 Basophils % 0.1 Nucleated Red Blood Cells % 0.0 Immature Granulocytes # 0.340 H Neutrophils # 21.3 H Lymphocytes # 1.0 Monocytes # 1.5 H Eosinophils # 0.0 Basophils # 0.0 Nucleated Red Blood Cells # 0.0 Sodium Level 138 Potassium Level 4.5 Chloride Level 106 Carbon Dioxide Level 22 Anion Gap 10 Blood Urea Nitrogen 22 H Creatinine 0.90 Est Glomerular Filtrat Rate mL/min > 60 Glucose Level 95 Calcium Level 10.9 H Magnesium Level 2.1 Total Bilirubin 1.1 Direct Bilirubin 0.00 Indirect Bilirubin 1.1 Aspartate Amino Transf (AST/SGOT) 42 Alanine Aminotransferase (ALT/SGPT) 39 Alkaline Phosphatase 137 H Total Protein 6.9 Albumin 3.5 Globulin 3.40 H Albumin/Globulin Ratio 1.02 Medications Medication Current Medications IV Flush (NS 3 ml) 3 ml PER PROTOCOL IV ; Start 08/05/18 at 23:30 Ondansetron HCl (Zofran Inj) 4 mg Q6H PRN IV NAUSEA/VOMITING; Start 08/05/18 at 23:30 Acetaminophen (Tylenol Tab) 650 mg Q6H PRN PO .PAIN 1-3 OR TEMP; Start 08/05/18 at 23:30 Docusate Sodium (Colace) 100 mg Q12H PRN PO .CONSTIPATION; Start 08/05/18 at 23:30 Bisacodyl (Dulcolax) 5 mg DAILY PRN PO .CONSTIPATION; Start 08/05/18 at 23:30 Levalbuterol (Xopenex Neb) 1.25 mg Q4H RESP THERAPY PRN HHN SHORTNESS OF BREATH; Start 08/06/18 at 01:00 Vancomycin HCl (Vanco Iv Per Pharmacy) VANCOMYCIN PER PHARMACY PER PROTOCOL XX ; Start 08/06/18 at 01:00 Acetaminophen/ Hydrocodone Bitart ([place] (5/325)) 1 tab Q6H PRN PO MODERATE PAIN LEVEL 4-6 Last administered on 08/07/18at 08:58; Admin Dose 1 TAB; Start 08/06/18 at 02:00 Vancomycin HCl 100 ml @ 100 mls/hr Q12H IVPB Last administered on 08/07/18at 0 5:51; Admin Dose 100 MLS/HR; Start 08/06/18 at 18:00 Piperacillin Sod/ Tazobactam Sod 100 ml @ 200 mls/hr Q6 IVPB Last administered on 08/07/18at 11:50; Admin Dose 200 MLS/HR; Start 08/06/18 at 12:00 Levalbuterol (Xopenex Neb) 1.25 mg Q6H RESP THERAPY HHN Last administered on 08/07/18at 09:05; Admin Dose 1.25 MG; Start 08/06/18 at 14:00 Ipratropium [place] (Atrovent 0.02% (Neb)) 0.5 mg Q6HWA RESP THERAPY HHN Last administered on 08/07/18at 09:05; Admin Dose 0.5 MG; Start 08/06/18 at 14:00 Ipratropium [place] (Atrovent 0.02% (Neb)) 0.5 mg Q4H RESP THERAPY PRN HHN SHORTNESS OF BREATH; Start 08/06/18 at 13:00 Budesonide (Pulmicort (Neb)) 0.5 mg BID RESP THERAPY HHN Last administered on 08/07/18at 09:15; Admin Dose 0.5 MG; Start 08/06/18 at 20:00 Miscellaneous Information (*Rx Drug Level Order Reminder*) VANCO TROUGH @ 1,700 1700 ONCE XX ; Start 08/07/18 at 17:00; Stop 08/07/18 at 17:01 Hydromorphone HCl (Dilaudid) 1 mg Q4H PRN IV .SEVERE PAIN 7-10; Start 08/07/18 at 11:30 KIRTI REDD 18, 2019 12:09
[2018-08-07] MEDS ORDERED: OXYCODONE/ACETAMINOPHEN (10/325) TAB PO PRN (12:30)
--- NOTE | 2018-08-07 12:30 | PN ---
Date/Time of Note Date/Time of Note DATE: 08/07/18 TIME: 12:29 Objective Vitals Vital Signs Date Temp Pulse Resp B/P (MAP) Pulse Ox O2 O2 Flow FiO2 Time Delivery Rate 08/07/18 2.0 09:05 08/07/18 72 20 97 Nasal 09:05 Cannula 08/07/18 97.8 120/69 08:26 (86) 08/06/18 28 14:02 Intake and Output 08/06/18 08/06/18 08/07/18 1515:00 23:00 07:00 IntakeIntake Total 520 ml 300 ml 200 ml OutputOutput Total 450 ml 100 ml 600 ml BalanceBalance 70 ml 200 ml -400 ml Results Result Diagram: 08/07/18 0509 08/07/18 0509 Medications Medications Current Medications IV Flush (NS 3 ml) 3 ml PER PROTOCOL IV ; Start 08/05/18 at 23:30 Ondansetron HCl (Zofran Inj) 4 mg Q6H PRN IV NAUSEA/VOMITING; Start 08/05/18 at 23:30 Acetaminophen (Tylenol Tab) 650 mg Q6H PRN PO .PAIN 1-3 OR TEMP; Start 08/05/18 at 23:30 Docusate Sodium (Colace) 100 mg Q12H PRN PO .CONSTIPATION; Start 08/05/18 at 23:30 Bisacodyl (Dulcolax) 5 mg DAILY PRN PO .CONSTIPATION; Start 08/05/18 at 23:30 Levalbuterol (Xopenex Neb) 1.25 mg Q4H RESP THERAPY PRN HHN SHORTNESS OF BREATH; Start 08/06/18 at 01:00 Vancomycin HCl (Vanco Iv Per Pharmacy) VANCOMYCIN PER PHARMACY PER PROTOCOL XX ; Start 08/06/18 at 01:00 Vancomycin HCl 100 ml @ 100 mls/hr Q12H IVPB Last administered on 08/07/18at 05:51; Admin Dose 100 MLS/HR; Start 08/06/18 at 18:00 Piperacillin Sod/ Tazobactam Sod 100 ml @ 200 mls/hr Q6 IVPB Last administered on 08/07/18at 11:50; Admin Dose 200 MLS/HR; Start 08/06/18 at 12:00 Levalbuterol (Xopenex Neb) 1.25 mg Q6H RESP THERAPY HHN Last administered on 08/07/18at 09:05; Admin Dose 1.25 MG; Start 08/06/18 at 14:00 Ipratropium [place] (Atrovent 0.02% (Neb)) 0.5 mg Q6HWA RESP THERAPY HHN Last administered on 08/07/18at 09:05; Admin Dose 0.5 MG; Start 08/06/18 at 14:00 Ipratropium [place] (Atrovent 0.02% (Neb)) 0.5 mg Q4H RESP THERAPY PRN HHN SHORTNESS OF BREATH; Start 08/06/18 at 13:00 Budesonide (Pulmicort (Neb)) 0.5 mg BID RESP THERAPY HHN Last administered on 08/07/18at 09:15; Admin Dose 0.5 MG; Start 08/06/18 at 20:00 Miscellaneous Information (*Rx Drug Level Order Reminder*) VANCO TROUGH @ 1,700 1700 ONCE XX ; Start 08/07/18 at 17:00; Stop 08/07/18 at 17:01 Hydromorphone HCl (Dilaudid) 1 mg Q4H PRN IV .SEVERE PAIN 7-10; Start 08/07/18 at 11:30 Oxycodone/ Acetaminophen (Endocet (10/ 325)) 1 tab Q4H PRN PO MODERATE PAIN LEVEL 4-6; Start 08/07/18 at 12:30; Status UNV VTE Prophylaxis Risk score (from [facility] [place])>0 risk: 4 SCD applied (from [facility] [place]): Yes Lines/Catheters IV Catheter Type: Grider in Place: No Assessment/Plan Hospital Course Subjective Patient's shortness of breath has improved since admission, off nasal cannula, just complains of generalized fatigue and weakness Objective Physical exam General: Patient is laying in bed and answers questions appropriately Mentation: Patient is alert and oriented 4, Head: Normocephalic atraumatic Eyes: EOMI, pupils reactive to light Neck: Supple, nontender, midline Respiratory: Coarse to auscultation bilaterally Cardiovascular: regular rate, no obvious murmurs Gastrointestinal: non-tender to palpation, bowel sounds heard. Neurological: Moves all extremities spontaneously Skin: No new skin lesions Assessment and plan Shortness of breath with pleural effusion -Secondary to chronic issues of metastatic lung cancer and pleural effusion -CT scan showing moderate pleural effusion however this is unchanged from previous CT done a few weeks ago -Pulmonology has reviewed the CT, not enough free effusion for thoracentesis -Nebulizers Pneumonia -Patient in immunocompromised state -Broad-spectrum IV antibiotics -Infectious disease consulted Sepsis -Possible secondary to pneumonia -Cultures done -IV fluids given -IV antibiotic -No fever however patient and immunocompromised state so unreliable Generalized fatigue -Secondary to metastatic lung carcinoma -Continue IV hydration and encourage oral intake Hypercalcemia -Chronic, mild, oncology and hematology on board Lower back pain -Follow-up on lumbar spine, questionable mets Anemia -Likely secondary to anemia chronic disease -No overt bleeding however will closely monitor and transfuse as needed Severe protein calorie malnutrition -Encourage p.o. intake -IV fluid -megace Metastatic squamous cell lung carcinoma -On immunotherapy as outpatient -Heme-onc on board, plan is to eventually continue chemotherapy -Palliative care also consulted for pain management and end-of-life care recommendations Disposition -Continue IV antibiotics, infectious disease recommendations appreciated NUVIA WYNNE Aug 07, 2018 12:30
[2018-08-07] MEDS ORDERED: MEGESTROL (40 MG/ML) 10ML CUP PO SCH (13:00)
[2018-08-07] MEDS ORDERED: MEGESTROL 40 MG TAB PO SCH (13:00)
--- NOTE | 2018-08-07 13:41 | CONS ---
Assessment/Plan Assessment/Plan Hospital Course (Demo Recall) # SQUAMOUS CELL CARCINOMA, MODERATELY-DIFFERENTIATED, RIGHT LOWER LOBE, PDL-1 10%. ECOG 1 -initial PEt CT 09/2017 demonstrates involvement in right lung with an 8cm mass and bilateral hypermetabolic pulmonary nodules and right hilar adenopathy -initial Brain MRI is negative - pt initially received 4 cycles of Carboplatin-Gemcitabine -01/2018 and 02/2018 CT Chest showed progression of disease -02/2018 CT Brain negative -pt randomized to single agent nivolumab which he has since progressed through -pt has since received only received 3 doses of [place]/Carbo,last given on 07/27. Pt has not been able to get the chemotherapy as scheduled due to need for hospitalizations. Therefore, even though there is some progression on the CT, ti is difficult to attribute this to failure of gem/carbo. 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 -managed by Dr Ewing #Hypercalcemia -Ca 10 -continue monthly bisphosphonate therapy #Anemia -s/p transfuse 2 units of PRBCs -continue procrit 40,000 weekly as an out patient -will scheduled out patient blood transfusions #SOB -improved, will continue to monitor -start nebulizer tx at home -pt states he needs less nebulizer treatment Thank you for the opportunity to participate in this patients care A total of 40 minutes of face to face time was spent speaking with the patient, of which greater than 50% was spent in counseling and coordination of care and the detailed question and answer session. Consultation Date/Type/Reason Admit Date/Time Aug 05, 2018 at 23:12 Initial Consult Date 08/07/18 Type of Consult oncology Reason for Consultation STAGE IV lung cancer Requesting Provider: ELLA WARREN Date/Time of Note DATE: 08/07/18 TIME: 13:37 24 HR Interval Summary Free Text/Dictation requiring percocet and dilaudid ATC. received blood transfusion yesterday. pt still with a tremendous amount of pain Exam/Review of Systems Exam Vitals Vital Signs Date Temp Pulse Resp B/P (MAP) Pulse Ox O2 O2 Flow FiO2 Time Delivery Rate 08/07/18 2.0 09:05 08/07/18 72 20 97 Nasal 09:05 Cannula 08/07/18 97.8 120/69 08:26 (86) 08/06/18 28 14:02 Intake and Output 08/06/18 08/06/18 08/07/18 1515:00 23:00 07:00 IntakeIntake Total 520 ml 300 ml 200 ml OutputOutput Total 450 ml 100 ml 600 ml BalanceBalance 70 ml 200 ml -400 ml Constitutional: alert, oriented, distress, frail Psych: anxiety, depression Eyes: nl conjunctiva ENMT: nl external ears & nose Neck: supple Respiratory: clear to auscultation Cardiovascular: regular rate and rhythm Gastrointestinal: soft Musculoskeletal: nl extremities to inspection Extremities: normal pulses Results Result Diagram: 08/07/18 0509 08/07/18 0509 Results 24hrs Laboratory Tests Test 08/07/18 05:09 White Blood Count 24.2 H Red Blood Count 3.34 #L Hemoglobin 9.0 #L Hematocrit 29.1 #L Mean Corpuscular Volume 87.1 Mean Corpuscular Hemoglobin 26.9 L Mean Corpuscular Hemoglobin Concent 30.9 L Red Cell Distribution Width 21.7 H Platelet Count 226 Mean Platelet Volume 10.2 Immature Granulocytes % 1.400 H Neutrophils % 88.0 H Lymphocytes % 4.0 L Monocytes % 6.3 Eosinophils % 0.2 Basophils % 0.1 Nucleated Red Blood Cells % 0.0 Immature Granulocytes # 0.340 H Neutrophils # 21.3 H Lymphocytes # 1.0 Monocytes # 1.5 H Eosinophils # 0.0 Basophils # 0.0 Nucleated Red Blood Cells # 0.0 Sodium Level 138 Potassium Level 4.5 Chloride Level 106 Carbon Dioxide Level 22 Anion Gap 10 Blood Urea Nitrogen 22 H Creatinine 0.90 Est Glomerular Filtrat Rate mL/min > 60 Glucose Level 95 Calcium Level 10.9 H Magnesium Level 2.1 Total Bilirubin 1.1 Direct Bilirubin 0.00 Indirect Bilirubin 1.1 Aspartate Amino Transf (AST/SGOT) 42 Alanine Aminotransferase (ALT/SGPT) 39 Alkaline Phosphatase 137 H Total Protein 6.9 Albumin 3.5 Globulin 3.40 H Albumin/Globulin Ratio 1.02 Medications Medication Current Medications IV Flush (NS 3 ml) 3 ml PER PROTOCOL IV ; Start 08/05/18 at 23:30 Ondansetron HCl (Zofran Inj) 4 mg Q6H PRN IV NAUSEA/VOMITING; Start 08/05/18 at 23:30 Acetaminophen (Tylenol Tab) 650 mg Q6H PRN PO .PAIN 1-3 OR TEMP; Start 08/05/18 at 23:30 Docusate Sodium (Colace) 100 mg Q12H PRN PO .CONSTIPATION; Start 08/05/18 at 23:30 Bisacodyl (Dulcolax) 5 mg DAILY PRN PO .CONSTIPATION; Start 08/05/18 at 23:30 Levalbuterol (Xopenex Neb) 1.25 mg Q4H RESP THERAPY PRN HHN SHORTNESS OF BREATH; Start 08/06/18 at 01:00 Vancomycin HCl (Vanco Iv Per Pharmacy) VANCOMYCIN PER PHARMACY PER PROTOCOL XX ; Start 08/06/18 at 01:00 Vancomycin HCl 100 ml @ 100 mls/hr Q12H IVPB Last administered on 08/07/18at 05:51; Admin Dose 100 MLS/HR; Start 08/06/18 at 18:00 Piperacillin Sod/ Tazobactam Sod 100 ml @ 200 mls/hr Q6 IVPB Last administered on 08/07/18at 11:50; Admin Dose 200 MLS/HR; Start 08/06/18 at 12:00 Levalbuterol (Xopenex Neb) 1.25 mg Q6H RESP THERAPY HHN Last administered on 08/07/18at 09:05; Admin Dose 1.25 MG; Start 08/06/18 at 14:00 Ipratropium [place] (Atrovent 0.02% (Neb)) 0.5 mg Q6HWA RESP THERAPY HHN Last administered on 08/07/18at 09:05; Admin Dose 0.5 MG; Start 08/06/18 at 14:00 Ipratropium [place] (Atrovent 0.02% (Neb)) 0.5 mg Q4H RESP THERAPY PRN HHN SHORTNESS OF BREATH; Start 08/06/18 at 13:00 Budesonide (Pulmicort (Neb)) 0.5 mg BID RESP THERAPY HHN Last administered on 08/07/18at 09:15; Admin Dose 0.5 MG; Start 08/06/18 at 20:00 Miscellaneous Information (*Rx Drug Level Order Reminder*) VANCO TROUGH @ 1,700 1700 ONCE XX ; Start 08/07/18 at 17:00; Stop 08/07/18 at 17:01 Hydromorphone HCl (Dilaudid) 1 mg Q4H PRN IV .SEVERE PAIN 7-10 Last adminis tered on 08/07/18at 12:48; Admin Dose 1 MG; Start 08/07/18 at 11:30 Oxycodone/ Acetaminophen (Endocet ()) 1 tab Q4H PRN PO MODERATE PAIN LEVEL 4-6; Start 08/07/18 at 12:30 THELMA HASKINS M.D. Aug 07, 2018 13:41
[2018-08-07 15:18] VITALS: BP 124/85; PULSE 103; RESP 18
--- NOTE | 2018-08-07 15:25 | CONS ---
Assessment/Plan Assessment/Plan Assessment/Plan (Daily) Squamous celll carcinoma S/P chemo Pain out of control Spoke to pt about code status he is ok with changing to DNR 'That would only prolong my suffering". Will change to Dilaudid drip with IV push for now till patient more comfortable and switch to po regimen when closer to discharge. Consultation Date/Type/Reason Admit Date/Time Aug 05, 2018 at 23:12 Date/Time of Note DATE: 08/07/18 TIME: 15:14 Hx of Present Illness Viewed patient's medical records admitted to [facility] with abdominal pain [id number], increasing shortness of breath secondary to pleural effusion, possible pneumonia, syndrome, malnutrition, metastatic squamous cell carcinoma. PET scan reviewed shows right lung involvement 8cm mass,pulmonary nodules and mediastinal nodes .Pt is complaining of diffuse and generalized lohwer quadrant pain , he is unable to sleep, eat or get into a comfortable position. Was taking dilaudid at home without efffect. Constitutional: poor po Eyes: No no complaints, No pain, No discharge, No redness, No visual change, No other ENT: No no complaints, No bleeding, No pain, No congestion, No discharge, No dysphagia, No sore throat, No other Respiratory: pleuritic pain, shortness of breath Cardiovascular: No no complaints, No chest pain, No edema, No lightheadedness, No orthopenea, No palpitations, No paroxysmal nocturnal dyspnea, No other Gastrointestinal: No no complaints, No pain, No blood, No constipation, No decreased appetite, No diarrhea, No flatus, No nausea, No passing stool, No vomiting, No other Genitourinary: No no complaints, No bleeding, No dysuria, No discharge, No flank pain, No hematuria, No other Musculoskeletal: back pain, bone/joint pain Skin: No no complaints, No bruising, No erythema, No laceration, No pruritis, No rash, No skin lesions, No other Neurologic: No no complaints, No confusion, No dizziness, No focal-weakness, No headache, No syncope, No seizure, No other Endocrine: No no complaints, No polyuria, No polydypsia, No dry skin, No temp intolerance, No other Psychological: anxiety Past Medical History Medical History: cancer Home Meds Active Scripts Omeprazole* (Omeprazole*) 20 Mg Capsule.dr, 20 MG PO DAILY for 30 Days, #30 CAP otc Prov:ALESSANDRO HERNANDEZ MD 06/12/18 Ondansetron Hcl* (Zofran*) 8 Mg Tablet, 8 MG PO TID for 10 Days, #30 TAB 1 Refill Prov:ALESSANDRO HERNANDEZ MD 06/12/18 Reported Medications Hydromorphone Hcl* (Dilaudid*) 2 Mg Tablet, 2 MG PO Q4H, TAB 07/20/18 Sertraline Hcl* (Sertraline Hcl*) 100 Mg Tablet, 100 MG PO QHS, #30 TAB 06/10/18 Ferrous Sulfate* (Ferrous Sulfate*) 325 Mg [place], 325 MG PO BID, TAB 06/10/18 Medications Current Medications IV Flush (NS 3 ml) 3 ml PER PROTOCOL IV ; Start 08/05/18 at 23:30 Ondansetron HCl (Zofran Inj) 4 mg Q6H PRN IV NAUSEA/VOMITING; Start 08/05/18 at 23:30 Acetaminophen (Tylenol Tab) 650 mg Q6H PRN PO .PAIN 1-3 OR TEMP; Start 08/05/18 at 23:30 Docusate Sodium (Colace) 100 mg Q12H PRN PO .CONSTIPATION; Start 08/05/18 at 23:30 Bisacodyl (Dulcolax) 5 mg DAILY PRN PO .CONSTIPATION; Start 08/05/18 at 23:30 Levalbuterol (Xopenex Neb) 1.25 mg Q4H RESP THERAPY PRN HHN SHORTNESS OF BREATH; Start 08/06/18 at 01:00 Vancomycin HCl (Vanco Iv Per Pharmacy) VANCOMYCIN PER PHARMACY PER PROTOCOL XX ; Start 08/06/18 at 01:00 Vancomycin HCl 100 ml @ 100 mls/hr Q12H IVPB Last administered on 08/07/18at 05:51; Admin Dose 100 MLS/HR; Start 08/06/18 at 18:00 Piperacillin Sod/ Tazobactam Sod 100 ml @ 200 mls/hr Q6 IVPB Last administered on 08/07/18at 11:50; Admin Dose 200 MLS/HR; Start 08/06/18 at 12:00 Levalbuterol (Xopenex Neb) 1.25 mg Q6H RESP THERAPY HHN Last administered on 08/07/18at 09:05; Admin Dose 1.25 MG; Start 08/06/18 at 14:00 Ipratropium [place] (Atrovent 0.02% (Neb)) 0.5 mg Q6HWA RESP THERAPY HHN Last administered on 08/07/18at 09:05; Admin Dose 0.5 MG; Start 08/06/18 at 14:00 Ipratropium [place] (Atrovent 0.02% (Neb)) 0.5 mg Q4H RESP THERAPY PRN HHN SHORTNESS OF BREATH; Start 08/06/18 at 13:00 Budesonide (Pulmicort (Neb)) 0.5 mg BID RESP THERAPY HHN Last administered on 08/07/18at 09:15; Admin Dose 0.5 MG; Start 08/06/18 at 20:00 Miscellaneous Information (*Rx Drug Level Order Reminder*) VANCO TROUGH @ 1,700 1700 ONCE XX ; Start 08/07/18 at 17:00; Stop 08/07/18 at 17:01 Oxycodone/ Acetaminophen (Endocet (10/ 325)) 1 tab Q4H PRN PO MODERATE PAIN LEVEL 4-6 Last administered on 08/07/18at 14:02; Admin Dose 1 TAB; Start 08/07/18 at 12:30 Hydromorphone HCl (Dilaudid) 2 mg Q4H PRN IV .SEVERE PAIN 7-10; Start 08/07/18 at 15:30; Status UNV Pantoprazole (Protonix Tab) 40 mg BID@18 PO ; Start 08/07/18 at 18:00; Status UNV Sucralfate (Carafate Susp) 1 gm QID PO ; Start 08/07/18 at 17:00; Status UNV Allergies: Coded Allergies: No Known Allergy (Unverified , 07/20/18) Past Surgical History Past Surgical Hx: no surgical history, appendectomy Social History Alcohol Use: none Smoking Status: Former smoker Drug Use: none Exam/Review of Systems Exam Vitals Vital Signs Date Temp Pulse Resp B/P (MAP) Pulse Ox O2 O2 Flow FiO2 Time Delivery Rate 08/07/18 2.0 09:05 08/07/18 72 20 97 Nasal 09:05 Cannula 08/07/18 97.8 120/69 08:26 (86) 08/06/18 28 14:02 Intake and Output 08/06/18 08/06/18 08/07/18 1515:00 23:00 07:00 IntakeIntake Total 520 ml 300 ml 200 ml OutputOutput Total 450 ml 100 ml 600 ml BalanceBalance 70 ml 200 ml -400 ml Constitutional: alert, oriented, well developed, distress, frail Psych: anxiety Eyes: nl conjunctiva, EOMI, nl lids, nl sclera, PERRL ENMT: nl external ears & nose, nl lips & teeth, nl nasal mucosa & septum Respiratory: clear to auscultation, normal air movement; No congested cough, No crackles/rales, No diminished breath sounds, No intercostal retraction, No labored breathing, No respirations, No tactile fremitus, No wheezing, No other Cardiovascular: regular rate and rhythm, nl pulses Gastrointestinal: soft, nl liver, spleen, non-tender; No ascites, No bowel sounds, No distended, No firm, No hepatomegaly, No mass, No rebound or guarding, No splenomegaly, No surgical scars, No tender, No other 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, nl mental status, nl speech, nl strength; No confused, No DTR's symmetric, No focal weakness, No lethargic, No numbness, No reflexes, No unresponsive, No other Results Result Diagram: 08/07/18 0509 08/07/18 0509 Results 24hrs Laboratory Tests Test 08/07/18 05:09 White Blood Count 24.2 H Red Blood Count 3.34 #L Hemoglobin 9.0 #L Hematocrit 29.1 #L Mean Corpuscular Volume 87.1 Mean Corpuscular Hemoglobin 26.9 L Mean Corpuscular Hemoglobin Concent 30.9 L Red Cell Distribution Width 21.7 H Platelet Count 226 Mean Platelet Volume 10.2 Immature Granulocytes % 1.400 H Neutrophils % 88.0 H Lymphocytes % 4.0 L Monocytes % 6.3 Eosinophils % 0.2 Basophils % 0.1 Nucleated Red Blood Cells % 0.0 Immature Granulocytes # 0.340 H Neutrophils # 21.3 H Lymphocytes # 1.0 Monocytes # 1.5 H Eosinophils # 0.0 Basophils # 0.0 Nucleated Red Blood Cells # 0.0 Sodium Level 138 Potassium Level 4.5 Chloride Level 106 Carbon Dioxide Level 22 Anion Gap 10 Blood Urea Nitrogen 22 H Creatinine 0.90 Est Glomerular Filtrat Rate mL/min > 60 Glucose Level 95 Calcium Level 10.9 H Magnesium Level 2.1 Total Bilirubin 1.1 Direct Bilirubin 0.00 Indirect Bilirubin 1.1 Aspartate Amino Transf (AST/SGOT) 42 Alanine Aminotransferase (ALT/SGPT) 39 Alkaline Phosphatase 137 H Total Protein 6.9 Albumin 3.5 Globulin 3.40 H Albumin/Globulin Ratio 1.02 Medications Medication Current Medications IV Flush (NS 3 ml) 3 ml PER PROTOCOL IV ; Start 08/05/18 at 23:30 Ondansetron HCl (Zofran Inj) 4 mg Q6H PRN IV NAUSEA/VOMITING; Start 08/05/18 at 23:30 Acetaminophen (Tylenol Tab) 650 mg Q6H PRN PO .PAIN 1-3 OR TEMP; Start 08/05/18 at 23:30 Docusate Sodium (Colace) 100 mg Q12H PRN PO .CONSTIPATION; Start 08/05/18 at 23:30 Bisacodyl (Dulcolax) 5 mg DAILY PRN PO .CONSTIPATION; Start 08/05/18 at 23:30 Levalbuterol (Xopenex Neb) 1.25 mg Q4H RESP THERAPY PRN HHN SHORTNESS OF BREATH; Start 08/06/18 at 01:00 Vancomycin HCl (Vanco Iv Per Pharmacy) VANCOMYCIN PER PHARMACY PER PROTOCOL XX ; Start 08/06/18 at 01:00 Vancomycin HCl 100 ml @ 100 mls/hr Q12H IVPB Last administered on 08/07/18at 05:51; Admin Dose 100 MLS/HR; Start 08/06/18 at 18:00 Piperacillin Sod/ Tazobactam Sod 100 ml @ 200 mls/hr Q6 IVPB Last administered on 08/07/18at 11:50; Admin Dose 200 MLS/HR; Start 08/06/18 at 12:00 Levalbuterol (Xopenex Neb) 1.25 mg Q6H RESP THERAPY HHN Last administered on 08/07/18at 09:05; Admin Dose 1.25 MG; Start 08/06/18 at 14:00 Ipratropium [place] (Atrovent 0.02% (Neb)) 0.5 mg Q6HWA RESP THERAPY HHN Last administered on 08/07/18at 09:05; Admin Dose 0.5 MG; Start 08/06/18 at 14:00 Ipratropium [place] (Atrovent 0.02% (Neb)) 0.5 mg Q4H RESP THERAPY PRN HHN SHORTNESS OF BREATH; Start 08/06/18 at 13:00 Budesonide (Pulmicort (Neb)) 0.5 mg BID RESP THERAPY HHN Last administered on 08/07/18at 09:15; Admin Dose 0.5 MG; Start 08/06/18 at 20:00 Miscellaneous Information (*Rx Drug Level Order Reminder*) VANCO TROUGH @ 1,700 1700 ONCE XX ; Start 08/07/18 at 17:00; Stop 08/07/18 at 17:01 Oxycodone/ Acetaminophen (Endocet ()) 1 tab Q4H PRN PO MODERATE PAIN LEVEL 4-6 Last administered on 08/07/18at 14:02; Admin Dose 1 TAB; Start 08/07/18 at 12:30 Hydromorphone HCl (Dilaudid) 2 mg Q4H PRN IV .SEVERE PAIN 7-10; Start 08/07/18 at 15:30; Status UNV Pantoprazole (Protonix Tab) 40 mg BID@06,18 PO ; Start 08/07/18 at 18:00; Status UNV Sucralfate (Carafate Susp) 1 gm QID PO ; Start 08/07/18 at 17:00; Status UNV PARIS FLORES Aug 07, 2018 15:25
[2018-08-07] MEDS ORDERED: HYDROmorphONE 2 MG/ML SYG IV PRN (15:30)
[2018-08-07] MEDS: HYDROmorphONE 2 MG/ML SYG IV PRN (16:48)
[2018-08-07] MEDS: HYDROmorphONE 0.2 MG/ML PCA IV SCH ×2 (17:01→22:21)
--- NOTE | 2018-08-07 17:46 | CONS ---
DATE OF ADMISSION: 08/05/2018 DATE OF CONSULTATION: 08/07/2018 TYPE OF CONSULTATION: Infectious disease consultation. REASON FOR CONSULTATION: Antibiotic management. HISTORY OF PRESENT ILLNESS: Greyson Gonzales is a 62-year-old male who came in on the with shor tness of breath for the last 2 to 3 weeks. The patient has a history of carcinoma of the right lung and presents with shortness of breath. He has been having shortness of breath for the last few weeks since he was diagnosed with lung cancer. He is a patient of Dr. Garza and had immunotherapy approx imately 3 weeks ago. He did go through chemotherapy and immunotherapy and has not tolerated some of the treatment, so he is currently on low dose immunotherapy. He has weight loss and decreased appeti te. He does not have any fever, chest pain, nausea or vomiting or diarrhea. He does have back pain that radiates to the front. He had a CT scan, which was unremarkable according to the patient. PAST MEDICAL HISTORY: Stage IV squamous cell carcinoma of the lung, iron deficiency anemia. PAST SURGICAL HISTORY: He has a right Port-A-Cath. FAMILY HISTORY: Not significant. SOCIAL HISTORY: He is a former smoker. He does not drink or abuse drugs. ALLERGIES: NONE TO PENICILLIN, SULFA OR FOODS. MEDICATIONS: Per chart. REVIEW OF SYSTEMS: Noncontributory. MEDICATIONS: Per chart. REVIEW OF SYSTEMS: Noncontributory. PHYSICAL EXAMINATION: GENERAL: The patient is a pleasant male lying in bed in no acute distress. He is thin. VITAL SIGNS: Stable. He is afebrile. SKIN: Without generalized rash. HEENT: Within normal limits. NECK: Supple. LYMPH NODES: None palpable. CHEST: Right Port-A-Cath. He has decreased breath sounds at the bases, especially on the right. HEART: Regular rhythm. He is tachycardic. ABDOMEN: Soft, nontender, without organosplenomegaly or masses. EXTREMITIES: Without cyanosis, clubbing, or edema. RECTAL AND GENITAL: Deferred. NEUROLOGICAL: No focal neurological abnormality. DIAGNOSTIC DATA: Chest x-ray shows increased interstitial lung markings bilaterally, mixed. IMAGING STUDIES: Airspace disease throughout the contrast right upper lung and throughout the left l louis. Consider pulmonary edema versus bilateral pneumonia. The patient was seen by Dr. Thelma Haskins for squamous cell carcinoma, hypercalcemia, anemia and short ness of breath. Chest x-ray showed large centrally cystic or necrotic consolidation within the right lower lobe, now completely filled with fluid, contained air fluid levels, may represent the patient' s primary status. Extensive right-sided mediastinal and hilar adenopathy with associated encasement of the bronchus intermedius and extrinsic mass effect upon or ingrowth into the distal right main jameson m bronchus. Also bulky adenopathy which surrounds and encases the ____ SVC. The patient has a right Port-A-Cath. Blood cultures are negative. The patient is on vancomycin and Zosyn. White count tod ay is 21.7, H and H 7.2 and 22.9, platelet count 214,000. BUN and creatinine 28/0.74. We will rhett nue him on current therapy. I will dictate my findings to the hospitalist and to Dr. Garza. Dictated By: DORIS COOK MD CECIL/NTS Conf#: [id number] DID#: [id number] CC: ELLA WARREN MD; THELMA HASKINS MD;*EndCC*
[2018-08-07] MEDS: PANTOPRAZOLE (EC) 40 MG TAB PO SCH (18:35)
[2018-08-07] MEDS: SUCRALFATE (100 MG/ML) 10ML CUP PO SCH ×2 (18:35→20:27)
[2018-08-07] MEDS: DEXAMETHASONE 4 MG TAB PO SCH (18:35)
[2018-08-07 20:35] VITALS: BP 111/79; PULSE 101; RESP 20
[2018-08-08] MEDS: PIPER-TAZO 3.375 GM IV (PMX) 100 ML IVPB SCH ×5 (00:13→23:42)
[2018-08-08] MEDS: DEXAMETHASONE 4 MG TAB PO SCH ×5 (00:13→23:42)
[2018-08-08] MEDS: LEVALBUTEROL (NEB) 1.25 MG/0.5 ML AMP HHN SCH ×4 (02:32→20:10)
[2018-08-08 02:51] VITALS: BP 105/57; PULSE 105; RESP 16
[2018-08-08] MEDS: HYDROmorphONE 0.2 MG/ML PCA IV SCH ×4 (04:07→23:40)
[2018-08-08] MEDS: VANCOMYCIN 500 MG (PMX) 100 ML IVPB SCH ×2 (05:31→18:07)
[2018-08-08] MEDS: PANTOPRAZOLE (EC) 40 MG TAB PO SCH ×2 (05:31→17:23)
[2018-08-08 07:35] VITALS: BP 108/79; PULSE 83; RESP 18
[2018-08-08] MEDS: IPRATROPIUM (NEB) 0.5 MG/2.5 ML AMP HHN SCH ×3 (08:23→20:09)
[2018-08-08] MEDS: BUDESONIDE (NEB) 0.5MG/2ML AMP HHN SCH ×2 (08:23→20:09)
[2018-08-08] MEDS: SUCRALFATE (100 MG/ML) 10ML CUP PO SCH ×4 (08:54→21:12)
--- NOTE | 2018-08-08 12:22 | CONS ---
Consultation Date/Type/Reason Admit Date/Time Aug 05, 2018 at 23:12 Initial Consult Date 08/07/18 Type of Consult Pulmonary Patient is a 62-year-old male who came into the hospital with a few weeks history of shortness of breath. Patient has been diagnosed with stage IV lung cancer and is currently on immunotherapy as an outpatient having failed chemotherapy. Patient complains of weight loss, denies any fever, denies any hemoptysis or sputum production. Also denies any wheezing. Denies any nausea vomiting. By the time I saw the patient, patient was on room air and appeared comfortable. Past medical history; 1. Stage IV lung cancer. 2. COPD. 3. Anemia. Medications; reviewed. Allergies; none. Social history; patient is a former smoker. Family history; noncontributory. 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 Review of systems; denies any headache, seizures, dysphagia, chest pain. Complains of mild shortness of breath. Denies any coughing, wheezing, sputum production or hemoptysis. Complains of weight loss. Denies any dysphasia. Any abdominal pain, nausea or vomiting. Denies any skin changes or any new arthritis symptoms. General exam; middle-aged male, appears quite wasted. Awake and alert. Currently in no distress. Requesting Provider: ELLA WARREN Date/Time of Note DATE: 08/08/18 TIME: 12:21 24 HR Interval Summary Free Text/Dictation Patient condition is stable. Denies any shortness of breath at rest. Any coughing, wheezing, sputum production or hemoptysis. General exam; elderly male, currently no distress. Appears quite emaciated. HEENT exam; supple neck, no neck masses. Patient has a multiple carious teeth. Supple neck. Chest exam; diminished breath sounds right lung. Left lung is fairly clear. S1-S2 audible, no murmurs. Abdomen exam; soft, nontender. No organomegaly. Bowel sounds audible. Extremity exam; no peripheral edema or clubbing. [employer] exam; no focal deficit. Assessment and recommendations; 1. Patient with history of stage IV right lung cancer admitted for shortness of breath with possibly some element of postobstructive pneumonia with significant leukocytosis. Patient currently on appropriate antimicrobial regimen. 2. Small pleural effusion. Not warranting thoracentesis. 3. Chronic anemia. Continue current supportive care. Prognosis appears poor. Exam/Review of Systems Exam Vitals Vital Signs Date Temp Pulse Resp B/P (MAP) Pulse Ox O2 O2 Flow FiO2 Time Delivery Rate 08/08/18 17 10:22 08/08/18 95 93 21 08:23 08/08/18 98.0 108/79 07:35 (89) 08/08/18 2.0 02:35 08/08/18 Nasal 02:33 Cannula Intake and Output 08/07/18 08/07/18 08/08/18 1515:00 23:00 07:00 IntakeIntake Total 420 ml 200 ml 200 ml OutputOutput Total 150 ml 225 ml BalanceBalance 270 ml -25 ml 200 ml Results Result Diagram: 08/08/18 0549 08/08/18 0549 Results 24hrs Laboratory Tests Test 08/07/18 17:17 08/08/18 05:49 08/08/18 05:56 Vancomycin Level Trough 10.2 White Blood Count 22.6 H Red Blood Count 3.54 L Hemoglobin 9.6 L Hematocrit 30.9 L Mean Corpuscular Volume 87.3 Mean Corpuscular Hemoglobin 27.1 L Mean Corpuscular 31.1 L Hemoglobin Concent Red Cell Distribution Width 21.8 H Platelet Count 320 # Mean Platelet Volume 11.0 H Immature Granulocytes % 1.400 H Neutrophils % 93.7 H Lymphocytes % 2.3 L Monocytes % 2.5 Eosinophils % 0.0 Basophils % 0.1 Nucleated Red Blood Cells % 0.0 Immature Granulocytes # 0.320 H Neutrophils # 21.2 H Lymphocytes # 0.5 L Monocytes # 0.6 Eosinophils # 0.0 Basophils # 0.0 Nucleated Red Blood Cells # 0.0 Sodium Level 142 Potassium Level 4.8 Chloride Level 106 Carbon Dioxide Level 21 Anion Gap 15 H Blood Urea Nitrogen 19 Creatinine 0.82 Est Glomerular Filtrat > 60 Rate mL/min Glucose Level 131 Calcium Level 10.4 H Total Bilirubin 0.6 Direct Bilirubin 0.00 Indirect Bilirubin 0.6 Aspartate Amino 34 Transf (AST/SGOT) Alanine 26 Aminotransferase (ALT/SGPT) Alkaline Phosphatase 121 Total Protein 7.2 Albumin 3.5 Globulin 3.70 H Albumin/Globulin Ratio 0.94 Lab Scanned Report BLOOD TRANSFUSION Medications Medication Current Medications IV Flush (NS 3 ml) 3 ml PER PROTOCOL IV ; Start 08/05/18 at 23:30 Ondansetron HCl (Zofran Inj) 4 mg Q6H PRN IV NAUSEA/VOMITING; Start 08/05/18 at 23:30 Acetaminophen (Tylenol Tab) 650 mg Q6H PRN PO .PAIN 1-3 OR TEMP; Start 08/05/18 at 23:30 Docusate Sodium (Colace) 100 mg Q12H PRN PO .CONSTIPATION; Start 08/05/18 at 23:30 Bisacodyl (Dulcolax) 5 mg DAILY PRN PO .CONSTIPATION; Start 08/05/18 at 23:30 Levalbuterol (Xopenex Neb) 1.25 mg Q4H RESP THERAPY PRN HHN SHORTNESS OF BREATH; Start 08/06/18 at 01:00 Vancomycin HCl (Vanco Iv Per Pharmacy) VANCOMYCIN PER PHARMACY PER PROTOCOL XX ; Start 08/06/18 at 01:00 Vancomycin HCl 100 ml @ 100 mls/hr Q12H IVPB Last administered on 08/08/18at 05:31; Admin Dose 100 MLS/HR; Start 08/06/18 at 18:00 Piperacillin Sod/ Tazobactam Sod 100 ml @ 200 mls/hr Q6 IVPB Last administered on 08/08/18at 05:29; Admin Dose 200 MLS/HR; Start 08/06/18 at 12:00 Levalbuterol (Xopenex Neb) 1.25 mg Q6H RESP THERAPY HHN Last administered on 08/08/18at 08:23; Admin Dose 1.25 MG; Start 08/06/18 at 14:00 Ipratropium [place] (Atrovent 0.02% (Neb)) 0.5 mg Q6HWA RESP THERAPY HHN Last administered on 08/08/18at 08:23; Admin Dose 0.5 MG; Start 08/06/18 at 14:00 Ipratropium [place] (Atrovent 0.02% (Neb)) 0.5 mg Q4H RESP THERAPY PRN HHN SHOR TNESS OF BREATH; Start 08/06/18 at 13:00 Budesonide (Pulmicort (Neb)) 0.5 mg BID RESP THERAPY HHN Last administered on 08/08/18at 08:23; Admin Dose 0.5 MG; Start 08/06/18 at 20:00 Pantoprazole (Protonix Tab) 40 mg BID@06,18 PO Last administered on 08/08/18 05:31; Admin Dose 40 MG; Start 08/07/18 at 18:00 Sucralfate (Carafate Susp) 1 gm QID PO Last administered on 08/08/18 08:54; Admin Dose 1 GM; Start 08/07/18 at 17:00 Hydromorphone HCl (Dilaudid HOME BUILDER) 1.0 MG/HR CONTINUOUS RATE ... Q4PCA IV Last administered on 08/08/18 10:21; Admin Dose 6 MG; Start 08/07/18 at 15:00 Hydromorphone HCl (Dilaudid) 2 mg Q2 PRN IV PAIN Last administered on 08/07/18 16:48; Admin Dose 2 MG; Start 08/07/18 at 15:00 Dexamethasone (Decadron) 4 mg Q6 PO Last administered on 08/08/18 05:31; Admin Dose 4 MG; Start 08/07/18 at 18:00 KIRTI REDD Aug 08, 2018 12:22
--- NOTE | 2018-08-08 13:43 | PN ---
Date/Time of Note Date/Time of Note DATE: 08/08/18 TIME: 13:41 Objective Vitals Vital Signs Date Temp Pulse Resp B/P (MAP) Pulse Ox O2 O2 Flow FiO2 Time Delivery Rate 08/08/18 17 10:22 08/08/18 95 93 21 08:23 08/08/18 98.0 108/79 07:35 (89) 08/08/18 2.0 02:35 08/08/18 Nasal 02:33 Cannula Intake and Output 08/07/18 08/07/18 08/08/18 1515:00 23:00 07:00 IntakeIntake Total 420 ml 200 ml 200 ml OutputOutput Total 150 ml 225 ml BalanceBalance 270 ml -25 ml 200 ml Results Result Diagram: 08/08/18 0549 08/08/1849 Medications Medications Current Medications IV Flush (NS 3 ml) 3 ml PER PROTOCOL IV ; Start 08/05/18 at 23:30 Ondansetron HCl (Zofran Inj) 4 mg Q6H PRN IV NAUSEA/VOMITING; Start 08/05/18 at 23:30 Acetaminophen (Tylenol Tab) 650 mg Q6H PRN PO .PAIN 1-3 OR TEMP; Start 08/05/18 at 23:30 Docusate Sodium (Colace) 100 mg Q12H PRN PO .CONSTIPATION; Start 08/05/18 at 23:30 Bisacodyl (Dulcolax) 5 mg DAILY PRN PO .CONSTIPATION; Start 08/05/18 at 23:30 Levalbuterol (Xopenex Neb) 1.25 mg Q4H RESP THERAPY PRN HHN SHORTNESS OF BREATH; Start 08/06/18 at 01:00 Vancomycin HCl (Vanco Iv Per Pharmacy) VANCOMYCIN PER PHARMACY PER PROTOCOL XX ; Start 08/06/18 at 01:00 Vancomycin HCl 100 ml @ 100 mls/hr Q12H IVPB Last administered on 08/08/18at 05:31; Admin Dose 100 MLS/HR; Start 08/06/18 at 18:00 Piperacillin Sod/ Tazobactam Sod 100 ml @ 200 mls/hr Q6 IVPB Last administered on 08/08/18at 11:57; Admin Dose 200 MLS/HR; Start 08/06/18 at 12:00 Levalbuterol (Xopenex Neb) 1.25 mg Q6H RESP THERAPY HHN Last administered on 08/08/18 08:23; Admin Dose 1.25 MG; Start 08/06/18 at 14:00 Ipratropium [place] (Atrovent 0.02% (Neb)) 0.5 mg Q6HWA RESP THERAPY HHN Last administered on 08/08/18 08:23; Admin Dose 0.5 MG; Start 08/06/18 at 14:00 Ipratropium [place] (Atrovent 0.02% (Neb)) 0.5 mg Q4H RESP THERAPY PRN HHN SHORTNESS OF BREATH; Start 08/06/18 at 13:00 Budesonide (Pulmicort (Neb)) 0.5 mg BID RESP THERAPY HHN Last administered on 08/08/18 08:23; Admin Dose 0.5 MG; Start 08/06/18 at 20:00 Pantoprazole (Protonix Tab) 40 mg BID@,18 PO Last administered on 08/08/18 05:31; Admin Dose 40 MG; Start 08/07/18 at 18:00 Sucralfate (Carafate Susp) 1 gm QID PO Last administered on 08/08/18 12:28; Admin Dose 1 GM; Start 08/07/18 at 17:00 Hydromorphone HCl (Dilaudid SENIOR [employer] DEVELOPER) 1.0 MG/HR CONTINUOUS RATE ... Q4PCA IV Last administered on 08/08/18 10:21; Admin Dose 6 MG; Start 08/07/18 at 15:00 Hydromorphone HCl (Dilaudid) 2 mg Q2 PRN IV PAIN Last administered on 08/07/18 16:48; Admin Dose 2 MG; Start 08/07/18 at 15:00 Dexamethasone (Decadron) 4 mg Q6 PO Last administered on 08/08/18 11:57; Admin Dose 4 MG; Start 08/07/18 at 18:00 Alteplase, Recombinant (Cathflo (Activase)) 2 mg MAY REPEAT X1 PRN CATHETER IF CATHETER REMAINS OCCULUDED; Start 08/08/18 at 13:00 VTE Prophylaxis Risk score (from Ns)>0 risk: 8 SCD applied (from Ns): Yes Lines/Catheters IV Catheter Type: Grider in Place: No Assessment/Plan Hospital Course Subjective Patient's pain is much better controlled now with IV drip, no respiratory distress, off nasal cannula Objective Physical exam General: Patient is laying in bed and answers questions appropriately Mentation: Patient is alert and oriented 4, Head: Normocephalic atraumatic Eyes: EOMI, pupils reactive to light Neck: Supple, nontender, midline Respiratory: Coarse to auscultation bilaterally Cardiovascular: regular rate, no obvious murmurs Gastrointestinal: non-tender to palpation, bowel sounds heard. Neurological: Moves all extremities spontaneously Skin: No new skin lesions Assessment and plan Shortness of breath with pleural effusion -Secondary to chronic issues of metastatic lung cancer and pleural effusion -CT scan showing moderate pleural effusion however this is unchanged from previous CT done a few weeks ago -Pulmonology has reviewed the CT, not enough free effusion for thoracentesis -Nebulizers Pneumonia -Patient in immunocompromised state -Broad-spectrum IV antibiotics -Infectious disease consulted Sepsis -Possible secondary to pneumonia -Cultures done -IV fluids given -IV antibiotic -No fever however patient and immunocompromised state so unreliable Generalized fatigue -Secondary to metastatic lung carcinoma -Continue IV hydration and encourage oral intake Hypercalcemia -Chronic, mild, oncology and hematology on board Lower back pain -lumbar xray noted chronic pain -Secondary to cancer -On Dilaudid drip her pain management and palliative care Anemia -Likely secondary to anemia chronic disease -No overt bleeding however will closely monitor and transfuse as needed Severe protein calorie malnutrition -Encourage p.o. intake -IV fluid Metastatic squamous cell lung carcinoma -On immunotherapy as outpatient -Heme-onc on board, plan is to eventually continue chemotherapy -Palliative care also consulted for pain management and end-of-life care recommendations Disposition -Continue IV antibiotics, infectious disease recommendations appreciated NUVIA WYNNE Aug 08, 2018 13:43
[2018-08-08 14:09] VITALS: BP 111/81; PULSE 79; RESP 18
--- NOTE | 2018-08-08 14:15 | CONS ---
Assessment/Plan Assessment/Plan Hospital Course (Demo Recall) # SQUAMOUS CELL CARCINOMA, MODERATELY-DIFFERENTIATED, RIGHT LOWER LOBE, PDL-1 10%. ECOG 1 -initial PEt CT 09/2017 demonstrates involvement in right lung with an 8cm mass and bilateral hypermetabolic pulmonary nodules and right hilar adenopathy -initial Brain MRI is negative - pt initially received 4 cycles of Carboplatin-Gemcitabine -01/2018 and 02/2018 CT Chest showed progression of disease -02/2018 CT Brain negative -pt randomized to single agent nivolumab which he has since progressed through -pt has since received only received 3 doses of [place]/Carbo,last given on 07/27. Pt has not been able to get the chemotherapy as scheduled due to need for hospitalizations. Therefore, even though there is some progression on the CT, ti is difficult to attribute this to failure of gem/carbo. 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 continue for now -managed by Dr Ewing #Hypercalcemia -Ca 10 -continue monthly bisphosphonate therapy #Anemia -s/p transfuse 2 units of PRBCs -continue procrit 40,000 weekly as an out patient -will scheduled out patient blood transfusions #SOB -improved, will continue to monitor -start nebulizer tx at home -pt states he needs less nebulizer treatment Thank you for the opportunity to participate in this patients care A total of 40 minutes of face to face time was spent speaking with the patient, of which greater than 50% was spent in counseling and coordination of care and the detailed question and answer session. Consultation Date/Type/Reason Admit Date/Time Aug 05, 2018 at 23:12 Initial Consult Date 08/07/18 Type of Consult oncology Reason for Consultation STAGE IV SCC of Lung Requesting Provider: ELLA WARREN Date/Time of Note DATE: 08/08/18 TIME: 14:15 24 HR Interval Summary Free Text/Dictation pain is now under much better control on the Dilaudid CHILD WATCH ATTENDANT Exam/Review of Systems Exam Vitals Vital Signs Date Temp Pulse Resp B/P (MAP) Pulse Ox O2 O2 Flow FiO2 Time Delivery Rate 08/08/18 18 13:52 08/08/18 95 93 21 08:23 08/08/18 98.0 108/79 07:35 (89) 08/08/18 2.0 02:35 08/08/18 Nasal 02:33 Cannula Intake and Output 08/07/18 08/07/18 08/08/18 1515:00 23:00 07:00 IntakeIntake Total 420 ml 200 ml 200 ml OutputOutput Total 150 ml 225 ml BalanceBalance 270 ml -25 ml 200 ml Constitutional: alert, oriented, frail Psych: anxiety, depression Head: normocephalic Eyes: nl conjunctiva ENMT: nl external ears & nose Neck: supple Respiratory: clear to auscultation Cardiovascular: regular rate and rhythm Gastrointestinal: soft, nl liver, spleen Musculoskeletal: nl extremities to inspection Results Result Diagram: 08/08/18 0549 08/08/18 0549 Results 24hrs Laboratory Tests Test 08/07/18 17:17 08/08/18 05:49 08/08/18 05:56 Vancomycin Level Trough 10.2 White Blood Count 22.6 H Red Blood Count 3.54 L Hemoglobin 9.6 L Hematocrit 30.9 L Mean Corpuscular Volume 87.3 Mean Corpuscular Hemoglobin 27.1 L Mean Corpuscular 31.1 L Hemoglobin Concent Red Cell Distribution Width 21.8 H Platelet Count 320 # Mean Platelet Volume 11.0 H Immature Granulocytes % 1.400 H Neutrophils % 93.7 H Lymphocytes % 2.3 L Monocytes % 2.5 Eosinophils % 0.0 Basophils % 0.1 Nucleated Red Blood Cells % 0.0 Immature Granulocytes # 0.320 H Neutrophils # 21.2 H Lymphocytes # 0.5 L Monocytes # 0.6 Eosinophils # 0.0 Basophils # 0.0 Nucleated Red Blood Cells # 0.0 Sodium Level 142 Potassium Level 4.8 Chloride Level 106 Carbon Dioxide Level 21 Anion Gap 15 H Blood Urea Nitrogen 19 Creatinine 0.82 Est Glomerular Filtrat > 60 Rate mL/min Glucose Level 131 Calcium Level 10.4 H Total Bilirubin 0.6 Direct Bilirubin 0.00 Indirect Bilirubin 0.6 Aspartate Amino 34 Transf (AST/SGOT) Alanine 26 Aminotransferase (ALT/SGPT) Alkaline Phosphatase 121 Total Protein 7.2 Albumin 3.5 Globulin 3.70 H Albumin/Globulin Ratio 0.94 Lab Scanned Report BLOOD TRANSFUSION Medications Medication Current Medications IV Flush (NS 3 ml) 3 ml PER PROTOCOL IV ; Start 08/05/18 at 23:30 Ondansetron HCl (Zofran Inj) 4 mg Q6H PRN IV NAUSEA/VOMITING; Start 08/05/18 at 23:30 Acetaminophen (Tylenol Tab) 650 mg Q6H PRN PO .PAIN 1-3 OR TEMP; Start 08/05/18 at 23:30 Docusate Sodium (Colace) 100 mg Q12H PRN PO .CONSTIPATION; Start 08/05/18 at 23:30 Bisacodyl (Dulcolax) 5 mg DAILY PRN PO .CONSTIPATION; Start 08/05/18 at 23:30 Levalbuterol (Xopenex Neb) 1.25 mg Q4H RESP THERAPY PRN HHN SHORTNESS OF BREATH; Start 08/06/18 at 01:00 Vancomycin HCl (Vanco Iv Per Pharmacy) VANCOMYCIN PER PHARMACY PER PROTOCOL XX ; Start 08/06/18 at 01:00 Vancomycin HCl 100 ml @ 100 mls/hr Q12H IVPB Last administered on 08/08/18 05:31; Admin Dose 100 MLS/HR; Start 08/06/18 at 18:00 Piperacillin Sod/ Tazobactam Sod 100 ml @ 200 mls/hr Q6 IVPB Last administered on 08/08/18at 11:57; Admin Dose 200 MLS/HR; Start 08/06/18 at 12:00 Levalbuterol (Xopenex Neb) 1.25 mg Q6H RESP THERAPY HHN Last administered on 08/08/18 08:23; Admin Dose 1.25 MG; Start 08/06/18 at 14:00 Ipratropium [place] (Atrovent 0.02% (Neb)) 0.5 mg Q6HWA RESP THERAPY HHN Last administered on 08/08/18 08:23; Admin Dose 0.5 MG; Start 08/06/18 at 14:00 Ipratropium [place] (Atrovent 0.02% (Neb)) 0.5 mg Q4H RESP THERAPY PRN HHN SHORTNESS OF BREATH; Start 08/06/18 at 13:00 Budesonide (Pulmicort (Neb)) 0.5 mg BID RESP THERAPY HHN Last administered on 08/08/18 08:23; Admin Dose 0.5 MG; Start 08/06/18 at 20:00 Pantoprazole (Protonix Tab) 40 mg BID@06,18 PO Last administered on 08/08/18 05:31; Admin Dose 40 MG; Start 08/07/18 at 18:00 Sucralfate (Carafate Susp) 1 gm QID PO Last administered on 08/08/18at 12:28; Admin Dose 1 GM; Start 08/07/18 at 17:00 Hydromorphone HCl (Dilaudid CHILD WATCH ATTENDANT) 1.0 MG/HR CONTINUOUS RATE ... Q4PCA IV Last administered on 08/08/18at 10:21; Admin Dose 6 MG; Start 08/07/18 at 15:00 Hydromorphone HCl (Dilaudid) 2 mg Q2 PRN IV PAIN Last administered on 08/07/18at 16:48; Admin Dose 2 MG; Start 08/07/18 at 15:00 Dexamethasone (Decadron) 4 mg Q6 PO Last administered on 08/08/18at 11:57; Admin Dose 4 MG; Start 08/07/18 at 18:00 Alteplase, Recombinant (Cathflo (Activase)) 2 mg MAY REPEAT X1 PRN CATHETER IF CATHETER REMAINS OCCULUDED; Start 08/08/18 at 13:00 THELMA HASKINS M.D. Aug 08, 2018 14:15
[2018-08-08] MEDS: ALTEPLASE (CATHFLO) 2 MG INJ CATHETER PRN (14:51)
--- NOTE | 2018-08-08 15:47 | CONS ---
Assessment/Plan Assessment/Plan Hospital Course (Demo Recall) Alert comfortable on room air no fevers overnight. No vomiting no diarrhea WBC 22.6 platelets 320 neutrophils 93.7 BUN 19 creatinine 0.82 Antimicrobials: Vanco Zosyn Physical examination: This is a cachectic well-developed elderly white man who is alert in no distress. Head atraumatic normocephalic sclera nonicteric vehicle mucosa dry neck is supple chest rise symmetrical breath sounds diminished bases heart S1-S2 abdomen soft bowel sounds present extremities without cyanosis Assessment: 1. Systemic inflammatory response syndrome with ongoing leukocytosis 2. Probable postobstructive pneumonia 3. Lung cancer 4. Anemia Plan: Clinically stable, continue present care and antibiotics, follow oncology recommendations, patient is DNR/DNI status Consultation Date/Type/Reason Admit Date/Time Aug 05, 2018 at 23:12 Initial Consult Date 08/07/18 Type of Consult id Requesting Provider: ELLA WARREN Date/Time of Note DATE: 08/08/18 TIME: 15:47 Exam/Review of Systems Exam Vitals Vital Signs Date Temp Pulse Resp B/P (MAP) Pulse Ox O2 O2 Flow FiO2 Time Delivery Rate 08/08/18 105 20 92 21 14:45 08/08/18 97.6 111/81 Room Air 14:09 (91) 08/08/18 2.0 02:35 Intake and Output 08/07/18 08/07/18 08/08/18 1515:00 23:00 07:00 IntakeIntake Total 420 ml 200 ml 200 ml OutputOutput Total 150 ml 225 ml BalanceBalance 270 ml -25 ml 200 ml Results Result Diagram: 08/08/18 0549 08/08/18 0549 Results 24hrs Laboratory Tests Test 08/07/18 17:17 08/08/18 05:49 08/08/18 05:56 Vancomycin Level Trough 10.2 White Blood Count 22.6 H Red Blood Count 3.54 L Hemoglobin 9.6 L Hematocrit 30.9 L Mean Corpuscular Volume 87.3 Mean Corpuscular Hemoglobin 27.1 L Mean Corpuscular 31.1 L Hemoglobin Concent Red Cell Distribution Width 21.8 H Platelet Count 320 # Mean Platelet Volume 11.0 H Immature Granulocytes % 1.400 H Neutrophils % 93.7 H Lymphocytes % 2.3 L Monocytes % 2.5 Eosinophils % 0.0 Basophils % 0.1 Nucleated Red Blood Cells % 0.0 Immature Granulocytes # 0.320 H Neutrophils # 21.2 H Lymphocytes # 0.5 L Monocytes # 0.6 Eosinophils # 0.0 Basophils # 0.0 Nucleated Red Blood Cells # 0.0 Sodium Level 142 Potassium Level 4.8 Chloride Level 106 Carbon Dioxide Level 21 Anion Gap 15 H Blood Urea Nitrogen 19 Creatinine 0.82 Est Glomerular Filtrat > 60 Rate mL/min Glucose Level 131 Calcium Level 10.4 H Total Bilirubin 0.6 Direct Bilirubin 0.00 Indirect Bilirubin 0.6 Aspartate Amino 34 Transf (AST/SGOT) Alanine 26 Aminotransferase (ALT/SGPT) Alkaline Phosphatase 121 Total Protein 7.2 Albumin 3.5 Globulin 3.70 H Albumin/Globulin Ratio 0.94 Lab Scanned Report BLOOD TRANSFUSION Medications Medication Current Medications IV Flush (NS 3 ml) 3 ml PER PROTOCOL IV ; Start 08/05/18 at 23:30 Ondansetron HCl (Zofran Inj) 4 mg Q6H PRN IV NAUSEA/VOMITING; Start 08/05/18 at 23:30 Acetaminophen (Tylenol Tab) 650 mg Q6H PRN PO .PAIN 1-3 OR TEMP; Start 08/05/18 at 23:30 Docusate Sodium (Colace) 100 mg Q12H PRN PO .CONSTIPATION; Start 08/05/18 at 23:30 Bisacodyl (Dulcolax) 5 mg DAILY PRN PO .CONSTIPATION; Start 08/05/18 at 23:30 Levalbuterol (Xopenex Neb) 1.25 mg Q4H RESP THERAPY PRN HHN SHORTNESS OF BREATH; Start 08/06/18 at 01:00 Vancomycin HCl (Vanco Iv Per Pharmacy) VANCOMYCIN PER PHARMACY PER PROTOCOL XX ; Start 08/06/18 at 01:00 Vancomycin HCl 100 ml @ 100 mls/hr Q12H IVPB Last administered on 08/08/18at 05:31; Admin Dose 100 MLS/HR; Start 08/06/18 at 18:00 Piperacillin Sod/ Tazobactam Sod 100 ml @ 200 mls/hr Q6 IVPB Last administered on 08/08/18at 11:57; Admin Dose 200 MLS/HR; Start 08/06/18 at 12:00 Levalbuterol (Xopenex Neb) 1.25 mg Q6H RESP THERAPY HHN Last administered on 08/08/18 14:45; Admin Dose 1.25 MG; Start 08/06/18 at 14:00 Ipratropium [place] (Atrovent 0.02% (Neb)) 0.5 mg Q6HWA RESP THERAPY HHN Last administered on 08/08/18 14:45; Admin Dose 0.5 MG; Start 08/06/18 at 14:00 Ipratropium [place] (Atrovent 0.02% (Neb)) 0.5 mg Q4H RESP THERAPY PRN HHN SHORTNESS OF BREATH; Start 08/06/18 at 13:00 Budesonide (Pulmicort (Neb)) 0.5 mg BID RESP THERAPY HHN Last administered on 08/08/18 08:23; Admin Dose 0.5 MG; Start 08/06/18 at 20:00 Pantoprazole (Protonix Tab) 40 mg BID@06,18 PO Last administered on 08/08/18 05:31; Admin Dose 40 MG; Start 08/07/18 at 18:00 Sucralfate (Carafate Susp) 1 gm QID PO Last administered on 08/08/18 12:28; Admin Dose 1 GM; Start 08/07/18 at 17:00 Hydromorphone HCl (Dilaudid VISUALIZER) 1.0 MG/HR CONTINUOUS RATE ... Q4PCA IV Last administered on 08/08/18 10:21; Admin Dose 6 MG; Start 08/07/18 at 15:00 Hydromorphone HCl (Dilaudid) 2 mg Q2 PRN IV PAIN Last administered on 08/07/18 16:48; Admin Dose 2 MG; Start 08/07/18 at 15:00 Dexamethasone (Decadron) 4 mg Q6 PO Last administered on 08/08/18 11:57; Admin Dose 4 MG; Start 08/07/18 at 18:00 Alteplase, Recombinant (Cathflo (Activase)) 2 mg MAY REPEAT X1 PRN CATHETER IF CATHETER REMAINS OCCULUDED Last administered on 08/08/18 14:51; Admin Dose 2 MG; Start 08/08/18 at 13:00 DOMINIQUE PEÑA NP Aug 08, 2018 15:47
[2018-08-08] MEDS: IPRATROPIUM (NEB) 0.5 MG/2.5 ML AMP HHN PRN (18:13)
[2018-08-08] MEDS: LEVALBUTEROL (NEB) 1.25 MG/0.5 ML AMP HHN PRN (18:13)
[2018-08-08 20:26] VITALS: BP 122/82; PULSE 98; RESP 20
[2018-08-08] MEDS: HYDROmorphONE 2 MG/ML SYG IV PRN (21:40)
[2018-08-09] MEDS: LEVALBUTEROL (NEB) 1.25 MG/0.5 ML AMP HHN SCH ×3 (02:28→13:32)
[2018-08-09 02:38] VITALS: BP 128/85; PULSE 92; RESP 18
[2018-08-09] MEDS: HYDROmorphONE 2 MG/ML SYG IV PRN ×8 (02:57→23:40)
[2018-08-09] MEDS: ALTEPLASE (CATHFLO) 2 MG INJ CATHETER PRN (04:41)
[2018-08-09] MEDS: PANTOPRAZOLE (EC) 40 MG TAB PO SCH ×2 (05:27→18:55)
[2018-08-09] MEDS: PIPER-TAZO 3.375 GM IV (PMX) 100 ML IVPB SCH ×4 (05:27→23:40)
[2018-08-09] MEDS: DEXAMETHASONE 4 MG TAB PO SCH ×4 (05:27→23:45)
[2018-08-09] MEDS: HYDROmorphONE 0.2 MG/ML PCA IV SCH ×3 (05:57→18:46)
[2018-08-09] MEDS: VANCOMYCIN 750 MG (PMX) 250 ML IVPB SCH ×2 (05:59→17:39)
[2018-08-09 07:28] VITALS: BP 119/86; PULSE 85; RESP 18
[2018-08-09] MEDS: IPRATROPIUM (NEB) 0.5 MG/2.5 ML AMP HHN SCH ×2 (07:48→13:32)
[2018-08-09] MEDS: BUDESONIDE (NEB) 0.5MG/2ML AMP HHN SCH (07:49)
[2018-08-09] MEDS: SUCRALFATE (100 MG/ML) 10ML CUP PO SCH ×4 (09:02→21:00)
--- NOTE | 2018-08-09 12:37 | CONS ---
Assessment/Plan Assessment/Plan Hospital Course (Demo Recall) # SQUAMOUS CELL CARCINOMA, MODERATELY-DIFFERENTIATED, RIGHT LOWER LOBE, PDL-1 10%. ECOG 1 -initial PEt CT 09/2017 demonstrates involvement in right lung with an 8cm mass and bilateral hypermetabolic pulmonary nodules and right hilar adenopathy -initial Brain MRI is negative - pt initially received 4 cycles of Carboplatin-Gemcitabine -01/2018 and 02/2018 CT Chest showed progression of disease -02/2018 CT Brain negative -pt randomized to single agent nivolumab which he has since progressed through -pt has since received only received 3 doses of Talihina/Carbo,last given on 07/27. Pt has not been able to get the chemotherapy as scheduled due to need for hospitalizations. Therefore, even though there is some progression on the CT, ti is difficult to attribute this to failure of gem/carbo. will try to restart chemotherapy after he is discharged #pain -now on dialudid electroplater automatic. continue for now -managed by Dr Ewing #Hypercalcemia -Ca 10 -continue monthly bisphosphonate therapy #Anemia -s/p transfuse 2 units of PRBCs -continue procrit 40,000 weekly as an out patient -will scheduled out patient blood transfusions #SOB -improved, will continue to monitor -start nebulizer tx at home -pt states he needs less nebulizer treatment Thank you for the opportunity to participate in this patients care A total of 40 minutes of face to face time was spent speaking with the patient, of which greater than 50% was spent in counseling and coordination of care and the detailed question and answer session. Consultation Date/Type/Reason Admit Date/Time Aug 05, 2018 at 23:12 Initial Consult Date 08/07/18 Type of Consult oncology Reason for Consultation lung cancer Requesting Provider: ELLA WARREN Date/Time of Note DATE: 08/09/18 TIME: 12:35 24 HR Interval Summary Free Text/Dictation feels much better since starting dilaudid ORAL HEALTH THERAPIST Exam/Review of Systems Exam Vitals Vital Signs Date Temp Pulse Resp B/P (MAP) Pulse Ox O2 O2 Flow FiO2 Time Delivery Rate 08/09/18 97.5 85 18 119/86 98 Nasal 07:28 (97) Cannula 08/09/18 21 02:28 08/08/18 2.0 22:00 Intake and Output 08/08/18 08/08/18 08/09/18 1515:00 23:00 07:00 IntakeIntake Total 200 ml 500 ml 550 ml OutputOutput Total 150 ml BalanceBalance 200 ml 350 ml 550 ml Constitutional: alert, oriented Psych: anxiety, depression Head: normocephalic Eyes: nl conjunctiva ENMT: nl external ears & nose Neck: supple Respiratory: clear to auscultation Cardiovascular: regular rate and rhythm Gastrointestinal: soft Musculoskeletal: nl extremities to inspection Results Result Diagram: 08/09/18 0900 08/09/18 0900 Results 24hrs Laboratory Tests Test 08/09/18 09:00 White Blood Count 21.5 H Red Blood Count 3.27 L Hemoglobin 9.0 L Hematocrit 29.0 L Mean Corpuscular Volume 88.7 Mean Corpuscular Hemoglobin 27.5 L Mean Corpuscular Hemoglobin Concent 31.0 L Red Cell Distribution Width 21.7 H Platelet Count 291 Mean Platelet Volume 10.7 H Immature Granulocytes % 1.400 H Neutrophils % 93.1 H Lymphocytes % 2.3 L Monocytes % 3.1 Eosinophils % 0.0 Basophils % 0.1 Nucleated Red Blood Cells % 0.0 Immature Granulocytes # 0.290 H Neutrophils # 20.0 H Lymphocytes # 0.5 L Monocytes # 0.7 Eosinophils # 0.0 Basophils # 0.0 Nucleated Red Blood Cells # 0.0 Sodium Level 139 Potassium Level 4.0 Chloride Level 108 Carbon Dioxide Level 19 L Anion Gap 12 Blood Urea Nitrogen 23 H Creatinine 0.72 Est Glomerular Filtrat Rate mL/min > 60 Glucose Level 163 Calcium Level 10.3 H Magnesium Level 2.1 Total Bilirubin 0.3 Direct Bilirubin 0.00 Indirect Bilirubin 0.3 Aspartate Amino Transf (AST/SGOT) 25 Alanine Aminotransferase (ALT/SGPT) 26 Alkaline Phosphatase 98 Total Protein 6.9 Albumin 3.5 Globulin 3.40 H Albumin/Globulin Ratio 1.02 Medications Medication Current Medications IV Flush (NS 3 ml) 3 ml PER PROTOCOL IV ; Start 08/05/18 at 23:30 Ondansetron HCl (Zofran Inj) 4 mg Q6H PRN IV NAUSEA/VOMITING; Start 08/05/18 at 23:30 Acetaminophen (Tylenol Tab) 650 mg Q6H PRN PO .PAIN 1-3 OR TEMP; Start 08/05/18 at 23:30 Docusate Sodium (Colace) 100 mg Q12H PRN PO .CONSTIPATION; Start 08/05/18 at 23:30 Bisacodyl (Dulcolax) 5 mg DAILY PRN PO .CONSTIPATION; Start 08/05/18 at 23:30 Levalbuterol (Xopenex Neb) 1.25 mg Q4H RESP THERAPY PRN HHN SHORTNESS OF BREATH Last administered on 08/08/18 18:13; Admin Dose 1.25 MG; Start 08/06/18 at 01:00 Vancomycin HCl (Vanco Iv Per Pharmacy) VANCOMYCIN PER PHARMACY PER PROTOCOL XX ; Start 08/06/18 at 01:00 Piperacillin Sod/ Tazobactam Sod 100 ml @ 200 mls/hr Q6 IVPB Last administered on 08/09/18at 11:02; Admin Dose 200 MLS/HR; Start 08/06/18 at 12:00 Levalbuterol (Xopenex Neb) 1.25 mg Q6H RESP THERAPY HHN Last administered on 08/09/18at 07:48; Admin Dose 1.25 MG; Start 08/06/18 at 14:00 Ipratropium [place] (Atrovent 0.02% (Neb)) 0.5 mg Q6HWA RESP THERAPY HHN Last administered on 08/09/18at 07:48; Admin Dose 0.5 MG; Start 08/06/18 at 14:00 Ipratropium [place] (Atrovent 0.02% (Neb)) 0.5 mg Q4H RESP THERAPY PRN HHN SHORTNESS OF BREATH Last administered on 08/08/18at 18:13; Admin Dose 0.5 MG; Start 08/06/18 at 13:00 Budesonide (Pulmicort (Neb)) 0.5 mg BID RESP THERAPY HHN Last administered on 08/09/18at 07:49; Admin Dose 0.5 MG; Start 08/06/18 at 20:00 Pantoprazole (Protonix Tab) 40 mg BID@06,18 PO Last administered on 08/09/18at 05:27; Admin Dose 40 MG; Start 08/07/18 at 18:00 Sucralfate (Carafate Susp) 1 gm QID PO Last administered on 08/09/18at 09:02; Admin Dose 1 GM; Start 08/07/18 at 17:00 Hydromorphone HCl (Dilaudid ORAL HEALTH THERAPIST) 1.0 MG/HR CONTINUOUS RATE ... Q4PCA IV Last administered on 08/09/18 05:57; Admin Dose 6 MG; Start 08/07/18 at 15:00 Hydromorphone HCl (Dilaudid) 2 mg Q2 PRN IV PAIN Last administered on 08/09/18 11:04; Admin Dose 2 MG; Start 08/07/18 at 15:00 Dexamethasone (Decadron) 4 mg Q6 PO Last administered on 08/09/18 11:09; Admin Dose 4 MG; Start 08/07/18 at 18:00 Alteplase, Recombinant (Cathflo (Activase)) 2 mg MAY REPEAT X1 PRN CATHETER IF CATHETER REMAINS OCCULUDED Last administered on 08/09/18 04:41; Admin Dose 2 MG; Start 08/08/18 at 13:00 Vancomycin/Sodium Chloride 250 ml @ 125 mls/hr Q12H IVPB Last administered on 08/09/18 05:59; Admin Dose 125 MLS/HR; Start 08/09/18 at 06:00 THELMA HASKINS M.D. Aug 09, 2018 12:37
--- NOTE | 2018-08-09 13:52 | CONS ---
Assessment/Plan Assessment/Plan Hospital Course (Demo Recall) Alert comfortable on room air no fevers overnight Antimicrobials: Vanco Zosyn Physical examination: This is a cachectic well-developed elderly white man who is alert in no distress. Head atraumatic normocephalic sclera nonicteric vehicle mucosa dry neck is supple chest rise symmetrical breath sounds diminished bases heart S1-S2 abdomen soft bowel sounds present extremities without cyanosis Assessment: 1. Systemic inflammatory response syndrome with ongoing leukocytosis 2. Probable postobstructive pneumonia 3. Lung cancer 4. Anemia Plan: Clinically stable, continue present care and antibiotics, follow oncology recommendations, pain management Consultation Date/Type/Reason Admit Date/Time Aug 05, 2018 at 23:12 Initial Consult Date 08/07/18 Type of Consult id Requesting Provider: ELLA WARREN Date/Time of Note DATE: 08/09/18 TIME: 13:51 Exam/Review of Systems Exam Vitals Vital Signs Date Temp Pulse Resp B/P (MAP) Pulse Ox O2 O2 Flow FiO2 Time Delivery Rate 08/09/18 16 12:23 08/09/18 Nasal 2.0 09:00 Cannula 08/09/18 97.5 85 119/86 98 07:28 (97) 08/09/18 21 02:28 Intake and Output 08/08/18 08/08/18 08/09/18 1515:00 23:00 07:00 IntakeIntake Total 200 ml 500 ml 550 ml OutputOutput Total 150 ml BalanceBalance 200 ml 350 ml 550 ml Results Result Diagram: 08/09/18 0900 08/09/18 0900 Results 24hrs Laboratory Tests Test 08/09/18 09:00 White Blood Count 21.5 H Red Blood Count 3.27 L Hemoglobin 9.0 L Hematocrit 29.0 L Mean Corpuscular Volume 88.7 Mean Corpuscular Hemoglobin 27.5 L Mean Corpuscular Hemoglobin Concent 31.0 L Red Cell Distribution Width 21.7 H Platelet Count 291 Mean Platelet Volume 10.7 H Immature Granulocytes % 1.400 H Neutrophils % 93.1 H Lymphocytes % 2.3 L Monocytes % 3.1 Eosinophils % 0.0 Basophils % 0.1 Nucleated Red Blood Cells % 0.0 Immature Granulocytes # 0.290 H Neutrophils # 20.0 H Lymphocytes # 0.5 L Monocytes # 0.7 Eosinophils # 0.0 Basophils # 0.0 Nucleated Red Blood Cells # 0.0 Sodium Level 139 Potassium Level 4.0 Chloride Level 108 Carbon Dioxide Level 19 L Anion Gap 12 Blood Urea Nitrogen 23 H Creatinine 0.72 Est Glomerular Filtrat Rate mL/min > 60 Glucose Level 163 Calcium Level 10.3 H Magnesium Level 2.1 Total Bilirubin 0.3 Direct Bilirubin 0.00 Indirect Bilirubin 0.3 Aspartate Amino Transf (AST/SGOT) 25 Alanine Aminotransferase (ALT/SGPT) 26 Alkaline Phosphatase 98 Total Protein 6.9 Albumin 3.5 Globulin 3.40 H Albumin/Globulin Ratio 1.02 Medications Medication Current Medications IV Flush (NS 3 ml) 3 ml PER PROTOCOL IV ; Start 08/05/18 at 23:30 Ondansetron HCl (Zofran Inj) 4 mg Q6H PRN IV NAUSEA/VOMITING; Start 08/05/18 at 23:30 Acetaminophen (Tylenol Tab) 650 mg Q6H PRN PO .PAIN 1-3 OR TEMP; Start 08/05/18 at 23:30 Docusate Sodium (Colace) 100 mg Q12H PRN PO .CONSTIPATION; Start 08/05/18 at 23:30 Bisacodyl (Dulcolax) 5 mg DAILY PRN PO .CONSTIPATION; Start 08/05/18 at 23:30 Levalbuterol (Xopenex Neb) 1.25 mg Q4H RESP THERAPY PRN HHN SHORTNESS OF BREATH Last administered on 08/08/18at 18:13; Admin Dose 1.25 MG; Start 08/06/18 at 01:00 Vancomycin HCl (Vanco Iv Per Pharmacy) VANCOMYCIN PER PHARMACY PER PROTOCOL XX ; Start 08/06/18 at 01:00 Piperacillin Sod/ Tazobactam Sod 100 ml @ 200 mls/hr Q6 IVPB Last administered on 08/09/18at 11:02; Admin Dose 200 MLS/HR; Start 08/06/18 at 12:00 Levalbuterol (Xopenex Neb) 1.25 mg Q6H RESP THERAPY HHN Last administered on 08/09/18at 13:32; Admin Dose 1.25 MG; Start 08/06/18 at 14:00 Ipratropium [place] (Atrovent 0.02% (Neb)) 0.5 mg Q6HWA RESP THERAPY HHN Last administered on 08/09/18at 13:32; Admin Dose 0.5 MG; Start 08/06/18 at 14:00 Ipratropium [place] (Atrovent 0.02% (Neb)) 0.5 mg Q4H RESP THERAPY PRN HHN SHORTNESS OF BREATH Last administered on 08/08/18 18:13; Admin Dose 0.5 MG; Start 08/06/18 at 13:00 Budesonide (Pulmicort (Neb)) 0.5 mg BID RESP THERAPY HHN Last administered on 08/09/18 07:49; Admin Dose 0.5 MG; Start 08/06/18 at 20:00 Pantoprazole (Protonix Tab) 40 mg BID@06,18 PO Last administered on 08/09/18 05:27; Admin Dose 40 MG; Start 08/07/18 at 18:00 Sucralfate (Carafate Susp) 1 gm QID PO Last administered on 08/09/18 13:12; Admin Dose 1 GM; Start 08/07/18 at 17:00 Hydromorphone HCl (Dilaudid PORTFOLIO ACCOUNTANT) 1.0 MG/HR CONTINUOUS RATE ... Q4PCA IV Last administered on 08/09/18 12:23; Admin Dose 6 MG; Start 08/07/18 at 15:00 Hydromorphone HCl (Dilaudid) 2 mg Q2 PRN IV PAIN Last administered on 08/09/18 11:04; Admin Dose 2 MG; Start 08/07/18 at 15:00 Dexamethasone (Decadron) 4 mg Q6 PO Last administered on 08/09/18 11:09; Admin Dose 4 MG; Start 08/07/18 at 18:00 Alteplase, Recombinant (Cathflo (Activase)) 2 mg MAY REPEAT X1 PRN CATHETER IF CATHETER REMAINS OCCULUDED Last administered on 08/09/18 04:41; Admin Dose 2 MG; Start 08/08/18 at 13:00 Vancomycin/Sodium Chloride 250 ml @ 125 mls/hr Q12H IVPB Last administered on 08/09/18 05:59; Admin Dose 125 MLS/HR; Start 08/09/18 at 06:00 DOMINIQUE PEÑA NP Aug 09, 2018 13:52
[2018-08-09 14:15] VITALS: BP 123/83; PULSE 98; RESP 18
--- NOTE | 2018-08-09 15:41 | PN ---
Date/Time of Note Date/Time of Note DATE: 08/09/18 TIME: 15:41 Objective Vitals Vital Signs Date Temp Pulse Resp B/P (MAP) Pulse Ox O2 O2 Flow FiO2 Time Delivery Rate 08/09/18 98.0 98 18 123/83 95 Room Air 14:15 (96) 08/09/18 2.0 09:00 08/09/18 21 02:28 Intake and Output 08/08/18 08/08/18 08/09/18 1515:00 23:00 07:00 IntakeIntake Total 200 ml 500 ml 550 ml OutputOutput Total 150 ml BalanceBalance 200 ml 350 ml 550 ml Results Result Diagram: 08/09/18 0900 08/09/18 0900 Medications Medications Current Medications IV Flush (NS 3 ml) 3 ml PER PROTOCOL IV ; Start 08/05/18 at 23:30 Ondansetron HCl (Zofran Inj) 4 mg Q6H PRN IV NAUSEA/VOMITING; Start 08/05/18 at 23:30 Acetaminophen (Tylenol Tab) 650 mg Q6H PRN PO .PAIN 1-3 OR TEMP; Start 08/05/18 at 23:30 Docusate Sodium (Colace) 100 mg Q12H PRN PO .CONSTIPATION; Start 08/05/18 at 23:30 Bisacodyl (Dulcolax) 5 mg DAILY PRN PO .CONSTIPATION; Start 08/05/18 at 23:30 Levalbuterol (Xopenex Neb) 1.25 mg Q4H RESP THERAPY PRN HHN SHORTNESS OF BREATH Last administered on 08/08/18at 18:13; Admin Dose 1.25 MG; Start 08/06/18 at 01:00 Vancomycin HCl (Vanco Iv Per Pharmacy) VANCOMYCIN PER PHARMACY PER PROTOCOL XX ; Start 08/06/18 at 01:00 Piperacillin Sod/ Tazobactam Sod 100 ml @ 200 mls/hr Q6 IVPB Last administered on 08/09/18at 11:02; Admin Dose 200 MLS/HR; Start 08/06/18 at 12:00 Levalbuterol (Xopenex Neb) 1.25 mg Q6H RESP THERAPY HHN Last administered on 08/09/18at 13:32; Admin Dose 1.25 MG; Start 08/06/18 at 14:00 Ipratropium [place] (Atrovent 0.02% (Neb)) 0.5 mg Q6HWA RESP THERAPY HHN Last administered on 08/09/18 13:32; Admin Dose 0.5 MG; Start 08/06/18 at 14:00 Ipratropium [place] (Atrovent 0.02% (Neb)) 0.5 mg Q4H RESP THERAPY PRN HHN SHORTNESS OF BREATH Last administered on 08/08/18 18:13; Admin Dose 0.5 MG; St art 08/06/18 at 13:00 Budesonide (Pulmicort (Neb)) 0.5 mg BID RESP THERAPY HHN Last administered on 08/09/18 07:49; Admin Dose 0.5 MG; Start 08/06/18 at 20:00 Pantoprazole (Protonix Tab) 40 mg BID@06,18 PO Last administered on 08/09/18 05:27; Admin Dose 40 MG; Start 08/07/18 at 18:00 Sucralfate (Carafate Susp) 1 gm QID PO Last administered on 08/09/18 13:12; Admin Dose 1 GM; Start 08/07/18 at 17:00 Hydromorphone HCl (Dilaudid WEALTH MANAGEMENT CONSULTANT) 1.0 MG/HR CONTINUOUS RATE ... Q4PCA IV Last administered on 08/09/18 12:23; Admin Dose 6 MG; Start 08/07/18 at 15:00 Hydromorphone HCl (Dilaudid) 2 mg Q2 PRN IV PAIN Last administered on 08/09/18 11:04; Admin Dose 2 MG; Start 08/07/18 at 15:00 Dexamethasone (Decadron) 4 mg Q6 PO Last administered on 08/09/18 11:09; Admin Dose 4 MG; Start 08/07/18 at 18:00 Alteplase, Recombinant (Cathflo (Activase)) 2 mg MAY REPEAT X1 PRN CATHETER IF CATHETER REMAINS OCCULUDED Last administered on 08/09/18 04:41; Admin Dose 2 MG; Start 08/08/18 at 13:00 Vancomycin/Sodium Chloride 250 ml @ 125 mls/hr Q12H IVPB Last administered on 08/09/18 05:59; Admin Dose 125 MLS/HR; Start 08/09/18 at 06:00 Miscellaneous Information (*Rx Drug Level Order Reminder*) 1 1700 ONCE XX ; Start 08/10/18 at 17:00; Stop 08/10/18 at 17:01 VTE Prophylaxis Risk score (from Ns)>0 risk: 8 SCD applied (from [facility]): No SCD contraindication: other Lines/Catheters IV Catheter Type: Grider in Place: No Assessment/Plan Hospital Course Subjective Patient's pain is much better controlled now with IV drip, no respiratory distress, off nasal cannula Objective Physical exam General: Patient is laying in bed and answers questions appropriately Mentation: Patient is alert and oriented 4, Head: Normocephalic atraumatic Eyes: EOMI, pupils reactive to light Neck: Supple, nontender, midline Respiratory: Coarse to auscultation bilaterally Cardiovascular: regular rate, no obvious murmurs Gastrointestinal: non-tender to palpation, bowel sounds heard. Neurological: Moves all extremities spontaneously Skin: No new skin lesions Assessment and plan Shortness of breath with pleural effusion -Secondary to chronic issues of metastatic lung cancer and pleural effusion -CT scan showing moderate pleural effusion however this is unchanged from previous CT done a few weeks ago -Pulmonology has reviewed the CT, not enough free effusion for thoracentesis -Nebulizers Pneumonia -Patient in immunocompromised state -Broad-spectrum IV antibiotics -Infectious disease consulted Sepsis -Possible secondary to pneumonia -Cultures done -IV fluids given -IV antibiotic -No fever however patient and immunocompromised state so unreliable Generalized fatigue -Secondary to metastatic lung carcinoma -Continue IV hydration and encourage oral intake Hypercalcemia -Chronic, mild, oncology and hematology on board Lower back pain -lumbar xray noted chronic pain -Secondary to cancer -On Dilaudid drip her pain management and palliative care Anemia -Likely secondary to anemia chronic disease -No overt bleeding however will closely monitor and transfuse as needed Severe protein calorie malnutrition -Encourage p.o. intake -IV fluid Metastatic squamous cell lung carcinoma -On immunotherapy as outpatient -Heme-onc on board, plan is to eventually continue chemotherapy -Palliative care also consulted for pain management and end-of-life care recom mendations Disposition -Continue IV antibiotics, infectious disease recommendations appreciated NUVIA WYNNE Aug 09, 2018 15:41
[2018-08-09 20:37] VITALS: BP 108/75; PULSE 103; RESP 18
[2018-08-09 21:10] VITALS: BP 104/81; PULSE 110; RESP 18
[2018-08-10] MEDS: IPRATROPIUM (NEB) 0.5 MG/2.5 ML AMP HHN SCH ×4 (00:15→20:11)
[2018-08-10] MEDS: BUDESONIDE (NEB) 0.5MG/2ML AMP HHN SCH ×3 (00:15→20:11)
[2018-08-10] MEDS: LEVALBUTEROL (NEB) 1.25 MG/0.5 ML AMP HHN SCH ×5 (00:15→20:11)
[2018-08-10] MEDS: HYDROmorphONE 0.2 MG/ML PCA IV SCH ×3 (00:18→12:13)
[2018-08-10 01:08] VITALS: BP 123/84; PULSE 103; RESP 18
[2018-08-10] MEDS: HYDROmorphONE 2 MG/ML SYG IV PRN ×8 (02:06→21:51)
[2018-08-10 05:23] VITALS: BP 111/73; PULSE 101; RESP 17
[2018-08-10] MEDS: PIPER-TAZO 3.375 GM IV (PMX) 100 ML IVPB SCH ×3 (05:33→17:54)
[2018-08-10] MEDS: VANCOMYCIN 750 MG (PMX) 250 ML IVPB SCH ×2 (06:06→18:56)
[2018-08-10] MEDS: DEXAMETHASONE 4 MG TAB PO SCH ×3 (06:06→17:55)
[2018-08-10] MEDS: PANTOPRAZOLE (EC) 40 MG TAB PO SCH ×2 (06:06→17:56)
[2018-08-10 08:00] VITALS: BP 119/83; PULSE 116; RESP 18
[2018-08-10] MEDS: SUCRALFATE (100 MG/ML) 10ML CUP PO SCH ×4 (08:42→21:29)
[2018-08-10] MEDS: LEVALBUTEROL (NEB) 1.25 MG/0.5 ML AMP HHN PRN ×2 (10:38→12:38)
--- NOTE | 2018-08-10 11:39 | CONS ---
Assessment/Plan Assessment/Plan Hospital Course (Demo Recall) All noted, no acute events, no fevers Antimicrobials: [place]a Physical examination: This is a cachectic well-developed elderly white man who is alert in no distress. Head atraumatic normocephalic sclera nonicteric vehicle mucosa dry neck is supple chest rise symmetrical breath sounds di minished bases heart S1-S2 abdomen soft bowel sounds present extremities without cyanosis Assessment: 1. Systemic inflammatory response syndrome with ongoing leukocytosis 2. Probable postobstructive pneumonia 3. Lung cancer 4. Anemia Plan: Clinically unchanged, stable, continue present care, antibiotics, follow oncology recommendations=> pt to restart chemo after dc Consultation Date/Type/Reason Admit Date/Time Aug 05, 2018 at 23:12 Initial Consult Date 08/07/18 Type of Consult id Requesting Provider: ELLA WARREN Date/Time of Note DATE: 08/10/18 TIME: 11:38 Exam/Review of Systems Exam Vitals Vital Signs Date Temp Pulse Resp B/P (MAP) Pulse Ox O2 O2 Flow FiO2 Time Delivery Rate 08/10/18 Nasal 2.0 11:27 Cannula 08/10/18 96 20 96 10:41 08/10/18 98.6 119/83 08:00 (95) 08/09/18 21 13:30 Intake and Output 08/09/18 08/09/18 08/10/18 1515:00 23:00 07:00 IntakeIntake Total 650 ml 650 ml 200 ml OutputOutput Total 250 ml 300 ml BalanceBalance 400 ml 350 ml 200 ml Results Result Diagram: 08/09/18 0900 08/09/18 0900 Medications Medication Current Medications IV Flush (NS 3 ml) 3 ml PER PROTOCOL IV ; Start 08/05/18 at 23:30 Ondansetron HCl (Zofran Inj) 4 mg Q6H PRN IV NAUSEA/VOMITING; Start 08/05/18 at 23:30 Acetaminophen (Tylenol Tab) 650 mg Q6H PRN PO .PAIN 1-3 OR TEMP; Start 08/05/18 at 23:30 Docusate Sodium (Colace) 100 mg Q12H PRN PO .CONSTIPATION; Start 08/05/18 at 23:30 Bisacodyl (Dulcolax) 5 mg DAILY PRN PO .CONSTIPATION; Start 08/05/18 at 23:30 Levalbuterol (Xopenex Neb) 1.25 mg Q4H RESP THERAPY PRN HHN SHORTNESS OF BREATH Last administered on 08/10/18 10:38; Admin Dose 1.25 MG; Start 08/06/18 at 01:00 Vancomycin HCl (Vanco Iv Per Pharmacy) VANCOMYCIN PER PHARMACY PER PROTOCOL XX ; Start 08/06/18 at 01:00 Piperacillin Sod/ Tazobactam Sod 100 ml @ 200 mls/hr Q6 IVPB Last administered on 08/10/18 11:09; Admin Dose 200 MLS/HR; Start 08/06/18 at 12:00 Levalbuterol (Xopenex Neb) 1.25 mg Q6H RESP THERAPY HHN Last administered on 08/10/18 07:01; Admin Dose 1.25 MG; Start 08/06/18 at 14:00 Ipratropium [place] (Atrovent 0.02% (Neb)) 0.5 mg Q6HWA RESP THERAPY HHN Last administered on 08/10/18 07:01; Admin Dose 0.5 MG; Start 08/06/18 at 14:00 Ipratropium [place] (Atrovent 0.02% (Neb)) 0.5 mg Q4H RESP THERAPY PRN HHN SHORTNESS OF BREATH Last administered on 08/08/18 18:13; Admin Dose 0.5 MG; Start 08/06/18 at 13:00 Budesonide (Pulmicort (Neb)) 0.5 mg BID RESP THERAPY HHN Last administered on 08/10/18 07:02; Admin Dose 0.5 MG; Start 08/06/18 at 20:00 Pantoprazole (Protonix Tab) 40 mg BID@06,18 PO Last administered on 08/10/18 06:06; Admin Dose 40 MG; Start 08/07/18 at 18:00 Sucralfate (Carafate Susp) 1 gm QID PO Last administered on 08/10/18 08:42; Admin Dose 1 GM; Start 08/07/18 at 17:00 Hydromorphone HCl (Dilaudid ASSISTANT ANALYST) 1.0 MG/HR CONTINUOUS RATE ... Q4PCA IV Last administered on 08/10/18 05:49; Admin Dose 6 MG; Start 08/07/18 at 15:00 Hydromorphone HCl (Dilaudid) 2 mg Q2 PRN IV PAIN Last administered on 08/10/18at 10:55; Admin Dose 2 MG; Start 08/07/18 at 15:00 Dexamethasone (Decadron) 4 mg Q6 PO Last administered on 08/10/18at 06:06; Admin Dose 4 MG; Start 08/07/18 at 18:00 Alteplase, Recombinant (Cathflo (Activase)) 2 mg MAY REPEAT X1 PRN CATHETER IF CATHETER REMAINS OCCULUDED Last administered on 08/09/18at 04:41; Admin Dose 2 MG; Start 08/08/18 at 13:00 Vancomycin/Sodium Chloride 250 ml @ 125 mls/hr Q12H IVPB Last administered on 08/10/18at 06:06; Admin Dose 125 MLS/HR; Start 08/09/18 at 06:00 Miscellaneous Information (*Rx Drug Level Order Reminder*) 1 1700 ONCE XX ; Start 08/10/18 at 17:00; Stop 08/10/18 at 17:01 DOMINIQUE PEÑA NP Aug 10, 2018 11:39
--- NOTE | 2018-08-10 11:45 | CONS ---
Assessment/Plan Assessment/Plan Assessment/Plan (Daily) Assessment and recommendations; 1. Patient admitted with shortness of breath due to advanced stage IV lung cancer with likely some element of postobstructive pneumonia. Patient with persistent leukocytosis and is currently on appropriate empiric antimicrobial coverage. 2. Severe underlying COPD as well. 3. Small pleural effusion, with most of the findings due to large mass occupying the chest cavity. Thoracentesis not recommended. Continue current supportive care. Prognosis appears very poor. Patient is appropriately DNR status. Consultation Date/Type/Reason Admit Date/Time Aug 05, 2018 at 23:12 Initial Consult Date 08/07/18 Type of Consult Pulmonary Patient is a 62-year-old male who came into the hospital with a few weeks history of shortness of breath. Patient has been diagnosed with stage IV lung cancer and is currently on immunotherapy as an outpatient having failed chemotherapy. Patient complains of weight loss, denies any fever, denies any hemoptysis or sputum production. Also denies any wheezing. Denies any nausea vomiting. By the time I saw the patient, patient was on room air and appeared comfortable. Past medical history; 1. Stage IV lung cancer. 2. COPD. 3. Anemia. Medications; reviewed. Allergies; none. Social history; patient is a former smoker. Family history; noncontributory. 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 Review of systems; denies any headache, seizures, dysphagia, chest pain. Complains of mild shortness of breath. Denies any coughing, wheezing, sputum production or hemoptysis. Complains of weight loss. Denies any dysphasia. Any abdominal pain, nausea or vomiting. Denies any skin changes or any new arthritis symptoms. General exam; middle-aged male, appears quite wasted. Awake and alert. Currently in no distress. Requesting Provider: ELLA WARREN Date/Time of Note DATE: 08/10/18 TIME: 11:43 24 HR Interval Summary Free Text/Dictation Patient's condition is fairly stable. On morphine drip at 1 mg/h. General exam; elderly male, awake, currently in no distress. H EENT exam; supple neck, no JVD. No lymphadenopathy. Midline trachea. No thyromegaly. Patient has a multiple carious teeth. No neck masses. Chest exam; diminished breath sounds bilaterally.. S1-S2 audible, no murmurs. Regular rhythm. Abdomen exam; soft, no organomegaly. Scaphoid. Nontender. Bowel sounds audible. Extremity exam; no peripheral edema. No clubbing. COMPLIANCE PROJECT MANAGER exam; patient is awake and appropriately responsive. Exam/Review of Systems Exam Vitals Vital Signs Date Temp Pulse Resp B/P (MAP) Pulse Ox O2 O2 Flow FiO2 Time Delivery Rate 08/10/18 Nasal 2.0 11:27 Cannula 08/10/18 96 20 96 10:41 08/10/18 98.6 119/83 08:00 (95) 08/09/18 13:30 Intake and Output 08/09/18 08/09/18 08/10/18 1515:00 23:00 07:00 IntakeIntake Total 650 ml 650 ml 200 ml OutputOutput Total 250 ml 300 ml BalanceBalance 400 ml 350 ml 200 ml Results Result Diagram: 08/09/18 0900 08/09/18 0900 Medications Medication Current Medications IV Flush (NS 3 ml) 3 ml PER PROTOCOL IV ; Start 08/05/18 at 23:30 Ondansetron HCl (Zofran Inj) 4 mg Q6H PRN IV NAUSEA/VOMITING; Start 08/05/18 at 23:30 Acetaminophen (Tylenol Tab) 650 mg Q6H PRN PO .PAIN 1-3 OR TEMP; Start 08/05/18 at 23:30 Docusate Sodium (Colace) 100 mg Q12H PRN PO .CONSTIPATION; Start 08/05/18 at 23:30 Bisacodyl (Dulcolax) 5 mg DAILY PRN PO .CONSTIPATION; Start 08/05/18 at 23:30 Levalbuterol (Xopenex Neb) 1.25 mg Q4H RESP THERAPY PRN HHN SHORTNESS OF BREATH Last administered on 08/10/18at 10:38; Admin Dose 1.25 MG; Start 08/06/18 at 01:00 Vancomycin HCl (Vanco Iv Per Pharmacy) VANCOMYCIN PER PHARMACY PER PROTOCOL XX ; Start 08/06/18 at 01:00 Piperacillin Sod/ Tazobactam Sod 100 ml @ 200 mls/hr Q6 IVPB Last administered on 08/10/18at 11:09; Admin Dose 200 MLS/HR; Start 08/06/18 at 12:00 Levalbuterol (Xopenex Neb) 1.25 mg Q6H RESP THERAPY HHN Last administered on 08/10/18 07:01; Admin Dose 1.25 MG; Start 08/06/18 at 14:00 Ipratropium [place] (Atrovent 0.02% (Neb)) 0.5 mg Q6HWA RESP THERAPY HHN Last administered on 08/10/18 07:01; Admin Dose 0.5 MG; Start 08/06/18 at 14:00 Ipratropium [place] (Atrovent 0.02% (Neb)) 0.5 mg Q4H RESP THERAPY PRN HHN SHORTNESS OF BREATH Last administered on 08/08/18 18:13; Admin Dose 0.5 MG; Start 08/06/18 at 13:00 Budesonide (Pulmicort (Neb)) 0.5 mg BID RESP THERAPY HHN Last administered on 08/10/18 07:02; Admin Dose 0.5 MG; Start 08/06/18 at 20:00 Pantoprazole (Protonix Tab) 40 mg BID@18 PO Last administered on 08/10/18 06:06; Admin Dose 40 MG; Start 08/07/18 at 18:00 Sucralfate (Carafate Susp) 1 gm QID PO Last administered on 08/10/18 08:42; Admin Dose 1 GM; Start 08/07/18 at 17:00 Hydromorphone HCl (Dilaudid HEAD TRANSFER CLERK) 1.0 MG/HR CONTINUOUS RATE ... Q4PCA IV Last administered on 08/10/18 05:49; Admin Dose 6 MG; Start 08/07/18 at 15:00 Hydromorphone HCl (Dilaudid) 2 mg Q2 PRN IV PAIN Last administered on 08/10/18 10:55; Admin Dose 2 MG; Start 08/07/18 at 15:00 Dexamethasone (Decadron) 4 mg Q6 PO Last administered on 08/10/18 06:06; Admin Dose 4 MG; Start 08/07/18 at 18:00 Alteplase, Recombinant (Cathflo (Activase)) 2 mg MAY REPEAT X1 PRN CATHETER IF CATHETER REMAINS OCCULUDED Last administered on 08/09/18 04:41; Admin Dose 2 MG; Start 6/19/19 at 13:00 Vancomycin/Sodium Chloride 250 ml @ 125 mls/hr Q12H IVPB Last administered on 08/10/18at 06:06; Admin Dose 125 MLS/HR; Start 08/09/18 at 06:00 Miscellaneous Information (*Rx Drug Level Order Reminder*) 1 1700 ONCE XX ; Start 08/10/18 at 17:00; Stop 08/10/18 at 17:01 KIRTI REDD Aug 10, 2018 11:45
[2018-08-10] MEDS: IPRATROPIUM (NEB) 0.5 MG/2.5 ML AMP HHN PRN (12:38)
--- NOTE | 2018-08-10 13:24 | CONS ---
Assessment/Plan Assessment/Plan Hospital Course (Demo Recall) # SQUAMOUS CELL CARCINOMA, MODERATELY-DIFFERENTIATED, RIGHT LOWER LOBE, PDL-1 10%. ECOG 1 -initial PEt CT 09/2017 demonstrates involvement in right lung with an 8cm mass and bilateral hypermetabolic pulmonary nodules and right hilar adenopathy -initial Brain MRI is negative - pt initially received 4 cycles of Carboplatin-Gemcitabine -01/2018 and 02/2018 CT Chest showed progression of disease -02/2018 CT Brain negative -pt randomized to single agent nivolumab which he has since progressed through -pt has since received only received 3 doses of [place]/Carbo,last given on 07/27. Pt has not been able to get the chemotherapy as scheduled due to need for hospitalizations. Therefore, even though there is some progression on the CT, ti is difficult to attribute this to failure of gem/carbo. will try to restart chemotherapy after he is discharged #Pneumonia -continue IV abx #pain -now on dialudid biometrics analyst. continue for now -managed by Dr Ewing #Hypercalcemia -Ca 10 -continue monthly bisphosphonate therapy #Anemia -s/p transfuse 2 units of PRBCs -continue procrit 40,000 weekly as an out patient -will scheduled out patient blood transfusions #SOB -improved, will continue to monitor -start nebulizer tx at home -pt states he needs less nebulizer treatment Thank you for the opportunity to participate in this patients care A total of 40 minutes of face to face time was spent speaking with the patient, of which greater than 50% was spent in counseling and coordination of care and the detailed question and answer session. 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 Exam/Review of Systems Exam Vitals Vital Signs Date Temp Pulse Resp B/P (MAP) Pulse Ox O2 O2 Flow FiO2 Time Delivery Rate 08/10/18 82 25 96 Nasal 3.0 12:39 Cannula 08/10/18 98.6 119/83 08:00 (95) 08/09/18 21 13:30 Intake and Output 08/09/18 08/09/18 08/10/18 1515:00 23:00 07:00 IntakeIntake Total 650 ml 650 ml 200 ml OutputOutput Total 250 ml 300 ml BalanceBalance 400 ml 350 ml 200 ml Constitutional: alert, oriented Psych: no complaints, anxiety, depression Head: normocephalic ENMT: nl external ears & nose Neck: supple Respiratory: congested cough, crackles/rales, diminished breath sounds, labored breathing Cardiovascular: regular rate and rhythm Gastrointestinal: soft Genitourinary - Male: nl penis Musculoskeletal: nl extremities to inspection Results Result Diagram: 08/09/18 0908/09/18 0900 Medications Medication Current Medications IV Flush (NS 3 ml) 3 ml PER PROTOCOL IV ; Start 08/05/18 at 23:30 Ondansetron HCl (Zofran Inj) 4 mg Q6H PRN IV NAUSEA/VOMITING; Start 08/05/18 at 23:30 Acetaminophen (Tylenol Tab) 650 mg Q6H PRN PO .PAIN 1-3 OR TEMP; Start 08/05/18 at 23:30 Docusate Sodium (Colace) 100 mg Q12H PRN PO .CONSTIPATION; Start 08/05/18 at 23:30 Bisacodyl (Dulcolax) 5 mg DAILY PRN PO .CONSTIPATION; Start 08/05/18 at 23:30 Levalbuterol (Xopenex Neb) 1.25 mg Q4H RESP THERAPY PRN HHN SHORTNESS OF BREATH Last administered on 08/10/18at 12:38; Admin Dose 1.25 MG; Start 08/06/18 at 01:00 Vancomycin HCl (Vanco Iv Per Pharmacy) VANCOMYCIN PER PHARMACY PER PROTOCOL XX ; Start 08/06/18 at 01:00 Piperacillin Sod/ Tazobactam Sod 100 ml @ 200 mls/hr Q6 IVPB Last administered on 08/10/18at 11:09; Admin Dose 200 MLS/HR; Start 08/06/18 at 12:00 Levalbuterol (Xopenex Neb) 1.25 mg Q6H RESP THERAPY HHN Last administered on 08/10/18at 07:01; Admin Dose 1.25 MG; Start 08/06/18 at 14:00 Ipratropium [place] (Atrovent 0.02% (Neb)) 0.5 mg Q6HWA RESP THERAPY HHN Last administered on 08/10/18 07:01; Admin Dose 0.5 MG; Start 08/06/18 at 14:00 Ipratropium [place] (Atrovent 0.02% (Neb)) 0.5 mg Q4H RESP THERAPY PRN HHN SHORTNESS OF BREATH Last administered on 08/10/18 12:38; Admin Dose 0.5 MG; Start 08/06/18 at 13:00 Budesonide (Pulmicort (Neb)) 0.5 mg BID RESP THERAPY HHN Last administered on 08/10/18 07:02; Admin Dose 0.5 MG; Start 08/06/18 at 20:00 Pantoprazole (Protonix Tab) 40 mg BID@06,18 PO Last administered on 08/10/18 06:06; Admin Dose 40 MG; Start 08/07/18 at 18:00 Sucralfate (Carafate Susp) 1 gm QID PO Last administered on 08/10/18 12:17; Admin Dose 1 GM; Start 08/07/18 at 17:00 Hydromorphone HCl (Dilaudid ZMT OPERATOR) 1.0 MG/HR CONTINUOUS RATE ... Q4PCA IV Last administered on 08/10/18 12:13; Admin Dose 6 MG; Start 08/07/18 at 15:00 Hydromorphone HCl (Dilaudid) 2 mg Q2 PRN IV PAIN Last administered on 08/10/18 10:55; Admin Dose 2 MG; Start 08/07/18 at 15:00 Dexamethasone (Decadron) 4 mg Q6 PO Last administered on 08/10/18 12:17; Admin Dose 4 MG; Start 08/07/18 at 18:00 Alteplase, Recombinant (Cathflo (Activase)) 2 mg MAY REPEAT X1 PRN CATHETER IF CATHETER REMAINS OCCULUDED Last administered on 08/09/18 04:41; Admin Dose 2 MG; Start 08/08/18 at 13:00 Vancomycin/Sodium Chloride 250 ml @ 125 mls/hr Q12H IVPB Last administered on 08/10/18 06:06; Admin Dose 125 MLS/HR; Start 08/09/18 at 06:00 Miscellaneous Information (*Rx Drug Level Order Reminder*) 1 1700 ONCE XX ; Start 08/10/18 at 17:00; Stop 08/10/18 at 17:01 THELMA HASKINS M.D. Aug 10, 2018 13:24
[2018-08-10 14:00] VITALS: BP 140/83; PULSE 100; RESP 20
[2018-08-10] MEDS: ALTEPLASE (CATHFLO) 2 MG INJ CATHETER PRN (14:37)
--- NOTE | 2018-08-10 16:30 | PN ---
Date/Time of Note Date/Time of Note DATE: 08/10/18 TIME: 16:29 Objective Vitals Vital Signs Date Temp Pulse Resp B/P (MAP) Pulse Ox O2 O2 Flow FiO2 Time Delivery Rate 08/10/18 98.6 100 20 140/83 98 14:00 (102) 08/10/18 Nasal 3.0 12:39 Cannula 08/09/18 21 13:30 Intake and Output 08/09/18 08/09/18 08/10/18 1515:00 23:00 07:00 IntakeIntake Total 650 ml 650 ml 200 ml OutputOutput Total 250 ml 300 ml BalanceBalance 400 ml 350 ml 200 ml Results Result Diagram: 08/09/18 0900 08/09/18 0900 Medications Medications Current Medications IV Flush (NS 3 ml) 3 ml PER PROTOCOL IV ; Start 08/05/18 at 23:30 Ondansetron HCl (Zofran Inj) 4 mg Q6H PRN IV NAUSEA/VOMITING; Start 08/05/18 at 23:30 Acetaminophen (Tylenol Tab) 650 mg Q6H PRN PO .PAIN 1-3 OR TEMP; Start 08/05/18 at 23:30 Docusate Sodium (Colace) 100 mg Q12H PRN PO .CONSTIPATION; Start 08/05/18 at 23:30 Bisacodyl (Dulcolax) 5 mg DAILY PRN PO .CONSTIPATION; Start 08/05/18 at 23:30 Levalbuterol (Xopenex Neb) 1.25 mg Q4H RESP THERAPY PRN HHN SHORTNESS OF BREATH Last administered on 08/10/18at 12:38; Admin Dose 1.25 MG; Start 08/06/18 at 01:00 Vancomycin HCl (Vanco Iv Per Pharmacy) VANCOMYCIN PER PHARMACY PER PROTOCOL XX ; Start 08/06/18 at 01:00 Piperacillin Sod/ Tazobactam Sod 100 ml @ 200 mls/hr Q6 IVPB Last administered on 08/10/18at 11:09; Admin Dose 200 MLS/HR; Start 08/06/18 at 12:00 Levalbuterol (Xopenex Neb) 1.25 mg Q6H RESP THERAPY HHN Last administered on 08/10/18at 14:03; Admin Dose 1.25 MG; Start 08/06/18 at 14:00 Ipratropium [place] (Atrovent 0.02% (Neb)) 0.5 mg Q6HWA RESP THERAPY HHN Last administered on 08/10/18 14:03; Admin Dose 0.5 MG; Start 08/06/18 at 14:00 Ipratropium [place] (Atrovent 0.02% (Neb)) 0.5 mg Q4H RESP THERAPY PRN HHN SHORTNESS OF BREATH Last administered on 08/10/18 12:38; Admin Dose 0.5 MG; Start 08/06/18 at 13:00 Budesonide (Pulmicort (Neb)) 0.5 mg BID RESP THERAPY HHN Last administered on 08/10/18 07:02; Admin Dose 0.5 MG; Start 08/06/18 at 20:00 Pantoprazole (Protonix Tab) 40 mg BID@06,18 PO Last administered on 08/10/18 06:06; Admin Dose 40 MG; Start 08/07/18 at 18:00 Sucralfate (Carafate Susp) 1 gm QID PO Last administered on 08/10/18 12:17; Admin Dose 1 GM; Start 08/07/18 at 17:00 Hydromorphone HCl (Dilaudid ENGRAVINGS POLISHER) 1.0 MG/HR CONTINUOUS RATE ... Q4PCA IV Last administered on 08/10/18 12:13; Admin Dose 6 MG; Start 08/07/18 at 15:00 Hydromorphone HCl (Dilaudid) 2 mg Q2 PRN IV PAIN Last administered on 08/10/18 16:02; Admin Dose 2 MG; Start 08/07/18 at 15:00 Dexamethasone (Decadron) 4 mg Q6 PO Last administered on 08/10/18 12:17; Admin Dose 4 MG; Start 08/07/18 at 18:00 Alteplase, Recombinant (Cathflo (Activase)) 2 mg MAY REPEAT X1 PRN CATHETER IF CATHETER REMAINS OCCULUDED Last administered on 08/10/18 14:37; Admin Dose 2 MG; Start 08/08/18 at 13:00 Vancomycin/Sodium Chloride 250 ml @ 125 mls/hr Q12H IVPB Last administered on 08/10/18 06:06; Admin Dose 125 MLS/HR; Start 08/09/18 at 06:00 Miscellaneous Information (*Rx Drug Level Order Reminder*) 1 1700 ONCE XX ; Start 08/10/18 at 17:00; Stop 08/10/18 at 17:01 VTE Prophylaxis Risk score (from Ns)>0 risk: 9 SCD applied (from [facility]): No SCD contraindication: other Lines/Catheters IV Catheter Type: Grider in Place: No Assessment/Plan Hospital Course Subjective Patient's pain is controlled however patient stating more short of breath when he ambulates Objective Physical exam General: Patient is laying in bed and answers questions appropriately Mentation: Patient is alert and oriented 4, Head: Normocephalic atraumatic Eyes: EOMI, pupils reactive to light Neck: Supple, nontender, midline Respiratory: Coarse to auscultation bilaterally Cardiovascular: regular rate, no obvious murmurs Gastrointestinal: non-tender to palpation, bowel sounds heard. Neurological: Moves all extremities spontaneously Skin: No new skin lesions Assessment and plan Shortness of breath with pleural effusion -Secondary to chronic issues of metastatic lung cancer and pleural effusion -CT scan showing moderate pleural effusion however this is unchanged from previous CT done a few weeks ago -Pulmonology has reviewed the CT, not enough free effusion for thoracentesis -Nebulizers -Patient's breathing has gotten acutely worse, will get CT angiogram to rule out PE Pneumonia -Patient in immunocompromised state -Broad-spectrum IV antibiotics -Infectious disease consulted Sepsis -Possible secondary to pneumonia -Cultures done -IV fluids given -IV antibiotic -No fever however patient and immunocompromised state so unreliable Generalized fatigue -Secondary to metastatic lung carcinoma -Continue IV hydration and encourage oral intake Hypercalcemia -Chronic, mild, oncology and hematology on board Lower back pain -lumbar xray noted chronic pain -Secondary to cancer -On Dilaudid drip her pain management and palliative care Anemia -Likely secondary to anemia chronic disease -No overt bleeding however will closely monitor and transfuse as needed Severe protein calorie malnutrition -Encourage p.o. intake -IV fluid Metastatic squamous cell lung carcinoma -On immunotherapy as outpatient -Heme-onc on board, plan is to eventually continue chemotherapy -Palliative care also consulted for pain management and end-of-life care recommendations Disposition -Continue IV antibiotics, infectious disease recommendations appreciated -Follow-up with CT angiogram to rule out PE NUVIA WYNNE Aug 10, 2018 16:30
[2018-08-10] MEDS ORDERED: SOD CHLORIDE 0.9% 100 ML ONE (16:57)
[2018-08-10] MEDS ORDERED: IOHEXOL 100 ML ONE (16:57)
[2018-08-10] MEDS ORDERED: HYDROmorphONE 50 MG in DEXTROSE 5% 45 ML IVPB SCH (19:00)
[2018-08-10 20:01] VITALS: BP 142/77; PULSE 122; RESP 20
[2018-08-10 21:27] VITALS: BP 122/79; PULSE 106; RESP 18
[2018-08-10] MEDS: HYDROmorphONE 50 MG in DEXTROSE 5% 45 ML IV SCH (21:46)
[2018-08-11] VITALS (17 sets, daily range): BP systolic 106–123; BP diastolic 58–87; PULSE 100–151; RESP 16–20
[2018-08-11] MEDS: PIPER-TAZO 3.375 GM IV (PMX) 100 ML IVPB SCH ×2 (00:42→06:02)
[2018-08-11] MEDS: DEXAMETHASONE 4 MG TAB PO SCH ×2 (00:42→08:44)
[2018-08-11] MEDS: HYDROmorphONE 2 MG/ML SYG IV PRN ×6 (00:50→19:38)
[2018-08-11] MEDS: LEVALBUTEROL (NEB) 1.25 MG/0.5 ML AMP HHN SCH ×5 (02:31→19:59)
[2018-08-11] MEDS: IPRATROPIUM (NEB) 0.5 MG/2.5 ML AMP HHN PRN (02:31)
[2018-08-11] MEDS: PANTOPRAZOLE (EC) 40 MG TAB PO SCH ×2 (06:47→18:00)
[2018-08-11] MEDS: VANCOMYCIN 750 MG (PMX) 250 ML IVPB SCH ×2 (06:49→18:45)
[2018-08-11] MEDS: IPRATROPIUM (NEB) 0.5 MG/2.5 ML AMP HHN SCH ×4 (08:00→19:59)
[2018-08-11] MEDS: BUDESONIDE (NEB) 0.5MG/2ML AMP HHN SCH ×3 (08:35→19:59)
[2018-08-11] MEDS: SUCRALFATE (100 MG/ML) 10ML CUP PO SCH ×4 (08:44→21:00)
[2018-08-11] MEDS: HYDROmorphONE 50 MG in DEXTROSE 5% 45 ML IV SCH (09:46)
--- NOTE | 2018-08-11 10:07 | CONS ---
Assessment/Plan Assessment/Plan Assessment/Plan (Daily) My last visit with visit was . At that time someone was in the room very upset with him. Patient was crying. He asked me to return. Yesterday I spoke with him again, he is in better spirits and I will begin to taper dowh the opioids or change to a different regimen today but discuss with him lfirst. Will change to methadone and prn dilaudid. Titrate IV dilaudid slowly. Consultation Date/Type/Reason Admit Date/Time Aug 05, 2018 at 23:12 Initial Consult Date 08/07/18 Requesting Provider: ELLA WARREN Date/Time of Note DATE: 08/11/18 TIME: 09:57 Exam/Review of Systems Exam Vitals Vital Signs Date Temp Pulse Resp B/P (MAP) Pulse Ox O2 O2 Flow FiO2 Time Delivery Rate 08/11/18 3.0 08:40 08/11/18 98.3 123 20 106/74 90 07:10 (85) 08/11/18 Nasal 04:03 Cannula 08/09/18 13:30 Intake and Output 08/10/18 08/10/18 08/11/18 1515:00 23:00 07:00 IntakeIntake Total 700 ml 702.9 ml 106 ml OutputOutput Total 300 ml 100 ml BalanceBalance 400 ml 702.9 ml 6 ml Results Result Diagram: 08/10/18 1706 08/10/18 1706 Results 24hrs Laboratory Tests Test 08/10/18 17:06 White Blood Count 35.2 #H Red Blood Count 3.13 L Hemoglobin 8.6 L Hematocrit 28.4 L Mean Corpuscular Volume 90.7 Mean Corpuscular Hemoglobin 27.5 L Mean Corpuscular Hemoglobin Concent 30.3 L Red Cell Distribution Width 21.9 H Platelet Count 381 # Mean Platelet Volume 10.0 Immature Granulocytes % 1.800 H Neutrophils % Segmented Neutrophils % (Manual) 96 H Band Neutrophils % (Manual) 1 Lymphocytes % Monocytes % Monocytes % (Manual) 3 Eosinophils % Basophils % Nucleated Red Blood Cells % 0.0 Immature Granulocytes # 0.640 H Neutrophils # Neutrophils # (Manual) 33.9 H Band Neutrophils # 0.3 Lymphocytes # Monocytes # Monocytes # (Manual) 1.0 H Eosinophils # Basophils # Nucleated Red Blood Cells # Pathologist Review (Hematology) YES Platelet Estimate NORMAL Polychromasia 2+ Anisocytosis 2+ Microcytosis 2+ Sodium Level 140 Potassium Level 3.7 Chloride Level 109 Carbon Dioxide Level 21 Anion Gap 10 Blood Urea Nitrogen 26 H Creatinine 0.83 Est Glomerular Filtrat Rate mL/min > 60 Glucose Level 127 Calcium Level 11.2 H Phosphorus Level 2.3 L Magnesium Level 2.3 Vancomycin Level Trough 15.8 Medications Medication Current Medications IV Flush (NS 3 ml) 3 ml PER PROTOCOL IV ; Start 08/05/18 at 23:30 Ondansetron HCl (Zofran Inj) 4 mg Q6H PRN IV NAUSEA/VOMITING; Start 08/05/18 at 23:30 Acetaminophen (Tylenol Tab) 650 mg Q6H PRN PO .PAIN 1-3 OR TEMP; Start 08/05/18 at 23:30 Docusate Sodium (Colace) 100 mg Q12H PRN PO .CONSTIPATION; Start 08/05/18 at 23:30 Bisacodyl (Dulcolax) 5 mg DAILY PRN PO .CONSTIPATION; Start 08/05/18 at 23:30 Levalbuterol (Xopenex Neb) 1.25 mg Q4H RESP THERAPY PRN HHN SHORTNESS OF BREATH Last administered on 08/10/18at 12:38; Admin Dose 1.25 MG; Start 08/06/18 at 01:00 Vancomycin HCl (Vanco Iv Per Pharmacy) VANCOMYCIN PER PHARMACY PER PROTOCOL XX ; Start 08/06/18 at 01:00 Piperacillin Sod/ Tazobactam Sod 100 ml @ 200 mls/hr Q6 IVPB Last administered on 08/11/18at 06:02; Admin Dose 200 MLS/HR; Start 08/06/18 at 12:00 Levalbuterol (Xopenex Neb) 1.25 mg Q6H RESP THERAPY HHN Last administered on 08/11/18at 02:31; Admin Dose 1.25 MG; Start 08/06/18 at 14:00 Ipratropium [place] (Atrovent 0.02% (Neb)) 0.5 mg Q6HWA RESP THERAPY HHN Last administered on 08/10/18at 20:11; Admin Dose 0.5 MG; Start 08/06/18 at 14:00 Ipratropium [place] (Atrovent 0.02% (Neb)) 0.5 mg Q4H RESP THERAPY PRN HHN SHORTNESS OF BREATH Last administered on 08/11/18 02:31; Admin Dose 0.5 MG; Start 08/06/18 at 13:00 Budesonide (Pulmicort (Neb)) 0.5 mg BID RESP THERAPY HHN Last administered on 08/10/18 20:11; Admin Dose 0.5 MG; Start 08/06/18 at 20:00 Pantoprazole (Protonix Tab) 40 mg BID@06,18 PO Last administered on 08/11/18 06:47; Admin Dose 40 MG; Start 08/07/18 at 18:00 Sucralfate (Carafate Susp) 1 gm QID PO Last administered on 08/11/18 08:44; Admin Dose 1 GM; Start 08/07/18 at 17:00 Dexamethasone (Decadron) 4 mg Q6 PO Last administered on 08/11/18 08:44; Admin Dose 4 MG; Start 08/07/18 at 18:00 Alteplase, Recombinant (Cathflo (Activase)) 2 mg MAY REPEAT X1 PRN CATHETER IF CATHETER REMAINS OCCULUDED Last administered on 08/10/18 14:37; Admin Dose 2 MG; Start 08/08/18 at 13:00 Vancomycin/Sodium Chloride 250 ml @ 125 mls/hr Q12H IVPB Last administered on 08/11/18 06:49; Admin Dose 125 MLS/HR; Start 08/09/18 at 06:00 Hydromorphone HCl (Dilaudid) 2 mg Q3H PRN IV PAIN Last administered on 08/11/18 07:39; Admin Dose 2 MG; Start 08/10/18 at 17:30 Hydromorphone HCl 50 mg/Dextrose 50 ml @ 2 mls/hr Q24H IV Last administered on 08/10/18 21:46; Admin Dose 2 MLS/HR; Start 08/10/18 at 20:00 PARIS FLORES Aug 11, 2018 10:07
[2018-08-11] MEDS ORDERED: HYDROmorphONE 0.2 MG/ML PCA IV SCH (10:30)
[2018-08-11] MEDS ORDERED: LORAZEPAM 0.5 MG TAB PO PRN (11:00)
[2018-08-11] MEDS ORDERED: SOD CHLORIDE 0.9% 1,000 ML IV SCH (11:00)
--- NOTE | 2018-08-11 12:51 | PN ---
Date/Time of Note Date/Time of Note DATE: 08/11/18 TIME: 12:47 Objective Vitals Vital Signs Date Temp Pulse Resp B/P (MAP) Pulse Ox O2 O2 Flow FiO2 Time Delivery Rate 08/11/18 98.0 120 20 114/58 93 11:46 (76) 08/11/18 3.0 08:40 08/11/18 Nasal 04:03 Cannula 08/09/18 21 13:30 Intake and Output 08/10/18 08/10/18 08/11/18 1515:00 23:00 07:00 IntakeIntake Total 700 ml 702.9 ml 106 ml OutputOutput Total 300 ml 100 ml BalanceBalance 400 ml 702.9 ml 6 ml Results Result Diagram: 08/10/18 1706 08/11/18 0951 Medications Medications Current Medications IV Flush (NS 3 ml) 3 ml PER PROTOCOL IV ; Start 08/05/18 at 23:30 Ondansetron HCl (Zofran Inj) 4 mg Q6H PRN IV NAUSEA/VOMITING; Start 08/05/18 at 23:30 Acetaminophen (Tylenol Tab) 650 mg Q6H PRN PO .PAIN 1-3 OR TEMP; Start 08/05/18 at 23:30 Docusate Sodium (Colace) 100 mg Q12H PRN PO .CONSTIPATION; Start 08/05/18 at 23:30 Bisacodyl (Dulcolax) 5 mg DAILY PRN PO .CONSTIPATION; Start 08/05/18 at 23:30 Levalbuterol (Xopenex Neb) 1.25 mg Q4H RESP THERAPY PRN HHN SHORTNESS OF BREATH Last administered on 08/10/18at 12:38; Admin Dose 1.25 MG; Start 08/06/18 at 01:00 Vancomycin HCl (Vanco Iv Per Pharmacy) VANCOMYCIN PER PHARMACY PER PROTOCOL XX ; Start 08/06/18 at 01:00 Piperacillin Sod/ Tazobactam Sod 100 ml @ 200 mls/hr Q6 IVPB Last administered on 08/11/18at 06:02; Admin Dose 200 MLS/HR; Start 08/06/18 at 12:00 Levalbuterol (Xopenex Neb) 1.25 mg Q6H RESP THERAPY HHN Last administered on 08/11/18at 02:31; Admin Dose 1.25 MG; Start 08/06/18 at 14:00 Ipratropium [place] (Atrovent 0.02% (Neb)) 0.5 mg Q6HWA RESP THERAPY HHN Last administered on 08/10/18 20:11; Admin Dose 0.5 MG; Start 08/06/18 at 14:00 Ipratropium [place] (Atrovent 0.02% (Neb)) 0.5 mg Q4H RESP THERAPY PRN HHN SHORTNESS OF BREATH Last administered on 08/11/18 02:31; Admin Dose 0.5 MG; Start 08/06/18 at 13:00 Budesonide (Pulmicort (Neb)) 0.5 mg BID RESP THERAPY HHN Last administered on 08/10/18 20:11; Admin Dose 0.5 MG; Start 08/06/18 at 20:00 Pantoprazole (Protonix Tab) 40 mg BID@06,18 PO Last administered on 08/11/18 06:47; Admin Dose 40 MG; Start 08/07/18 at 18:00 Sucralfate (Carafate Susp) 1 gm QID PO Last administered on 08/11/18 08:44; Admin Dose 1 GM; Start 08/07/18 at 17:00 Alteplase, Recombinant (Cathflo (Activase)) 2 mg MAY REPEAT X1 PRN CATHETER IF CATHETER REMAINS OCCULUDED Last administered on 08/10/18 14:37; Admin Dose 2 MG; Start 08/08/18 at 13:00 Vancomycin/Sodium Chloride 250 ml @ 125 mls/hr Q12H IVPB Last administered on 08/11/18 06:49; Admin Dose 125 MLS/HR; Start 08/09/18 at 06:00 Hydromorphone HCl (Dilaudid) 2 mg Q3H PRN IV PAIN Last administered on 08/11/18 11:34; Admin Dose 2 MG; Start 08/10/18 at 17:30 Hydromorphone HCl (Dilaudid CONCRETE BLOCK LAYER) 1.0 MG/HR CONTINUOUS RATE ... Q4PCA IV Last administered on 08/11/18 11:59; Admin Dose 0.2 MG; Start 08/11/18 at 10:30 Methadone HCl (Methadone Liq) 2 mg Q4 PO ; Start 08/11/18 at 13:00 Methylprednisolone Sodium Succinate (Solu-Medrol) 60 mg Q8 IV ; Start 08/11/18 at 14:00 Sodium Chloride 1,000 ml @ 50 mls/hr Q20H IV Last administered on 08/11/18at 11:41; Admin Dose 50 MLS/HR; Start 08/11/18 at 11:00 Lorazepam (Ativan) 0.5 mg BID PRN PO ANXIETY; Start 08/11/18 at 11:00 VTE Prophylaxis Risk score (from Ns)>0 risk: 9 SCD applied (from Ns): No SCD contraindication: other Lines/Catheters IV Catheter Type: Grider in Place: No Assessment/Plan Hospital Course Subjective Patient's pain is controlled, however patient upgraded to telemetry due to shortness of breath which is not significantly worsened however is becoming increasingly more tachycardic Objective Physical exam General: Patient is laying in bed and answers questions appropriately Mentation: Patient is alert and oriented 4, Head: Normocephalic atraumatic Eyes: EOMI, pupils reactive to light Neck: Supple, nontender, midline Respiratory: Coarse to auscultation bilaterally Cardiovascular: Tachycardic rate, no obvious murmurs Gastrointestinal: non-tender to palpation, bowel sounds heard. Neurological: Moves all extremities spontaneously Skin: No new skin lesions Assessment and plan Shortness of breath with pleural effusion -Secondary to chronic issues of metastatic lung cancer and pleural effusion -CT scan showing moderate pleural effusion however this is unchanged from previous CT done a few weeks ago -Pulmonology has reviewed the CT, not enough free effusion for thoracentesis -Patient's breathing has gotten acutely worse, CT angiogram does not see pulmonary embolism however does see multiple other carcinoma related events including construction of pulmonary arteries and possible pleural effusion -We will ask pulmonology to review CT scan to see once again if pleural effusion has enough to drain -We will change steroids to IV Solu-Medrol -Continue nebulizers Tachycardia -Patient is not having significant p.o. intake, will give some IV fluids -Also likely secondary to shortness of breath -Patient also appears mildly anxious, will use Ativan as needed for anxiety Pneumonia -Patient in immunocompromised state -Broad-spectrum IV antibiotics -Infectious disease consulted Sepsis -Possible secondary to pneumonia -Cultures done -IV fluids given -IV antibiotic -No fever however patient and immunocompromised state so unreliable Generalized fatigue -Secondary to metastatic lung carcinoma -Continue IV hydration and encourage oral intake Hypercalcemia -Chronic, mild, oncology and hematology on board Lower back pain -lumbar xray noted chronic pain -Secondary to cancer -On Dilaudid drip her pain management and palliative care Anemia -Likely secondary to anemia chronic disease -No overt bleeding however will closely monitor and transfuse as needed Severe protein calorie malnutrition -Encourage p.o. intake -IV fluid Metastatic squamous cell lung carcinoma -On immunotherapy as outpatient -Heme-onc on board, plan is to eventually continue chemotherapy -Palliative care also consulted for pain management and end-of-life care recommendations Disposition -Patient has an extremely poor prognosis however is still hopeful on chemotherapy treatment in order to feel better. Patient does not seem to comprehend that all the issues that he is exhibiting including tachycardia, shortness of breath is the sequelae of his extensive lung cancer. We will attempt all intervention as much as possible in the meantime however hopefully palliative care or oncology can speak with the patient candidly about his over all prognosis. NUVIA WYNNE Aug 11, 2018 12:51
[2018-08-11] MEDS ORDERED: ENOXAPARIN 40 MG/0.4 ML SYG SC SCH (13:00)
[2018-08-11] MEDS ORDERED: METHADONE (1 MG/ML 5 ML PO UD SYG) PO SCH (13:00)
[2018-08-11] MEDS: METHYLPREDNISOLONE 125 MG INJ IV SCH ×2 (13:16→21:41)
--- NOTE | 2018-08-11 14:01 | CONS ---
Assessment/Plan Assessment/Plan Hospital Course (Demo Recall) ID PROGRESS NOTE CURRENT ABX: DAY # =>Vanco IV + Zosyn 24H INTERVAL SUMMARY * Awake, supplemental O2 via face mask -- feels SOB -- family present * VSS, NAD, no fevers -- pain issues ongoing -- palliative care on the case * 08/06/18 BCx (-) DIAGNOSTIC IMAGING * 08/09/18 CXR: PHYSICAL EXAMINATION: GENERAL: VSS, NAD HEENT: AT, NC, NECK: Supple, CHEST: Rise symmetrical HEART: Pulse RRR ABDOMEN: Benign EXTREMITIES: Warm, dry SKIN: No rash, no diaphoresis ID ASSESSMENT 62 yo M admit with: 1. Sepsis due to PNA * 08/06/18 BCX (-) 2. Obstructive PNA w/retained secretions 3. Lung Cancer 4. Acute SOB 5. Significant leukocytosis -> due to PNA + ?MDS + partial steroids demargination ABX ALLERGIES: KNDA INVASIVES: PIV CURRENT ABX: DAY # Vanco IV + Zosyn ID RECOMMENDATIONS/PLAN: 1. Continue ABX over the weekend . Consultation Date/Type/Reason Admit Date/Time Aug 05, 2018 at 23:12 Initial Consult Date 08/07/18 Requesting Provider: ELLA WARREN Date/Time of Note DATE: 08/11/18 TIME: 13:54 Exam/Review of Systems Exam Vitals Vital Signs Date Temp Pulse Resp B/P (MAP) Pulse Ox O2 O2 Flow FiO2 Time Delivery Rate 08/11/18 119 12:00 08/11/18 98.0 20 114/58 93 11:46 (76) 08/11/18 3.0 08:40 08/11/18 Nasal 04:03 Cannula 08/09/18 21 13:30 Intake and Output 08/10/18 08/10/18 08/11/18 1515:00 23:00 07:00 IntakeIntake Total 700 ml 702.9 ml 106 ml OutputOutput Total 300 ml 100 ml BalanceBalance 400 ml 702.9 ml 6 ml Results Result Diagram: 08/10/18 1706 08/11/18 0951 Results 24hrs Laboratory Tests Test 08/10/18 17:06 08/11/18 09:51 White Blood Count 35.2 #H Pending Red Blood Count 3.13 L Pending Hemoglobin 8.6 L Pending Hematocrit 28.4 L Pending Mean Corpuscular Volume 90.7 Pending Mean Corpuscular Hemoglobin 27.5 L Pending Mean Corpuscular Hemoglobin Concent 30.3 L Pending Red Cell Distribution Width 21.9 H Pending Platelet Count 381 # Pending Mean Platelet Volume 10.0 Pending Immature Granulocytes % 1.800 H Neutrophils % Segmented Neutrophils % (Manual) 96 H Band Neutrophils % (Manual) 1 Lymphocytes % Monocytes % Monocytes % (Manual) 3 Eosinophils % Basophils % Nucleated Red Blood Cells % 0.0 Immature Granulocytes # 0.640 H Neutrophils # Neutrophils # (Manual) 33.9 H Band Neutrophils # 0.3 Lymphocytes # Monocytes # Monocytes # (Manual) 1.0 H Eosinophils # Basophils # Nucleated Red Blood Cells # Pathologist Review (Hematology) YES Platelet Estimate NORMAL Polychromasia 2+ Anisocytosis 2+ Microcytosis 2+ Sodium Level 140 139 Potassium Level 3.7 4.9 Chloride Level 109 106 Carbon Dioxide Level 21 16 L Anion Gap 10 17 #H Blood Urea Nitrogen 26 H 25 H Creatinine 0.83 0.86 Est Glomerular Filtrat Rate mL/min > 60 > 60 Glucose Level 127 128 Calcium Level 11.2 H 11.4 H Phosphorus Level 2.3 L Magnesium Level 2.3 Vancomycin Level Trough 15.8 Total Bilirubin 0.5 Direct Bilirubin 0.00 Indirect Bilirubin 0.5 Aspartate Amino Transf (AST/SGOT) 44 Alanine Aminotransferase (ALT/SGPT) 34 Alkaline Phosphatase 122 H Total Protein 7.2 Albumin 3.8 Globulin 3.40 H Albumin/Globulin Ratio 1.11 Medications Medication Current Medications IV Flush (NS 3 ml) 3 ml PER PROTOCOL IV ; Start 08/05/18 at 23:30 Ondansetron HCl (Zofran Inj) 4 mg Q6H PRN IV NAUSEA/VOMITING; Start 08/05/18 at 23:30 Acetaminophen (Tylenol Tab) 650 mg Q6H PRN PO .PAIN 1-3 OR TEMP; Start 08/05/18 at 23:30 Docusate Sodium (Colace) 100 mg Q12H PRN PO .CONSTIPATION; Start 08/05/18 at 23:30 Bisacodyl (Dulcolax) 5 mg DAILY PRN PO .CONSTIPATION; Start 08/05/18 at 23:30 Levalbuterol (Xopenex Neb) 1.25 mg Q4H RESP THERAPY PRN HHN SHORTNESS OF BREATH Last administered on 08/10/18 12:38; Admin Dose 1.25 MG; Start 08/06/18 at 01:00 Vancomycin HCl (Vanco Iv Per Pharmacy) VANCOMYCIN PER PHARMACY PER PROTOCOL XX ; Start 08/06/18 at 01:00 Levalbuterol (Xopenex Neb) 1.25 mg Q6H RESP THERAPY HHN Last administered on 08/11/18 02:31; Admin Dose 1.25 MG; Start 08/06/18 at 14:00 Ipratropium [place] (Atrovent 0.02% (Neb)) 0.5 mg Q6HWA RESP THERAPY HHN Last administered on 08/10/18 20:11; Admin Dose 0.5 MG; Start 08/06/18 at 14:00 Ipratropium [place] (Atrovent 0.02% (Neb)) 0.5 mg Q4H RESP THERAPY PRN HHN SHORTNESS OF BREATH Last administered on 08/11/18 02:31; Admin Dose 0.5 MG; Start 08/06/18 at 13:00 Budesonide (Pulmicort (Neb)) 0.5 mg BID RESP THERAPY HHN Last administered on 08/10/18 20:11; Admin Dose 0.5 MG; Start 08/06/18 at 20:00 Pantoprazole (Protonix Tab) 40 mg BID@06,18 PO Last administered on 08/11/18 06:47; Admin Dose 40 MG; Start 08/07/18 at 18:00 Sucralfate (Carafate Susp) 1 gm QID PO Last administered on 08/11/18 13:16; Admin Dose 1 GM; Start 08/07/18 at 17:00 Alteplase, Recombinant (Cathflo (Activase)) 2 mg MAY REPEAT X1 PRN CATHETER IF CATHETER REMAINS OCCULUDED Last administered on 08/10/18 14:37; Admin Dose 2 MG; Start 08/08/18 at 13:00 Vancomycin/Sodium Chloride 250 ml @ 125 mls/hr Q12H IVPB Last administered on 08/11/18 06:49; Admin Dose 125 MLS/HR; Start 08/09/18 at 06:00 Hydromorphone HCl (Dilaudid) 2 mg Q3H PRN IV PAIN Last administered on 08/11/18 11:34; Admin Dose 2 MG; Start 08/10/18 at 17:30 Hydromorphone HCl (Dilaudid TUGBOAT ENGINEER) 1.0 MG/HR CONTINUOUS RATE ... Q4PCA IV Last administered on 08/11/18 11:59; Admin Dose 0.2 MG; Start 08/11/18 at 10:30 Methadone HCl (Methadone Liq) 2 mg Q4 PO Last administered on 08/11/18 13:16; Admin Dose 2 MG; Start 08/11/18 at 13:00 Methylprednisolone Sodium Succinate (Solu-Medrol) 60 mg Q8 IV Last administered on 08/11/18 13:16; Admin Dose 60 MG; Start 08/11/18 at 14:00 Sodium Chloride 1,000 ml @ 50 mls/hr Q20H IV Last administered on 08/11/18 11:41; Admin Dose 50 MLS/HR; Start 08/11/18 at 11:00 Lorazepam (Ativan) 0.5 mg BID PRN PO ANXIETY; Start 08/11/18 at 11:00 Meropenem/Sodium Chloride 50 ml @ 100 mls/hr Q8 IVPB ; Start 08/11/18 at 14:00 Enoxaparin Sodium (Lovenox) 40 mg DAILY SC ; Start 08/11/18 at 13:00 BERNABE CONRAD NP Aug 11, 2018 14:01
[2018-08-11] MEDS: MEROPENEM 1 GM/50ML(PMX) 50 ML IVPB SCH ×2 (14:35→22:03)
--- NOTE | 2018-08-11 15:44 | CONS ---
Assessment/Plan Assessment/Plan Assessment/Plan (Daily) # SQUAMOUS CELL CARCINOMA, MODERATELY-DIFFERENTIATED, RIGHT LOWER LOBE, PDL-1 10%. ECOG 1 -initial PEt CT 09/2017 demonstrates involvement in right lung with an 8cm mass and bilateral hypermetabolic pulmonary nodules and right hilar adenopathy -initial Brain MRI is negative - pt initially received 4 cycles of Carboplatin-Gemcitabine -01/2018 and 02/2018 CT Chest showed progression of disease -02/2018 CT Brain negative -pt randomized to single agent nivolumab which he has since progressed through -pt has since received only received 3 doses of [place]/Carbo,last given on 07/27. Pt has not been able to get the chemotherapy as scheduled due to need for hospitalizations. Therefore, even though there is some progression on the CT, ti is difficult to attribute this to failure of gem/carbo. 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 continue for now -managed by Dr Ewing #Hypercalcemia -Ca 10 -continue monthly bisphosphonate therapy #Anemia -s/p transfuse 2 units of PRBCs -continue procrit 40,000 weekly as an out patient -will scheduled out patient blood transfusions #SOB -improved, will continue to monitor -start nebulizer tx at home -pt states he needs less nebulizer treatment Patient seen in collaboration with Dr Kunz. Consultation Date/Type/Reason Admit Date/Time Aug 05, 2018 at 23:12 Initial Consult Date 08/07/18 Type of Consult oncology Reason for Consultation Squamous Cell Carcinoma Requesting Provider: ELLA WARREN Date/Time of Note DATE: 08/11/18 TIME: 15:40 24 HR Interval Summary Free Text/Dictation using commode at present; c/o shortness of breath dw staff Constitutional: requiring O2 Detailed Summary Respiratory: shortness of breath Cardiovascular: no complaints Gastrointestinal: no complaints Neurologic: no complaints Endocrine: no complaints Lymphatic: no complaints Psychological: nl mood/affect Exam/Review of Systems Exam Vitals Vital Signs Date Temp Pulse Resp B/P (MAP) Pulse Ox O2 O2 Flow FiO2 Time Delivery Rate 08/11/18 97.5 122 20 108/74 94 15:33 (85) 08/11/18 3.0 15:14 08/11/18 Nasal 15:14 Cannula 08/09/18 21 13:30 Intake and Output 08/10/18 08/10/18 08/11/18 1515:00 23:00 07:00 IntakeIntake Total 700 ml 702.9 ml 106 ml OutputOutput Total 300 ml 100 ml BalanceBalance 400 ml 702.9 ml 6 ml Constitutional: alert, frail Psych: nl mood/affect Eyes: nl lids, nl sclera ENMT: nl external ears & nose Neck: non-tender Respiratory: diminished breath sounds Cardiovascular: nl pulses, other (s1s2) Gastrointestinal: soft, non-tender Musculoskeletal: muscle weakness Extremities: normal pulses Skin: nl turgor Results Result Diagram: 08/11/18 1420 08/11/18 0951 Results 24hrs Laboratory Tests Test 08/10/18 17:06 08/11/18 09:51 08/11/18 14:20 White Blood Count 35.2 #H 51.1 #H Red Blood Count 3.13 L 3.30 L Hemoglobin 8.6 L 9.0 L Hematocrit 28.4 L 29.3 L Mean Corpuscular Volume 90.7 88.8 Mean Corpuscular Hemoglobin 27.5 L 27.3 L Mean Corpuscular Hemoglobin Concent 30.3 L 30.7 L Red Cell Distribution Width 21.9 H 22.6 H Platelet Count 381 # 452 H Mean Platelet Volume 10.0 10.8 H Immature Granulocytes % 1.800 H 2.400 H Neutrophils % Segmented Neutrophils % (Manual) 96 H Band Neutrophils % (Manual) 1 Lymphocytes % Monocytes % Monocytes % (Manual) 3 Eosinophils % Basophils % Nucleated Red Blood Cells % 0.0 0.0 Immature Granulocytes # 0.640 H 1.220 H Neutrophils # Neutrophils # (Manual) 33.9 H Band Neutrophils # 0.3 Lymphocytes # Monocytes # Monocytes # (Manual) 1.0 H Eosinophils # Basophils # Nucleated Red Blood Cells # Pathologist Review (Hematology) YES Platelet Estimate NORMAL Polychromasia 2+ Anisocytosis 2+ Microcytosis 2+ Sodium Level 140 139 Potassium Level 3.7 4.9 Chloride Level 109 106 Carbon Dioxide Level 21 16 L Anion Gap 10 17 #H Blood Urea Nitrogen 26 H 25 H Creatinine 0.83 0.86 Est Glomerular Filtrat Rate mL/min > 60 > 60 Glucose Level 127 128 Calcium Level 11.2 H 11.4 H Phosphorus Level 2.3 L Magnesium Level 2.3 Vancomycin Level Trough 15.8 Total Bilirubin 0.5 Direct Bilirubin 0.00 Indirect Bilirubin 0.5 Aspartate Amino Transf (AST/SGOT) 44 Alanine Aminotransferase (ALT/SGPT) 34 Alkaline Phosphatase 122 H Total Protein 7.2 Albumin 3.8 Globulin 3.40 H Albumin/Globulin Ratio 1.11 Medications Medication Current Medications IV Flush (NS 3 ml) 3 ml PER PROTOCOL IV ; Start 08/05/18 at 23:30 Ondansetron HCl (Zofran Inj) 4 mg Q6H PRN IV NAUSEA/VOMITING; Start 08/05/18 at 23:30 Acetaminophen (Tylenol Tab) 650 mg Q6H PRN PO .PAIN 1-3 OR TEMP; Start 08/05/18 at 23:30 Docusate Sodium (Colace) 100 mg Q12H PRN PO .CONSTIPATION; Start 08/05/18 at 23:30 Bisacodyl (Dulcolax) 5 mg DAILY PRN PO .CONSTIPATION; Start 08/05/18 at 23:30 Levalbuterol (Xopenex Neb) 1.25 mg Q4H RESP THERAPY PRN HHN SHORTNESS OF BREATH Last administered on 08/10/18at 12:38; Admin Dose 1.25 MG; Start 08/06/18 at 01:00 Vancomycin HCl (Vanco Iv Per Pharmacy) VANCOMYCIN PER PHARMACY PER PROTOCOL XX ; Start 08/06/18 at 01:00 Levalbuterol (Xopenex Neb) 1.25 mg Q6H RESP THERAPY HHN Last administered on 08/11/18at 15:13; Admin Dose 1.25 MG; Start 08/06/18 at 14:00 Ipratropium [place] (Atrovent 0.02% (Neb)) 0.5 mg Q6HWA RESP THERAPY HHN Last administered on 08/11/18at 15:13; Admin Dose 0.5 MG; Start 08/06/18 at 14:00 Ipratropium [place] (Atrovent 0.02% (Neb)) 0.5 mg Q4H RESP THERAPY PRN HHN SHORTNESS OF BREATH Last administered on 08/11/18at 02:31; Admin Dose 0.5 MG; Start 08/06/18 at 13:00 Budesonide (Pulmicort (Neb)) 0.5 mg BID RESP THERAPY HHN Last administered on 08/10/18 20:11; Admin Dose 0.5 MG; Start 08/06/18 at 20:00 Pantoprazole (Protonix Tab) 40 mg BID@06,18 PO Last administered on 08/11/18 06:47; Admin Dose 40 MG; Start 08/07/18 at 18:00 Sucralfate (Carafate Susp) 1 gm QID PO Last administered on 08/11/18 13:16; Admin Dose 1 GM; Start 08/07/18 at 17:00 Alteplase, Recombinant (Cathflo (Activase)) 2 mg MAY REPEAT X1 PRN CATHETER IF CATHETER REMAINS OCCULUDED Last administered on 08/10/18 14:37; Admin Dose 2 MG; Start 08/08/18 at 13:00 Vancomycin/Sodium Chloride 250 ml @ 125 mls/hr Q12H IVPB Last administered on 08/11/18 06:49; Admin Dose 125 MLS/HR; Start 08/09/18 at 06:00 Hydromorphone HCl (Dilaudid) 2 mg Q3H PRN IV PAIN Last administered on 08/11/18 14:35; Admin Dose 2 MG; Start 08/10/18 at 17:30 Hydromorphone HCl (Dilaudid LAMBSKIN TRIMMER) 1.0 MG/HR CONTINUOUS RATE ... Q4PCA IV Last administered on 08/11/18 11:59; Admin Dose 0.2 MG; Start 08/11/18 at 10:30 Methadone HCl (Methadone Liq) 2 mg Q4 PO Last administered on 08/11/18 13:16; Admin Dose 2 MG; Start 08/11/18 at 13:00 Methylprednisolone Sodium Succinate (Solu-Medrol) 60 mg Q8 IV Last administered on 08/11/18 13:16; Admin Dose 60 MG; Start 08/11/18 at 14:00 Sodium Chloride 1,000 ml @ 50 mls/hr Q20H IV Last administered on 08/11/18 11:41; Admin Dose 50 MLS/HR; Start 08/11/18 at 11:00 Lorazepam (Ativan) 0.5 mg BID PRN PO ANXIETY; Start 08/11/18 at 11:00 Meropenem/Sodium Chloride 50 ml @ 100 mls/hr Q8 IVPB Last administered on 08/11/18at 14:35; Admin Dose 100 MLS/HR; Start 08/11/18 at 14:00 Enoxaparin Sodium (Lovenox) 40 mg DAILY SC ; Start 08/11/18 at 13:00 JOSHUA ALLEN Aug 11, 2018 15:44
--- NOTE | 2018-08-11 18:49 | CONS ---
Assessment/Plan Assessment/Plan Assessment/Plan (Daily) Stage IV lung cancer Extensive thrombus in the internal jugular vein subclavian vein Continue anticoagulation No plan for surgery Consultation Date/Type/Reason Admit Date/Time Aug 05, 2018 at 23:12 Date of Consultation: Aug 11, 2018 Type of Consult 62-year-old male with a history of stage IV lung cancer squamous cell carcinoma patient status post chemotherapy has had a recent ultrasound which shows extensive thrombus in the internal jugular vein and subclavian vein US Partially occlusive thrombus in the right internal jugular vein, left subclavian vein, and left axillary vein. Date/Time of Note DATE: 08/11/18 TIME: 18:48 ENT: no complaints Respiratory: no complaints Cardiovascular: no complaints Gastrointestinal: no complaints Genitourinary: no complaints Musculoskeletal: no complaints Skin: no complaints Neurologic: no complaints Past Medical History Medical History: cancer Home Meds Active Scripts Omeprazole* (Omeprazole*) 20 Mg Capsule.dr, 20 MG PO DAILY for 30 Days, #30 CAP otc Prov:ALESSANDRO HERNANDEZ MD 06/12/18 Ondansetron Hcl* (Zofran*) 8 Mg Tablet, 8 MG PO TID for 10 Days, #30 TAB 1 Refill Prov:ALESSANDRO HERNANDEZ MD 06/12/18 Reported Medications Hydromorphone Hcl* (Dilaudid*) 2 Mg Tablet, 2 MG PO Q4H, TAB 07/20/18 Sertraline Hcl* (Sertraline Hcl*) 100 Mg Tablet, 100 MG PO QHS, #30 TAB 06/10/18 Ferrous Sulfate* (Ferrous Sulfate*) 325 Mg Tabec, 325 MG PO BID, TAB 06/10/18 Medications Current Medications IV Flush (NS 3 ml) 3 ml PER PROTOCOL IV ; Start 08/05/18 at 23:30 Ondansetron HCl (Zofran Inj) 4 mg Q6H PRN IV NAUSEA/VOMITING; Start 08/05/18 at 23:30 Acetaminophen (Tylenol Tab) 650 mg Q6H PRN PO .PAIN 1-3 OR TEMP; Start 08/05/18 at 23:30 Docusate Sodium (Colace) 100 mg Q12H PRN PO .CONSTIPATION; Start 08/05/18 at 23:30 Bisacodyl (Dulcolax) 5 mg DAILY PRN PO .CONSTIPATION; Start 08/05/18 at 23:30 Levalbuterol (Xopenex Neb) 1.25 mg Q4H RESP THERAPY PRN HHN SHORTNESS OF BREATH Last administered on 08/10/18 12:38; Admin Dose 1.25 MG; Start 08/06/18 at 01:00 Vancomycin HCl (Vanco Iv Per Pharmacy) VANCOMYCIN PER PHARMACY PER PROTOCOL XX ; Start 08/06/18 at 01:00 Levalbuterol (Xopenex Neb) 1.25 mg Q6H RESP THERAPY HHN Last administered on 08/11/18 15:13; Admin Dose 1.25 MG; Start 08/06/18 at 14:00 Ipratropium [place] (Atrovent 0.02% (Neb)) 0.5 mg Q6HWA RESP THERAPY HHN Last administered on 08/11/18 15:13; Admin Dose 0.5 MG; Start 08/06/18 at 14:00 Ipratropium [place] (Atrovent 0.02% (Neb)) 0.5 mg Q4H RESP THERAPY PRN HHN SHORTNESS OF BREATH Last administered on 08/11/18 02:31; Admin Dose 0.5 MG; Start 08/06/18 at 13:00 Budesonide (Pulmicort (Neb)) 0.5 mg BID RESP THERAPY HHN Last administered on 08/10/18 20:11; Admin Dose 0.5 MG; Start 08/06/18 at 20:00 Pantoprazole (Protonix Tab) 40 mg BID@06,18 PO Last administered on 08/11/18 06:47; Admin Dose 40 MG; Start 08/07/18 at 18:00 Sucralfate (Carafate Susp) 1 gm QID PO Last administered on 08/11/18 17:00; Admin Dose 1 GM; Start 08/07/18 at 17:00 Alteplase, Recombinant (Cathflo (Activase)) 2 mg MAY REPEAT X1 PRN CATHETER IF CATHETER REMAINS OCCULUDED Last administered on 08/10/18 14:37; Admin Dose 2 MG; Start 08/08/18 at 13:00 Vancomycin/Sodium Chloride 250 ml @ 125 mls/hr Q12H IVPB Last administered on 08/11/18 18:45; Admin Dose 125 MLS/HR; Start 08/09/18 at 06:00 Hydromorphone HCl (Dilaudid) 2 mg Q3H PRN IV PAIN Last administered on 08/11/18 14:35; Admin Dose 2 MG; Start 08/10/18 at 17:30 Hydromorphone HCl (Dilaudid NURSE RN BSN) 1.0 MG/HR CONTINUOUS RATE ... Q4PCA IV Last administered on 08/11/18 11:59; Admin Dose 0.2 MG; Start 08/11/18 at 10:30; Status Hold Methadone HCl (Methadone Liq) 2 mg Q4 PO Last administered on 08/11/18 13:16; Admin Dose 2 MG; Start 08/11/18 at 13:00; Status Hold Methylprednisolone Sodium Succinate (Solu-Medrol) 60 mg Q8 IV Last administered on 08/11/18 13:16; Admin Dose 60 MG; Start 08/11/18 at 14:00 Sodium Chloride 1,000 ml @ 50 mls/hr Q20H IV Last administered on 08/11/18 11:41; Admin Dose 50 MLS/HR; Start 08/11/18 at 11:00 Lorazepam (Ativan) 0.5 mg BID PRN PO ANXIETY Last administered on 08/11/18 16:42; Admin Dose 0.5 MG; Start 08/11/18 at 11:00 Meropenem/Sodium Chloride 50 ml @ 100 mls/hr Q8 IVPB Last administered on 08/11/18 14:35; Admin Dose 100 MLS/HR; Start 08/11/18 at 14:00 Enoxaparin Sodium (Lovenox) 50 mg Q12 SC ; Start 08/11/18 at 21:00 Allergies: Coded Allergies: No Known Allergy (Unverified , 07/20/18) Past Surgical History Past Surgical Hx: no surgical history, appendectomy Social History Alcohol Use: none Smoking Status: Former smoker Drug Use: none Exam/Review of Systems Exam Vitals Vital Signs Date Temp Pulse Resp B/P (MAP) Pulse Ox O2 O2 Flow FiO2 Time Delivery Rate 08/11/18 122 16:00 08/11/18 28 92 Nasal 6.0 15:38 Cannula 08/11/18 97.5 108/74 15:33 (85) 08/09/18 21 13:30 Intake and Output 6/21/19 6/21/19 6/22/19 1515:00 23:00 07:00 IntakeIntake Total 700 ml 702.9 ml 106 ml OutputOutput Total 300 ml 100 ml BalanceBalance 400 ml 702.9 ml 6 ml Eyes: nl conjunctiva, EOMI, nl lids, nl sclera, PERRL ENMT: nl external ears & nose, nl lips & teeth, nl nasal mucosa & septum Neck: supple, non-tender Respiratory: clear to auscultation, normal air movement Cardiovascular: regular rate and rhythm, nl pulses Musculoskeletal: nl extremities to inspection, nl gait and stance Results Result Diagram: 08/11/18 1420 08/11/18 0951 Results 24hrs Laboratory Tests Test 08/11/18 09:51 08/11/18 14:20 Sodium Level 139 Potassium Level 4.9 Chloride Level 106 Carbon Dioxide Level 16 L Anion Gap 17 #H Blood Urea Nitrogen 25 H Creatinine 0.86 Est Glomerular Filtrat Rate mL/min > 60 Glucose Level 128 Calcium Level 11.4 H Total Bilirubin 0.5 Direct Bilirubin 0.00 Indirect Bilirubin 0.5 Aspartate Amino Transf (AST/SGOT) 44 Alanine Aminotransferase (ALT/SGPT) 34 Alkaline Phosphatase 122 H Total Protein 7.2 Albumin 3.8 Globulin 3.40 H Albumin/Globulin Ratio 1.11 White Blood Count 51.1 #H Red Blood Count 3.30 L Hemoglobin 9.0 L Hematocrit 29.3 L Mean Corpuscular Volume 88.8 Mean Corpuscular Hemoglobin 27.3 L Mean Corpuscular Hemoglobin Concent 30.7 L Red Cell Distribution Width 22.6 H Platelet Count 452 H Mean Platelet Volume 10.8 H Immature Granulocytes % 2.400 H Segmented Neutrophils % (Manual) 92 H Band Neutrophils % (Manual) 4 Monocytes % (Manual) 4 Nucleated Red Blood Cells % 0.0 Immature Granulocytes # 1.220 H Neutrophils # (Manual) 48.0 H Band Neutrophils # 2.0 H Monocytes # (Manual) 2.0 H Platelet Estimate NORMAL Polychromasia 1+ Poikilocytosis 2+ Anisocytosis 1+ Microcytosis 1+ Macrocytosis 1+ Ovalocytes 1+ Medications Medication Current Medications IV Flush (NS 3 ml) 3 ml PER PROTOCOL IV ; Start 08/05/18 at 23:30 Ondansetron HCl (Zofran Inj) 4 mg Q6H PRN IV NAUSEA/VOMITING; Start 08/05/18 at 23:30 Acetaminophen (Tylenol Tab) 650 mg Q6H PRN PO .PAIN 1-3 OR TEMP; Start 08/05/18 at 23:30 Docusate Sodium (Colace) 100 mg Q12H PRN PO .CONSTIPATION; Start 08/05/18 at 23:30 Bisacodyl (Dulcolax) 5 mg DAILY PRN PO .CONSTIPATION; Start 08/05/18 at 23:30 Levalbuterol (Xopenex Neb) 1.25 mg Q4H RESP THERAPY PRN HHN SHORTNESS OF BREATH Last administered on 08/10/18at 12:38; Admin Dose 1.25 MG; Start 08/06/18 at 01:00 Vancomycin HCl (Vanco Iv Per Pharmacy) VANCOMYCIN PER PHARMACY PER PROTOCOL XX ; Start 08/06/18 at 01:00 Levalbuterol (Xopenex Neb) 1.25 mg Q6H RESP THERAPY HHN Last administered on 08/11/18at 15:13; Admin Dose 1.25 MG; Start 08/06/18 at 14:00 Ipratropium [place] (Atrovent 0.02% (Neb)) 0.5 mg Q6HWA RESP THERAPY HHN Last administered on 08/11/18at 15:13; Admin Dose 0.5 MG; Start 08/06/18 at 14:00 Ipratropium [place] (Atrovent 0.02% (Neb)) 0.5 mg Q4H RESP THERAPY PRN HHN SHORTNESS OF BREATH Last administered on 08/11/18at 02:31; Admin Dose 0.5 MG; Start 08/06/18 at 13:00 Budesonide (Pulmicort (Neb)) 0.5 mg BID RESP THERAPY HHN Last administered on 08/10/18 20:11; Admin Dose 0.5 MG; Start 08/06/18 at 20:00 Pantoprazole (Protonix Tab) 40 mg BID@,18 PO Last administered on 08/11/18 06:47; Admin Dose 40 MG; Start 08/07/18 at 18:00 Sucralfate (Carafate Susp) 1 gm QID PO Last administered on 08/11/18 17:00; Admin Dose 1 GM; Start 08/07/18 at 17:00 Alteplase, Recombinant (Cathflo (Activase)) 2 mg MAY REPEAT X1 PRN CATHETER IF CATHETER REMAINS OCCULUDED Last administered on 08/10/18 14:37; Admin Dose 2 MG; Start 08/08/18 at 13:00 Vancomycin/Sodium Chloride 250 ml @ 125 mls/hr Q12H IVPB Last administered on 08/11/18 18:45; Admin Dose 125 MLS/HR; Start 08/09/18 at 06:00 Hydromorphone HCl (Dilaudid) 2 mg Q3H PRN IV PAIN Last administered on 08/11/18 14:35; Admin Dose 2 MG; Start 08/10/18 at 17:30 Hydromorphone HCl (Dilaudid NURSE RN BSN) 1.0 MG/HR CONTINUOUS RATE ... Q4PCA IV Last administered on 08/11/18 11:59; Admin Dose 0.2 MG; Start 08/11/18 at 10:30; Status Hold Methadone HCl (Methadone Liq) 2 mg Q4 PO Last administered on 08/11/18 13:16; Admin Dose 2 MG; Start 08/11/18 at 13:00; Status Hold Methylprednisolone Sodium Succinate (Solu-Medrol) 60 mg Q8 IV Last administered on 08/11/18 13:16; Admin Dose 60 MG; Start 08/11/18 at 14:00 Sodium Chloride 1,000 ml @ 50 mls/hr Q20H IV Last administered on 08/11/18 11:41; Admin Dose 50 MLS/HR; Start 08/11/18 at 11:00 Lorazepam (Ativan) 0.5 mg BID PRN PO ANXIETY Last administered on 08/11/18 16:42; Admin Dose 0.5 MG; Start 08/11/18 at 11:00 Meropenem/Sodium Chloride 50 ml @ 100 mls/hr Q8 IVPB Last administered on 08/11/18 14:35; Admin Dose 100 MLS/HR; Start 08/11/18 at 14:00 Enoxaparin Sodium (Lovenox) 50 mg Q12 SC ; Start 08/11/18 at 21:00 FELIX XIE MD Aug 11, 2018 18:49
[2018-08-11] MEDS: ENOXAPARIN 60 MG/0.6 ML SYG SC SCH (21:00)
[2018-08-11] MEDS ORDERED: HALOPERIDOL 5 MG INJ IM ONE (22:00)
[2018-08-11] MEDS ORDERED: LORAZEPAM 2 MG INJ IV ONE (22:00)
[2018-08-11] MEDS ORDERED: ALTEPLASE (CATHFLO) 2 MG INJ CATHETER PRN (22:00)
[2018-08-12] VITALS (13 sets, daily range): BP systolic 97–138; BP diastolic 67–85; PULSE 97–128; RESP 20–26
[2018-08-12] MEDS: IPRATROPIUM (NEB) 0.5 MG/2.5 ML AMP HHN PRN ×2 (01:48→05:22)
[2018-08-12] MEDS: LEVALBUTEROL (NEB) 1.25 MG/0.5 ML AMP HHN SCH ×2 (01:48→08:00)
[2018-08-12] MEDS ORDERED: FUROSEMIDE 20 MG INJ IV ONE (04:30)
--- NOTE | 2018-08-12 04:57 | PN ---
DATE: 08/11/2018 SUBJECTIVE: Chart reviewed. The patient on 2 liters O2 nasal cannula, saturating 93%. The patient still has some shortness of breath especially on ambulation. PHYSICAL EXAMINATION: VITAL SIGNS: Blood pressure 114/58, pulse 120, respirations 20, temperature 98. HEENT: Pupils are equal and reactive to light. NECK: Supple, no JVD noted, no cervical adenopathy noted. LUNGS: Decreased breath sounds at the right side. Few scattered rhonchi on the left. CARDIOVASCULAR: S1 and S2. Tachycardic. ABDOMEN: Soft, nontender, no organomegaly or masses noted. EXTREMITIES: No clubbing, cyanosis noted. NEUROLOGIC: Awake. LABORATORY DATA: Sodium 139, potassium 4.9, chloride 106, CO2 16, BUN 25, creatinine 0.86, glucose 1 28. IMAGING: CT angio of the chest was done yesterday which revealed a right lower lobe mass with signif icant adenopathy, small to moderate right pleural effusion, scattered metastatic nodules are present in the right upper lobe and left lung as well. IMPRESSION: 1. Stage IV metastatic lung cancer with likely post-obstructive pneumonia. 2. Severe chronic obstructive pulmonary disease. 3. Small to moderate size pleural effusion not large enough to require thoracentesis. RECOMMENDATIONS: 1. No need for thoracentesis at this time. 2. Palliative care. 3. Consider hospice evaluation and further treatment. Dictated By: AGNES MONTOYA MD, MA/ZITA Conf#: [id number] DID#: [id number] CC: ELLA WARREN MD;*EndCC*
[2018-08-12] MEDS: METHYLPREDNISOLONE 125 MG INJ IV SCH (05:06)
[2018-08-12] MEDS: LEVALBUTEROL (NEB) 1.25 MG/0.5 ML AMP HHN PRN (05:22)
[2018-08-12] MEDS ORDERED: HALOPERIDOL 5 MG INJ IM ONE (05:30)
[2018-08-12] MEDS: LORAZEPAM 2 MG INJ IV PRN ×2 (05:33→08:41)
[2018-08-12] MEDS: MEROPENEM 1 GM/50ML(PMX) 50 ML IVPB SCH (05:35)
[2018-08-12] MEDS: PANTOPRAZOLE (EC) 40 MG TAB PO SCH (06:00)
[2018-08-12] MEDS: VANCOMYCIN 750 MG (PMX) 250 ML IVPB SCH (06:15)
[2018-08-12] MEDS: IPRATROPIUM (NEB) 0.5 MG/2.5 ML AMP HHN SCH (08:00)
[2018-08-12] MEDS: SUCRALFATE (100 MG/ML) 10ML CUP PO SCH ×2 (08:52→12:43)
[2018-08-12] MEDS: BUDESONIDE (NEB) 0.5MG/2ML AMP HHN SCH (09:00)
[2018-08-12] MEDS: ENOXAPARIN 60 MG/0.6 ML SYG SC SCH (09:35)
--- NOTE | 2018-08-12 09:58 | CONS ---
Assessment/Plan Assessment/Plan Assessment/Plan (Daily) # SQUAMOUS CELL CARCINOMA, MODERATELY-DIFFERENTIATED, RIGHT LOWER LOBE, PDL-1 10%. ECOG 1 -initial PEt CT 09/2017 demonstrates involvement in right lung with an 8cm mass and bilateral hypermetabolic pulmonary nodules and right hilar adenopathy -initial Brain MRI is negative - pt initially received 4 cycles of Carboplatin-Gemcitabine -01/2018 and 02/2018 CT Chest showed progression of disease -02/2018 CT Brain negative -pt randomized to single agent nivolumab which he has since progressed through -pt has since received only received 3 doses of [place]/Carbo,last given on 07/27. Pt has not been able to get the chemotherapy as scheduled due to need for hospitalizations. Therefore, even though there is some progression on the CT, ti is difficult to attribute this to failure of gem/carbo. 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 continue for now -managed by Dr Ewing #Hypercalcemia -Ca 10 -continue monthly bisphosphonate therapy #Anemia -s/p transfuse 2 units of PRBCs -continue procrit 40,000 weekly as an out patient -will scheduled out patient blood transfusions #SOB -improved, will continue to monitor -start nebulizer tx at home -pt states he needs less nebulizer treatment Patient seen in collaboration with Dr Kunz. Consultation Date/Type/Reason Admit Date/Time Aug 05, 2018 at 23:12 Initial Consult Date 08/07/18 Type of Consult oncology Reason for Consultation SQUAMOUS CELL CARCINOMA Requesting Provider: ELLA WARREN Date/Time of Note DATE: 08/12/18 TIME: 09:58 24 HR Interval Summary Free Text/Dictation Family at bed side- all Qs answered. Family decided for Hospice dw staff Subjective hx not possible: pt non-verbal Constitutional: requiring O2 (on BIPAB) Detailed Summary Respiratory: shortness of breath Exam/Review of Systems Exam Vitals Vital Signs Date Temp Pulse Resp B/P (MAP) Pulse Ox O2 O2 Flow FiO2 Time Delivery Rate 08/12/18 127 100 100 05:22 08/12/18 98.0 20 114/74 BIPAP 04:10 (87) 08/11/18 6.0 15:38 Intake and Output 08/11/18 08/11/18 08/12/18 1515:00 23:00 07:00 IntakeIntake Total 1500 ml OutputOutput Total 650 ml BalanceBalance 850 ml Constitutional: non-verbal, frail Psych: nl mood/affect ENMT: nl external ears & nose Neck: non-tender Respiratory: diminished breath sounds, other (on BIPAP) Cardiovascular: nl pulses, other (s1s2) Gastrointestinal: soft Musculoskeletal: muscle weakness Extremities: normal pulses Neurological: confused, lethargic Results Result Diagram: 08/12/18 0056 08/12/18 0056 Results 24hrs Laboratory Tests Test 08/11/18 14:20 08/12/18 00:56 White Blood Count 51.1 #H 30.0 #H Red Blood Count 3.30 L 2.83 L Hemoglobin 9.0 L 7.8 L Hematocrit 29.3 L 25.4 L Mean Corpuscular Volume 88.8 89.8 Mean Corpuscular Hemoglobin 27.3 L 27.6 L Mean Corpuscular Hemoglobin Concent 30.7 L 30.7 L Red Cell Distribution Width 22.6 H 22.3 H Platelet Count 452 H 246 # Mean Platelet Volume 10.8 H 10.3 Immature Granulocytes % 2.400 H 1.200 H Segmented Neutrophils % (Manual) 92 H Band Neutrophils % (Manual) 4 Monocytes % (Manual) 4 Nucleated Red Blood Cells % 0.0 0.0 Immature Granulocytes # 1.220 H 0.370 H Neutrophils # (Manual) 48.0 H Band Neutrophils # 2.0 H Monocytes # (Manual) 2.0 H Platelet Estimate NORMAL Polychromasia 1+ Poikilocytosis 2+ Anisocytosis 1+ Microcytosis 1+ Macrocytosis 1+ Ovalocytes 1+ Neutrophils % 94.1 H Lymphocytes % 1.1 L Monocytes % 3.4 Eosinophils % 0.1 Basophils % 0.1 Neutrophils # 28.3 H Lymphocytes # 0.3 L Monocytes # 1.0 H Eosinophils # 0.0 Basophils # 0.0 Nucleated Red Blood Cells # 0.0 Sodium Level 140 Potassium Level 4.4 Chloride Level 110 Carbon Dioxide Level 20 L Anion Gap 10 # Blood Urea Nitrogen 28 H Creatinine 0.69 Est Glomerular Filtrat Rate mL/min > 60 Glucose Level 95 Lactic Acid Level 2.8 *H Calcium Level 10.4 H Phosphorus Level 2.8 Magnesium Level 2.5 Medications Medication Current Medications IV Flush (NS 3 ml) 3 ml PER PROTOCOL IV ; Start 08/05/18 at 23:30 Ondansetron HCl (Zofran Inj) 4 mg Q6H PRN IV NAUSEA/VOMITING; Start 08/05/18 at 23:30 Acetaminophen (Tylenol Tab) 650 mg Q6H PRN PO .PAIN 1-3 OR TEMP; Start 08/05/18 at 23:30 Docusate Sodium (Colace) 100 mg Q12H PRN PO .CONSTIPATION; Start 08/05/18 at 23:30 Bisacodyl (Dulcolax) 5 mg DAILY PRN PO .CONSTIPATION; Start 08/05/18 at 23:30 Levalbuterol (Xopenex Neb) 1.25 mg Q4H RESP THERAPY PRN HHN SHORTNESS OF BREATH Last administered on 08/12/18 05:22; Admin Dose 1.25 MG; Start 08/06/18 at 01:00 Vancomycin HCl (Vanco Iv Per Pharmacy) VANCOMYCIN PER PHARMACY PER PROTOCOL XX ; Start 08/06/18 at 01:00 Levalbuterol (Xopenex Neb) 1.25 mg Q6H RESP THERAPY HHN Last administered on 08/12/18at 01:48; Admin Dose 1.25 MG; Start 08/06/18 at 14:00 Ipratropium [place] (Atrovent 0.02% (Neb)) 0.5 mg Q6HWA RESP THERAPY HHN Last administered on 08/11/18at 19:59; Admin Dose 0.5 MG; Start 08/06/18 at 14:00 Ipratropium [place] (Atrovent 0.02% (Neb)) 0.5 mg Q4H RESP THERAPY PRN HHN SHORTNESS OF BREATH Last administered on 08/12/18 05:22; Admin Dose 0.5 MG; Start 08/06/18 at 13:00 Budesonide (Pulmicort (Neb)) 0.5 mg BID RESP THERAPY HHN Last administered on 08/11/18at 19:59; Admin Dose 0.5 MG; Start 08/06/18 at 20:00 Pantoprazole (Protonix Tab) 40 mg BID@ PO Last administered on 08/11/18at 06:47; Admin Dose 40 MG; Start 08/07/18 at 18:00 Sucralfate (Carafate Susp) 1 gm QID PO Last administered on 08/11/18 17:00; Admin Dose 1 GM; Start 08/07/18 at 17:00 Vancomycin/Sodium Chloride 250 ml @ 125 mls/hr Q12H IVPB Last administered on 08/12/18 06:15; Admin Dose 125 MLS/HR; Start 08/09/18 at 06:00 Hydromorphone HCl (Dilaudid) 2 mg Q3H PRN IV PAIN Last administered on 08/11/18 19:38; Admin Dose 2 MG; Start 08/10/18 at 17:30 Hydromorphone HCl (Dilaudid PROJECT MANAGER RETAIL) 1.0 MG/HR CONTINUOUS RATE ... Q4PCA IV Last administered on 08/11/18 11:59; Admin Dose 0.2 MG; Start 08/11/18 at 10:30; Status Hold Methadone HCl (Methadone Liq) 2 mg Q4 PO Last administered on 08/11/18 13:16; Admin Dose 2 MG; Start 08/11/18 at 13:00; Status Hold Methylprednisolone Sodium Succinate (Solu-Medrol) 60 mg Q8 IV Last administered on 08/12/18 05:06; Admin Dose 60 MG; Start 08/11/18 at 14:00 Meropenem/Sodium Chloride 50 ml @ 100 mls/hr Q8 IVPB Last administered on 08/12/18 05:35; Admin Dose 100 MLS/HR; Start 08/11/18 at 14:00 Enoxaparin Sodium (Lovenox) 50 mg Q12 SC Last administered on 08/12/18 09:35; Admin Dose 50 MG; Start 08/11/18 at 21:00 Alteplase, Recombinant (Cathflo (Activase)) 2 mg MAY REPEAT X1 PRN CATHETER IF CATHETER REMAINS OCCULUDED Last administered on 08/11/18 22:39; Admin Dose 2 MG; Start 08/11/18 at 22:00 Lorazepam (Ativan) 0.5 mg Q2 PRN IV ANXIETY Last administered on 08/12/18 08:41; Admin Dose 0.5 MG; Start 08/12/18 at 05:30 JOSHUA ALLEN Aug 12, 2018 09:58
[2018-08-12] MEDS ORDERED: FUROSEMIDE 40 MG INJ IV ONE (10:00)
--- NOTE | 2018-08-12 11:00 | PN ---
Date/Time of Note Date/Time of Note DATE: 08/12/18 TIME: 10:53 Objective Vitals Vital Signs Date Temp Pulse Resp B/P (MAP) Pulse Ox O2 O2 Flow FiO2 Time Delivery Rate 08/12/18 128 08:00 08/12/18 100 100 05:22 08/12/18 98.0 20 114/74 BIPAP 04:10 (87) 08/11/18 6.0 15:38 Intake and Output 08/11/18 08/11/18 08/12/18 1515:00 23:00 07:00 IntakeIntake Total 1500 ml OutputOutput Total 650 ml BalanceBalance 850 ml Results Result Diagram: 08/12/18 0056 08/12/18 0056 Medications Medications Current Medications IV Flush (NS 3 ml) 3 ml PER PROTOCOL IV ; Start 08/05/18 at 23:30 Ondansetron HCl (Zofran Inj) 4 mg Q6H PRN IV NAUSEA/VOMITING; Start 08/05/18 at 23:30 Acetaminophen (Tylenol Tab) 650 mg Q6H PRN PO .PAIN 1-3 OR TEMP; Start 08/05/18 at 23:30 Docusate Sodium (Colace) 100 mg Q12H PRN PO .CONSTIPATION; Start 08/05/18 at 23:30 Bisacodyl (Dulcolax) 5 mg DAILY PRN PO .CONSTIPATION; Start 08/05/18 at 23:30 Levalbuterol (Xopenex Neb) 1.25 mg Q4H RESP THERAPY PRN HHN SHORTNESS OF BREATH Last administered on 08/12/18at 05:22; Admin Dose 1.25 MG; Start 08/06/18 at 01:00 Vancomycin HCl (Vanco Iv Per Pharmacy) VANCOMYCIN PER PHARMACY PER PROTOCOL XX ; Start 08/06/18 at 01:00 Levalbuterol (Xopenex Neb) 1.25 mg Q6H RESP THERAPY HHN Last administered on 08/12/18at 01:48; Admin Dose 1.25 MG; Start 08/06/18 at 14:00 Ipratropium [place] (Atrovent 0.02% (Neb)) 0.5 mg Q6HWA RESP THERAPY HHN Last administered on 08/11/18at 19:59; Admin Dose 0.5 MG; Start 08/06/18 at 14:00 Ipratropium [place] (Atrovent 0.02% (Neb)) 0.5 mg Q4H RESP THERAPY PRN HHN SHORTNESS OF BREATH Last administered on 08/12/18 05:22; Admin Dose 0.5 MG; Start 08/06/18 at 13:00 Budesonide (Pulmicort (Neb)) 0.5 mg BID RESP THERAPY HHN Last administered on 08/11/18 19:59; Admin Dose 0.5 MG; Start 08/06/18 at 20:00 Pantoprazole (Protonix Tab) 40 mg BID@06,18 PO Last administered on 08/11/18 06:47; Admin Dose 40 MG; Start 08/07/18 at 18:00 Sucralfate (Carafate Susp) 1 gm QID PO Last administered on 08/11/18 17:00; Admin Dose 1 GM; Start 08/07/18 at 17:00 Vancomycin/Sodium Chloride 250 ml @ 125 mls/hr Q12H IVPB Last administered on 08/12/18 06:15; Admin Dose 125 MLS/HR; Start 08/09/18 at 06:00 Hydromorphone HCl (Dilaudid) 2 mg Q3H PRN IV PAIN Last administered on 08/11/18 19:38; Admin Dose 2 MG; Start 08/10/18 at 17:30 Hydromorphone HCl (Dilaudid SMALL ARMS ARTILLERY REPAIRER) 1.0 MG/HR CONTINUOUS RATE ... Q4PCA IV Last administered on 08/11/18 11:59; Admin Dose 0.2 MG; Start 08/11/18 at 10:30; Status Hold Methadone HCl (Methadone Liq) 2 mg Q4 PO Last administered on 08/11/18 13:16; Admin Dose 2 MG; Start 08/11/18 at 13:00; Status Hold Methylprednisolone Sodium Succinate (Solu-Medrol) 60 mg Q8 IV Last administered on 08/12/18 05:06; Admin Dose 60 MG; Start 08/11/18 at 14:00 Meropenem/Sodium Chloride 50 ml @ 100 mls/hr Q8 IVPB Last administered on 08/12/18 05:35; Admin Dose 100 MLS/HR; Start 08/11/18 at 14:00 Enoxaparin Sodium (Lovenox) 50 mg Q12 SC Last administered on 08/12/18at 09:35; Admin Dose 50 MG; Start 08/11/18 at 21:00 Alteplase, Recombinant (Cathflo (Activase)) 2 mg MAY REPEAT X1 PRN CATHETER IF CATHETER REMAINS OCCULUDED Last administered on 08/11/18at 22:39; Admin Dose 2 MG; Start 08/11/18 at 22:00 Lorazepam (Ativan) 0.5 mg Q2 PRN IV ANXIETY Last administered on 08/12/18at 08:41; Admin Dose 0.5 MG; Start 08/12/18 at 05:30 VTE Prophylaxis [place] [facility] risk: 8 SCD applied [place] [facility] No SCD contraindication: other Lines/Catheters IV Catheter Type: Grider in Place: No Assessment/Plan Hospital Course Subjective Patient's family at bedside, overnight they decided to place patient on hospice care, patient currently on BiPAP, not able to answer questions appropriately Objective Physical exam General: Patient is laying in bed and on BiPAP Mentation: Patient is arousable but not oriented, Head: Normocephalic atraumatic Eyes: EOMI, pupils reactive to light Neck: Supple, nontender, midline Respiratory: Coarse to auscultation bilaterally Cardiovascular: Tachycardic rate, no obvious murmurs Gastrointestinal: non-tender to palpation, bowel sounds heard. Neurological: Moves all extremities spontaneously Skin: No new skin lesions Assessment and plan Shortness of breath with pleural effusion -Worsening shortness of breath, patient has been placed on BiPAP overnight -Pulmonary recognitions appreciated -Shortness of breath is likely sequelae of lung carcinoma, CT angiogram showing constriction of pulmonary arteries and possible obstruction of the SVC. Patient also had multiple other issues that are likely contributing. Tachycardia -Persistent, monitor Pneumonia -Patient in immunocompromised state -Broad-spectrum IV antibiotics -Infectious disease consulted Sepsis, mild improvement -Possible secondary to pneumonia -Cultures done -IV fluids given -IV antibiotic -No fever however patient and immunocompromised state so unreliable Generalized fatigue -Secondary to metastatic lung carcinoma -Continue IV hydration and encourage oral intake Hypercalcemia -Chronic, mild, oncology and hematology on board Lower back pain -lumbar xray noted chronic pain -Secondary to cancer -Off Dilaudid drip due to respiratory distress Anemia -Likely secondary to anemia chronic disease -No overt bleeding however will closely monitor and transfuse as needed Severe protein calorie malnutrition -Secondary to carcinoma -IV fluid stopped Metastatic squamous cell lung carcinoma -On immunotherapy as outpatient -Heme-onc on board, plan is to eventually continue chemotherapy -Palliative care also consulted for pain management and end-of-life care recommendations Disposition -Patient has very poor prognosis, respiratory failure overnight, placed on BiPAP, overnight physician had a long extensive talk with family as well as myself, patient will now be placed for inpatient hospice, hospice consult baljit corea. NUVIA WYNNE Aug 12, 2018 11:00
[2018-08-12] MEDS ORDERED: LORAZEPAM 2 MG INJ IV PRN (12:00)
[2018-08-12] MEDS ORDERED: ACETAMINOPHEN 650 MG SUPP PR PRN (12:00)
[2018-08-12] MEDS ORDERED: SCOPOLAMINE 1.5 MG PATCH TRANSDERM SCH (12:00)
[2018-08-12] MEDS ORDERED: ATROPINE 1% 5 ML OPH SL PRN (12:00)
[2018-08-12] MEDS ORDERED: HYDROmorphONE 1 MG/ML SYG IV PRN (12:00)
[2018-08-12] MEDS: HYDROmorphONE 2 MG/ML SYG IV PRN (13:07)
[2018-08-12] MEDS ORDERED: HYDROmorphONE 2 MG TAB PO SCH (13:30)
[2018-08-12] MEDS ORDERED: HYDROmorphONE 50 MG in DEXTROSE 5% 45 ML IV SCH (15:30)
--- NOTE | 2018-08-12 17:50 | PN ---
DATE: 08/12/2018 SUBJECTIVE: Chart reviewed. The patient remains on BiPAP, saturating 100%. PHYSICAL EXAMINATION: VITAL SIGNS: Blood pressure 111/70, pulse 126, respirations 20, temperature 98.3. HEENT: Pupils are equal and reactive to light. NECK: Supple, no JVD noted, no cervical adenopathy noted. LUNGS: Decreased breath sounds on the right. CARDIOVASCULAR: S1, S2 normal, tachycardic. ABDOMEN: Soft, nontender. No organomegaly or masses noted. EXTREMITIES: No clubbing or cyanosis noted. NEUROLOGICAL: Awake. LABORATORY DATA: WBC 30, hemoglobin 7.8, hematocrit 25.4, platelets 246. Sodium 140, potassium 4.4, chloride 110, CO2 of 20, BUN 28, creatinine is 0.69, glucose 95. Chest x-ray shows diffuse bilatera l infiltrates, right lung mass and right pleural effusion. Doppler of the upper extremity shows a pa rtially occlusive thrombus in the right internal jugular vein, left subclavian vein and left axillary vein. IMPRESSION: 1. Stage IV metastatic lung cancer with likely post-obstructive pneumonia. 2. Sepsis. 3. Severe chronic obstructive pulmonary disease. 4. Deep venous thrombosis of upper extremity. 5. Small to moderate size pleural effusion. RECOMMENDATIONS: 1. Continue BiPAP. 2. Continue antibiotics. 3. No need for thoracentesis. 4. The patient is extremely poor prognosis. Dictated By: AGNES MONTOYA MD, MA/ZITA Conf#: [id number] DID#: [id number] CC: ELLA WARREN MD; KIRTI REDD MD; NUVIA WYNNE MD;*End*
--- NOTE | 2018-08-12 19:20 | HP ---
DATE OF ADMISSION: 08/05/2018 LEVEL OF CARE: [facility]. PRIMARY HOSPICE DIAGNOSIS: Metastatic lung cancer. COMORBID: Acute respiratory failure, recent pneumonia, hypercalcemia, low back pain, anemia of vivek banda. CHIEF COMPLAINT: Shortness of breath. HISTORY OF PRESENT ILLNESS: History was obtained from medical record as the patient was on BiPAP and could not provide any useful history. The patient is a 62-year-old gentleman with history of squamo us cell cancer, who was admitted on 08/05/2018 with shortness of breath. The patient was in acute re spiratory failure. The patient was seen by Dr. Arminda uKnz. The patient had CT scan of the chest d one which revealed moderate pleural effusion. The patient's PET scan few months ago also demonstrate d progressive disease. Brain MRI was negative. The patient did receive chemotherapy. The patient, however, continued to decline and patient was referred to palliative care. The patient was seen by Brissa Ewing and was started on Dilaudid GEAR CHANGER. The patient also received blood transfusion for symptom atic anemia. The patient, however, continued to decline and had to be put on BiPAP for comfort and f or shortness of breath. The patient was started on IV Dilaudid at 1 mg an hour yesterday; however, t he patient's family requested to discontinue it and make it only p.r.n. This morning however the delon martinez's family requested to make him as comfortable as possible and they requested to discontinue BiPA P. The patient is lethargic and no useful review of systems was possible. PAST MEDICAL HISTORY: As stated above. SOCIAL HISTORY: Exsmoker. ALLERGIES: NONE. FAMILY HISTORY: Noncontributory. PHYSICAL EXAMINATION: GENERAL: Revealed the patient to be lethargic, on BiPAP. VITAL SIGNS: Blood pressure 114/74, pulse 128, respirations 20, temperature 98. The patient was on FiO2 of 100%. HEENT: No eye discharge or redness. Conjunctivae and lids are normal. Oral examination was not pos sible because of BiPAP. NECK: No mass. Slight use of accessory muscles. CHEST: Revealed diminished air entry bilaterally with scattered coarse breath sounds. CARDIOVASCULAR: Regular rate and rhythm. S1, S2 normal. No murmur. ABDOMEN: Soft, nondistended, nontender. EXTREMITIES: Trace edema. NEUROLOGIC: The patient is lethargic and no useful communication is possible. LABORATORY DATA: Done this morning: WBC 30, hemoglobin 7.8, platelet 246. Chemistry: Sodium 140, potassium 4.4, BUN 28, creatinine 0.6. Lactic acid level this morning was 2.8. IMPRESSION: 1. Metastatic lung cancer. 2. Acute respiratory failure. 3. Chronic obstructive pulmonary disease. 4. Bilateral pleural effusion. PLAN: The patient will be given 2 mg of IV Dilaudid bolus prior to discontinuation of BiPAP and then we will give him 1 mg every 15 minutes as needed. The patient will be subsequently transitioned to Dilaudid drip at 1 mg an hour which will be titrated up for comfort care. We will continue supplemen ervin oxygen. We will continue DuoNeb for chest congestion, IV Zofran for nausea, vomiting and scopola mine patch and atropine drops for secretions. Plan of care was discussed with patient's son, Elyisa Rivera as well as [facility] nurse, Sue. The patient is terminally ill and is appropriate for [facility] level of care. Dictated By: DEMETRIA OLEA MD AB/ZITA Conf#: [id number] DID#: [id number] CC: ELLA WARREN MD; NUVIA WYNNE MD; KIRTI REDD MD;*[facility]*
[2018-08-12] MEDS ORDERED: ONDANSETRON 4 MG TAB PO SCH (21:00)
--- NOTE | 2018-08-13 16:08 | DES ---
DATE OF ADMISSION: 08/05/2018 DATE OF : 08/12/2018 CAUSE OF : Metastatic lung cancer leading to acute respiratory failure. COMORBID CONDITIONS: COPD and bilateral pleural effusions. 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 The patient recently had CT of the chest d one which revealed moderate pleural effusion. The patient also had PET scan done a few months ago wh ich demonstrated progressive disease. The patient was admitted at [facility] due t o respiratory failure and had to put on BiPAP for shortness of breath. The patient on 08/11/2018 was placed on comfort care with IV Dilaudid drip; however the patient's family wanted it to be p.r.n. H owever on 08/12/2018, the patient was noted to be in respiratory distress and family requested hospic e evaluation. I met with several of patient's family members including the patient's son. He reques hallie the patient be made comfort care only. They also requested to remove the BiPAP as soon as possib le and to keep him comfortable. The patient was started on IV Dilaudid drip. Prior to that, the pat ient was given IV Dilaudid bolus prior to removing BiPAP to elevate air hunger. The patient was also started on IV Ativan 1 mg q.12 p.r.n. for terminal anxiety, IV Zofran for nausea, vomiting and DuoNe b for chest congestion. The patient was transferred to hospice floor; however, the patient rapidly d eclined and was pronounced on 08/12/2018 at 14:16. The patient's family was at bedside. [facility] support was provided to the family. Dictated By: DEMETRIA OLEA MD AB/NTS Conf#: [id number] DID#: [id number] CC: ELLA WARREN MD; NUVIA WYNNE MD; KIRTI REDD MD;*End*
== END 2018-08-12 18:18 | disposition expired | DRG 871 ==
LOC: E/R 16:56 → PP2 23:12 → TEL 08-11 01:26 → MS1 08-12 13:35
PROVIDERS: ADMIT Family Medicine; ATTEND Internal Medicine
PROC: 30233N1 Transfusion of Nonautologous Red Blood Cells into Peripheral Vein, Percutaneous Approach (ICD-10-PCS; principal; 2018-08-06)
PROC: 5A09357 Assistance with Respiratory Ventilation, Less than 24 Consecutive Hours, Continuous Positive Airway Pressure (ICD-10-PCS; 2018-08-11)
DX: A41.9 Sepsis, unspecified organism (principal); J18.9 Pneumonia, unspecified organism; J96.00 Acute respiratory failure, unspecified whether with hypoxia or hypercapnia; J91.8 Pleural effusion in other conditions classified elsewhere; E44.0 Moderate protein-calorie malnutrition; C79.9 Secondary malignant neoplasm of unspecified site; C34.31 Malignant neoplasm of lower lobe, right bronchus or lung; Z68.1 Body mass index [BMI] 19.9 or less, adult; I82.623 Acute embolism and thrombosis of deep veins of upper extremity, bilateral; E83.52 Hypercalcemia; R62.7 Adult failure to thrive; E86.0 Dehydration; Y95 Nosocomial condition; D50.9 Iron deficiency anemia, unspecified; D63.0 Anemia in neoplastic disease; J44.9 Chronic obstructive pulmonary disease, unspecified; G89.3 Neoplasm related pain (acute) (chronic); Z87.891 Personal history of nicotine dependence
CPT/HCPCS: 36430; 71045; 71260; 71275; 72100; 80048; 80053; 80202; 81001; 81003; 83605; 83735; 83880; 84100; 84484; 85025; 85610; 85730; 86850; 86900; 86901; 86920; 93005; 93970; 94640; 94660; 94664; 96374; 96375; J1170; J1630; J1644; J1940; J2060; J2185; J2405; J2543; J2930; J2997; J3370; J7030; J7040; P9016; P9047; Q9967